=== PATIENT | female | born 1960 | race Caucasian/White ===

== ENCOUNTER 2020-02-11 20:29 | Emergency (ER) | payer SELFPAY ==
[2020-02-11 20:34] VITALS: BP 164/77; PULSE 96; RESP 16; TEMP 36.7; O2SAT 97
--- NOTE | 2020-02-11 20:43 | W.ED.GENAD ---
Discharge Plan Disposition Patient Disposition: HOME Condition: Good Discharge Details Chief Complaint: DentalOral Clinical Impression: Pain, dental Primary Care Provider: None,None ED Provider: Godwin Pacsal Home Meds and New Rx's Prescriptions: New clindamycin HCl 150 mg capsule 450 mg PO TID 7 Days Qty: 63 RF: 0 Discontinued ibuprofen [Advil] 200 MG tablet 600 mg PO Q6H RF: 0 Discharge Instructions Instructions: Toothache (ED) Additional Instructions: At this time you do not have an abscess that needs to be drained, but there is a mild infection. Please take the clindamycin 450 mg 3 times daily. Please make sure to take this with a yogurt with live culture like activity to prevent any diarrhea. Please take 1000 mg of Tylenol every 6 hours if you tolerate this with no hives or itching, and take 800 mg of ibuprofen every 6 hours. If you notice any worsening of your symptoms, or any new symptoms such as vomiting, diarrhea, fever, chills, shortness of breath, chest pain, numbness, weakness, or fainting , please return immediately to the emergency department for reevaluation. Please follow up with your dentist at [facility] as soon as possible for reassessment and reevaluation. As always, it was a pleasure participating in your medical care today. Medical Decision Making This is a 59-year-old female with no significant past medical history who presents today for evaluation of right upper dental pain. She has history of having tooth removed in the past, she states that 4 to 5 days ago she was eating when 1 of her teeth got wrenched in the right upper dental area over tooth 5. Patient denies any fever chills but does admit to mild swelling in the right upper facial region. She denies any other complaints at this time. She was recommended by her dentist to come in to be checked out. She has been taking ibuprofen. She does have follow-up shortly with her dentist. Exam demonstrates a slightly loose tooth #5, minimal swelling of the face, but no periapical swelling to suggest periapical abscess. No other signs of airway compromise, or swelling in the mouth. No other abnormalities. Patient is afebrile. We will give clindamycin secondary to her penicillin allergy, she states that she has tolerated acetaminophen before, will recommend continuing this and ibuprofen on an outpatient basis with close follow-up with her PCP. We will give her her first dose of clindamycin here. I have extensively reviewed the treatment plan and discharge instructions with the patient. I have addressed all patient concerns at this time. The patient was made aware of what symptoms to monitor for that would warrant a return to the emergency department. Discussed the plan with the patient, they demonstrate verbal understanding and agreement with our assessment and plan at this time. HPI General Date/Time Provider Initiated Documentation: 02/11/20 20:33. HPI Narrative: This is a 59-year-old female with no significant past medical history who presents today for evaluation of right upper dental pain. She has history of having tooth removed in the past, she states that 4 to 5 days ago she was eating when 1 of her teeth got wrenched in the right upper dental area over tooth 5. Patient denies any fever chills but does admit to mild swelling in the right upper facial region. She denies any other complaints at this time. She was recommended by her dentist to come in to be checked out. She has been taking ibuprofen. She does have follow-up shortly with her dentist. Related Data Home Medications Medication Instructions Recorded Confirmed clindamycin HCl 450 mg PO TID 7 Days #63 cap 02/11/20 Previous Rx's Medication Instructions Recorded clindamycin HCl 450 mg PO TID 7 Days #63 cap 02/11/20 Allergies Allergy/AdvReac Type Severity Reaction Status Date / Time acetaminophen Allergy Hives Unverified 02/11/20 20:42 Penicillins Allergy Hives Unverified 02/11/20 20:42 General Stated Complaint: DentalOral RENEE: 4 Review of Systems All systems reviewed & are unremarkable except as noted in HPI and below [facility] Social History Smoking/Tobacco Use Status: Current every day Alcohol Intake: current Alcohol Intake frequency: 0-2 drinks per day Drug use: Never Substance use type: does not use Do you feel safe at home: Yes Do you feel safe in your relationship?: Yes Exam Narrative Exam Narrative: 1.Const: Well-nourished, Well-developed, appearing stated age 2.Eyes: PERRL, no conjunctival injection, and symmetrical lids. 3.ENT: Atraumatic external nose and ears. Moist MM. Neck: Symmetric, trachea midline, No thyromegaly. Tooth 5 is sore to the touch, no periapical abscess or swelling of the gingiva. It is mildly loose. Notably minimal right-sided facial swelling. No fluctuance. No drainage. 4.CVS: +S1/S2, No murmurs or gallops. Peripheral pulses 2+ and equal in all extremities. Brisk capillary refill in all extremities. 5.RESP: Unlabored respiratory effort. Clear to auscultation bilaterally. No wheezes rales or rhonchi 6.GI: Soft, Nontender/Nondistended, No hepatosplenomegaly. No guarding or rebound. 7.MSK: Normocephalic/Atraumatic, Extremities w/o deformity or ttp No cyanosis or clubbing, Normal movement of all extremities 8.Skin: Warm, Dry. No rashes or lesions. 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 Sensation grossly intact, no focal neurologic deficits. 10.Psych: (AAO) x3. Appropriate mood and affect Course Vital Signs Vital signs: Vital Signs Temperature 36.7 C 02/11/20 20:34 Pulse 96 H 02/11/20 20:34 Respiratory Rate 16 02/11/20 20:34 Blood Pressure 164/77 H 02/11/20 20:34 Pulse Oximetry 97 02/11/20 20:34 Temperature 36.7 C 02/11/20 20:34 Temperature Source Skin 02/11/20 20:34 Pulse 96 H 02/11/20 20:34 Respiratory Rate 16 02/11/20 20:34 Respiratory Effort 02/11/20 20:37 Blood Pressure 164/77 H 02/11/20 20:34 Blood Pressure Position Sitting 02/11/20 20:34 Pulse Oximetry 97 02/11/20 20:34 Oxygen Delivery Method Room Air 02/11/20 20:34 Oxygen Flow Rate 0 02/11/20 20:34
[2020-02-11] MEDS: Clindamycin 150 MG CAP, 12 CAPS/BTL 450 MG PO (20:47)
== END 2020-02-11 20:50 | disposition home or self-care (01) ==
LOC: ER 21:04
PROVIDERS: Emergency Provider Student in an Organized Health Care Education/Training Program
DX: R68.84 Jaw pain (principal); K04.7 Periapical abscess without sinus; R22.0 Localized swelling, mass and lump, head
CPT/HCPCS: 99283

== ENCOUNTER 2022-05-01 03:04 | Outpatient (CLI) | payer BC, SELFPAY ==
[2022-05-01 10:58] LABS: Hemoglobin A1C 5.5 % (<5.7)
[2022-05-01 11:11] LABS: ALT 34 U/L (14-59); AST 33 U/L (15-37); Alkaline Phosphatase 67 U/L (46-116); Anion Gap 7.4 mmol/L (3-11); BUN 23 mg/dL (7-18); Bilirubin, Total 0.4 mg/dL (0.2-1.0); CO2 27.6 mmol/L (21.0-32.0); CREATININE 1.1 mg/dL (0.55-1.02); Calcium 9.3 mg/dL (8.5-10.1); Calculated LDL 172 mg/dL (<100); Chloride 104 mmol/L (98-107); Cholesterol 288 mg/dL (<200); Estimated GFR 56.81 (mL/min/1.73m2); Glucose 101 mg/dL (74-106); HDL Cholesterol 101 mg/dL (40-60); Potassium 4.7 mmol/L (3.5-5.1); Sodium 139 mmol/L (136-145); TSH (W/Ref FT4) 3.38 uIU/mL (0.36-3.74); Total Protein 7.4 g/dL (6.4-8.2); Triglyceride 76 mg/dL (<150)
== END 2022-05-01 03:05 | disposition home or self-care (01) ==
LOC: LOS 03:04
PROVIDERS: PCP Nurse Practitioner Family; Visit Provider Nurse Practitioner Family
DX: Z00.00 Encounter for general adult medical examination without abnormal findings (principal)
CPT/HCPCS: 36415; 80053; 80061; 83036; 84443

== ENCOUNTER 2022-07-03 08:47 | Day surgery (SDC) | payer OTHER, SELFPAY ==
[2022-07-03 09:45] VITALS: BP 143/85; PULSE 80; RESP 16; TEMP 36.9; O2SAT 100
[2022-07-03] MEDS: Tropicam./Phenyleph. (1/2.5%) 5 ML BTL OS ×3 (09:51→10:03)
--- NOTE | 2022-07-03 09:55 | W.ANESPRE ---
General Info Date of Service Date Performed: 07/03/22 Height: 5 ft 2 in Weight: 64.4 kg Body Mass Index (BMI): 25.9 Surgical Procedure: Operation Date: 07/03/22 10:40 Proposed Procedure Side Surgeon p Cataract Extraction with IOL Implant Left Osvaldo Alexandra MD Meds Allergies and Home Medications Allergies Allergy/AdvReac Type Severity Reaction Status Date / Time Penicillins Allergy Intermediate Hives Unverified 07/03/22 09:53 acetaminophen Allergy Mild Hives Unverified 07/03/22 09:53 Home Medication Medication Instructions Recorded famotidine 10 mg tablet (Pepcid AC) 10 mg PO DAILY PRN 04/26/22 Current Visit Medications: Current Medications Generic Name Dose Route Start Last Admin Trade Name Freq PRN Reason Stop Dose Admin Miscellaneous Medication 0 ml 07/03/22 06:00 Prednisolone 1%, Moxifloxacin 0.5%, Nepafenac 0.1% 5ml Btl OS DIRECTED ERLINDA Miscellaneous Medication 0 ml 07/03/22 06:00 07/03/22 09:51 Tropicam./Phenyleph. (1/2.5%) 5 Ml Btl OS 1 drp DIRECTED ERLINDA Administration Tetracaine HCl 0 ml 07/03/22 06:00 Tetracaine 0.5% 4 Ml Btl OS DIRECTED ERLINDA PFSH Active Problems Active Problems: Problem Status Onset Code Cortical cataract of left eye H26.9 Nuclear sclerotic cataract of left eye H25.12 Hyperlipidemia E78.5 Cigarette smoker F17.210 Medical History Medical History Endometriosis Surgical History Surgical History S/P hysterectomy with oophorectomy S/P ORIF (open reduction internal fixation) fracture Left foot Tobacco Smoking/Tobacco Use Status: Current every day Tobacco Type: cigarettes Smoking cigarettes per day: 3 Years smoked: 40 Smoking pack-years: 6.00 Passive smoking exposure: Yes Second hand exposure: Yes Alcohol Alcohol Intake: current Alcohol intake frequency: a few times a week Alcohol type: hard liquor Substance Use Substance use: Never Substance use type: does not use Vital Signs and Lab Results Vital Signs Most Recent Vital Signs in EMR: Most Recent Vital Signs Temp Pulse Resp BP Pulse Ox 36.9 C 80 16 143/85 H 100 07/03/22 09:45 07/03/22 09:45 07/03/22 09:45 07/03/22 09:45 07/03/22 09:45 Lab Results Blood Type / Crossmatch: No Data to Display Complete Blood Count: No Data to Display Complete Metabolic Panel: No Data to Display Liver Function Panel: No Data to Display Coagulation Panel: No Data to Display Cardiac Panel: No Data to Display Arterial Blood Gas: No Data to Display Venous Blood Gas: No Data to Display Pancreas Panel: No Data to Display Thyroid Panel: No Data to Display Infectious Disease: No Data to Display Blood Cultures: No Data to Display Toxicology Panel: No Data to Display Anesthesia Assessment and Plan Anesthesia History Personal History: No History of Anesthesia Complications Family History: No Family History of Anesthesia Complications Exercise Tolerance Exercise Tolerance: Metabolic Equivalents>4 Pertinent Negatives Pertinent Negatives: No Symptoms of GERD, No Major Cardiovascular Symptoms or Complaints and No Major Pulmonary Symptoms or Complaints Cardiac & Pulmonary Exam Cardiac Exam: Normal S1/S2 Heart Sounds Pulmonary Exam: Clear Bilateral Breath Sounds Implantable Cardiac Device Does patient have a Pacemaker or an ICD?: No Airway Exam Known Difficult Airway: No Mallampati Class: 1 Mouth Opening: Normal (> 3cm) Thyromental Distance: Greater than 3 cm Neck Range of Motion: Full ROM Neck Circumference: Normal Teeth Condition: Removable Dentures/Plates Lower ASA Classification ASA Score: ASA 2 Emergency Case?: No NPO Status NPO Status: NPO Clears >2 hours, Solids >8 hours Anesthesia Plan Resuscitation Status: Full Code Anesthesia Technique: MAC Anesthesia Airway Planned: Natural Airway Monitors Used: Standard Monitors
[2022-07-03 10:25] VITALS: BMI 25.9
[2022-07-03] MEDS: Tetracaine 0.5% 4 ML BTL OS (10:52)
[2022-07-03] MEDS: Balanced Salt Soln.-PLUS 500 ML BAG (10:53)
[2022-07-03] MEDS: Duovisc Viscoelastic System EACH 1 EACH (10:54)
[2022-07-03] MEDS: Lidocaine 1% Pres-Free 5 ML VIAL (10:55)
[2022-07-03] MEDS: Lidocaine 2% Jelly 6 ML SYR (10:56)
[2022-07-03] MEDS: Povidone-Iodine Ophth 30 ML BTL (10:58)
[2022-07-03 11:04] VITALS: BP 121/82; PULSE 71; RESP 16; TEMP 36.2; O2SAT 97
--- NOTE | 2022-07-03 11:05 | W.PM.DSUDISC ---
Date of service: 07/03/22 Time of Service: 11:05 Discharge Plan Disposition Patient Disposition: Home Discharge Details Attending Provider: Osvaldo Alexandra Primary Care Provider: Sophie Ramos Home Meds and New Rx's Prescriptions: No Action famotidine [Pepcid AC] 10 mg tablet 10 mg PO DAILY PRN Discharge Instructions Stand Alone Forms: Post-op Topical Cataract, [place] (DSU) Discharge Orders Discharge Orders: Discharge Order (Routine); Ordered 07/03/22 Ordered By: Osvaldo Alexandra DS: Diagnosis Discharge Diagnosis (1) Cortical cataract of left eye: Status: Resolved (2) Nuclear sclerotic cataract of left eye: Status: Resolved
--- NOTE | 2022-07-03 11:06 | ROE_ITS ---
Date of service: 07/03/22 Time of Service: 11:06 Operative Note Operative Note DATE OF PROCEDURE: 07/03/22 PRE-OP DIAGNOSIS: Nuclear/cortical cataract, left eye POST-OP DIAGNOSIS: same PROCEDURE: Cataract extraction using phacoemulsification with intraocular lens implant, left eye SURGEON: Osvaldo Alexandra ANESTHESIA TYPE: Local By Surgeon and MAC Refer to Anesthesia Record PATHOLOGY: none sent COMPLICATIONS: None Patient was transported to: same day Patient's condition: stable Implants: Stan and Stan / [employer] Tecnis [id number] Indications: Progressive decreased vision due to cataract, left eye Procedure Description: CATARACT SURGERY OPERATIVE REPORT PREOPERATIVE DIAGNOSIS: 1. Nuclear/cortical cataract, left eye POSTOPERATIVE DIAGNOSIS: Same OPERATION: 1. Cataract extraction using phacoemulsification with posterior chamber intraocular lens implant, left eye. IOL: IOL Child Caregiver Private Home/Model: Stan & Stan / INGRID Tecnis [id number] IOL Power: + 17.0 diopters IOL Serial Number: [id number] Optic Diameter: 6.0 mm Haptic/Overall Diameter: 13.0 mm PHACO INFO: RossStardollon Vision System with OZil and Active Fluidics Cumulative Dispersed Energy (CDE): 7.7 seconds SURGEON: Osvaldo Alexandra MD, MAITE ANESTHESIA: Monitored A [facility] (MAC), with local sub-tenon's anesthetic infiltration COMPLICATIONS: None SPECIMENS: None INDICATIONS FOR PROCEDURE: The patient is a 62-year-old lady with history of diminished visual acuity in her left eye secondary to the development of significant nuclear/cortical cataract. She is significantly symptomatic that she desires cataract surgery and attempt to improve and maximize her vision. The option of cataract surgery was offered to the patient and she wished to proceed. PROCEDURE: The correct surgical eye was identified and marked as the left eye and the pupil was dilated in the preoperative area using mydriatics and cycloplegics. The dilated pupil size was 6.5 mm. The patient elected to proceed without oral sedation. The patient was brought to the operating room where cardiopulmonary monitoring was instituted and surgical time-out was performed, confirming the correct operative eye and IOL power. Topical anesthesia was administered and ophthalmic povidone-iodine 5% was instilled into the conjunctival fornices. Lidocaine gel was applied to the cornea and the eli-ocular area was prepped with Betadine 10% solution and draped in the usual sterile fashion for intraocular surgery, including an aperture drape. A Tegaderm transparent film dressing was cut in half and used to cover the lashes and lid margins. Care was taken to sequester the lashes and lid margins under the Tegaderm dressing. A lid speculum was placed between the lids of the operative eye and the Ross LuxOR Revalia operating microscope was maneuvered into position. Elizabeth scissors were then used to make a conjunctival buttonhole approximately 6mm posterior to the limbus in the inferonasal quadrant. Blunt dissection was carried out to expose bare sclera, and a blunt-tipped sub-tenon?s anesthesia cannula was introduced and passed posteriorly along the globe where non- preserved plain lidocaine was injected into posterior sub-Tenon?s space. A sideport knife was used to make a paracentesis port superiorly/superiortemporally. Intraocular phenylephrine/lidocaine was injected int the anterior chamber.. The anterior chamber was filled with viscoelastic. A keratome knife was used to construct a 2-plane near-clear corneal tunnel extending 2.0mm into clear cornea temporally. A flap was raised on the anterior capsule and capsulorhexis forceps were used to complete a continuous curvilinear capsulorhexis of 5.5 mm. Balanced salt solution was then used to perform cortical cleaving hydrodissection and nuclear hydrodelineation until the lens could be freely rotated within the capsular bag. The lens nucleus was then disassembled and removed within the capsular bag and iris plane using phacoemulsification. Residual cortical material was removed using the 45-degree angled silicone I/A tip with 0.3mm port. The posterior capsule was carefully polished to remove as much residual lens epithelial cells as safely possible. The capsular bag was then inflated and the anterior chamber deepened with viscoelastic. The lens implant described above was inserted into the capsular bag using the INGRID Ney Injector. A Kuglen hook was used to dial the IOL into position. Residual viscoelastic was then removed first from posterior to the IOL, then from the anterior chamber using the I/A handpiece. The lens implant was noted to center nicely within the capsular bag. The incisions were stromally hydrated, and the anterior chamber was reformed using BSS. Then 0.5cc of moxifloxacin 1.0mg/ml were injected into the capsular bag and anterior chamber. The incisions were checked with a Weck spear and found to be secure. Several drops of ophthalmic povidone-iodine 5% were then applied to the eye followed by two drops of Imprimis combination prednisolone/moxifloxacin/nepafenac solution. The drapes were removed and a clear plastic protective eye shield was placed over the eye. The patient was then returned to Same Day Surgery in stable condition.
--- NOTE | 2022-07-03 11:09 | W.ANESPOSTOP ---
Postoperative Evaluation Date, Time and Location Date Performed: 07/03/22 Time Performed: 11:09 Patient Location: Day Surgery Unit Vital Signs Most Recent Imported Vital Signs: Most Recent Vital Signs Temp Pulse Resp BP Pulse Ox 36.9 C 80 16 143/85 H 100 07/03/22 09:45 07/03/22 09:45 07/03/22 09:45 07/03/22 09:45 07/03/22 09:45 Pain Score Most Recent Pain Score: Most Recent Pain Score Pain Level 0 07/03/22 09:45 Assessment Mental Status: Awake (Alert & Oriented to Patient Baseline) Airway and Respiratory Function: Patent airway with normal (patient baseline) respiratory exam Cardiovascular Function: Hemodynamically Stable Hydration Status: Adequately Hydrated Nausea & Vomiting: No Nausea or Vomiting Pain: Pt. Denies Any Pain Peripheral Nerve Block: Patient did not receive a nerve block
== END 2022-07-03 11:23 | disposition home or self-care (01) ==
LOC: SUR 08:49
PROVIDERS: PCP Nurse Practitioner Family; Visit Provider Ophthalmology
PROC: (CPT 66984; principal; 2022-07-03 10:30)
DX: H25.12 Age-related nuclear cataract, left eye (principal); F17.210 Nicotine dependence, cigarettes, uncomplicated; E78.5 Hyperlipidemia, unspecified
CPT/HCPCS: 66984; V2632

== ENCOUNTER 2022-07-17 08:30 | Day surgery (SDC) | payer OTHER, SELFPAY ==
[2022-07-17 09:22] VITALS: BP 132/79; PULSE 65; RESP 16; TEMP 36.3; O2SAT 99
[2022-07-17] MEDS: Tropicam./Phenyleph. (1/2.5%) 5 ML BTL OD ×3 (09:35→09:43)
--- NOTE | 2022-07-17 10:34 | W.ANESPRE ---
General Info Date of Service Date Performed: 07/17/22 Height: 5 ft 2 in Weight: 65.4 kg Body Mass Index (BMI): 26.4 Surgical Procedure: Operation Date: 07/17/22 10:40 Proposed Procedure Side Surgeon p Cataract Extraction with IOL Implant Right Osvaldo Alexandra MD Meds Allergies and Home Medications Allergies Allergy/AdvReac Type Severity Reaction Status Date / Time Penicillins Allergy Intermediate Hives Unverified 07/17/22 09:33 acetaminophen Allergy Mild Hives Unverified 07/17/22 09:33 Home Medication Medication Instructions Recorded famotidine 10 mg tablet (Pepcid AC) 10 mg PO DAILY PRN 04/26/22 Current Visit Medications: Current Medications Generic Name Dose Route Start Last Admin Trade Name Freq PRN Reason Stop Dose Admin Miscellaneous Medication 0 ml 07/17/22 06:00 Prednisolone 1%, Moxifloxacin 0.5%, Nepafenac 0.1% 5ml Btl OD DIRECTED ERLINDA Miscellaneous Medication 0 ml 07/17/22 06:00 07/17/22 09:43 Tropicam./Phenyleph. (1/2.5%) 5 Ml Btl OD 1 drp DIRECTED ERLINDA Administration Tetracaine HCl 0 ml 07/17/22 06:00 Tetracaine 0.5% 4 Ml Btl OD DIRECTED ERLINDA PFSH Active Problems Active Problems: Problem Status Onset Code Cigarette smoker F17.210 Hyperlipidemia E78.5 Nuclear sclerotic cataract of left eye H25.12 Cortical cataract of left eye H26.9 Medical History Medical History (Updated 07/17/22 @ 10:47 by Osvaldo Alexandra MD) Endometriosis Surgical History Surgical History (Updated 07/17/22 @ 09:32 by Sindhu Hicks) History of cataract surgery S/P hysterectomy with oophorectomy S/P ORIF (open reduction internal fixation) fracture Left foot Tobacco Smoking/Tobacco Use Status: Current every day Tobacco Type: cigarettes Smoking cigarettes per day: 3 Years smoked: 40 Smoking pack-years: 6.00 Passive smoking exposure: Yes Second hand exposure: Yes Alcohol Alcohol Intake: current Alcohol intake frequency: a few times a week Alcohol type: hard liquor Substance Use Substance use: Never Substance use type: does not use Vital Signs and Lab Results Vital Signs Most Recent Vital Signs in EMR: Most Recent Vital Signs Temp Pulse Resp BP Pulse Ox 36.3 C L 65 16 132/79 99 07/17/22 09:22 07/17/22 09:22 07/17/22 09:22 07/17/22 09:22 07/17/22 09:22 Lab Results Blood Type / Crossmatch: No Data to Display Complete Blood Count: No Data to Display Complete Metabolic Panel: No Data to Display Liver Function Panel: No Data to Display Coagulation Panel: No Data to Display Cardiac Panel: No Data to Display Arterial Blood Gas: No Data to Display Venous Blood Gas: No Data to Display Pancreas Panel: No Data to Display Thyroid Panel: No Data to Display Infectious Disease: No Data to Display Blood Cultures: No Data to Display Toxicology Panel: No Data to Display Anesthesia Assessment and Plan Anesthesia History Personal History: No History of Anesthesia Complications Family History: No Family History of Anesthesia Complications Exercise Tolerance Exercise Tolerance: Metabolic Equivalents>4 Pertinent Negatives Pertinent Negatives: No Symptoms of GERD, No Major Cardiovascular Symptoms or Complaints, No Major Pulmonary Symptoms or Complaints and No History of CVA/TIA Cardiac & Pulmonary Exam Cardiac Exam: Normal S1/S2 Heart Sounds Pulmonary Exam: Clear Bilateral Breath Sounds Implantable Cardiac Device Does patient have a Pacemaker or an ICD?: No Airway Exam Known Difficult Airway: No Mallampati Class: 1 Mouth Opening: Normal (> 3cm) Thyromental Distance: Greater than 3 cm Neck Range of Motion: Full ROM Neck Circumference: Normal Teeth Condition: Removable Dentures/Plates Lower ASA Classification ASA Score: ASA 3 Emergency Case?: No NPO Status NPO Status: NPO Clears >2 hours, Solids >8 hours Anesthesia Plan Resuscitation Status: Full Code Anesthesia Technique: MAC Anesthesia Airway Planned: Natural Airway Monitors Used: Standard Monitors
[2022-07-17 10:36] VITALS: BMI 26.4
[2022-07-17] MEDS: Balanced Salt Soln.-PLUS 500 ML BAG (11:07)
[2022-07-17] MEDS: Tetracaine 0.5% 4 ML BTL OD (11:07)
[2022-07-17] MEDS: Lidocaine 1% Pres-Free 5 ML VIAL (11:08)
[2022-07-17] MEDS: Duovisc Viscoelastic System EACH 1 EACH (11:08)
[2022-07-17] MEDS: Lidocaine 2% Jelly 6 ML SYR (11:09)
[2022-07-17] MEDS: Povidone-Iodine Ophth 30 ML BTL (11:10)
--- NOTE | 2022-07-17 11:23 | W.PM.DSUDISC ---
Date of service: 07/17/22 Time of Service: 11:23 Discharge Plan Disposition Patient Disposition: Home Discharge Details Attending Provider: Osvaldo Alexandra Primary Care Provider: Sophie Ramos Home Meds and New Rx's Prescriptions: No Action famotidine [Pepcid AC] 10 mg tablet 10 mg PO DAILY PRN Discharge Instructions Stand Alone Forms: Post-op Topical Cataract, [place] (DSU) Discharge Orders Discharge Orders: Discharge Order (Routine); Ordered 07/17/22 Ordered By: Osvaldo Alexandra DS: Diagnosis Discharge Diagnosis (1) Cortical cataract of right eye: Status: Resolved (2) Nuclear sclerotic cataract of right eye: Status: Resolved
--- NOTE | 2022-07-17 11:24 | ROE_ITS ---
Date of service: 07/17/22 Time of Service: 11:24 Operative Note Operative Note DATE OF PROCEDURE: 07/17/22 PRE-OP DIAGNOSIS: Nuclear/cortical cataract, right eye POST-OP DIAGNOSIS: same PROCEDURE: Cataract extraction using phacoemulsification with intraocular lens implant, right eye SURGEON: Osvaldo Alexandra ANESTHESIA TYPE: Local By Surgeon and MAC Refer to Anesthesia Record ESTIMATED BLOOD LOSS: 0 PATHOLOGY: none sent COMPLICATIONS: None Patient was transported to: same day Patient's condition: stable Implants: Stan & Stan/INGRID Tecnis [id number] Indications: Progressive visual loss due to cataract, right eye Procedure Description: CATARACT SURGERY OPERATIVE REPORT PREOPERATIVE DIAGNOSIS: 1. Nuclear/cortical cataract, right eye POSTOPERATIVE DIAGNOSIS: Same OPERATION: 1. Cataract extraction using phacoemulsification with posterior chamber intraocular lens implant, right eye. IOL: IOL Pediatric Clinical Nurse Specialist/Model: Stan & Stan / INGRID Tecnis [id number] IOL Power: + 17.0 diopters IOL Serial Number: [id number] Optic Diameter: 6.0mm Haptic/Overall Diameter: 13.0mm PHACO INFO: Ross [employer] Information Technologyurion Vision System with OZil and Active Fluidics Cumulative Dispersed Energy (CDE): 7.79 seconds SURGEON: Osvaldo Alexandra MD, MAITE ANESTHESIA: Monitored Anesthesia Care (MAC), with local sub-tenon's anesthetic infiltration COMPLICATIONS: None SPECIMENS: None INDICATIONS FOR PROCEDURE: Patient is a 62-year-old lady with history of diminished visual acuity in her left eye secondary to the development of significant nuclear and cortical cataract. She has already undergone cataract surgery in the left eye and is doing well postoperatively. She now presents for cataract surgery in the right eye. PROCEDURE: The correct surgical eye was identified and marked as the right eye and the pupil was dilated in the preoperative area using mydriatics and cycloplegics. The dilated pupil size was 7.0 mm. The patient elected to proceed without oral sedation. The patient was brought to the operating room where cardiopulmonary monitoring was instituted and surgical time-out was performed, confirming the correct operative eye and IOL power. Topical anesthesia was administered and ophthalmic povidone-iodine 5% was instilled into the conjunctival fornices. Lidocaine gel was applied to the cornea and the eli-ocular area was prepped with Betadine 10% solution and draped in the usual sterile fashion for intraocular surgery, including an aperture drape. A Tegaderm transparent film dressing was cut in half and used to cover the lashes and lid margins. Care was taken to sequester the lashes and lid margins under the Tegaderm dressing. A lid speculum was placed between the lids of the operative eye and the Ross LuxOR Revalia operating microscope was maneuvered into position. Elizabeth scissors were then used to make a conjunctival buttonhole approximately 6mm posterior to the limbus in the inferonasal quadrant. Blunt dissection was carried out to expose bare sclera, and a blunt-tipped sub-tenon?s anesthesia cannula was introduced and passed posteriorly along the globe where non- preserved plain lidocaine was injected into posterior sub-Tenon?s space. A sideport knife was used to make a paracentesis port inferotemporally. Intraocular phenylephrine/lidocaine was injected into the anterior chamber. The anterior chamber was filled with viscoelastic. A keratome knife was used to construct a 2-plane near-clear corneal tunnel extending 2.0mm into clear cornea superiortemporally. A flap was raised on the anterior capsule and capsulorhexis forceps were used to complete a continuous curvilinear capsulorhexis of 5.0 mm. Balanced salt solution was then used to perform cortical cleaving hydrodissection and nuclear hydrodelineation until the lens could be freely rotated within the capsular bag. The lens nucleus was then disassembled and removed within the capsular bag and iris plane using phacoemulsification. Residual cortical material was removed using the I/A handpiece. The posterior capsule was carefully polished to remove as much residual lens epithelial cells as safely possible. The capsular bag was then inflated and the anterior chamber deepened with viscoelastic. The lens implant described above was inserted into the capsular bag using the INGRID Alfred Station Injector. A Kuglen hook was used to dial the IOL into position. Residual viscoelastic was then removed first from posterior to the IOL, then from the anterior chamber using the I/A handpiece. The lens implant was noted to center nicely within the capsular bag. The incisions were stromally hydrated, and the anterior chamber was reformed using BSS. Then 0.5cc of moxifloxacin 1.0mg/ml were injected into the capsular bag and anterior chamber. The incisions were checked with a Weck spear and found to be secure. Several drops of ophthalmic povidone-iodine 5% were then applied to the eye followed by two drops of Imprimis combination prednisolone/moxifloxacin/nepafenac solution. The drapes were removed and a clear plastic protective eye shield was placed over the eye. The patient was then returned to [facility] Day Surgery in stable condition.
[2022-07-17 11:25] VITALS: BP 127/90; PULSE 67; RESP 16; TEMP 36.2; O2SAT 100
--- NOTE | 2022-07-17 12:49 | W.ANESPOSTOP ---
Postoperative Evaluation Date, Time and Location Date Performed: 07/17/22 Time Performed: 11:25 Patient Location: Day Surgery Unit Vital Signs Most Recent Imported Vital Signs: Most Recent Vital Signs Temp Pulse Resp BP Pulse Ox 36.2 C L 67 16 127/90 100 07/17/22 11:25 07/17/22 11:25 07/17/22 11:25 07/17/22 11:25 07/17/22 11:25 Pain Score Most Recent Pain Score: Most Recent Pain Score Pain Level 0 07/17/22 11:25 Assessment Mental Status: Awake (Alert & Oriented to Patient Baseline) Airway and Respiratory Function: Patent airway with normal (patient baseline) respiratory exam Cardiovascular Function: Hemodynamically Stable Hydration Status: Adequately Hydrated Nausea & Vomiting: No Nausea or Vomiting Pain: Pt. Denies Any Pain Peripheral Nerve Block: Other (Local by Dr. Alexandra)
== END 2022-07-17 11:36 | disposition home or self-care (01) ==
LOC: SUR 08:31
PROVIDERS: PCP Nurse Practitioner Family; Visit Provider Ophthalmology
PROC: (CPT 66984; principal; 2022-07-17 10:30)
DX: H25.11 Age-related nuclear cataract, right eye (principal)
CPT/HCPCS: 66984; V2632

== ENCOUNTER 2022-11-14 14:48 | Outpatient (CLI) | payer OTHER, SELFPAY ==
[2022-11-14 11:15] LABS: D-Dimer > 7500 ng/mlFEU (<500)
== END 2022-11-14 14:49 | disposition home or self-care (01) ==
LOC: LBO 14:48
PROVIDERS: PCP Nurse Practitioner Family; Visit Provider Emergency Medicine
DX: M79.661 Pain in right lower leg (principal); M25.561 Pain in right knee; R22.41 Localized swelling, mass and lump, right lower limb
CPT/HCPCS: 36415; 85379

== ENCOUNTER 2022-11-21 12:16 | Observation (INO) | payer OTHER, SELFPAY ==
[2022-11-21] VITALS (15 sets, daily range): BP systolic 118–145; BP diastolic 59–79; PULSE 64–94; RESP 9–20; TEMP 36.1–37.2; O2SAT 96–98
--- NOTE | 2022-11-21 13:19 | W.ED.GENAD ---
Discharge Plan Disposition Patient Disposition: Admit to [facility] Discharge Details Clinical Impression: Weakness, Infarction of spleen, Right lower lobe lung mass, Pulmonary embolism, bilateral, Myocardial injury Admit Date/Time: 11/21/22 16:11 Admit Provider: Andrea Ahn Attending Provider: Andrea Ahn Primary Care Provider: Sophie Ramos ED Provider: Steven Soto Discharge Data Discharge Date/Time-TO BE ENTERED AT DEPARTURE: 11/21/22 17:11 Medical Decision Making This is an overall very well-appearing normothermic and not tachycardic 62-year-old female who is 1 week status post initiation of apixaban now with dizziness decreased energy left upper quadrant pain and headache concerning for the possibility of bleeding. Given patient's left upper quadrant tenderness and recent initiation of anticoagulation it is certainly possible that the patient could have a splenic arterial aneurysm. No rash to abdomen to suggest zoster. Not an alcoholic to suggest increased risk for pancreatitis. No history of trauma to suggest splenic rupture. Given left upper quadrant pain and history of DVT, PE is certainly possible so we will obtain a CTA chest to assess for PE. Given headache we will also add on a CT head. No dysuria nor frequency to suggest UTI. No black nor bloody stools so my suspicion is low for acute GI bleed. We will send a type and screen and also plan on obtaining a CBC to assess for acute blood loss anemia however the patient is neither hypotensive nor tachycardic so my suspicion is exceedingly low for acute blood loss anemia. No chest pain to suggest ACS. Right lower extremity warm well perfused so I am not concerned for any complications from the patient's appropriately treated right lower extremity DVT. 2:30 PM Basic metabolic panel with very mild hyperglycemia but no anion gap to suggest DKA. CBC with no anemia thrombocytopenia nor leukocytosis. 3:25 PM I spoke with radiology who noted that the patient had concerns for splenic and right renal infarcts. Given her recent embolic disease we will hold her overnight to have an echocardiogram performed. We will also obtain twelve-lead ECG to ensure that she does not have atrial fibrillation. No IV drug use to suggest increased risk for infective endocarditis. No known malignancy nor known history of antiphospholipid syndrome. No trauma to spleen to suggest splenic injury. No history of mononucleosis. I spoke with Dr. Berry from pulmonology who agreed with plan for hospitalization. She reviewed the patient's CT scan and was concerned for the possibility of pneumonia. We will treat with ceftriaxone and doxycycline. Not hypotensive nor tachycardic and I am not concerned for sepsis so I did not order a lactate. On her ECG she did have some ST segment depressions. No reported right heart strain on CT scan however I added on a troponin. We will reach out to the hospitalist with request for hospitalization. 4:08 PM I spoke with Dr. Luz who graciously accepted the patient for hospitalization. 4:30 PM Patient's troponin returned markedly elevated at 802 concerning for type II NSTEMI secondary to demand. Will provide patient with 324 mg of aspirin and consult cardiology at [facility]. 6:[address] Griffith from [facility]. He advised echocardiogram with bubble study. He would not treat with aspirin nor clopidogrel nor heparin. He also advised twice daily enoxaparin at 1 mg/kg. Dr. Griffith is a wood bucker and advised that he would be happy to take the patient and transfer if this would be helpful for the hospitalist team. We will reach out to the hospitalist team. Possibility of multiple infarcts raises the question of hypercoagulable state. 8:23 PM I had the hospitalist paged to pass along recommendation from the cardiology team at [facility]. 11/23 Late charting due to patient care. I hospitalized the pt at [facility] but subsequently the hospitalist team transferred her to [facility]. HPI General Date/Time Provider Initiated Documentation: 11/21/22 13:19. HPI Narrative: This is a 62-year-old female who has recently quit smoking and been started on apixaban in the setting of a right lower extremity DVT now with generalized weakness dizziness loss of appetite and left upper quadrant pain and headache. Patient reports that she started apixaban in the setting of right lower extremity DVT 1 week ago. She received her loading dose. She has had increased weakness dizziness and some left upper quadrant pain. She has not taken any falls on her abdomen. She also endorses generalized headache. She denies black or bloody stools. She used to drink 1 drink per day but has not had anything to drink in the past week. She denies history of withdrawal. She denies any fevers vomiting and diarrhea. She has had a remote prior hysterectomy with oophorectomy. No reported rash to abdomen. Related Data Home Medications Medication Instructions Recorded Confirmed famotidine 10 mg tablet (Pepcid AC) 10 mg PO DAILY PRN 04/26/22 11/21/22 apixaban 5 mg (74 tabs) tablets in 5 mg PO ONCE #74 dose pk 11/14/22 11/21/22 a dose pack Previous Rx's Medication Instructions Recorded apixaban 5 mg (74 tabs) tablets in 5 mg PO ONCE #74 dose pk 11/14/22 a dose pack Allergies Allergy/AdvReac Type Severity Reaction Status Date / Time Penicillins Allergy Intermediate Hives Unverified 11/21/22 16:01 acetaminophen Allergy Mild Hives Unverified 11/21/22 16:01 General Stated Complaint: GenMedical RENEE: 3 PFSH All Active Problems (Updated 11/21/22 @ 20:09 by Andrea Ahn MD) Elevated troponin I level (Acute) Lung consolidation (Acute) Renal infarct (Acute) Weakness (Acute) Infarction of spleen (Acute) Right lower lobe lung mass (Acute) Pulmonary embolism, bilateral (Acute) Myocardial injury (Acute) Right leg DVT (Acute ~10/2022) Cigarette smoker (Chronic) Hyperlipidemia (Chronic) Medical History Endometriosis Surgical History History of cataract surgery S/P hysterectomy with oophorectomy S/P ORIF (open reduction internal fixation) fracture Left foot Family History Mother , 76 of lung cancer Lung cancer Father , 75 Diabetes Metastatic cancer Sister No problems noted. Brother Alcohol use disorder Brother Alcohol use disorder Maternal Grandfather No problems noted. Maternal Grandmother Heart disease Paternal Grandfather No problems noted. Paternal Grandmother No problems noted. Social History Smoking/Tobacco Use Status: Current every day Tobacco Type: cigarettes Years smoked: 40 Tobacco: How many years used: 40 Quit status: not considering quitting Second Hand Exposure: Yes Smoking risk assessment performed?: Yes Alcohol Intake: current Alcohol Intake frequency: a few times a week Alcohol type: hard liquor Drug use: Never Substance use type: does not use Caregiver/Support person: No Household members: spouse Housing: house Communication Needs: None Pets and animals: Yes Pets and animals: cat(s) Sexually active: Yes Do you think of yourself as: straight/heterosexual Current gender identity: female What is your relationship status?: How often do you talk on the phone with friends or family?: three or more times per week How often do you get together with friends or relatives?: once per week How often do you attend yazdanism or protestant services?: decline to answer Do you belong to any clubs or organized social groups?: no Panel score (0-1 are the most socially isolated patients): 2 What type of physical activity do you participate in: walking Frequency: daily Jennifer/Zoroastrian: No preference Special jennifer needs: No Seatbelt use: always Helmet use: Yes Drive intox 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 subway train driver: No Do you feel safe at home: Yes Do you feel safe in your relationship?: Yes Exam Narrative Exam Narrative: General: Well-appearing in no acute distress speaking in complete sentences. Head: Normocephalic, atraumatic. Eye: Pupils equal, round reactive to light. Extraocular eye movements intact. No conjunctival injection. No scleral icterus. Ear, nose, mouth, throat: Grossly normal inspection. Normal voice, handling secretions normally. Neck: Trachea midline. Cardiovascular: Well-perfused distal extremities. Regular rate and rhythm. Respiratory: Nonlabored respiration. Clear lungs bilaterally. Gastrointestinal: Nondistended abdomen. Minimal left upper quadrant tenderness. No rebound. No guarding. No rash to abdomen. Musculoskeletal: No edema. Moving all 4 extremities spontaneously. Right lower extremity warm well perfused. No significant calf tenderness. No palpable cords. Skin: Normal for age and race, grossly normal temperature and turgor. No acute rash. Neurologic: Alert and appropriate, no apparent acute deficits. Psychiatric: Mood and manner are appropriate. Grooming and personal hygiene are appropriate. Course Vital Signs Vital signs: Vital Signs Temperature 37.2 C 11/21/22 12:25 Pulse 86 11/21/22 12:25 Respiratory Rate 18 11/21/22 12:25 Blood Pressure 118/69 11/21/22 12:25 Pulse Oximetry 98 11/21/22 12:25 Temperature 37.2 C 11/21/22 12:25 Pulse 86 11/21/22 12:25 Respiratory Rate 18 11/21/22 12:25 Respiratory Effort Normal, Non-Labored 11/21/22 12:29 Blood Pressure 118/69 11/21/22 12:25 Blood Pressure Position Sitting 11/21/22 12:25 Pulse Oximetry 98 11/21/22 12:25 Oxygen Delivery Method Room Air 11/21/22 12:25 Oxygen Flow Rate 0 11/21/22 12:25
--- NOTE | 2022-11-21 13:30 | DI.CT_ITS ---
Exam(s) CT CHEST PE ABD PELVIS W EXAM: CT CHEST PE ABD PELVIS W CLINICAL HISTORY: Left upper quadrant tenderness. TECHNIQUE: Imaging Protocol: Axial CT angiography was performed with multi-slice acquisition and m ulti-planar and/or 3D reconstructions. CONTRAST MATERIAL: Intravenous: Omnipaque 350 Contrast volume:100 ml Oral: None COMPARISON: No exams were available for comparison FINDINGS: CHEST: PULMONARY ARTERIES: There are multiple bilateral intra arterial filling defects consistent with bilat eral pulmonary emboli. There are filling defects in all lobes of both lungs, more prominent on the r ight side. In addition, there are 2 pleural-based densities in the right lung. LUNGS: There are 2 pleural based densities in the right lung. The largest is in the superior segment of the right lower lobe. This measures 4 cm wide by 1.7 cm AP by 3 cm craniocaudal. It is somewhat spiculated. Also somewhat vascular. Although this may be pulmonary infarct there is a good possibl y that this may be neoplastic. There is no overlying rib destruction but the are enlarged ipsilatera l hilar lymph nodes and there are enlarged subcarinal lymph nodes. In addition, there is another sma ller but similar appearing pleural based density in the lateral aspect of the right upper lobe, measu ring approximately 1.4 by 1.5 cm. No pleural effusions on either side. Benign-appearing increased m arkings are noted in the lateral basal segment of the left lower lobe a. No other left lung findings. No findings in the trachea and mainstem bronchi. MEDIASTINUM: There is slightly low enlarged right-sided hilar lymph nodes. Also enlarged lymph nodes in the subcarinal region. Left hilum is unremarkable. There is no adenopathy in the anterior media stinal fat. CARDIAC: Heart size upper normal. No pericardial effusion. No significant shift of the interventric ular septumdiameter of the ascending thoracic aorta is within normal limits. Diameter of the aortic arch is within normal limits. There is no evidence of aortic dissection. OSSEOUS: No significant osseous lesions.. ABDOMEN: There is no ascites. LIVER: There are no concerning focal hepatic lesions. No dilated intrahepatic ducts. GALLBLADDER/BILIARY: No obvious gallbladder pathology. CBD is not dilated. PANCREAS: No evidence of pancreatic mass nor dilatation of the pancreatic duct. SPLEEN: Spleen size is normal. However, there is subcapsular area of hypodensity in the spleen suspi cious for splenic infarct. Measures 3 cm x 1.2 cm. There are no intraluminal thrombus within the ce liac and splenic arteries. Also the splenic and portal veins appear patent. ADRENALS: There are no significant adrenal masses. KIDNEYS:There is a benign cyst in the medial cortex of the left kidney which measures 3.3 by 3.0 cm. In addition, there is an area of abnormal hypodensity in the inferior pole of the left kidney and an other similar appearing area of transcortical abnormal hypodensity in the posterior cortex of the rig ht kidney. These findings in both kidneys may represent infarcts, particularly given what is seen in the spleen. Other considerations would be for focal infectious pathology in the kidneys. There are no calculi in either kidney. No hydronephrosis.. ABDOMINAL AORTA: Mildly atherosclerotic. No aneurysm. Celiac and SMA are patent. Inferior mesenter ic artery is also patent. Iliac arteries are patent and also not aneurysmal. Common femoral arterie s are patent and nonaneurysmal. LYMPH NODES: There is no retroperitoneal or para-aortic adenopathy. ABDOMINAL WALL/GI: No evidence of significant anterior abdominal wall hernia. No bowel obstruction. PELVIS: LYMPH NODES: There is no intrapelvic nor inguinal adenopathy. GI: No evidence of appendicitis.No evidence of sigmoid diverticulitis. URINARY BLADDER: No calculi nor masses evident REPRODUCTIVE: Uterus is surgically absent. Ovaries are not seen and presumed to be surgically absent . No abnormal adnexal masses. No free fluid in the pelvis. OSSEOUS: No significant osseous lesions. No fractures. No disc space narrowing but there is an element of mild degenerative anterolisthesis o f L4 upon L5 related to facet arthropathy. IMPRESSION: 1. Extensive bilateral pulmonary emboli involving all lobes of both lungs. 2. Two pleural based infiltrates in the right lung, the larger of the 2 being in the superior segment of the right lower lobe and measuring approximately 4 by 3 x 1.7 cm and exhibiting some spiculation. Although this may represent an area of infarct, also significant sedation here this being a primary malignancy of the lung. Also cannot exclude that this is a pleural based non cavitated infectious p rocess a smaller but similar appearing finding is seen in the lateral aspect of the right upper lobe. There is ipsilateral right hilar adenopathy and there appear to be slightly enlarged subcarinal lym ph nodes. The opposite-left hilum does not exhibit adenopathy. 3. There are findings suspicious for infarcts in the spleen in both kidneys. 4. No abnormal focal findings in the pancreas 5. Uterus is surgically absent. No abnormal adnexal findings. 6. No lytic nor blastic osseous lesions. Findings discussed by phone with ER physician. RADIATION DOSE DELIVERED: 1,067.19mGy.cm Total DLP DATA REPOSITORY: All CT scans at this facility are submitted to the National Radiology Data Registry (NRDR) Dose Index Registry (DIR) with the [employer] (A[employer]). RADIATION OPTIMIZATION: All CT scans at this facility use at least one of these dose optimization te chniques: automated exposure control; mA and/or kV adjustment per patient size (includes targeted exa ms where dose is matched to clinical indication); or iterative reconstruction.
--- NOTE | 2022-11-21 13:30 | DI.CT_ITS ---
Exam(s) CT HEAD WO EXAM: CT HEAD WO CLINICAL HISTORY: Headache status post recent apixaban. TECHNIQUE: Imaging Protocol: Axial computed tomography images with coronal and sagittal reformatted images were created and reviewed COMPARISON: CT HEAD AND CSPINE W/O CONTRAST from 03/05/2017 FINDINGS: There are no skull fractures. There is no fluid in the visualized paranasal sinuses. There is no evidence of intracranial hemorrhage, mass effect, or shift of midline structures. There are no extra-axial fluid collections. The ventricles are not enlarged or shifted and there is no blo od within the ventricular system nor within the basal cisterns. IMPRESSION: No acute intracranial findings on this noninfused CT scan of the brain. RADIATION DOSE DELIVERED: 647.26mGy.cm Total DLP DATA REPOSITORY: All CT scans at this facility are submitted to the National Radiology Data Registry (NRDR) Dose Index Registry (DIR) with the [employer] (ACR). RADIATION OPTIMIZATION: All CT scans at this facility use at least one of these dose optimization te chniques: automated exposure control; mA and/or kV adjustment per patient size (includes targeted exa ms where dose is matched to clinical indication); or iterative reconstruction.
[2022-11-21 14:02] LABS: Abs Immature Grans 0.07 10^3/uL (0.0-0.06); Absolute Basophil Count 0.07 10^3/uL (0.0-0.2); Absolute Eosinophil Count 0.23 10^3/uL (0.0-0.7); Absolute Lymphocyte Count 1.32 10^3/uL (1.2-3.4); Absolute Monocyte Count 1.07 10^3/uL (0.1-0.8); Absolute Neutrophil Count 8.73 10^3/uL (1.2-6.7); Basophils % 0.6; HGB 13.4 g/dL (11.2-15.7); Immature Grans % 0.6; Lymphocytes % 11.5; MCH 30.5 pg (27.0-33.0); MCHC 33.5 % (32.0-36.0); MCV 91 fL (80-95); MPV 9.6 fL (8.0-11.0); Monocytes % 9.3; Platelet Count 179 10^3/uL (130-400); RDW 11.6 % (11.7-14.6); RDW-SD 39.1 fL; WBC 11.49 10^3/uL (4.4-10.8)
[2022-11-21 14:13] LABS: Anion Gap 8.8 mmol/L (3-11); BUN 14 mg/dL (7-18); CO2 27.2 mmol/L (21.0-32.0); Calcium 9.3 mg/dL (8.5-10.1); Chloride 100 mmol/L (98-107); Glucose 107 mg/dL (74-106); Potassium 3.9 mmol/L (3.5-5.1); Sodium 136 mmol/L (136-145)
[2022-11-21] MEDS: Normal Saline Flush 10 ML SYR IVP (14:36)
[2022-11-21] MEDS: Normal Saline - Diluent 50 ML VIAL IJ (14:37)
[2022-11-21] MEDS: Omnipaque 350 MG/ML 500 ML BTL-Imaging package IJ (14:38)
--- NOTE | 2022-11-21 15:15 | RT.EKG_ITS ---
APPROVED REPORT Exam: Resting ECG Reason for Exam: Concern for A-fib Patient Location: E HR:73 bpm ECG Measurements Heart Rate 73 AXIS AK 157 P 61 QRSd 91 QRS 20 QT 402 T 30 QTc 444 Conclusion Sinus rhythm...normal P axis, V-rate 60- 99 Narrow complex normal sinus rhythm at a rate of 73. Normal axis. Intervals within normal limits. M ild ST segment depressions V4 and V5. Mild inferior ST segment depressions. No prior for comparison . QTc within normal limits.
--- NOTE | 2022-11-21 15:34 | PUCON_ITS ---
General Date Of Service Date of service: 11/21/22 Time of Service: 15:35 Reason for Consult: Subsegmental PE Pulmonary Infiltrate Assessment and Plan Assessment and plan (1) Infarction of spleen: Status: Acute (2) Renal infarct: Status: Acute (3) Lung consolidation: Status: Acute Assessment and plan: This is a 62 yo being admitted for bilateral PE, recent DVT diagnosis and pulmonary consolidations. She has previously refused cancer screening, however the only worrisome finding on her ricketts-CT are the two pulmonary consolidations. I do not have prior images to compare these to. The consolidations are not overly typical for a lung cancer, and again her smoking history is not overly impressive. That being said these do require follow up. I would recommend treating her for a pneumonia and I will arrange for follow up imaging as an outpatient. I did perform a POCUS at the bedside, however views were certainly limited. Her IVC was not enlarged and not plethoric. Her RV did not appear to be blown by my assessment, although her troponin did return elevated, so there certainly is the potential for RV strain here (of no hemodynamic consequence). I do recommend a bnp and lactate to further evaluate strain. Given the splenic and renal possible infarcts I agree with completing a bubble study with the echo tomorrow to ensure no PFO. I will do the pro-coagulant testing I am able to while she is on anti-coagulation. I do not believe this is A/C failure, rather the PE's may be old (7 days ago) or DVT could have dislodged; not necessarily a new clot. Without an identifiable cause, she will need to remain on lifelong anti-coagulation. Pulmonary consolidations - recommend 5-7 days of CAP coverage - I will repeat a chest CT in 2 months to assess for resolution Subsegmental PE - continue Eliquis on standard regimen - no clear RV strain on POCUS (limited views) but elevated troponin - bnp and lactate ordered - genetic testing started for pro-coagulant state - I will arrange a follow up with me as an outpatient in 3 months History of Present Illness Narrative: This is a 62 yo with approximately a 10-15 pack year smoking history (quit 1 week ago) who was diagnosed with a DVT 7 days ago and reports to the ED for lethargy and left upper quadrant pain. I was consulted for the RML and RLL consolidations seen. She was also found to have subsegmental PE's on her scan. As an outpatient she was started on Eliquis for DVT and she is due to cut her dose to 5mg bid tomorrow. She denies hemoptysis or chest pain and really only complains for fatigue and left upper quadrant pain. Upon questions she does endorse a cough (seems to be chronic) as well as a low grade fever recently. On my assessment of the CT scan, I suspect the consolidations are inflammatory/infectious in nature based on appearance. She does not have a shocking smoking history, but it is hard to ignore it all together from a lung cancer risk perspective. Her station 7 subcarinal lymph node is very enlarged and I do not have comparison films. Regarding the PE, she is already on Eliquis. She does not have a clear provoking event: no prolonged travel, no recent surgery, no estrogen medications. She no pedro pablo her brother and mother having a history of blood clots in the past. She has previously refused malignancy screening including: mammogram, CRC screening and PAP smears. Review of Systems All systems reviewed & are unremarkable except as noted in HPI and below PFSH All Active Problems (Updated 11/21/22 @ 18:13 by Lashonda Berry MD) Lung consolidation (Acute) Renal infarct (Acute) Weakness (Acute) Infarction of spleen (Acute) Right lower lobe lung mass (Acute) Pulmonary embolism, bilateral (Acute) Myocardial injury (Acute) Right leg DVT (Acute ~10/2022) Cigarette smoker (Chronic) Hyperlipidemia (Chronic) Medical History (Updated 11/21/22 @ 18:13 by Lashonda Berry MD) Endometriosis Surgical History (Updated 11/15/22 @ 05:10 by Sophie Ramos NP) History of cataract surgery S/P hysterectomy with oophorectomy S/P ORIF (open reduction internal fixation) fracture Left foot Family History Mother , 76 of lung cancer Lung cancer Father , 75 Diabetes Metastatic cancer Sister No problems noted. Brother Alcohol use disorder Brother Alcohol use disorder Maternal Grandfather No problems noted. Maternal Grandmother Heart disease Paternal Grandfather No problems noted. Paternal Grandmother No problems noted. Social History Smoking/Tobacco Use Status: Current every day Tobacco Type: cigarettes Years smoked: 40 Tobacco: How many years used: 40 Quit status: not considering quitting Second Hand Exposure: Yes Smoking risk assessment performed?: Yes Alcohol Intake: current Alcohol Intake frequency: a few times a week Alcohol type: hard liquor Drug use: Never Substance use type: does not use Caregiver/Support person: No Household members: spouse Housing: house Communication Needs: None Pets and animals: Yes Pets and animals: cat(s) Sexually active: Yes Do you think of yourself as: straight/heterosexual Current gender identity: female What is your relationship status?: How often do you talk on the phone with friends or family?: three or more times per week How often do you get together with friends or relatives?: once per week How often do you attend religious or zoroastrianism services?: decline to answer Do you belong to any clubs or organized social groups?: no Panel score (0-1 are the most socially isolated patients): 2 What type of physical activity do you participate in: walking Frequency: daily Jennifer/Mandaen: No preference Special jennifer needs: No Seatbelt use: always Helmet use: Yes Drive intox 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 Do you feel safe at home: Yes Do you feel safe in your relationship?: Yes Visit Medication and Allergies Active Medications Generic Name Dose Route Start Last Admin Trade Name Freq PRN Reason Stop Dose Admin Doxycycline Hyclate 100 mg 11/21/22 15:33 Doxycycline Hyclate 100 Mg Cap PO 11/21/22 15:34 NOW ONE Ceftriaxone Sodium/Dextrose 2 gm in 50 mls @ 100 mls/hr 11/21/22 15:33 Rocephin IVPB 11/21/22 16:02 NOW ONE Iohexol 500 ml 11/21/22 14:45 11/21/22 14:38 Omnipaque 350 Mg/Ml 500 Ml Btl-Imaging Package IJ 12/21/22 23:59 100 ml DIRECTED ERLINDA Administration Sodium Chloride 0 ml 11/21/22 14:36 11/21/22 14:36 Normal Saline Flush 10 Ml Syr IVP 10 ml PRN PRN Administration Sodium Chloride 50 ml 11/21/22 14:45 11/21/22 14:37 Normal Saline - Diluent 50 Ml Vial IJ 50 ml .FOR DI USE ERLINDA Administration Allergies Penicillins Allergy (Intermediate, Unverified 11/14/22 09:22) Hives acetaminophen Allergy (Mild, Unverified 11/14/22 09:22) Hives Exam Narrative Exam Narrative: Gen: NAD, normal respiratory effort, well-nourished HENT: PERRL, nasal turbinates normal without erythema or inflammation, moist oral mucosa, Mallampati 2, No LAD or JVD Chest: No respiratory distress, normal appearance of chest, clear to auscult ation bilaterally, no crackles or wheezes, normal inspiratory effort Heart: regular rate and rhythym, no murmurs, rubs or gallops Abdomen: Non-distended, soft, non tender Extremities: No clubbing, edema, cyanosis, rashes Neuro: AAOx3 , non focal Psych: cooperative, appropriate mental affect Results Last Vital Signs Temp 37.2 C 11/21/22 12:25 Pulse 86 11/21/22 12:25 Resp 15 11/21/22 14:48 BP 118/69 11/21/22 12:25 Pulse Ox 98 11/21/22 12:25 Labs 11/21/22 13:49 11/21/22 13:49 Labs: Laboratory Results - last 24 hr 11/21/22 11/21/22 11/21/22 13:49 13:49 13:49 WBC 11.49 H RBC 4.40 Hgb 13.4 Hct 40.0 MCV 91 MCH 30.5 MCHC 33.5 RDW 11.6 L Plt Count 179 MPV 9.6 Immature Gran % 0.6 Neutrophils % 76.0 Lymphocytes % 11.5 Monocytes % 9.3 Eosinophils % 2.0 Basophils % 0.6 Nucleated RBC % 0.0 Absolute Neutrophils 8.73 H Absolute Lymphocytes 1.32 Absolute Monocytes 1.07 H Absolute Eosinophils 0.23 Absolute Basophils 0.07 Sodium 136 Potassium 3.9 Chloride 100 Carbon Dioxide 27.2 Anion Gap 8.8 BUN 14 Creatinine 1.0 Est GFR (CKD-EPI 2020) 63.70 Glucose 107 H Calcium 9.3 Patient ABO/Rh O Positive Antibody Screen NEGATIVE Pocus Exam Limited Cardiac Exam DATE OF EXAM: 11/21/22 TIME OF EXAM: 16:00 PROVIDER THAT PERFORMED THE STUDY: Lashonda Berry IS THIS A REPEAT EXAM DURING THIS ENCOUNTER: no REASON FOR EXAM: Right heart strain/PE VISUALIZED STRUCTURES: left atrium, left ventricle, right atrium, right ventricle, Interventricular septum and IVC VIEW OBTAINED: Apical 4-Chamber, Parasternal long-axis, Parasternal short-axis and Subxiphoid PERTINENT FINDINGS/IMPRESSION: IVC inspiratory collapsability; No pericardial effusion, No RV dilation and No RV dysfunction Exam complete
[2022-11-21] MEDS: Doxycycline Hyclate 100 MG CAP PO (15:50)
[2022-11-21] MEDS: cefTRIAXone 2 GM/50 ML BAG IVPB (15:50)
[2022-11-21 16:23] LABS: Troponin I 802 ng/L (<or=60)
[2022-11-21] MEDS: Aspirin 325 MG TAB PO (17:02)
--- NOTE | 2022-11-21 17:44 | HPE_ITS ---
Date of service: 11/21/22 Time of Service: 17:44 Assessment and Plan Assessment and plan (1) Pulmonary embolism, bilateral: Status: Acute Assessment and plan: After my interview and examination of the patient and after reviewing Dr. Berry's notes and ordering apixaban, I have since learned from my colleague, Dr. Bolanos, that [facility] [place]ology who had been consulted by our E.D. and wanted the patient transferred for evaluation of her paradoxical emboli. Patient will be started on lovenox 1 mg/kg SC Q12h. patient will be transferred to [facility]. Professional time spent interviewing and examining patient, discussion of goals of care with hospital team (care management, nursing and consulting professionals) was 60 minutes. (2) Right leg DVT: Status: Acute Assessment and plan: diagnosed last week w/ [place].S. she still has right calf swelling although this is improved according to the patient. Patient has been on apixaban 10 mg bid for past week (3) Lung consolidation: Status: Acute Assessment and plan: right sided RUL and smaller RLL spiculated consolidations; probably pulmonary infarcts although she has had no hemoptysis nor pleuritic CP. Possibility remains for neoplasm; doubt pneumonia although Dr. Berry recommends empiric treatment for CAP x 5 to 7 days and she indicated she would repeat her CT chest in 3 months. (4) Infarction of spleen: Status: Acute Assessment and plan: as above (5) Elevated troponin I level: Status: Acute Assessment and plan: although she has no RV strain on CT scan, she has had an elevation of her troponin which would be consistent w/ RV strain. POCUS exam was done by Dr. Berry. I reviewed these and did not find any RV dysfunction and no dilatation of her IVC, however her images are limited. the best images were her parasternal long axis and subxiphoid, however adequate image was obtained in the parasternal short axis and no paradoxical IVS was seen. Patient will be put on lovenox and transferred to cardiology at [facility] (6) Renal infarct: Status: Acute Assessment and plan: further evaluation for PFO to be done at [facility] History of Present Illness History of Present Illness Chief Complaint: abdominal pain Narrative: 62-year-old female smoker who was diagnosed with a right lower extremity DVT on 11/14/2022 and was started on apixaban with a starter pack beginning at 10 mg twice a day who presented to the emergency department from [facility] with complaints of dizziness, malaise, left upper quadrant abdominal pain and headache. Abdominal pain has been crampy abdominal pain for 3 days now. Patient denies any history of falls or syncope or injury. Because of concern for acute bleeding she underwent CTA of the chest abdomen and pelvis as well as a CT scan of her head. Head CT showed no acute intracranial findings on noncontrast CT scan of the brain. CTA of the abdomen and pelvis demonstrated extensive bilateral pulmonary emboli involving all lobes of both lungs as well as to pleural-based infiltrates in the right lung the largest of the 2 being in the superior segment of the right lower lobe measuring 4 x 3 x 1.7 cm with some spiculation for which differential diagnosis include malignancy versus pulmonary infarct but with similar appearance in the lateral aspect of the right upper lobe. Patient was also found to have splenic and renal infarcts. There were no bony lytic or blastic lesions. There is no reported right heart strain on her CT scan nevertheless troponin level was mildly elevated at 802. WBC was mildly elevated at 11,000. Patient denies any cough sputum production fever chills or sweats. There is been no recent weight loss and no decrease in her appetite. EKG was done and demonstrated normal sinus rhythm with no evidence of right heart strain but some nonspecific ST depression inferolaterally. Formal echocardiogram was ordered but not completed this afternoon. ED provider Dr. Soto consult with Dr. Mayers, human resource consultant who evaluated the patient in the emergency department. She was requested to evaluate the patient because of the lung consolidation seen on her CT scan. Her impression is that the cons olidations were not typical for lung cancer but given the patient's smoking history do require follow-up. She recommended treating her empirically for pneumonia with 5 to 7 days of community-acquired pneumonia coverage and she would repeat the chest CT scan 2 months to assess for resolution. With regard to her bilateral pulmonary emboli she recommended continue Eliquis on standard regimen. proBNP and lactate and follow-up troponin has been ordered. Dr. Berry indicated that she would perform genetic testing for procoagulant state. With respect to the patient's risk factors for thromboembolic disease she is a smoker but smokes less than a pack a week and quit 1 week ago when she was dinh gnosed with DVT. She is not on any estrogen replacement she is postmenopausal and status post hysterectomy and single oophorectomy. There is a family history in her maternal grandmother who had DVTs and venous stripping but otherwise no other family history for thromboembolic disease. Patient's had no recent long distance travel no recent surgery. Patient's not had a recent age-appropriate cancer screening such as mammograms or Pap smear or colorectal cancer screening. Patient is being hospitalized overnight while we await echocardiogram looking for PFO to explain the paradoxical splenic and renal infarcts from her DVT. From a hemodynamic and pulmonary standpoint she has been stable with no hypotension and tachycardia and no hypoxemia. We will resume her Eliquis at 10 mg twice daily tonight and then starting tomorrow decrease her to 5 mg twice daily as previously scheduled. Should be scheduled for an echocardiogram tomorrow morning with bubble study. PFSH All Active Problems (Updated 11/21/22 @ 20:09 by Andrea Ahn MD) Elevated troponin I level (Acute) Lung consolidation (Acute) Renal infarct (Acute) Weakness (Acute) Infarction of spleen (Acute) Right lower lobe lung mass (Acute) Pulmonary embolism, bilateral (Acute) Myocardial injury (Acute) Right leg DVT (Acute ~10/2022) Cigarette smoker (Chronic) Hyperlipidemia (Chronic) Medical History Endometriosis Surgical History History of cataract surgery S/P hysterectomy with oophorectomy S/P ORIF (open reduction internal fixation) fracture Left foot Family History Mother , 76 of lung cancer Lung cancer Father , 75 Diabetes Metastatic cancer Sister No problems noted. Brother Alcohol use disorder Brother Alcohol use disorder Maternal Grandfather No problems noted. Maternal Grandmother Heart disease Paternal Grandfather No problems noted. Paternal Grandmother No problems noted. Social History Smoking/Tobacco Use Status: Current every day Tobacco Type: cigarettes Years smoked: 40 Tobacco: How many years used: 40 Quit status: not considering quitting Second Hand Exposure: Yes Smoking risk assessment performed?: Yes Alcohol Intake: current Alcohol Intake frequency: a few times a week Alcohol type: hard liquor Drug use: Never Substance use type: does not use Caregiver/Support person: No Household members: spouse Housing: house Communication Needs: None Pets and animals: Yes Pets and animals: cat(s) Sexually active: Yes Do you think of yourself as: straight/heterosexual Current gender identity: female What is your relationship status?: How often do you talk on the phone with friends or family?: three or more times per week How often do you get together with friends or relatives?: once per week How often do you attend moravian or caodaism services?: decline to answer Do you belong to any clubs or organized social groups?: no Panel score (0-1 are the most socially isolated patients): 2 What type of physical activity do you participate in: walking Frequency: daily Jennifer/Advent: No preference Special jennifer needs: No Seatbelt use: always Helmet use: Yes 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 Do you feel safe at home: Yes Do you feel safe in your relationship?: Yes Meds Allergies and Home Medications Allergies Allergy/AdvReac Type Severity Reaction Status Date / Time Penicillins Allergy Intermediate Hives Unverified 11/21/22 16:01 acetaminophen Allergy Mild Hives Unverified 11/21/22 16:01 Home Medications Medication Instructions Recorded Confirmed Type famotidine 10 mg tablet (Pepcid AC) 10 mg PO DAILY PRN 04/26/22 11/21/22 History apixaban 5 mg (74 tabs) tablets in 5 mg PO ONCE #74 dose pk 11/14/22 11/21/22 Rx a dose pack Exam Narrative Exam Narrative: Middle-aged female sitting up in bed no acute distress alert and oriented person place time circumstance able to speak in complete paragraphs with no dyspnea or chest discomfort. HEENT unremarkable Neck supple nontender no adenopathy no cervical tenderness no JVD, normal carotid pulses Lungs are clear to auscultation no rhonchi or wheezes Heart is regular rate and rhythm no appreciable murmur rub or gallop although there is a prominent P2 component Abdomen soft mildly tender in the left upper quadrant to palpation normal bowel sounds no palpable organomegaly Lower extremities she has edema of her right calf compared to the left with no rmal pedal pulses and normal strength and range of motion Results Labs 11/21/22 13:49 11/21/22 13:49 Labs: Laboratory Results - last 24 hr 11/21/22 11/21/22 11/21/22 13:49 13:49 13:49 WBC 11.49 H RBC 4.40 Hgb 13.4 Hct 40.0 MCV 91 MCH 30.5 MCHC 33.5 RDW 11.6 L Plt Count 179 MPV 9.6 Immature Gran % 0.6 Neutrophils % 76.0 Lymphocytes % 11.5 Monocytes % 9.3 Eosinophils % 2.0 Basophils % 0.6 Nucleated RBC % 0.0 Absolute Neutrophils 8.73 H Absolute Lymphocytes 1.32 Absolute Monocytes 1.07 H Absolute Eosinophils 0.23 Absolute Basophils 0.07 Sodium 136 Potassium 3.9 Chloride 100 Carbon Dioxide 27.2 Anion Gap 8.8 BUN 14 Creatinine 1.0 Est GFR (CKD-EPI 2020) 63.70 Glucose 107 H Calcium 9.3 Troponin I Patient ABO/Rh O Positive Antibody Screen NEGATIVE 11/21/22 13:49 WBC RBC Hgb Hct MCV MCH MCHC RDW Plt Count MPV Immature Gran % Neutrophils % Lymphocytes % Monocytes % Eosinophils % Basophils % Nucleated RBC % Absolute Neutrophils Absolute Lymphocytes Absolute Monocytes Absolute Eosinophils Absolute Basophils Sodium Potassium Chloride Carbon Dioxide Anion Gap BUN Creatinine Est GFR (CKD-EPI 2020) Glucose Calcium Troponin I 802 H* Patient ABO/Rh Antibody Screen Last Vital Signs Temp 36.1 C L 11/21/22 17:23 Pulse 80 11/21/22 17:23 Resp 18 11/21/22 17:23 BP 145/79 H 11/21/22 17:23 Pulse Ox 97 11/21/22 17:23 Time Spent Time spent with Patient: 55-74 minutes Time was spent: preparing to see the patient(eg.review tests), ordering medications,tests, procedures, referring, communicating with other health care management assistant (Dr. Soto, Dr. Bolanos), indepentently interpreting results, counseling the patient and care coordination
[2022-11-21 18:22] LABS: INR 1.1 (0.9-1.1); PTT Activated 28.3 sec (21.5-31.9); Prothrombin Time 11.6 sec (9.3-11.0)
[2022-11-21 18:43] LABS: Source Nasal/Nares
[2022-11-21 19:25] LABS: COVID-19 PCR Negative (Negative)
[2022-11-21 20:07] LABS: NT-proBNP 483 pg/mL (<300)
[2022-11-21 20:16] LABS: Troponin I 836 ng/L (<or=60)
[2022-11-21] MEDS: Enoxaparin 60 MG/0.6 ML SYR SC (20:22)
[2022-11-21 20:31] LABS: Lactate 0.7 mmol/L (0.6-1.4)
--- NOTE | 2022-11-21 20:53 | W.PM.DS.N ---
Date of service: 11/21/22 Time of Service: 20:53 DS: Diagnosis Discharge Diagnosis (1) Pulmonary embolism, bilateral: Status: Acute (2) Elevated troponin I level: Status: Acute (3) Right leg DVT: Status: Acute (4) Lung consolidation: Status: Acute (5) Infarction of spleen: Status: Acute (6) Renal infarct: Status: Acute Discharge Plan Disposition Specific Acute Inpt Facility: [facility] Condition: Serious Discharge Details Reason For Visit: Bilateral PE, Splenic and renal infarct Admit Date/Time: 11/21/22 16:11 Admit Provider: Andrea Ahn Attending Provider: Andrea Ahn [facility]: Mr Soto is a 62 year old female with PMHx of tobacco abuse, hyperlipidemia, GERD, who is post-menopausal and not on hormone replacement therapy, who presented to [facility] ED today complaining of dizziness, malaise, headache, and LUQ abdominal pain. She was started on eliquis 10 mg BID after being diagnosed with an acute RLE DVT (R popliteal into posterior tibialis and peroneal veins) on 11/14/22 by her PCP. The patient was not hypoxic or tachycardic and did not report chest pain, but ER workup revealed extensive bilateral pulmonary emboli involving all lobes of the lungs, as well as infarcts in her spleen and both kidneys by CTA chest/abdomen/pelvis. She was also noted to have pulmonary infiltrates, one of which exhibited spiculation: infarct vs malignancy. There was evidence of R hilar adenopathy. The patient also had elevated troponin I of 802 ng/L, which went up to 836 on a recheck 6 hours later. This raised suspicion for possible R heart strain. Her EKG shows SR, HR 73, ST depressions in Leads II, III, AVF, V4-V6. We do not have a prior EKG for comparison. While formal echocardiogram was not able to be obtained on this patient in the time she has spent at [facility], her POCUS of the heart did not show obvious R heart strain, though there is a question of pulmonary hypertension. ER provider had reached out to [facility] cardiology team for a consult and the hospitalist service was contacted for an admission. The patient was started on doxycycline and ceftriaxone empirically for pneumonia per recommendation of pulmonology. When [facility] cardiology called back, they felt that the patient was appropriate for transfer to [facility] for further evaluation with investigative modalities such as a MELISSA unavailable at [facility] since she appeared to have infarcts in both the lungs and arterial distributions. She was recommended to be switched to lovenox from her apixaban by [facility] cardiology. Accepting provider is Dr Gaming. A R to L cardiac shunt is suspected. COVID-19 PCR was negative. Underlying malignancy as a hypercoagulable process should also be considered. The patient is stable for transfer and is agreeable to transfer. Care for patient as well as completion of her discharge summary took 45 minutes to complete. For list of inpatient medications, please see MAR. The list below reflects outpatient prescriptions. Home Meds and New Rx's Prescriptions: Continued famotidine [Pepcid AC] 10 mg tablet 10 mg PO DAILY PRN apixaban 5 mg (74 tabs) tablets,dose pack 5 mg PO ONCE Qty: 74 0RF Rx Instructions: 2 tabs abid x 7d then one bid Discharge Instructions Instructions: Weakness (ED) Activity:: Activity as Tolerated Equipment/Supplies:: No Equipment Needed Diet:: As Tolerated DS: Summary Time Spent with Patient providing and/or coordinating discharge services: Greater than 30 minutes Status at Discharge Functional status at discharge: independent ambulation Overall status at discharge: patient is progressing back to baseline Mental Status: mental status grossly normal Speech and Movement: speech and movement normal Mood: congruent mood Affect: normal affect Exam Narrative Exam Narrative: General: Pleasant middle-aged female who is A&Ox3, NAD, on RA, no dyspnea/tachypnea/cyanosis HEENT: EOMI, MMM Heart: RRR, no m/r/g Lungs: Diminished breath sounds At B bases Abdomen: soft, nontender, including in LUQ, nondistended Extremities: patient is sitting on her legs Psych Mental Status: mental status grossly normal Speech and Movement: speech and movement normal Mood: congruent mood Affect: normal affect DS: Data Vitals/I&O Vitals and I&O: Vital Signs Temperature 36.1 C L 11/21/22 17:23 Temperature Source Tympanic 11/21/22 17:17 Pulse 80 11/21/22 17:23 Pulse Rhythm Regular 11/21/22 17:23 Pulse 65 11/21/22 17:00 Respiratory Rate 18 11/21/22 17:23 Respiratory Effort Normal 05/30/23 17:23 Respiratory Depth Normal 11/21/22 17:23 Respiratory Pattern Normal 11/21/22 17:23 Blood Pressure 145/79 H 11/21/22 17:23 Blood Pressure Mean 76 11/21/22 16:31 Blood Pressure Position Sitting 11/21/22 12:25 Pulse Oximetry 97 11/21/22 17:23 Oxygen Delivery Method Room Air 11/21/22 17:23 Oxygen Flow Rate 0 11/21/22 17:23 Pain Level 1 11/21/22 17:23 Comment denies any chest pain, dizziness comes and go. 11/21/22 17:23 Intake & Output 11/20/22 11/21/22 11/21/22 23:59 11:59 23:59 Output Total 300 / 300 Balance -300 / -300 Weight 61.8 kg Output: Urine 300 / 300 Other: Urine Color Yellow Urine Appearance Clear Voiding Methods Toilet Data Completed and Pending Completed studies during hospitalization [Text1]: CTA chest/abdomen/pelvis: 1. Extensive bilateral pulmonary emboli involving all lobes of both lungs. 2. Two pleural based infiltrates in the right lung, the larger of the 2 being in the superior segment of the right lower lobe and measuring approximately 4 by 3 x 1.7 cm and exhibiting some spiculation.? Although this may represent an area of infarct, also significant sedation here this being a primary malignancy of the lung.? Also cannot exclude that this is a pleural based non cavitated infectious process a smaller but similar appearing finding is seen in the lateral aspect of the right upper lobe.? There is ipsilateral right hilar adenopathy and there appear to be slightly enlarged subcarinal lymph nodes.? The opposite-left hilum does not exhibit adenopathy. 3. There are findings suspicious for infarcts in the spleen in both kidneys. 4. No abnormal focal findings in the pancreas 5. Uterus is surgically absent.? No abnormal adnexal findings. 6.? No lytic nor blastic osseous lesions.? CT head: No acute intracranial findings on this noninfused CT scan of the brain. Labs on day of discharge: Labs from last 24 hours 11/21/22 11/21/22 11/21/22 20:25 19:39 19:39 WBC RBC Hgb Hct MCV MCH MCHC RDW Plt Count MPV Immature Gran % Neutrophils % Lymphocytes % Monocytes % Eosinophils % Basophils % Nucleated RBC % Absolute Neutrophils Absolute Lymphocytes Absolute Monocytes Absolute Eosinophils Absolute Basophils PT INR APTT Throm-Antithrom Complex Ag Pending Factor V Leiden Mutat Pending Factor V Leiden Interp Pending Fact V Leiden Review By Pending VBG Lactate 0.7 Sodium Potassium Chloride Carbon Dioxide Anion Gap BUN Creatinine Est GFR (CKD-EPI 2020) Glucose Calcium Troponin I 836 H* NT-Pro-B Natriuret Pep 483 H DC Titer Pending DC Titer 2 Pending DC Titer 3 Pending DC Interpretation Pending COVID-19 Source SARS-CoV-2 (PCR) Patient ABO/Rh Antibody Screen 11/21/22 11/21/22 11/21/22 18:30 17:48 13:49 WBC RBC Hgb Hct MCV MCH MCHC RDW Plt Count MPV Immature Gran % Neutrophils % Lymphocytes % Monocytes % Eosinophils % Basophils % Nucleated RBC % Absolute Neutrophils Absolute Lymphocytes Absolute Monocytes Absolute Eosinophils Absolute Basophils PT 11.6 H INR 1.1 APTT 28.3 Throm-Antithrom Complex Ag Factor V Leiden Mutat Factor V Leiden Interp Fact V Leiden Review By VBG Lactate Sodium Potassium Chloride Carbon Dioxide Anion Gap BUN Creatinine Est GFR (CKD-EPI 2020) Glucose Calcium Troponin I 802 H* NT-Pro-B Natriuret Pep DC Titer DC Titer 2 DC Titer 3 DC Interpretation COVID-19 Source Nasal/Nares SARS-CoV-2 (PCR) Negative Patient ABO/Rh Antibody Screen 11/21/22 11/21/22 11/21/22 13:49 13:49 13:49 WBC 11.49 H RBC 4.40 Hgb 13.4 Hct 40.0 MCV 91 MCH 30.5 MCHC 33.5 RDW 11.6 L Plt Count 179 MPV 9.6 Immature Gran % 0.6 Neutrophils % 76.0 Lymphocytes % 11.5 Monocytes % 9.3 Eosinophils % 2.0 Basophils % 0.6 Nucleated RBC % 0.0 Absolute Neutrophils 8.73 H Absolute Lymphocytes 1.32 Absolute Monocytes 1.07 H Absolute Eosinophils 0.23 Absolute Basophils 0.07 PT INR APTT Throm-Antithrom Complex Ag Factor V Leiden Mutat Factor V Leiden Interp Fact V Leiden Review By VBG Lactate Sodium 136 Potassium 3.9 Chloride 100 Carbon Dioxide 27.2 Anion Gap 8.8 BUN 14 Creatinine 1.0 Est GFR (CKD-EPI 2020) 63.70 Glucose 107 H Calcium 9.3 Troponin I NT-Pro-B Natriuret Pep DC Titer DC Titer 2 DC Titer 3 DC Interpretation COVID-19 Source SARS-CoV-2 (PCR) Patient ABO/Rh O Positive Antibody Screen NEGATIVE PFSH All Active Problems (Updated 11/21/22 @ 20:09 by Andrea Ahn MD) Elevated troponin I level (Acute) Lung consolidation (Acute) Renal infarct (Acute) Weakness (Acute) Infarction of spleen (Acute) Right lower lobe lung mass (Acute) Pulmonary embolism, bilateral (Acute) Myocardial injury (Acute) Right leg DVT (Acute ~10/2022) Cigarette smoker (Chronic) Hyperlipidemia (Chronic) Medical History Endometriosis Surgical History History of cataract surgery S/P hysterectomy with oophorectomy S/P ORIF (open reduction internal fixation) fracture Left foot Family History Mother , 76 of lung cancer Lung cancer Father , 75 Diabetes Metastatic cancer Sister No problems noted. Brother Alcohol use disorder Brother Alcohol use disorder Maternal Grandfather No problems noted. Maternal Grandmother Heart disease Paternal Grandfather No problems noted. Paternal Grandmother No problems noted. Social History Smoking/Tobacco Use Status: Current every day Tobacco Type: cigarettes Years smoked: 40 Tobacco: How many years used: 40 Quit status: not considering quitting Second Hand Exposure: Yes Smoking risk assessment performed?: Yes Alcohol Intake: current Alcohol Intake frequency: a few times a week Alcohol type: hard liquor Drug use: Never Substance use type: does not use Caregiver/Support person: No Household members: spouse Housing: house Communication Needs: None Pets and animals: Yes Pets and animals: cat(s) Sexually active: Yes Do you think of yourself as: straight/heterosexual Current gender identity: female What is your relationship status?: How often do you talk on the phone with friends or family?: three or more times per week How often do you get together with friends or relatives?: once per week How often do you attend anabaptism or amish services?: decline to answer Do you belong to any clubs or organized social groups?: no Panel score (0-1 are the most socially isolated patients): 2 What type of physical activity do you participate in: walking Frequency: daily Jennifer/Zoroastrian: No preference Special jennifer needs: No Seatbelt use: always Helmet use: Yes 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
--- NOTE | 2022-11-21 21:34 | NUR.NOTE ---
Nursing Note: called report to Guillermina GARCIA at [facility] heart and vascular at [phone]
[2022-11-21] MEDS: Lactated Ringers 1,000 ML 100 ML IV (21:43)
[2022-11-27 08:58] LABS: Factor V Leiden(R506Q) Mut Negative (Negative)
[2022-12-01 08:56] LABS: ANA Interpretation Negative (Negative)
== END 2022-11-21 20:45 | disposition short-term general hospital (02) ==
LOC: ER 16:31 → MS 21:46
PROVIDERS: Student in an Organized Health Care Education/Training Program; Admitting Provider Internal Medicine; Emergency Provider Emergency Medicine; PCP Nurse Practitioner Family; Visit Provider Internal Medicine
DX: I26.94 Multiple subsegmental thrombotic pulmonary emboli without acute cor pulmonale (principal); D73.5 Infarction of spleen; N28.0 Ischemia and infarction of kidney; J18.9 Pneumonia, unspecified organism; Z79.01 Long term (current) use of anticoagulants; R74.8 Abnormal levels of other serum enzymes; R53.1 Weakness; R42 Dizziness and giddiness; R51.9 Headache, unspecified; R91.8 Other nonspecific abnormal finding of lung field; E78.5 Hyperlipidemia, unspecified; I82.4Z1 Acute embolism and thrombosis of unspecified deep veins of right distal lower extremity; F17.210 Nicotine dependence, cigarettes, uncomplicated; R59.0 Localized enlarged lymph nodes
CPT/HCPCS: 36415; 71275; 74177; 80048; 81241; 83520; 86850; 86900; 86901; 87635; 93005; 93308; 96372; 96374; 99285; 70450; 83605; 83880; 84484; 85025; 85610; 85730; 86038; 93010; 99223; J1650

== ENCOUNTER 2022-11-26 03:18 | Emergency (ER) | payer OTHER, SELFPAY ==
[2022-11-26] VITALS (27 sets, daily range): BP systolic 110–141; BP diastolic 43–113; PULSE 56–77; RESP 12–23; TEMP 36.5–36.9; O2SAT 93–99
--- NOTE | 2022-11-26 03:00 | DI.CT_ITS ---
Exam(s) CT BRAIN NECK CTA EXAM: CT BRAIN NECK CTA CLINICAL HISTORY: stroke symptoms. TECHNIQUE: Imaging Protocol: Axial CT angiography was performed with multi-slice acquisition and mu lti-planar and/or 3D reconstructions. CONTRAST MATERIAL: Intravenous: Omnipaque 350 contrast volume:95 mL COMPARISON: CT CT CHEST PE ABD PELVIS W from 11/21/[address] HEAD WO from 11/21/2022 FINDINGS: CT Head W/O and W: Ventricles and Extra axial spaces: Normal in size and morphology for the patient's age. Hemorrhage: None. Cerebral parenchyma: Evidence of an acute territorial infarct. Midline shift: None. Brainstem/Cerebellum: Normal. Calvarium: Normal. Visualized Paranasal sinuses/Mastoids: Clear. Soft Tissues: Unremarkable. Enhancement: Unremarkable. CTA Neck W: Common Carotid: Right: No dissection, occlusion or significant stenosis. Left: No dissection, occlusion or significant stenosis. External Carotid: Right: No occlusion or significant stenosis. Left: No occlusion or significant stenosis. Internal Carotid: Right: No dissection, occlusion or significant stenosis. Left: No dissection, occlusion or significant stenosis. Vertebral Artery: Right: No dissection, occlusion or significant stenosis. Left: No dissection, occlusion or significant stenosis. Lung Apices: Filling defects are seen in branches of the pulmonary arteries to the right upper lobe. These are consistent with the patient's recent diagnosis of pulmonary emboli on 11/21/2022. Periphera l infiltrates are again seen in the right upper and right lower lobe. Bones: Within normal limits for the patient's age. There is straightening of the normal cervical lord osis. Soft Tissues: Normal. Thyroid gland: Unremarkable. CTA Brain W: Internal Carotid Arteries: No aneurysm, occlusion or significant stenosis. There is mild atheroscler osis present. Anterior Cerebral Arteries: Right: No aneurysm, occlusion or significant stenosis. Left: No aneurysm, occlusion or significant stenosis. Middle Cerebral Arteries: Right: No aneurysm. There is an abrupt cut off of the right middle cerebral artery in its mid M1 se gment. The distal portion of the anterior and posterior M2 segments are reconstituted through collat eral flow. Left: No aneurysm, occlusion or significant stenosis. Posterior Cerebral Arteries: Right: No aneurysm, occlusion or significant stenosis. Left: No aneurysm, occlusion or significant stenosis. Vertebral Arteries: Right: No aneurysm, occlusion or significant stenosis. The right vertebral artery terminates as the PICA, a normal variant. Left: No aneurysm, occlusion or significant stenosis. Basilar Artery: No aneurysm, occlusion or significant stenosis. IMPRESSION: 1. 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 2. No acute intracranial process. 3. No occlusion or significant stenosis on the CT angiography of the neck. 4. Findings again seen of pulmonary emboli in the right upper lobe with peripheral right upper and ri ght lower lobe opacities. These findings appear stable. RADIATION DOSE DELIVERED: 1,988.44mGy.cm Total DLP DATA REPOSITORY: All CT scans at this facility are submitted to the National Radiology Data Registry (NRDR) Dose Index Registry (DIR) with the [employer] (A[employer]). RADIATION OPTIMIZATION: All CT scans at this facility use at least one of these dose optimization te chniques: automated exposure control; mA and/or kV adjustment per patient size (includes targeted exa ms where dose is matched to clinical indication); or iterative reconstruction.
--- NOTE | 2022-11-26 03:00 | RT.EKG_ITS ---
APPROVED REPORT Exam: Resting ECG Reason for Exam: stroke Patient Location: E HR:74 bpm ECG Measurements Heart Rate 74 AXIS OR 159 P 69 QRSd 90 QRS 4 QT 417 T 8 QTc 442 Conclusion Sinus rhythm...normal P axis, V-rate 60- 99 Ventricular premature complex...V complex w/ short R-R interval
--- NOTE | 2022-11-26 03:26 | DI.RAD_ITS ---
Exam(s) XR PORTABLE CHEST AP EXAM: XR PORTABLE CHEST AP CLINICAL HISTORY: stroke TECHNIQUE: 2D digital imaging was performed of the chest. Two images were obtained. AP views were obtained. COMPARISON: CT CT CHEST PE ABD PELVIS W from 11/21/2022 FINDINGS: MEDIASTINUM: Normal. HEART: Normal. PULMONARY VASCULATURE: Normal. LUNGS: Clear. PLEURAL SPACE: No pleural effusion or pneumothorax. BONE:Within normal limits for the patient's age. OTHER FINDINGS:Normal. IMPRESSION: No acute pulmonary findings. DATA REPOSITORY: RADIATION DOSE DELIVERED:
--- NOTE | 2022-11-26 03:28 | W.ED.GENAD ---
Discharge Plan Disposition Specific Acute Inpt Facility: [facility] Condition: Serious Discharge Details Chief Complaint: CVA/TIA Clinical Impression: Acute CVA (cerebrovascular accident) Primary Care Provider: Sophie Ramos ED Provider: Rene Beltran Home Meds and New Rx's Prescriptions: No Action famotidine [Pepcid AC] 10 mg tablet 10 mg PO DAILY PRN apixaban 5 mg (74 tabs) tablets,dose pack 5 mg PO ONCE Qty: 74 0RF Rx Instructions: 2 tabs abid x 7d then one bid Medical Decision Making 62 yo female who has recently been diagnosed with dvt/pe and started on eliquis over a week ago, who was seen on 11/21 for luq pain and found to have splenic infarcts, transferred to [facility]ology where she had an echo that did not show a pfo and negative antiphospholipid antibodies, and last known normal per family report to ems was 9pm last night, comes in with asphasia and left sided weakness. She had been doing well but then family found her this morning not able to speak and had facial droop. On arrival she is hemodynamically stable with noticeable left sided facial droop. She is not able to say any words but can shake her head yes and no when asked simple questions, and she was able to shake her head yes to the correct year and month and place. She has left arm and leg weakness, both hit the bed when testing drift. NIH is 12 on arrival (1 for month and age, 2 for facial palsy, 2 for left arm motor drift, 2 left leg motor drift, 3 for language/aphasia, 2 for dysarthria). I suspect cva but is outside the window for tpa, will proceed with ct/cta of the head/neck, cbc, cmp, troponin and monitor. pt's cta shows occlusion of M1 segment of the right cerebral artery, no hemorrhage. Troponin elevated but has decreased from when she was here last, was over 800 now 281,she denies chest pain when I ask her. Pt stable, will consult with [facility] for transfer for potential endovascular therapy Spoke with Dr. Gregg from neurology at [facility] who reviewed the case and images and agrees she's a candidate for endovascular intervention, she accepts to their ED. JORDIRT not flying due to weather, will transport by ems. Pt and family updated and agree with the plan Differential Diagnosis Differential Diagnosis: cva, emoblism, ich Medical Records Medical records reviewed: Yes I reviewed the patient's medical records. Imaging Data Radiologic Study: Attestation: I personally reviewed and interpreted this imaging study as follows: Imaging: CT Scan Radiologist's impression: IMPRESSION: Abrupt occlusion of the right middle cerebral artery at the mid M1 segment with reconstitution of the distal M2 segments Radiologic Study #2: Attestation: I personally reviewed and interpreted this imaging study as follows: Imaging: X-Ray Radiologist's impression: no acute findings Lab Data Lab results reviewed: Yes I reviewed the patient's lab results. ECG Data Attestation: I personally reviewed and interpreted this ECG (s) as follows: Prior ECG tracings: available for review Interpretation: sinus rate of 74, pr [address] t wave ischemic findings HPI General Mode of arrival: EMS. Date/Time Provider Initiated Documentation: 11/26/22 03:24. Information obtained by: family and EMS. History of Present Illness 62 year old F presents to the emergency department with the chief complaint of aphasia, weakness, described as moderate, Patient started experiencing this unknown and it has been constant. No relieving factors improve symptom(s), No exacerbating factors reported . Patient notes denies chest pain and shortness of breath. Patient did receive the following treatments prior to arrival, none Related Data Home Medications Medication Instructions Recorded Confirmed famotidine 10 mg tablet (Pepcid AC) 10 mg PO DAILY PRN 04/26/22 11/26/22 apixaban 5 mg (74 tabs) tablets in 5 mg PO ONCE #74 dose pk 11/14/22 11/26/22 a dose pack Previous Rx's Medication Instructions Recorded apixaban 5 mg (74 tabs) tablets in 5 mg PO ONCE #74 dose pk 11/14/22 a dose pack Allergies Allergy/AdvReac Type Severity Reaction Status Date / Time Penicillins Allergy Intermediate Hives Unverified 11/26/22 03:32 acetaminophen Allergy Mild Hives Unverified 11/26/22 03:32 General Stated Complaint: CVA/TIA RENEE: 2 Review of Systems Unobtainable due to (asphasia, dysarthria) PFSH All Active Problems (Updated 11/26/22 @ 05:31 by Rene Beltran MD) Acute CVA (cerebrovascular accident) (Acute) Elevated troponin I level (Acute) Lung consolidation (Acute) Renal infarct (Acute) Weakness (Acute) Infarction of spleen (Acute) Right lower lobe lung mass (Acute) Pulmonary embolism, bilateral (Acute) Myocardial injury (Acute) Right leg DVT (Acute ~10/2022) Cigarette smoker (Chronic) Hyperlipidemia (Chronic) Medical History Endometriosis Surgical History History of cataract surgery S/P hysterectomy with oophorectomy S/P ORIF (open reduction internal fixation) fracture Left foot Family History Mother , 76 of lung cancer Lung cancer Father , 75 Diabetes Metastatic cancer Sister No problems noted. Brother Alcohol use disorder Brother Alcohol use disorder Maternal Grandfather No problems noted. Maternal Grandmother Heart disease Paternal Grandfather No problems noted. Paternal Grandmother No problems noted. Social History Smoking/Tobacco Use Status: Current every day Tobacco Type: cigarettes Years smoked: 40 Tobacco: How many years used: 40 Quit status: not considering quitting Second Hand Exposure: Yes Smoking risk assessment performed?: Yes Alcohol Intake: current Alcohol Intake frequency: a few times a week Alcohol type: hard liquor Drug use: Never Substance use type: does not use Caregiver/Support person: No Household members: spouse Housing: house Communication Needs: None Pets and animals: Yes Pets and animals: cat(s) Sexually active: Yes Do you think of yourself as: straight/heterosexual Current gender identity: female What is your relationship status?: How often do you talk on the phone with friends or family?: three or more times per week How often do you get together with friends or relatives?: once per week How often do you attend scientologist or catholic services?: decline to answer Do you belong to any clubs or organized social groups?: no Panel score (0-1 are the most socially isolated patients): 2 What type of physical activity do you participate in: walking Frequency: daily Jennifer/Nondenominational: No preference Special jennifer needs: No Seatbelt use: always Helmet use: Yes 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 Do you feel safe at home: Yes Do you feel safe in your relationship?: Yes Exam Const Orientation: alert HENMT Head: normocephalic Ears: external ears normal General nose exam: external nose normal Mouth: moist mucous membranes Eyes General: appearance normal, both eyes and all related structures Neck Neck: normal visual inspection Resp Effort & Inspection: normal respiratory effort and no audible wheezes Cardio Jugular venous pressure: no JVD Rate: regular rate Heart Sounds: no murmurs GI Palpation: soft Skin General skin exam: no rashes or lesions noted Neuro General: patient alert Cranial Nerves: PERRL Speech: abnormal speech Course Vital Signs Vital signs: Vital Signs Temperature 36.9 C 11/26/22 03:10 Pulse 76 11/26/22 03:10 Respiratory Rate 16 11/26/22 03:10 Blood Pressure 125/111 H 11/26/22 03:10 Pulse Oximetry 95 11/26/22 03:10 Temperature 36.9 C 11/26/22 03:10 Temperature Source Tympanic 11/26/22 03:10 Pulse 76 11/26/22 03:10 Respiratory Rate 16 11/26/22 03:10 Respiratory Effort Normal 11/26/22 03:10 Blood Pressure 125/111 H 11/26/22 03:10 Blood Pressure Position Supine 11/26/22 03:10 Pulse Oximetry 95 11/26/22 03:10 Oxygen Delivery Method Room Air 11/26/22 03:10 Oxygen Flow Rate 0 11/26/22 03:10
[2022-11-26 03:37] LABS: Abs Immature Grans 0.06 10^3/uL (0.0-0.06); Absolute Basophil Count 0.06 10^3/uL (0.0-0.2); Absolute Eosinophil Count 0.48 10^3/uL (0.0-0.7); Absolute Lymphocyte Count 1.09 10^3/uL (1.2-3.4); Absolute Monocyte Count 0.83 10^3/uL (0.1-0.8); Absolute Neutrophil Count 5.59 10^3/uL (1.2-6.7); Basophils % 0.7; Eosinophils % 5.9; HCT 38.2 % (36.0-46.0); HGB 12.8 g/dL (11.2-15.7); Immature Grans % 0.7; Lymphocytes % 13.4; MCH 30.6 pg (27.0-33.0); MCHC 33.5 % (32.0-36.0); MCV 91 fL (80-95); MPV 9.4 fL (8.0-11.0); Monocytes % 10.2; Neutrophils % 69.1; Platelet Count 266 10^3/uL (130-400); RBC 4.18 10^6/uL (3.93-5.22); RDW 11.6 % (11.7-14.6); WBC 8.11 10^3/uL (4.4-10.8)
[2022-11-26 03:55] LABS: INR 1.1 (0.9-1.1); PTT Activated 25.7 sec (21.5-31.9); Prothrombin Time 11.2 sec (9.3-11.0)
[2022-11-26 03:59] LABS: ALT 98 U/L (14-59); AST 76 U/L (15-37); Albumin 3.1 g/dL (3.4-5.0); Alkaline Phosphatase 189 U/L (46-116); Anion Gap 8.2 mmol/L (3-11); BUN 16 mg/dL (7-18); Bilirubin, Total 0.5 mg/dL (0.2-1.0); CO2 23.8 mmol/L (21.0-32.0); Calcium 8.7 mg/dL (8.5-10.1); Chloride 102 mmol/L (98-107); Glucose 114 mg/dL (74-106); Magnesium 2.2 mg/dL (1.8-2.4); Potassium 4.9 mmol/L (3.5-5.1); Sodium 134 mmol/L (136-145); Total Protein 7.3 g/dL (6.4-8.2)
[2022-11-26 04:01] LABS: Troponin I 281 ng/L (<or=60)
[2022-11-26] MEDS: Normal Saline - Diluent 50 ML VIAL IJ (04:02)
[2022-11-26] MEDS: Omnipaque 350 MG/ML 100 ML BTL IJ (04:02)
[2022-11-26 04:04] LABS: Bilirubin Negative (Negative); Blood Moderate (Negative); Clarity Clear (Clear); Glucose Negative (Negative); Ketones Negative (Negative); Leukocyte Esterase Negative (Negative); Nitrite Negative (Negative); Urobilinogen 0.2 mg/dL (Up to 0.2); pH 5.5 (5-8)
[2022-11-26 04:07] LABS: Bacteria Negative HPF (Negative); C & S Indicated? No; Casts Negative LPF (Negative); Crystals Negative HPF (Negative); Epithelial Cells Negative HPF (Negative); Mucus Negative (Negative); WBC Negative HPF (0-5)
--- NOTE | 2022-11-26 04:17 | DI.VRAD_ITS ---
Addendum created by Jeyson Colindres DO on 11/26/2022 4:17:37 AM EDT: THIS REPORT CONTAINS FINDINGS THAT MAY BE CRITICAL TO PATIENT CARE. The findings were verbally communicated via telephone conference with Rene Beltran at 4:17 AM EDT on 11/26/2022. The findings were acknowledged and understood. Initial report created on 11/26/2022 4:17:10 AM EDT: PROCEDURE INFORMATION: Exam: CT Head Without Contrast Exam date and time: 11/26/2022 3:21 AM Age: 62 years old Clinical indication: Stroke-like symptoms; Other: Stroke symptoms TECHNIQUE: Imaging protocol: Computed tomography of the head without contrast. Other technique: STROKE PROTOCOL was implemented. COMPARISON: CT HEAD WO 11/21/2022 2:40 PM FINDINGS: Brain: Normal. No hemorrhage. Unremarkable white matter. No mass effect. Cerebral ventricles: No ventriculomegaly. Paranasal sinuses: Visualized sinuses are unremarkable. No fluid levels. Mastoid air cells: Visualized mastoid air cells are well aerated. Bones/joints: Unremarkable. No acute fracture. Soft tissues: Unremarkable. IMPRESSION: No acute intracranial abnormality. ASSESSMENT: ASPECTS ([place] Stroke Program Early CT Score) is 10. PROCEDURE INFORMATION: Exam: CTA Head With Contrast, Arteriography Exam date and time: 11/26/2022 3:21 AM Age: 62 years old Clinical indication: Stroke-like symptoms; Other: Stroke symptoms TECHNIQUE: Imaging protocol: Computed tomographic angiography of the head with contrast. Exam focused on the arteries. 3D rendering (Not supervised by radiologist): MIP and/or 3D reconstructed images were created by the technologist. Contrast material: OMNIPAQUE; Contrast volume: 95 ml; Contrast route: INTRAVENOUS (IV); COMPARISON: CT HEAD WO 11/21/2022 2:40 PM FINDINGS: ANTERIOR CIRCULATION: Right internal carotid artery: Intracranial segment is patent with no significant stenosis. No aneurysm. Right middle cerebral artery: There is an abrupt cut off of the right middle cerebral artery in the mid M1 segment. The distal portions of the anterior and posterior M2 segments are reconstituted through collateral flow. Right anterior cerebral artery: No occlusion or significant stenosis. No aneurysm. Left internal carotid artery: Intracranial segment is patent with no significant stenosis. No aneurysm. Left middle cerebral artery: No occlusion or significant stenosis. No aneurysm. Left anterior cerebral artery: No occlusion or significant stenosis. No aneurysm. POSTERIOR CIRCULATION: Right vertebral artery: The right vertebral artery terminates as the posteroinferior cerebellar artery, a normal variant. Left vertebral artery: No occlusion or significant stenosis. No aneurysm. Basilar artery: No occlusion or significant stenosis. No aneurysm. Right posterior cerebral artery: No occlusion or significant stenosis. No aneurysm. Left posterior cerebral artery: No occlusion or significant stenosis. No aneurysm. Brain: No definite mass, mass effect, or midline shift. Cerebral ventricles: No ventriculomegaly. Bones/joints: Unremarkable. No acute fracture. Soft tissues: Unremarkable. IMPRESSION: Abrupt occlusion of the right middle cerebral artery at the mid M1 segment with reconstitution of the distal M2 segments. PROCEDURE INFORMATION: Exam: CTA Neck With Contrast Exam date and time: 11/26/2022 3:21 AM Age: 62 years old Clinical indication: Stroke-like symptoms; Other: Stroke symptoms TECHNIQUE: Imaging protocol: Computed tomographic angiography of the neck with contrast. 3D rendering (Not supervised by radiologist): MIP and/or 3D reconstructed images were created by the technologist. Contrast material: OMNIPAQUE; Contrast volume: 95 ml; Contrast route: INTRAVENOUS (IV); COMPARISON: CT CHEST PE ABD PELVIS W 11/21/2022 2:43 PM FINDINGS: Right common carotid artery: No stenosis. No dissection or occlusion. Right internal carotid artery: No stenosis of the extracranial segment. No dissection or occlusion. Right external carotid artery: No occlusion or stenosis of the origin. Left common carotid artery: No stenosis. No dissection or occlusion. Left internal carotid artery: No stenosis of the extracranial segment. No dissection or occlusion. Left external carotid artery: No occlusion or stenosis of the origin. Right vertebral artery: The right vertebral artery terminates as the posteroinferior cerebellar artery, a normal variant. Left vertebral artery: No stenosis. No dissection or occlusion. Soft tissues: Normal. No significant soft tissue swelling. Bones/joints: No acute fracture. IMPRESSION: No significant stenosis or occlusion of the major arteries of the neck. REFERENCES: NASCET CRITERIA. The degree of stenosis in the cervical segment of the internal carotid artery is based on NASCET criteria. Normal is no stenosis. Mild is less than 50% stenosis. Moderate is 50-69% stenosis. Severe is 70% to 99% stenosis. Total occlusion is no detectable patent lumen. Dictated and Authenticated by: Jeyson Colindres MD. Ordering:RADHA López MD
--- NOTE | 2022-11-26 04:49 | DI.VRAD_ITS ---
PROCEDURE INFORMATION: Exam: XR Chest Exam date and time: 11/26/2022 4:35 AM Age: 62 years old Clinical indication: Other: Stroke symptoms TECHNIQUE: Imaging protocol: Radiologic exam of the chest. Views: 1 view. COMPARISON: CT CHEST PE ABD PELVIS W 11/21/2022 2:43 PM FINDINGS: Lungs: Unremarkable. No consolidation. Pleural spaces: Unremarkable. No pleural effusion. No pneumothorax. Heart/Mediastinum: Unremarkable. No cardiomegaly. Bones/joints: Unremarkable. IMPRESSION: No acute findings. Dictated and Authenticated by: Jeyson Colindres MD. Ordering:RADHA López MD
[2022-11-26] MEDS: Normal Saline 1,000 ML 125 ML IV (05:41)
== END 2022-11-26 06:01 | disposition short-term general hospital (02) ==
PROVIDERS: Emergency Provider Emergency Medicine; PCP Nurse Practitioner Family
DX: I67.81 Acute cerebrovascular insufficiency (principal); R53.1 Weakness
CPT/HCPCS: 36415; 36416; 70496; 70498; 80053; 82962; 93005; 99285; 71045; 81003; 81015; 83735; 84484; 85025; 85610; 85730; 93010; J3490

== ENCOUNTER 2022-12-22 08:13 | Emergency (ER) | payer OTHER, SELFPAY ==
--- NOTE | 2022-12-22 08:15 | RT.EKG_ITS ---
APPROVED REPORT Exam: Resting ECG Reason for Exam: weakness Patient Location: E HR:55 bpm ECG Measurements Heart Rate 55 AXIS SC 150 P 65 QRSd 95 QRS -12 QT 412 T 0 QTc 396 Conclusion Sinus bradycardia...rate< 60
[2022-12-22 08:17] VITALS: BP 147/72; PULSE 64; RESP 18; TEMP 36.8; O2SAT 97
--- NOTE | 2022-12-22 08:32 | ED.GENADUL_ITS ---
Discharge Plan Disposition Patient Disposition: Home Condition: Stable Discharge Details Clinical Impression: Dehydration, Diarrhea, Nausea Primary Care Provider: Sophie Ramos ED Provider: Rene Beltran Home Meds and New Rx's Prescriptions: New ondansetron 4 mg tablet,disintegrating 4 mg PO Q8H PRN (Reason: nausea and vomiting) Qty: 30 0RF Continued famotidine [Pepcid AC] 10 mg tablet 10 mg PO DAILY PRN atorvastatin 80 mg tablet 80 mg PO DAILY Qty: 90 0RF Rx Instructions: 11/29/22 per [facility] -hb enoxaparin [Lovenox] 80 mg/0.8 mL syringe 60 mg subcut Q12H Rx Instructions: 11/29/22 per [facility]. -hb Discharge Instructions Instructions: Acute Diarrhea (ED) Additional Instructions: your lab work did not show any significant new abnormalities you did have evidence of mild dehydration follow up with your primary care provider within 1-2 weeks if you feel more ill, have severe worsening pain or persistent vomiting return to the emergency department Medical Decision Making 62 yo female who is being worked up for lung cancer, not on chemo, recent renal infarct and cva earlier this mornth s/p thrombectomy and on lovenox, who had a lung lymph node biopsy yesterday at [facility] and was uneventful per patient comes in with nausea, abdominal cramping and diarrhea since arriving home yesterday. Denies severe abdominal pain, fevers, chills, chest pain, dyspnea. She states that she seems to get these symptoms when she receives anesthesia and feels general malaise. She arrives hemodynamically stable, caox4 speaking clearly and appears well. No focal motor deficits, CN II-XII intact, clear lungs, no murmurs and her abdomen is soft nondistended and nontender. Given her complaint of nausea and diarrhea suspect gastroenteritis vs sideeffects of anesthesia she received yesterday, will give IVF and zofran, obtain cbc, cmp, and reassess. She has no tenderness on abdominal exam so doubt surgical pathology, will hold on imaging. pt feeling better and still appears well, mild elevation in lft's which she's had before and is now on high dose atorvastatin which is likely contributing, had a CT at the end of october showing normal appearing liver and gallbladder with no biliary dilation. Troponin minimally elevated at 94 which is down from when she was here earlier this month, again denies chest pain or dyspnea so do not feel this is nstemi or acs at this time. Does have ketones in her urine likely from mild dehydration, still no abdominal tenderness. Discussed results with pt and given no new acute changes and that she feels better will proceed with d/c and outpatient f/u with her outpatient providers, return precautions given. Differential Diagnosis Differential Diagnosis: electrolyte abnormality, anesthesia side effect, dehydration Medical Records Medical records reviewed: Yes I reviewed the patient's medical records. Lab Data Lab results reviewed: Yes I reviewed the patient's lab results. ECG Data Attestation: I personally reviewed and interpreted this ECG (s) as follows: Prior ECG tracings: available for review Interpretation: sinus kris rate of 55, pr 150 no stemi HPI General Date/Time Provider Initiated Documentation: 12/22/22 08:23 . Limitations to Documentation: no limitations . Information obtained by: patient . History of Present Illness 62 year old F presents to the emergency department with the chief complaint of nausea, diarrhea, described as moderate, and it has been constant. No relieving factors improve symptom(s), No exacerbating factors reported . Patient notes denies chest pain, fever/chills and shortness of breath. Patient did receive the following treatments prior to arrival, none Related Data Home Medications Medication Instructions Recorded Confirmed famotidine 10 mg tablet (Pepcid AC) 10 mg PO DAILY PRN 04/26/22 12/22/22 atorvastatin 80 mg tablet 80 mg PO DAILY #90 tabs 12/07/22 12/22/22 enoxaparin 80 mg/0.8 mL 60 mg subcut Q12H 12/07/22 12/22/22 subcutaneous syringe (Lovenox) ondansetron 4 mg disintegrating 4 mg PO Q8H PRN nausea and 12/22/22 tablet vomiting #30 tabs Previous Rx's Medication Instructions Recorded atorvastatin 80 mg tablet 80 mg PO DAILY #90 tabs 12/07/22 ondansetron 4 mg disintegrating 4 mg PO Q8H PRN nausea and 12/22/22 tablet vomiting #30 tabs Allergies Allergy/AdvReac Type Severity Reaction Status Date / Time Penicillins Allergy Intermediate Hives Unverified 12/22/22 08:21 acetaminophen Allergy Mild Hives Unverified 12/22/22 08:21 General Stated Complaint: Nausea/Vomit/Diar RENEE: 3 Review of Systems All systems reviewed & are unremarkable except as noted in HPI and below Constitutional Constitutional: Denies chills and Denies fever(s) Cardiovascular Cardiovascular: Denies chest pain and Denies dyspnea Respiratory Respiratory: Denies cough and Denies dyspnea Gastrointestinal Gastrointestinal: Reports nausea and Denies vomiting Musculoskeletal Musculoskeletal: Denies joint swelling Integumentary/Breasts Skin/Breast: Denies rash PFSH All Active Problems (Updated 12/22/22 @ 11:30 by Rene Beltran MD) Dehydration (Acute) Diarrhea (Acute) Nausea (Acute) Metastatic lung cancer (metastasis from lung to other site) (Acute) DVT of lower extremity, bilateral (Acute ~10/2022) Acute right arterial ischemic stroke, MCA (middle cerebral artery) (Acute ~11/2022) Renal infarct (Acute) Infarction of spleen (Acute) Right lower lobe lung mass (Acute) Pulmonary embolism, bilateral (Acute) Cigarette smoker (Chronic) Hyperlipidemia (Chronic) Medical History (Updated 12/22/22 @ 11:30 by Rene Beltran MD) Endometriosis Surgical History History of cataract surgery S/P hysterectomy with oophorectomy S/P ORIF (open reduction internal fixation) fracture Left foot Family History Mother , 76 of lung cancer Lung cancer Father , 75 Diabetes Metastatic cancer Sister No problems noted. Brother Alcohol use disorder Brother Alcohol use disorder Maternal Grandfather No problems noted. Maternal Grandmother Heart disease Paternal Grandfather No problems noted. Paternal Grandmother No problems noted. Social History Smoking/Tobacco Use Status: Former Tobacco Use Tobacco: How many years used: 40 Quit status: not considering quitting Second Hand Exposure: Yes Smoking risk assessment performed?: Yes Alcohol Intake: current Alcohol Intake frequency: a few times a week Alcohol type: hard liquor Drug use: Never Substance use type: does not use Caregiver/Support person: No Household members: spouse Housing: house Communication Needs: None Pets and animals: Yes Pets and animals: cat(s) Sexually active: Yes Do you think of yourself as: straight/heterosexual Current gender identity: female What is your relationship status?: How often do you talk on the phone with friends or family?: three or more times per week How often do you get together with friends or relatives?: once per week How often do you attend zoroastrianism or christianity services?: decline to answer Do you belong to any clubs or organized social groups?: no Panel score (0-1 are the most socially isolated patients): 2 What type of physical activity do you participate in: walking Frequency: daily Jennifer/Advent: No preference Special jennifer needs: No Seatbelt use: always Helmet use: Yes Drive intox 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 transporter driver: No Do you feel safe at home: Yes Do you feel safe in your relationship?: Yes Exam Const General: no acute distress Orientation: alert HENMT Head: normal to inspection Ears: external ears normal General nose exam: external nose normal Mouth: moist mucous membranes Eyes General: appearance normal, both eyes and all related structures Neck Neck: normal visual inspection Chest Chest: normal inspection of the chest Resp Effort & Inspection: normal respiratory effort and able to speak in complete sentences Auscultation: clear to auscultation bilaterally Cardio Jugular venous pressure: no JVD Rate: regular rate Heart Sounds: no murmurs GI Palpation: soft and nontender Skin General skin exam: no rashes or lesions noted Neuro General: patient alert and patient oriented x3 Extrem General: normal to inspection Psych Mental Status: mental status grossly normal Course Vital Signs Vital signs: Vital Signs Temperature 36.8 C 12/22/22 08:17 Pulse 64 12/22/22 08:17 Respiratory Rate 18 12/22/22 08:17 Blood Pressure 147/72 H 12/22/22 08:17 Pulse Oximetry 97 12/22/22 08:17 Temperature 36.8 C 12/22/22 08:17 Temperature Source Oral 12/22/22 08:17 Pulse 64 12/22/22 08:17 Respiratory Rate 18 12/22/22 08:17 Respiratory Effort Normal, Non-Labored 12/22/22 08:22 Blood Pressure 147/72 H 12/22/22 08:17 Pulse Oximetry 97 12/22/22 08:17 Oxygen Delivery Method Room Air 12/22/22 08:17 Oxygen Flow Rate 0 12/22/22 08:17 Lab/Test Results Lab/Test Results: 12/22/22 08:25 Blood Blood Culture - Pending 12/22/22 08:25 Blood Blood Culture - Pending NATASHA Have you Been Recently Intoxicated or Drunk Within the Last 30 days?: No Have you Ever Experienced Previous Episodes of Alcohol Withdrawal?: No Have you ever Experienced Withdrawal Seizures?: No Have you ever Experienced Delirium Tremens(DT)s?: No Have you ever undergone Alcohol Rehabilitation Treatment (i.e, inpt ot outpatient treatment programs)?: No Have you ever Experienced Blackouts?: No Have you ever Combined Alcohol with other Downers within the last 90 days?: No Have you ever Combined Alcohol with any other Substance of Abuse during the last 90 days?: No Positive Blood Alcohol level on Presentation? [PCS.BAL]: No Evidence of Increased Autonomic Activity (i.e. HR>120, tremor, sweating, agitation, nausea)?: No Result: 0
[2022-12-22 09:07] LABS: BE (Venous) 4 mmol/L (-2-3); HCO3 (Venous) 28 mmol/L (23-28); O2 Sat (Venous) 53 %; TCO2 (Venous) 26 mmol/L (24-29); pCO2 (Venous) 46 mmHg (41-51); pO2 (Venous) 29 mmHg
[2022-12-22 09:11] LABS: Abs Immature Grans 0.08 10^3/uL (0.0-0.06); Absolute Eosinophil Count 0.04 10^3/uL (0.0-0.7); Absolute Lymphocyte Count 0.83 10^3/uL (1.2-3.4); Absolute Monocyte Count 1.02 10^3/uL (0.1-0.8); Basophils % 0.3; Eosinophils % 0.3; HCT 36.9 % (36.0-46.0); HGB 12.1 g/dL (11.2-15.7); Immature Grans % 0.5; Lymphocytes % 5.7; MCH 30.1 pg (27.0-33.0); MCHC 32.8 % (32.0-36.0); MCV 92 fL (80-95); MPV 9.3 fL (8.0-11.0); Neutrophils % 86.2; Platelet Count 254 10^3/uL (130-400); RBC 4.02 10^6/uL (3.93-5.22); RDW 12.3 % (11.7-14.6); WBC 14.59 10^3/uL (4.4-10.8)
[2022-12-22 09:13] LABS: Absolute Basophil Count 0.04 10^3/uL (0.0-0.2); Absolute Neutrophil Count 12.58 10^3/uL (1.2-6.7)
[2022-12-22 09:23] LABS: INR 1.1 (0.9-1.1)
[2022-12-22 09:40] LABS: ALT 226 U/L (14-59); AST 101 U/L (15-37); Albumin 3.3 g/dL (3.4-5.0); Alkaline Phosphatase 235 U/L (46-116); Anion Gap 7.5 mmol/L (3-11); BUN 13 mg/dL (7-18); Bilirubin, Total 0.4 mg/dL (0.2-1.0); CO2 28.5 mmol/L (21.0-32.0); Calcium 9.2 mg/dL (8.5-10.1); Chloride 102 mmol/L (98-107); Glucose 116 mg/dL (74-106); Lipase 48 U/L (16-77); Magnesium 1.8 mg/dL (1.8-2.4); Potassium 3.8 mmol/L (3.5-5.1); Sodium 138 mmol/L (136-145); Total Protein 7.4 g/dL (6.4-8.2)
[2022-12-22 09:42] LABS: Troponin I 94 ng/L (<or=60)
[2022-12-22 09:58] LABS: Procalcitonin < 0.1 ng/mL
[2022-12-22 10:07] LABS: COVID-19 PCR Negative (Negative); Influenza A PCR Negative (Negative); Influenza B PCR Negative (Negative); RSV PCR Negative (Negative)
[2022-12-22 10:09] LABS: Source Nasopharynx
[2022-12-22] MEDS: Ondansetron 4 MG/2 ML VIAL IVP (10:22)
[2022-12-22] MEDS: Normal Saline 1,000 ML 1000 ML IV (10:22)
[2022-12-22 10:43] LABS: Bilirubin Small (Negative); Blood Moderate (Negative); Clarity Clear (Clear); Glucose Negative (Negative); Ketones Trace mg/dL (Negative); Leukocyte Esterase Negative (Negative); Nitrite Negative (Negative); Specific Gravity 1.025 (1.005-1.025); Urobilinogen 0.2 mg/dL (Up to 0.2)
[2022-12-22 11:13] LABS: Bacteria Negative HPF (Negative); C & S Indicated? No; Casts 0-2 Hyaline LPF (Negative); Crystals Negative HPF (Negative); Epithelial Cells Rare HPF (Negative); Mucus Moderate (Negative); RBC 20-50 HPF (0-2); WBC 0-2 HPF (0-5)
== END 2022-12-22 11:41 | disposition home or self-care (01) ==
PROVIDERS: Emergency Provider Emergency Medicine; PCP Nurse Practitioner Family
DX: R11.2 Nausea with vomiting, unspecified (principal); R19.7 Diarrhea, unspecified; R53.1 Weakness; E86.0 Dehydration; R00.1 Bradycardia, unspecified; C34.90 Malignant neoplasm of unspecified part of unspecified bronchus or lung; R79.89 Other specified abnormal findings of blood chemistry; Z87.891 Personal history of nicotine dependence; Z86.73 Personal history of transient ischemic attack (TIA), and cerebral infarction without residual deficits
CPT/HCPCS: 36415; 80053; 82805; 83690; 84145; 87040; 87637; 93005; 96365; 99284; 81003; 81015; 83735; 84439; 84443; 84484; 85025; 85610; 85730; 93010; 99283; J2405

== ENCOUNTER 2022-12-23 12:30 | Inpatient (IN) | payer OTHER, SELFPAY ==
--- NOTE | 2022-12-23 12:30 | DI.CT_ITS ---
Exam(s) CT ABDOMEN PELVIS W EXAM: CT ABDOMEN PELVIS W CLINICAL HISTORY: abdominal pain, n/v TECHNIQUE: Imaging Protocol: Axial computed tomography images with coronal and sagittal reformatted images were created and reviewed CONTRAST MATERIAL: Intravenous: Omnipaque 350 Contrast volume:100 mL Oral: No COMPARISON: CT CT CHEST PE ABD PELVIS W from 11/21/[address] BRAIN NECK CTA from 11/26/2022 FINDINGS: ABDOMEN: Lung Bases: There are pulmonary nodules in the lung bases. The largest is a 4 mm nodule in the poste rior aspect of the left lower lobe. There is a filling defect in a branch of the pulmonary arteries to the right lower lobe. (Series 5, image 61). This may be residual from the patient's pulmonary em boli from 11/21/2022. There is contrast seen proximal and distal to this filling defect. Liver: Normal density. There are few tiny hypodensities seen in the liver. They are too small for fu rther characterization but likely reflect small cysts. Portal, Superior Mesenteric, and Splenic Veins: Unremarkable. Gallbladder and Biliary Tract: No radiodense calculus or dilation. Pancreas: Normal density, no abnormal calcifications or inflammatory process. Spleen: New areas of decreased attenuation in the spleen. Infarct should be considered. Adrenals: No masses seen. Kidneys: Areas of decreased attenuation seen in both kidneys suspicious for infarcts. No radiodense stones or obstructive uropathy. Abdominal Aorta: Abdominal portion non-dilated. Atherosclerosis is present. Bowel: There is diverticulosis seen in the colon. There is mild thickening of the wall of the sigmoi d colon and also the rectum. There is wall thickening seen there is fluid and air seen within the co shaquille which can be seen with a diarrheal illness. The appendix measures 7-8 mm in diameter and is flui d-filled no Mary appendiceal inflammatory changes are present. There is wall thickening seen in loop s of small bowel in the pelvis. Mild stranding is seen in the surrounding soft tissues. There is no evidence of obstruction. Peritoneal Cavity: Small amount of pelvic ascites. No free air. Lymph Nodes: Within normal limits. Bones: Within normal limits for the patient's age. Soft Tissues: Subcutaneous air is seen in the soft tissues in the lower abdominal wall. No focal flu id collection is seen to suggest an abscess. PELVIS: Bladder: Symmetric distention, no gross wall thickening. Reproductive Organs: Status post hysterectomy. Lymph Nodes: Within normal limits. Bones: Within normal limits for the patient's age. IMPRESSION: 1. New pulmonary nodules in the lung bases concerning for pulmonary metastases. PET-CT should be con sidered for further evaluation. 2. Wall thickening and enhancement seen in loops of the small bowel in the pelvis and the rectosigmoi d colon. Inflammatory/infectious bowel disease should be considered in this patient. Due to involve ment of both the large and small bowel, neoplasm may be considered less likely. 3. Fluid within small and large bowel loops suggesting a diarrheal illness. 4. Small amount of pelvic ascites. 5. Areas of decreased attenuation in the splenic kidney suspicious for infarcts. 6. Filling defect seen within a branch of the right lower lobe pulmonary arteries. This is a site wh ere there is a previous pulmonary embolus on 11/21/2022. This may be residual disease. New embolus c annot be entirely excluded. RADIATION DOSE DELIVERED: 678.89mGy.cm Total DLP DATA REPOSITORY: All CT scans at this facility are submitted to the National Radiology Data Registry (NRDR) Dose Index Registry (DIR) with the [employer] (A[employer]). RADIATION OPTIMIZATION: All CT scans at this facility use at least one of these dose optimization te chniques: automated exposure control; mA and/or kV adjustment per patient size (includes targeted exa ms where dose is matched to clinical indication); or iterative reconstruction.
[2022-12-23 12:34] VITALS: BP 126/59; PULSE 82; RESP 16; TEMP 37.4; O2SAT 97
--- NOTE | 2022-12-23 12:53 | ED.GENADUL_ITS ---
Discharge Plan Disposition Patient Disposition: Admit to [facility] Condition: Stable Discharge Details Chief Complaint: Abd Prob Clinical Impression: Dehydration, Colitis Primary Care Provider: Sophie Ramos ED Provider: Rene Beltran Home Meds and New Rx's Prescriptions: No Action famotidine [Pepcid AC] 10 mg tablet 10 mg PO DAILY PRN atorvastatin 80 mg tablet 80 mg PO DAILY Qty: 90 0RF Rx Instructions: 11/29/22 per [facility]. -hb enoxaparin [Lovenox] 80 mg/0.8 mL syringe 60 mg subcut Q12H Rx Instructions: 11/29/22 per [facility]. -hb ondansetron 4 mg tablet,disintegrating 4 mg PO Q8H PRN (Reason: nausea and vomiting) Qty: 30 0RF Medical Decision Making 62 yo female with metastatic lung cancer who had a lymph node biopsy done 2 days ago, cva last month treated with thrombectomy with no significant residual deficits, PE on lovenox, who comes in with continued diarrhea and lower abdominal cramping since yesterday morning. Was seen yesterday and treat with fluids and zofran and felt better. She says since last night has had diarrhea hourly and took imodium earlier. She denies vomiting fevers, chills. She denies recent travel. She appears well in no distress speaking clearly. She has a soft nondistended abdomen without guarding or rebound, is tender in the lower left and lower right abdomen. Given continued symptoms will proceed with c diff, cbc, cmp and ct to evaluate for colitis vs diverticulitis labs with milk low K, wbc of 19, ct shows sigmoid colitis, pt stable still feels generally weak and hasn't been able to provide a stool sample, doesn't feel comfortable trying to go home, will discuss with hospitalist about admission Differential Diagnosis Differential Diagnosis: colitis, c diff Medical Records Medical records reviewed: Yes I reviewed the patient's medical records. Imaging Data Radiologic Study: Attestation: I personally reviewed and interpreted this imaging study as follows: Imaging: CT Scan Radiologist's impression: IMPRESSION: 1. Abnormal sigmoid colon and left colon as discussed above, of concern for an inflammatory, infectious, or neoplastic process. Recommend further evaluation with colonoscopy. 2. New pulmonary nodules within the last month involving the left lung of concern for possible pulmonary metastases. The new pulmonary nodules may be related to the abnormal thickened irregular colon wall which may represent a neoplastic process. Recommend PET CT for further evaluation. Radiologic Study #2: Attestation: I personally reviewed and interpreted this imaging study as follows: Imaging: CT Scan Radiologist's impression: IMPRESSION: 1. Abnormal sigmoid colon and left colon as discussed above, of concern for an inflammatory, infectious, or neoplastic process. Recommend further evaluation with colonoscopy. 2. New pulmonary nodules within the last month involving the left lung of concern for possible pulmonary metastases. The new pulmonary nodules may be related to the abnormal thickened irregular colon wall which may represent a neoplastic process. Recommend PET CT for further evaluation Lab Data Lab results reviewed: Yes I reviewed the patient's lab results. HPI General Date/Time Provider Initiated Documentation: 12/23/22 12:33 . Limitations to Documentation: no limitations . Information obtained by: patient . History of Present Illness 62 year old F presents to the emergency department with the chief complaint of diarrhea, described as moderate, Patient started experiencing this day(s) (2) and it has been intermittent. No relieving factors improve symptom(s), No exacerbating factors reported . Patient notes denies chest pain and fever/chills. Patient did receive the following treatments prior to arrival, none Related Data Home Medications Medication Instructions Recorded Confirmed famotidine 10 mg tablet (Pepcid AC) 10 mg PO DAILY PRN 04/26/22 12/23/22 atorvastatin 80 mg tablet 80 mg PO DAILY #90 tabs 12/07/22 12/23/22 enoxaparin 80 mg/0.8 mL 60 mg subcut Q12H 12/07/22 12/23/22 subcutaneous syringe (Lovenox) ondansetron 4 mg disintegrating 4 mg PO Q8H PRN nausea and 12/22/22 12/23/22 tablet vomiting #30 tabs Previous Rx's Medication Instructions Recorded atorvastatin 80 mg tablet 80 mg PO DAILY #90 tabs 12/07/22 ondansetron 4 mg disintegrating 4 mg PO Q8H PRN nausea and 12/22/22 tablet vomiting #30 tabs Allergies Allergy/AdvReac Type Severity Reaction Status Date / Time Penicillins Allergy Intermediate Hives Unverified 12/22/22 08:21 acetaminophen Allergy Mild Hives Unverified 12/22/22 08:21 Sulfa (Sulfonamide AdvReac Mild Nausea Unverified 12/23/22 12:42 Antibiotics) General Stated Complaint: Abd Prob RENEE: 3 Review of Systems All systems reviewed & are unremarkable except as noted in HPI and below Constitutional Constitutional: Denies chills, Denies fever(s) and Denies weakness Cardiovascular Cardiovascular: Denies chest pain and Denies dyspnea Respiratory Respiratory: Denies cough and Denies dyspnea Gastrointestinal Gastrointestinal: Reports cramping and Denies vomiting Genitourinary Genitourinary: Denies dysuria Musculoskeletal Musculoskeletal: Denies joint swelling Integumentary/Breasts Skin/Breast: Denies rash Neurologic Neurologic: Denies weakness PFSH All Active Problems (Updated 12/23/22 @ 14:57 by Rene Beltran MD) Dehydration (Acute) Diarrhea (Acute) Nausea (Acute) Colitis (Acute) Metastatic lung cancer (metastasis from lung to other site) (Acute) DVT of lower extremity, bilateral (Acute ~10/2022) Acute right arterial ischemic stroke, MCA (middle cerebral artery) (Acute ~11/2022) Renal infarct (Acute) Infarction of spleen (Acute) Right lower lobe lung mass (Acute) Pulmonary embolism, bilateral (Acute) Cigarette smoker (Chronic) Hyperlipidemia (Chronic) Medical History (Updated 12/23/22 @ 14:57 by Rene Beltran MD) Endometriosis Surgical History History of cataract surgery S/P hysterectomy with oophorectomy S/P ORIF (open reduction internal fixation) fracture Left foot Family History Mother , 76 of lung cancer Lung cancer Father , 75 Diabetes Metastatic cancer Sister No problems noted. Brother Alcohol use disorder Brother Alcohol use disorder Maternal Grandfather No problems noted. Maternal Grandmother Heart disease Paternal Grandfather No problems noted. Paternal Grandmother No problems noted. Social History Smoking/Tobacco Use Status: Former Tobacco Use Quit Date: 11/23/22 Tobacco: How many years used: 40 Quit status: not considering quitting Second Hand Exposure: Yes Smoking risk assessment performed?: Yes Alcohol Intake: current Alcohol Intake frequency: a few times a month Alcohol type: hard liquor Drug use: Never Substance use type: does not use Caregiver/Support person: No Household members: spouse Housing: house Communication Needs: None Pets and animals: Yes Pets and animals: cat(s) Sexually active: Yes Do you think of yourself as: straight/heterosexual Current gender identity: female What is your relationship status?: How often do you talk on the phone with friends or family?: three or more times per week How often do you get together with friends or relatives?: once per week How often do you attend protestant or restoration services?: decline to answer Do you belong to any clubs or organized social groups?: no Panel score (0-1 are the most socially isolated patients): 2 What type of physical activity do you participate in: walking Frequency: daily Jennifer/Episcopalian: No preference Special jennifer needs: No Seatbelt use: always Helmet use: Yes Drive intox 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 transfer driver: No Do you feel safe at home: Yes Do you feel safe in your relationship?: Yes Exam Const General: no acute distress Orientation: alert HENMT Head: normal to inspection Ears: external ears normal General nose exam: external nose normal Mouth: moist mucous membranes Eyes General: appearance normal, both eyes and all related structures Neck Neck: normal visual inspection Resp Effort & Inspection: normal respiratory effort and able to speak in complete sentences Cardio Rate: regular rate GI Palpation: soft and tender Skin General skin exam: no rashes or lesions noted Neuro General: patient alert and patient oriented x3 Extrem General: normal to inspection Psych Mental Status: mental status grossly normal Course Vital Signs Vital signs: Vital Signs Temperature 37.4 C 12/23/22 12:34 Pulse 82 12/23/22 12:34 Respiratory Rate 16 12/23/22 12:34 Blood Pressure 126/59 L 12/23/22 12:34 Pulse Oximetry 97 12/23/22 12:34 Temperature 37.4 C 12/23/22 12:34 Temperature Source Oral 12/23/22 12:34 Pulse 82 12/23/22 12:34 Respiratory Rate 16 12/23/22 12:34 Respiratory Effort Normal, Non-Labored 12/23/22 12:39 Blood Pressure 126/59 L 12/23/22 12:34 Pulse Oximetry 97 12/23/22 12:34 Oxygen Delivery Method Room Air 12/23/22 12:34 Oxygen Flow Rate 0 12/23/22 12:34 Pain Level 6 12/23/22 12:34 PAWSS Have you Been Recently Intoxicated or Drunk Within the Last 30 days?: No Have you Ever Experienced Previous Episodes of Alcohol Withdrawal?: No Have you ever Experienced Withdrawal Seizures?: No Have you ever Experienced Delirium Tremens(DT)s?: No Have you ever undergone Alcohol Rehabilitation Treatment (i.e, inpt ot outpatient treatment programs)?: No Have you ever Experienced Blackouts?: No Have you ever Combined Alcohol with other Downers within the last 90 days?: No Have you ever Combined Alcohol with any other Substance of Abuse during the last 90 days?: No Result: 0
[2022-12-23 13:19] LABS: Abs Immature Grans 0.15 10^3/uL (0.0-0.06); Absolute Lymphocyte Count 0.86 10^3/uL (1.2-3.4); Basophils % 0.3; HCT 35.6 % (36.0-46.0); HGB 11.7 g/dL (11.2-15.7); Immature Grans % 0.8; Lymphocytes % 4.3; MCHC 32.9 % (32.0-36.0); MCV 91 fL (80-95); MPV 9.2 fL (8.0-11.0); Monocytes % 10.8; Neutrophils % 83.8; Platelet Count 224 10^3/uL (130-400); RDW 12.7 % (11.7-14.6); RDW-SD 41.7 fL; WBC 19.95 10^3/uL (4.4-10.8)
[2022-12-23] MEDS: Omnipaque 350 MG/ML 100 ML BTL IJ (13:20)
[2022-12-23] MEDS: Normal Saline - Diluent 50 ML VIAL IJ (13:20)
[2022-12-23] MEDS: Normal Saline Flush 10 ML SYR IVP (13:20)
[2022-12-23 13:21] LABS: Absolute Basophil Count 0.06 10^3/uL (0.0-0.2); Absolute Monocyte Count 2.15 10^3/uL (0.1-0.8); Absolute Neutrophil Count 16.72 10^3/uL (1.2-6.7)
[2022-12-23 13:39] LABS: ALT 155 U/L (14-59); AST 57 U/L (15-37); Albumin 2.9 g/dL (3.4-5.0); Alkaline Phosphatase 206 U/L (46-116); Anion Gap 9.7 mmol/L (3-11); BUN 12 mg/dL (7-18); Bilirubin, Total 0.7 mg/dL (0.2-1.0); CO2 27.3 mmol/L (21.0-32.0); Calcium 8.6 mg/dL (8.5-10.1); Chloride 100 mmol/L (98-107); Glucose 111 mg/dL (74-106); Lipase 18 U/L (16-77); Magnesium 1.6 mg/dL (1.8-2.4); Potassium 3.3 mmol/L (3.5-5.1); Sodium 137 mmol/L (136-145); TSH (W/Ref FT4) 0.24 uIU/mL (0.36-3.74); Total Protein 7.1 g/dL (6.4-8.2)
[2022-12-23 13:47] LABS: INR 1.2 (0.9-1.1); PTT Activated 35.2 sec (21.5-31.9); Prothrombin Time 12.4 sec (9.3-11.0); Source Nasal/Nares
[2022-12-23 14:05] LABS: Diff Comment Agrees w/ Instrument; RBC Morphology Normal
[2022-12-23 14:08] LABS: FREE T4 1.23 ng/dL (0.76-1.46)
--- NOTE | 2022-12-23 14:09 | DI.VRAD_ITS ---
Addendum created by Gema Bassett MD on 12/23/2022 2:14:04 PM EDT: THIS REPORT CONTAINS FINDINGS THAT MAY BE CRITICAL TO PATIENT CARE. The findings were verbally communicated via telephone conference with Rene Beltran at 2:13 PM EDT on 12/23/2022. The findings were acknowledged and understood. Initial report created on 12/23/2022 2:09:04 PM EDT: PROCEDURE INFORMATION: Exam: CT Abdomen And Pelvis With Contrast Exam date and time: 12/23/2022 1:15 PM Age: 62 years old Clinical indication: Nausea and vomiting; Abdominal pain TECHNIQUE: Imaging protocol: Computed tomography of the abdomen and pelvis with contrast. Radiation optimization: All CT scans at this facility use at least one of these dose optimization techniques: automated exposure control; mA and/or kV adjustment per patient size (includes targeted exams where dose is matched to clinical indication); or iterative reconstruction. Contrast material: OMNIPAQUE 350; Contrast volume: 100 ml; Contrast route: INTRAVENOUS (IV); COMPARISON: CT CHEST PE ABD PELVIS W 21/11/2022 14:43 FINDINGS: Lungs: Stable reticular scarring at the lung bases. New 0.3 cm nodule left upper lobe lateral aspect. New 0.4 cm nodule left lower lobe posterior costophrenic angle. New 0.4 cm nodule left lower lobe anterior pleural based. Pleural spaces: No pleural effusion or pneumothorax. Heart: Stable cardiomediastinal silhouette. Coronary arteries: Calcified coronary arteries. Diaphragm: Small hiatal hernia. Liver: Normal. No mass. Gallbladder and bile ducts: Normal. No calcified stones. No ductal dilation. Pancreas: Normal. No ductal dilation. Spleen: Normal. No splenomegaly. Adrenal glands: Normal. No mass. Kidneys and ureters: Stable left renal cyst. Stomach and bowel: Scattered diverticuli. Long segment enhancement and abnormal thickening of the sigmoid colon and rectum with surrounding free fluid. Normal caliber small bowel. Left Pericolonic fat infiltration with associated diverticuli. Fluid in the right colon. Appendix: No evidence of appendicitis. Intraperitoneal space: Free fluid in the pelvis. Scattered diverticuli. Vasculature: Atherosclerotic disease. New focal peripheral defects in the right and left kidney consistent with infarcts consistent infarct. Focal decreased enhancement in the periphery of the spleen in multiple areas of concern for prior infarct from pulmonary emboli. Lymph nodes: Unremarkable. No enlarged lymph nodes. Urinary bladder: Contracted urinary bladder. Reproductive: Hysterectomy. Bones/joints: Unremarkable. No acute fracture. Soft tissues: Subcutaneous air in the soft tissues of the left lower abdomen. IMPRESSION: 1. Abnormal sigmoid colon and left colon as discussed above, of concern for an inflammatory, infectious, or neoplastic process. Recommend further evaluation with colonoscopy. 2. New pulmonary nodules within the last month involving the left lung of concern for possible pulmonary metastases. The new pulmonary nodules may be related to the abnormal thickened irregular colon wall which may represent a neoplastic process. Recommend PET CT for further evaluation. Dictated and Authenticated by: Gema Bassett MD. Ordering:RADHA López MD
[2022-12-23 14:28] LABS: COVID-19 PCR Negative (Negative)
--- NOTE | 2022-12-23 15:07 | HPE_ITS ---
Date of service: 12/23/22 Time of Service: 15:07 Assessment and Plan Assessment and plan (1) Colitis: Status: Acute Assessment and plan: acute colitis, probably diverticulitis, however, given her recent hospitalizations, C difficile colitis needs to be considered but the CT findings seems to be more left sided involving the sigmoid colon, rectum. She has not had diarrhea since presenting to the hospital. Stool cultures and C diff have been ordered. continue iv fluids, antiemetics, antispasmodics and antibiotics (Cipro and Flagyl). She does not seem to have acute peritoneal signs but if she is not improving then I will ask surgery to see her. Ok to trial clear liquids Professional time spent interviewing and examining patient, discussion of goals of care with hospital team (care management, nursing and consulting professionals) was 60 minutes. (2) Diarrhea: Status: Acute Assessment and plan: as above (3) Dehydration: Status: Acute Assessment and plan: iv fluid hydration (4) Metastatic lung cancer (metastasis from lung to other site): Status: Acute Assessment and plan: awaiting lung biopsy done at [facility] on (5) Acute right arterial ischemic stroke, MCA (middle cerebral artery): Status: Resolved Assessment and plan: s/p RMCA thrombectomy 11/26/22 at [facility] (presented to our ED and was transferred, patient had left facial droop and expressive aphasia and left hemiparesis; she had an M1 segmental R.MCA thrombus, this despite being on Apixaban for recent dvt/pe. Patient now on enoxaparin 1 mg/kg SC q12h (60 mg SC Q12H) (6) Pulmonary embolism, bilateral: Status: Acute Assessment and plan: Patient presented to [facility] 11/21/22 w/ bilateral PE, splenic and bilateral renal infarcts, patient had been on apixaban for RLE DVT diagnosed by her PCP on 11/14. She was put on Enoxaparin and transferred to [facility] for evaluation of paradoxical PE to look for PFO. (7) DVT of lower extremity, bilateral: Status: Acute (8) Renal infarct: Status: Acute Assessment and plan: diagnosed 11/21 when she presented w/ left upper quadrant pain whild on apixaban for DVT (9) Infarction of spleen: Status: Acute Assessment and plan: as above History of Present Illness History of Present Illness Chief Complaint: abdominal pain, diarrhea Narrative: 62 yo female who is being worked up for lung cancer, not on chemo, recent renal infarct and cva earlier this mornth s/p thrombectomy and on lovenox, who had a lung [facility] [place] and was uneventful per patient comes in with nausea, abdominal cramping and diarrhea since arriving home yesterday.? Workup in the ED included labs and CT abdomen/pelvis and labs. CT abdomen and pelvis demonstrated the following: scattered diverticuli, long segement of enhancement and abnormal thickening of the sigmoid colon and rectum w/ surrounding free fluid, left pericolic fat infiltration associated diverticuli and fluid in the right colon and free fluid in the pelvis. She also has bilateral PFSH All Active Problems (Updated 12/23/22 @ 18:38 by Andrea Ahn MD) Dehydration (Acute) Diarrhea (Acute) Nausea (Acute) Colitis (Acute) Metastatic lung cancer (metastasis from lung to other site) (Acute) DVT of lower extremity, bilateral (Acute ~10/2022) Renal infarct (Acute) Infarction of spleen (Acute) Right lower lobe lung mass (Acute) Pulmonary embolism, bilateral (Acute) Cigarette smoker (Chronic) Hyperlipidemia (Chronic) Medical History (Updated 12/23/22 @ 18:38 by Andrea Ahn MD) Endometriosis Surgical History History of cataract surgery S/P hysterectomy with oophorectomy S/P ORIF (open reduction internal fixation) fracture Left foot Family History Mother , 76 of lung cancer Lung cancer Father , 75 Diabetes Metastatic cancer Sister No problems noted. Brother Alcohol use disorder Brother Alcohol use disorder Maternal Grandfather No problems noted. Maternal Grandmother Heart disease Paternal Grandfather No problems noted. Paternal Grandmother No problems noted. Social History Smoking/Tobacco Use Status: Former Tobacco Use Quit Date: 11/23/22 Tobacco: How many years used: 40 Quit status: not considering quitting Second Hand Exposure: Yes Smoking risk assessment performed?: Yes Alcohol Intake: current Alcohol Intake frequency: a few times a month Alcohol type: hard liquor Drug use: Never Substance use type: does not use Caregiver/Support person: No Household members: spouse Housing: house Communication Needs: None Pets and animals: Yes Pets and animals: cat(s) Sexually active: Yes Do you think of yourself as: straight/heterosexual Current gender identity: female What is your relationship status?: How often do you talk on the phone with friends or family?: three or more times per week How often do you get together with friends or relatives?: once per week How often do you attend yarsani or uatsdin services?: decline to answer Do you belong to any clubs or organized social groups?: no Panel score (0-1 are the most socially isolated patients): 2 What type of physical activity do you participate in: walking Frequency: daily Jennifer/Bahai: No preference Special jennifer needs: No Seatbelt use: always Helmet use: Yes Drive intox 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: No Do you feel safe at home: Yes Do you feel safe in your relationship?: Yes Meds Allergies and Home Medications Allergies Allergy/AdvReac Type Severity Reaction Status Date / Time Penicillins Allergy Intermediate Hives Unverified 12/23/22 16:51 acetaminophen Allergy Mild Hives Unverified 12/23/22 16:51 Sulfa (Sulfonamide AdvReac Mild Nausea Unverified 12/23/22 16:51 Antibiotics) Home Medications Medication Instructions Recorded Confirmed Type famotidine 10 mg tablet (Pepcid AC) 10 mg PO DAILY PRN 04/26/22 12/23/22 History atorvastatin 80 mg tablet 80 mg PO DAILY #90 tabs 12/07/22 12/23/22 Rx enoxaparin 80 mg/0.8 mL 60 mg subcut Q12H 12/07/22 12/23/22 History subcutaneous syringe (Lovenox) ondansetron 4 mg disintegrating 4 mg PO Q8H PRN nausea and 12/22/22 12/23/22 Rx tablet vomiting #30 tabs Exam Narrative Exam Narrative: Alert and oriented x4 HEENT: Atraumatic normocephalic, pupils equally round reactive to light and accommodation, extraocular motion intact, TMs intact, nares moist and patent without exudate or bleeding, oropharynx noninjected without exudate, teeth in good repair Neck: Supple, nontender, without thyromegaly or lymphadenopathy or JVD. Normal carotid pulses Lungs: Clear to auscultation and percussion Heart: Regular rate and rhythm without murmur rub or gallop. Normal apical impulse Abdomen: Nondistended, normal bowel sounds, moderate tenderness over LLQ but without rebound tenderness nor involuntary guarding Genitalia and rectal exam: Deferred Breasts: Deferred Extremities: Normal range of motion with normal strength. No peripheral cyanosis or edema. Normal pulses Neurologic: Cranial nerves II through XII grossly within normal limits. Normal strength and sensation over the face trunk and extremities. No tremors or asterixis. No dysdiadochokinesia. Results Labs 12/23/22 13:05 12/23/22 13:05 Labs: Laboratory Results - last 24 hr 12/23/22 12/23/22 12/23/22 13:05 13:05 13:05 WBC 19.95 H RBC 3.90 L Hgb 11.7 Hct 35.6 L MCV 91 MCH 30.0 MCHC 32.9 RDW 12.7 Plt Count 224 MPV 9.2 Immature Gran % 0.8 Neutrophils % 83.8 Lymphocytes % 4.3 Monocytes % 10.8 Eosinophils % 0.0 Basophils % 0.3 Nucleated RBC % 0.0 Absolute Neutrophils 16.72 H Absolute Lymphocytes 0.86 L Absolute Monocytes 2.15 H Absolute Eosinophils 0.00 Absolute Basophils 0.06 RBC Morphology Normal PT INR APTT Sodium 137 Potassium 3.3 L Chloride 100 Carbon Dioxide 27.3 Anion Gap 9.7 BUN 12 Creatinine 1.0 Est GFR (CKD-EPI 2020) 63.70 Glucose 111 H Calcium 8.6 Magnesium 1.6 L Total Bilirubin 0.7 AST 57 H ALT 155 H Alkaline Phosphatase 206 H Total Protein 7.1 Albumin 2.9 L Lipase 18 TSH 0.24 L Free T4 1.23 COVID-19 Source Cancelled SARS-CoV-2 (PCR) Cancelled Influenza Type A (PCR) Cancelled Influenza Type B (PCR) Cancelled RSV (PCR) Cancelled 12/23/22 12/23/22 13:05 13:05 WBC RBC Hgb Hct MCV MCH MCHC RDW Plt Count MPV Immature Gran % Neutrophils % Lymphocytes % Monocytes % Eosinophils % Basophils % Nucleated RBC % Absolute Neutrophils Absolute Lymphocytes Absolute Monocytes Absolute Eosinophils Absolute Basophils RBC Morphology PT 12.4 H INR 1.2 H APTT 35.2 H Sodium Potassium Chloride Carbon Dioxide Anion Gap BUN Creatinine Est GFR (CKD-EPI 2020) Glucose Calcium Magnesium Total Bilirubin AST ALT Alkaline Phosphatase Total Protein Albumin Lipase TSH Free T4 COVID-19 Source Nasal/Nares SARS-CoV-2 (PCR) Negative Influenza Type A (PCR) Influenza Type B (PCR) RSV (PCR) Last Vital Signs Temp 37.4 C 12/23/22 12:34 Pulse 82 12/23/22 12:34 Resp 16 12/23/22 12:34 BP 126/59 L 12/23/22 12:34 Pulse Ox 97 12/23/22 12:34 PAWSS Have you Been Recently Intoxicated or Drunk Within the Last 30 days?: No Have you Ever Experienced Previous Episodes of Alcohol Withdrawal?: No Have you ever Experienced Withdrawal Seizures?: No Have you ever Experienced Delirium Tremens(DT)s?: No Have you ever undergone Alcohol Rehabilitation Treatment (i.e, inpt ot outpatient treatment programs)?: No Have you ever Experienced Blackouts?: No Have you ever Combined Alcohol with other Downers within the last 90 days?: No Have you ever Combined Alcohol with any other Substance of Abuse during the last 90 days?: No Result: 0 Time Spent Time spent with Patient: >75 minutes Time was spent: preparing to see the patient(eg.review tests), obtaining and/or reviewing separately otained hiistory, ordering medications,tests, procedures, referring, communicating with other health patient care nursing assistant (Discussion with Dr. Rene Beltran), indepentently interpreting results, counseling the patient and care coordination
[2022-12-23] MEDS: CIPROFLOXACIN 400 MG/200 ML BAG 200 MG IVPB ×2 (16:42→23:14)
[2022-12-23] MEDS: Prochlorperazine 10 MG/2 ML VIAL 5 MG IVP (17:27)
[2022-12-23] MEDS: Enoxaparin 60 MG/0.6 ML SYR SC (17:27)
[2022-12-23] MEDS: Normal Saline 1,000 ML 1000 ML IV (17:27)
[2022-12-23] MEDS: Ketorolac 15 MG/ML VIAL IVP (18:00)
[2022-12-23] MEDS: metroNIDAZOLE 500 MG/100 ML BAG 100 MG IVPB ×2 (18:07→21:39)
[2022-12-23 18:13] LABS: Bilirubin Negative (Negative); Blood Moderate (Negative); Clarity Clear (Clear); Glucose Negative (Negative); Ketones 40 mg/dL (Negative); Leukocyte Esterase Negative (Negative); Nitrite Negative (Negative); Specific Gravity <= 1.005 (1.005-1.025); Urobilinogen 0.2 mg/dL (Up to 0.2)
[2022-12-23 18:21] LABS: Bacteria Rare HPF (Negative); C & S Indicated? No; Casts Negative LPF (Negative); Crystals Negative HPF (Negative); Epithelial Cells Rare HPF (Negative); Mucus Negative (Negative); WBC 0-2 HPF (0-5)
[2022-12-23 19:25] VITALS: BP 102/66; PULSE 82; RESP 12; TEMP 38; O2SAT 95
[2022-12-23] MEDS: Lactated Ringers 1,000 ML 150 ML IV (19:46)
[2022-12-23 23:30] VITALS: BP 105/68; PULSE 91; RESP 12; TEMP 38.2; O2SAT 93
[2022-12-24] MEDS: Lactated Ringers 1,000 ML 150 ML IV (03:29)
[2022-12-24 03:30] VITALS: BP 93/60; PULSE 95; RESP 12; TEMP 36.2; O2SAT 93
[2022-12-24] MEDS: metroNIDAZOLE 500 MG/100 ML BAG 100 MG IVPB ×3 (05:25→22:22)
[2022-12-24] MEDS: Enoxaparin 60 MG/0.6 ML SYR SC ×2 (05:25→17:08)
[2022-12-24 05:45] VITALS: BP 101/63; PULSE 89; RESP 12; TEMP 38.6; O2SAT 92
[2022-12-24 07:16] LABS: Abs Immature Grans 0.14 10^3/uL (0.0-0.06); Absolute Basophil Count 0.07 10^3/uL (0.0-0.2); Absolute Lymphocyte Count 0.65 10^3/uL (1.2-3.4); Basophils % 0.4; Eosinophils % 0.1; HCT 31.6 % (36.0-46.0); HGB 10.5 g/dL (11.2-15.7); Immature Grans % 0.8; Lymphocytes % 3.6; MCH 30.4 pg (27.0-33.0); MCHC 33.2 % (32.0-36.0); MCV 92 fL (80-95); MPV 9.6 fL (8.0-11.0); Monocytes % 7.9; Neutrophils % 87.2; Platelet Count 193 10^3/uL (130-400); RBC 3.45 10^6/uL (3.93-5.22); RDW 12.7 % (11.7-14.6); RDW-SD 41.9 fL; WBC 18.06 10^3/uL (4.4-10.8)
[2022-12-24 07:29] LABS: Absolute Eosinophil Count 0.02 10^3/uL (0.0-0.7); Absolute Monocyte Count 1.43 10^3/uL (0.1-0.8); Absolute Neutrophil Count 15.75 10^3/uL (1.2-6.7)
[2022-12-24 07:41] LABS: ALT 88 U/L (14-59); AST 33 U/L (15-37); Albumin 2.2 g/dL (3.4-5.0); Alkaline Phosphatase 152 U/L (46-116); Anion Gap 10.1 mmol/L (3-11); BUN 11 mg/dL (7-18); Bilirubin, Total 0.8 mg/dL (0.2-1.0); CO2 23.9 mmol/L (21.0-32.0); CREATININE 0.9 mg/dL (0.55-1.02); Calcium 8.1 mg/dL (8.5-10.1); Chloride 101 mmol/L (98-107); Estimated GFR 72.28 (mL/min/1.73m2); Glucose 102 mg/dL (74-106); Magnesium 1.5 mg/dL (1.8-2.4); Potassium 3.2 mmol/L (3.5-5.1); Sodium 135 mmol/L (136-145)
[2022-12-24 08:46] LABS: Lab Add On Test DONE
--- NOTE | 2022-12-24 08:49 | PDOC.CMIN ---
Date of service: 12/24/22 Time of Service: 08:49 Care Management Initial Assmt Initial Assessment REASON FOR HOSPITALIZATION:: colitis PREVIOUS FUNCTIONAL STATUS/SOCIAL/FAMILY SUPPORTS:: Mónica lives in a single family home in [place] with her Hermes. She does not have any children. 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 She is independent at baseline and does not receive any community services. CURRENT FUNCTIONAL STATUS:: Mónica was sitting up in be when CM met with her. She was warm and friendly in demeanor and engaged well in the interaction. Mónica shared a bit about her recent medical challenges. Since August she has had PEs, a stroke and splenic and renal infarcts. She shared that they have biopsied her lymph nodes as they feel she has a malignancy but need to determine type of cancer to prescribe appropriate treatment. The PET scan showed an area in her hip but it may be artifact. Mónica seemed calm and composed during the discussion and indicated that she is just happy she was not left with any deficits from her embolic events. She also informed CM that she a strong network of support with her and friends. ADVANCE DIRECTIVES:: on file. [facility] Has patient been provided with info about the portal/API?: Yes Did the patient sign up for the portal?: Yes CODE STATUS:: Full Code INSURANCE COVERAGE / FINANCIAL ISSUES:: [employer] Financial Assist 70 CURRENT HOME/COMMUNITY SERVICES/EQUIPMENT:: none PRIMARY CARE PHYSICIAN:: Sophie Ramos POTENTIAL DISCHARGE NEEDS:: follow up with community providers locally and [place] [facility] PATIENT/FAMILY EDUCATION NEEDS:: Review of discharge instructions, limitations, activity, follow up plan, discuss Ask Me Three TRANSPORTATION:: via private vehicle with family PLAN:: Anticipate Mónica will be discharged home with no new services when medically cleared by provider. She will follow up with her PCP and plan of care and transport with family. CM will follow and assess for discharge planning needs. PFSH All Active Problems (Updated 12/24/22 @ 14:40 by Andrea Ahn MD) Hypomagnesemia (Acute) Hypokalemia (Acute) Nausea (Acute) Colitis (Acute) Metastatic lung cancer (metastasis from lung to other site) (Acute) DVT of lower extremity, bilateral (Acute ~10/2022) Renal infarct (Acute) Infarction of spleen (Acute) Right lower lobe lung mass (Acute) Pulmonary embolism, bilateral (Acute) Cigarette smoker (Chronic) Hyperlipidemia (Chronic) Medical History Endometriosis Surgical History History of cataract surgery S/P hysterectomy with oophorectomy S/P ORIF (open reduction internal fixation) fracture Left foot Family History Mother , 76 of lung cancer Lung cancer Father , 75 Diabetes Metastatic cancer Sister No problems noted. Brother Alcohol use disorder Brother Alcohol use disorder Maternal Grandfather No problems noted. Maternal Grandmother Heart disease Paternal Grandfather No problems noted. Paternal Grandmother No problems noted. Social History Smoking/Tobacco Use Status: Former Tobacco Use Quit Date: 11/23/22 Tobacco: How many years used: 40 Quit status: not considering quitting Second Hand Exposure: Yes Smoking risk assessment performed?: Yes Alcohol Intake: current Alcohol Intake frequency: a few times a month Alcohol type: hard liquor Drug use: Never Substance use type: does not use Caregiver/Support person: No Household members: spouse Housing: house Communication Needs: None Pets and animals: Yes Pets and animals: cat(s) Sexually active: Yes Do you think of yourself as: straight/heterosexual Current gender identity: female What is your relationship status?: How often do you talk on the phone with friends or family?: three or more times per week How often do you get together with friends or relatives?: once per week How often do you attend buddhist or baptist services?: decline to answer Do you belong to any clubs or organized social groups?: no Panel score (0-1 are the most socially isolated patients): 2 What type of physical activity do you participate in: walking Frequency: daily Jennifer/Congregational: No preference Special jennifer needs: No Seatbelt use: always Helmet use: Yes Drive intox 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 fleet driver: No Do you feel safe at home: Yes Do you feel safe in your relationship?: Yes
[2022-12-24 09:15] VITALS: BP 96/53; PULSE 87; RESP 16; TEMP 38.1; O2SAT 96
[2022-12-24] MEDS: Normal Saline Flush 10 ML SYR IVP ×2 (10:06→11:55)
[2022-12-24] MEDS: MAGNESIUM SULFATE 2 GM/50 ML BAG IVPB (10:07)
[2022-12-24] MEDS: traMADol 50 MG TAB PO (10:08)
[2022-12-24] MEDS: POTASSIUM CHLORIDE 10 MEQ/100 ML BAG 100 MEQ IVPB ×3 (10:08→13:23)
[2022-12-24 10:20] VITALS: BP 96/53; PULSE 87; RESP 16; TEMP 38.1; O2SAT 94
--- NOTE | 2022-12-24 11:35 | SCONE_ITS ---
Date of service: 12/24/22 Time of Service: 11:35 Assessment and Plan Assessment and plan (1) Colitis: Status: Acute Assessment and plan: Mónica is a pleasant 62 year old female admittedn with colitis. Differential includes diverticulitis vs infectious. I think that this is more then likely diverticulitis, especially because she has not had any stool since sunday. I believe she may have had some overflow diarrhea. Recommend continuing with IV antibiotics Recommend continuing with clear liquids. If patient becomes nauseated or throws up then will need NPO status I will start her on some Miralax daily. We will follow along with you History of Present Illness Narrative: Mrs Soto is a pleasant 62 year old female with a PMHx significant for DVT, PE and stroke and possible lung CA with mets, who comes in to the ER with diarrhea, N/V since sunday. Last BM was sunday night. Workup in the ER showd an elevated WBC count. CT scan showed inflamation around the descending and sigmoid colon. I reviewed the CT scan myself. There is also stool noted in the distal small bowel. She has been tolerating clear liquids since admission yesterday evening. She is burping. NO flatus since yesterday. Consults Consult date: 12/24/22 Requesting physician: Andrea Ahn Review of Systems Constitutional Constitutional: Denies fever(s) and Denies weight loss Cardiovascular Cardiovascular: Denies chest pain, Denies chest pain at rest, Denies irregular heart rhythm, Denies palpitations and Denies dyspnea Respiratory Respiratory: Denies cough and Denies dyspnea Gastrointestinal Gastrointestinal: Reports system reviewed and no additional complaints, except as documented Endocrine Endocrine: Denies palpitations PFSH All Active Problems Dehydration (Acute) Diarrhea (Acute) Nausea (Acute) Colitis (Acute) Metastatic lung cancer (metastasis from lung to other site) (Acute) DVT of lower extremity, bilateral (Acute ~10/2022) Renal infarct (Acute) Infarction of spleen (Acute) Right lower lobe lung mass (Acute) Pulmonary embolism, bilateral (Acute) Cigarette smoker (Chronic) Hyperlipidemia (Chronic) Medical History Endometriosis Surgical History History of cataract surgery S/P hysterectomy with oophorectomy S/P ORIF (open reduction internal fixation) fracture Left foot Family History Mother , 76 of lung cancer Lung cancer Father , 75 Diabetes Metastatic cancer Sister No problems noted. Brother Alcohol use disorder Brother Alcohol use disorder Maternal Grandfather No problems noted. Maternal Grandmother Heart disease Paternal Grandfather No problems noted. Paternal Grandmother No problems noted. Social History Smoking/Tobacco Use Status: Former Tobacco Use Quit Date: 11/23/22 Tobacco: How many years used: 40 Quit status: not considering quitting Second Hand Exposure: Yes Smoking risk assessment performed?: Yes Alcohol Intake: current Alcohol Intake frequency: a few times a month Alcohol type: hard liquor Drug use: Never Substance use type: does not use Caregiver/Support person: No Household members: spouse Housing: house Communication Needs: None Pets and animals: Yes Pets and animals: cat(s) Sexually active: Yes Do you think of yourself as: straight/heterosexual Current gender identity: female What is your relationship status?: How often do you talk on the phone with friends or family?: three or more times per week How often do you get together with friends or relatives?: once per week How often do you attend quaker or sabianist services?: decline to answer Do you belong to any clubs or organized social groups?: no Panel score (0-1 are the most socially isolated patients): 2 What type of physical activity do you participate in: walking Frequency: daily Jennifer/Oriental Orthodox: No preference Special jennifer needs: No Seatbelt use: always Helmet use: Yes Drive intox 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 fleet driver: No Do you feel safe at home: Yes Do you feel safe in your relationship?: Yes Exam Const General: cooperative, comfortable and no acute distress Nutritional Appearance: thin Orientation: alert and oriented x3 HENMT Head: normocephalic and atraumatic Resp Effort & Inspection: normal respiratory effort Auscultation: clear to auscultation bilaterally Cardio Rate: regular rate Rhythm: regular rhythm Heart Sounds: no gallops, murmur and no rubs GI Inspection: normal to inspection Palpation: soft, no hepatosplenomegaly and tender (suprapubic and LLQ. NO rebound or guarding) Auscultation: normal bowel sounds Results Last Vital Signs Temp 100.6 F H 12/24/22 10:20 Pulse 87 12/24/22 10:20 Resp 16 12/24/22 10:20 BP 96/53 L 12/24/22 10:20 Pulse Ox 94 12/24/22 10:20 Labs 12/24/22 06:38 12/24/22 06:38 Labs: Laboratory Results - last 24 hr 12/23/22 12/23/22 12/23/22 13:05 13:05 13:05 WBC 19.95 H RBC 3.90 L Hgb 11.7 Hct 35.6 L MCV 91 MCH 30.0 MCHC 32.9 RDW 12.7 Plt Count 224 MPV 9.2 Immature Gran % 0.8 Neutrophils % 83.8 Lymphocytes % 4.3 Monocytes % 10.8 Eosinophils % 0.0 Basophils % 0.3 Nucleated RBC % 0.0 Absolute Neutrophils 16.72 H Absolute Lymphocytes 0.86 L Absolute Monocytes 2.15 H Absolute Eosinophils 0.00 Absolute Basophils 0.06 RBC Morphology Normal PT INR APTT Sodium 137 Potassium 3.3 L Chloride 100 Carbon Dioxide 27.3 Anion Gap 9.7 BUN 12 Creatinine 1.0 Est GFR (CKD-EPI 2020) 63.70 Glucose 111 H Calcium 8.6 Magnesium 1.6 L Total Bilirubin 0.7 AST 57 H ALT 155 H Alkaline Phosphatase 206 H Total Protein 7.1 Albumin 2.9 L Lipase 18 Procalcitonin TSH 0.24 L Free T4 1.23 Urine Color Urine Clarity Urine pH Ur Specific [place] Urine Protein Urine Ketones Urine Blood Urine Nitrite Urine Bilirubin Urine Urobilinogen Ur Leukocyte Esterase Urine RBC Urine WBC Ur Epithelial Cells Urine Crystals Urine Bacteria Urine Casts Urine Mucus Ur Culture Indicated? Urine Glucose COVID-19 Source Cancelled SARS-CoV-2 (PCR) Cancelled Influenza Type A (PCR) Cancelled Influenza Type B (PCR) Cancelled RSV (PCR) Cancelled Add-On Test Request 12/23/22 12/23/22 12/23/22 13:05 13:05 17:55 WBC RBC Hgb Hct MCV MCH MCHC RDW Plt Count MPV Immature Gran % Neutrophils % Lymphocytes % Monocytes % Eosinophils % Basophils % Nucleated RBC % Absolute Neutrophils Absolute Lymphocytes Absolute Monocytes Absolute Eosinophils Absolute Basophils RBC Morphology PT 12.4 H INR 1.2 H APTT 35.2 H Sodium Potassium Chloride Carbon Dioxide Anion Gap BUN Creatinine Est GFR (CKD-EPI 2020) Glucose Calcium Magnesium Total Bilirubin AST ALT Alkaline Phosphatase Total Protein Albumin Lipase Procalcitonin TSH Free T4 Urine Color Yellow Urine Clarity Clear Urine pH 5.0 Ur Specific [place] <= 1.005 Urine Protein 30 H Urine Ketones 40 H Urine Blood Moderate H Urine Nitrite Negative Urine Bilirubin Negative Urine Urobilinogen 0.2 Ur Leukocyte Esterase Negative Urine RBC 3-5 H Urine WBC 0-2 Ur Epithelial Cells Rare Urine Crystals Negative Urine Bacteria Rare Urine Casts Negative Urine Mucus Negative Ur Culture Indicated? No Urine Glucose Negative COVID-19 Source Nasal/Nares SARS-CoV-2 (PCR) Negative Influenza Type A (PCR) Influenza Type B (PCR) RSV (PCR) Add-On Test Request 12/24/22 12/24/22 12/24/22 06:38 06:38 06:38 WBC 18.06 H RBC 3.45 L Hgb 10.5 L Hct 31.6 L MCV 92 MCH 30.4 MCHC 33.2 RDW 12.7 Plt Count 193 MPV 9.6 Immature Gran % 0.8 Neutrophils % 87.2 Lymphocytes % 3.6 Monocytes % 7.9 Eosinophils % 0.1 Basophils % 0.4 Nucleated RBC % 0.0 Absolute Neutrophils 15.75 H Absolute Lymphocytes 0.65 L Absolute Monocytes 1.43 H Absolute Eosinophils 0.02 Absolute Basophils 0.07 RBC Morphology PT INR APTT Sodium 135 L Potassium 3.2 L Chloride 101 Carbon Dioxide 23.9 Anion Gap 10.1 BUN 11 Creatinine 0.9 Est GFR (CKD-EPI 2020) 72.28 Glucose 102 Calcium 8.1 L Magnesium 1.5 L Total Bilirubin 0.8 AST 33 ALT 88 H Alkaline Phosphatase 152 H Total Protein 6.0 L Albumin 2.2 L Lipase Procalcitonin 1.0 TSH Free T4 Urine Color Urine Clarity Urine pH Ur Specific [place] Urine Protein Urine Ketones Urine Blood Urine Nitrite Urine Bilirubin Urine Urobilinogen Ur Leukocyte Esterase Urine RBC Urine WBC Ur Epithelial Cells Urine Crystals Urine Bacteria Urine Casts Urine Mucus Ur Culture Indicated? Urine Glucose COVID-19 Source SARS-CoV-2 (PCR) Influenza Type A (PCR) Influenza Type B (PCR) RSV (PCR) Add-On Test Request 12/24/22 08:45 WBC RBC Hgb Hct MCV MCH MCHC RDW Plt Count MPV Immature Gran % Neutrophils % Lymphocytes % Monocytes % Eosinophils % Basophils % Nucleated RBC % Absolute Neutrophils Absolute Lymphocytes Absolute Monocytes Absolute Eosinophils Absolute Basophils RBC Morphology PT INR APTT Sodium Potassium Chloride Carbon Dioxide Anion Gap BUN Creatinine Est GFR (CKD-EPI 2020) Glucose Calcium Magnesium Total Bilirubin AST ALT Alkaline Phosphatase Total Protein Albumin Lipase Procalcitonin TSH Free T4 Urine Color Urine Clarity Urine pH Ur Specific [place] Urine Protein Urine Ketones Urine Blood Urine Nitrite Urine Bilirubin Urine Urobilinogen Ur Leukocyte Esterase Urine RBC Urine WBC Ur Epithelial Cells Urine Crystals Urine Bacteria Urine Casts Urine Mucus Ur Culture Indicated? Urine Glucose COVID-19 Source SARS-CoV-2 (PCR) Influenza Type A (PCR) Influenza Type B (PCR) RSV (PCR) Add-On Test Request DONE Imaging Abdomen CT scan report/results: report reviewed and image reviewed CT scan - pelvis: report reviewed and image reviewed
[2022-12-24] MEDS: CIPROFLOXACIN 400 MG/200 ML BAG 200 MG IVPB ×2 (11:56→23:34)
--- NOTE | 2022-12-24 14:36 | W.PM.PROGNOT ---
Date of Service Date of service: 12/24/22 Time of Service: 14:36 Assessment and Plan Assessment and plan (1) Colitis: Status: Acute Assessment and plan: acute colitis, probably diverticulitis, however, given her recent hospitalizations, C difficile colitis needs to be considered but the CT findings seems to be more left sided involving the sigmoid colon, rectum. She has not had diarrhea since presenting to the hospital. Stool cultures and C diff have been ordered. However given the lack of watery diarrhea I think it is unlikely that she has C. difficile colitis particularly since there is an involvement primarily in the left side of her colon. If taken off C. difficile precautions and discontinue the orders for C. difficile collection as she is not having any diarrhea. She is actually constipated not requiring some MiraLAX. Continue Flagyl and ciprofloxacin. Professional time spent interviewing and examining patient, discussion of goals of care with hospital team (care management, nursing and consulting professionals) was 30 minutes. (2) Diarrhea: Status: Resolved Assessment and plan: as above (3) Dehydration: Status: Resolved Assessment and plan: Acute prerenal azotemia resolved she is not having any nausea or vomiting. We will discontinue IV fluids. However she needs potassium and magnesium supplementation. (4) Metastatic lung cancer (metastasis from lung to other site): Status: Acute Assessment and plan: awaiting lung biopsy done [place] [facility] [place] (5) Acute right arterial ischemic stroke, MCA (middle cerebral artery): Status: Resolved Assessment and plan: s/p RMCA thrombectomy 11/26/22 at [facility] [place] (presented to our ED and was transferred, patient had left facial droop and expressive aphasia and left hemiparesis; she had an M1 segmental R.MCA thrombus, this despite being on Apixaban for recent dvt/pe. Patient now on enoxaparin 1 mg/kg SC q12h (60 mg SC Q12H) (6) Pulmonary embolism, bilateral: Status: Acute Assessment and plan: Patient presented to [facility] 11/21/22 w/ bilateral PE, splenic and bilateral renal infarcts, patient had been on apixaban for RLE DVT diagnosed by her PCP on 11/14. She was put on Enoxaparin and transferred to [facility] [place] evaluation of paradoxical PE to look for PFO. (7) Renal infarct: Status: Acute Assessment and plan: diagnosed 11/21 when she presented w/ left upper quadrant pain whild on apixaban for DVT (8) Infarction of spleen: Status: Acute Assessment and plan: as above (9) Hypokalemia: Status: Acute Assessment and plan: Replace with parenteral potassium recheck levels. (10) Hypomagnesemia: Status: Acute Assessment and plan: Repeat days with parenteral magnesium and recheck levels. (11) DVT of lower extremity, bilateral: Status: Acute Assessment and plan: As above Subjective Subjective Interval history since last seen: Patient is feeling better today abdominal pain is less. There is still some residual left lower quadrant tenderness. No nausea or vomiting however she is not passing any flatus or bowel movements. I had Dr. Fulton see the patient she feels that patient had some overflow watery diarrhea around what appears to be some bowel impaction. She is going start her on some MiraLAX. We took her off C. difficile precautions as she is not having any watery diarrhea at this time. Patient remains on Flagyl and ciprofloxacin. She still has a leukocytosis but she is afebrile. Exam Narrative Exam Narrative: Dayana is alert and oriented x3. She is in no acute distress. Lungs are clear to auscultation Heart is regular rate and rhythm Abdomen nondistended, mildly tender in the left lower quadrant without rebound tenderness or involuntary guarding. Bowel sounds are present. Extremities without peripheral cyanosis or edema. Objective Last Vital Signs Temp 38.1 C H 12/24/22 10:20 Pulse 87 12/24/22 10:20 Resp 16 12/24/22 10:20 BP 96/53 L 12/24/22 10:20 Pulse Ox 94 12/24/22 10:20 Laboratory Results - last 24 hr 12/23/22 12/24/22 12/24/22 17:55 06:38 06:38 WBC 18.06 H RBC 3.45 L Hgb 10.5 L Hct 31.6 L MCV 92 MCH 30.4 MCHC 33.2 RDW 12.7 Plt Count 193 MPV 9.6 Immature Gran % 0.8 Neutrophils % 87.2 Lymphocytes % 3.6 Monocytes % 7.9 Eosinophils % 0.1 Basophils % 0.4 Nucleated RBC % 0.0 Absolute Neutrophils 15.75 H Absolute Lymphocytes 0.65 L Absolute Monocytes 1.43 H Absolute Eosinophils 0.02 Absolute Basophils 0.07 Sodium 135 L Potassium 3.2 L Chloride 101 Carbon Dioxide 23.9 Anion Gap 10.1 BUN 11 Creatinine 0.9 Est GFR (CKD-EPI 2020) 72.28 Glucose 102 Calcium 8.1 L Magnesium 1.5 L Total Bilirubin 0.8 AST 33 ALT 88 H Alkaline Phosphatase 152 H Total Protein 6.0 L Albumin 2.2 L Procalcitonin Urine Color Yellow Urine Clarity Clear Urine pH 5.0 Ur Specific [place] <= 1.005 Urine Protein 30 H Urine Ketones 40 H Urine Blood Moderate H Urine Nitrite Negative Urine Bilirubin Negative Urine Urobilinogen 0.2 Ur Leukocyte Esterase Negative Urine RBC 3-5 H Urine WBC 0-2 Ur Epithelial Cells Rare Urine Crystals Negative Urine Bacteria Rare Urine Casts Negative Urine Mucus Negative Ur Culture Indicated? No Urine Glucose Negative Add-On Test Request 12/24/22 12/24/22 06:38 08:45 WBC RBC Hgb Hct MCV MCH MCHC RDW Plt Count MPV Immature Gran % Neutrophils % Lymphocytes % Monocytes % Eosinophils % Basophils % Nucleated RBC % Absolute Neutrophils Absolute Lymphocytes Absolute Monocytes Absolute Eosinophils Absolute Basophils Sodium Potassium Chloride Carbon Dioxide Anion Gap BUN Creatinine Est GFR (CKD-EPI 2020) Glucose Calcium Magnesium Total Bilirubin AST ALT Alkaline Phosphatase Total Protein Albumin Procalcitonin 1.0 Urine Color Urine Clarity Urine pH Ur Specific [place] Urine Protein Urine Ketones Urine Blood Urine Nitrite Urine Bilirubin Urine Urobilinogen Ur Leukocyte Esterase Urine RBC Urine WBC Ur Epithelial Cells Urine Crystals Urine Bacteria Urine Casts Urine Mucus Ur Culture Indicated? Urine Glucose Add-On Test Request DONE PAWSS Have you Been Recently Intoxicated or Drunk Within the Last 30 days?: No Have you Ever Experienced Previous Episodes of Alcohol Withdrawal?: No Have you ever Experienced Withdrawal Seizures?: No Have you ever Experienced Delirium Tremens(DT)s?: No Have you ever undergone Alcohol Rehabilitation Treatment (i.e, inpt ot outpatient treatment programs)?: No Have you ever Experienced Blackouts?: No Have you ever Combined Alcohol with other Downers within the last 90 days?: No Have you ever Combined Alcohol with any other Substance of Abuse during the last 90 days?: No Result: 0 Time Spent with Patient Time Spent with Patient: 25-34 minutes Time was spent: ordering medications,tests, procedures, referring, communicating with other health animal care service worker (Discussion with Dr. Fulton and nursing staff), indepentently interpreting results, counseling the patient and care coordination
[2022-12-24 14:44] VITALS: BP 104/66; PULSE 87; RESP 16; TEMP 36.1; O2SAT 98
[2022-12-24 16:36] LABS: Potassium 3.8 mmol/L (3.5-5.1)
[2022-12-24 22:20] VITALS: BP 123/65; PULSE 77; RESP 16; TEMP 36.9; O2SAT 95
[2022-12-25] MEDS: Enoxaparin 60 MG/0.6 ML SYR SC ×2 (05:07→17:48)
[2022-12-25] MEDS: metroNIDAZOLE 500 MG/100 ML BAG 100 MG IVPB ×3 (05:08→21:29)
[2022-12-25 06:39] LABS: Abs Immature Grans 0.24 10^3/uL (0.0-0.06); Absolute Monocyte Count 1.12 10^3/uL (0.1-0.8); Basophils % 0.2; Eosinophils % 0.7; HCT 30.2 % (36.0-46.0); Immature Grans % 1.5; Lymphocytes % 3.8; MCH 30.3 pg (27.0-33.0); MCHC 33.1 % (32.0-36.0); MCV 92 fL (80-95); MPV 9.7 fL (8.0-11.0); Monocytes % 6.9; Neutrophils % 86.9; Platelet Count 197 10^3/uL (130-400); RDW 12.6 % (11.7-14.6); WBC 16.22 10^3/uL (4.4-10.8)
[2022-12-25 06:44] LABS: Absolute Basophil Count 0.03 10^3/uL (0.0-0.2); Absolute Eosinophil Count 0.11 10^3/uL (0.0-0.7); Absolute Lymphocyte Count 0.62 10^3/uL (1.2-3.4)
[2022-12-25 07:02] VITALS: BP 109/60; PULSE 71; TEMP 36.5; O2SAT 95
[2022-12-25 07:03] LABS: ALT 63 U/L (14-59); AST 20 U/L (15-37); Alkaline Phosphatase 134 U/L (46-116); Anion Gap 7.2 mmol/L (3-11); BUN 7 mg/dL (7-18); Bilirubin, Total 0.5 mg/dL (0.2-1.0); CO2 28.8 mmol/L (21.0-32.0); CREATININE 0.8 mg/dL (0.55-1.02); Calcium 7.9 mg/dL (8.5-10.1); Chloride 100 mmol/L (98-107); Estimated GFR 83.26 (mL/min/1.73m2); Glucose 111 mg/dL (74-106); Magnesium 1.8 mg/dL (1.8-2.4); Potassium 3.5 mmol/L (3.5-5.1); Sodium 136 mmol/L (136-145); Total Protein 5.9 g/dL (6.4-8.2)
[2022-12-25] MEDS: Polyethylene Glycol 3350 17 GM PACKET PO (08:59)
--- NOTE | 2022-12-25 09:56 | W.PM.PROGNOT ---
Date of Service Date of service: 12/25/22 Time of Service: 09:56 Assessment and Plan Assessment and plan (1) Colitis: Status: Acute Assessment and plan: She is going to try some MiraLAX this morning to help stimulate a bowel movement. I advanced her diet a little. We can see how her exam and labs are tomorrow, and hopefully transition over to enteral antibiotics and potentially discharge home. Subjective Subjective Interval history since last seen: Mónica says she is feeling better this morning. She denies any nausea or vomiting. She has been up walking around little bit. She does feel little bit constipated. Exam GI Other: Her abdomen is soft and non-distended. SHe has bowel sounds. She is a little tender in the suprapubic area. Objective Last Vital Signs Temp 97.7 F 12/25/22 07:02 Pulse 71 12/25/22 07:02 Resp 16 12/24/22 22:20 BP 109/60 12/25/22 07:02 Pulse Ox 95 12/25/22 07:02 Laboratory Results - last 24 hr 12/24/22 12/25/22 12/25/22 16:05 06:12 06:12 WBC 16.22 H RBC 3.30 L Hgb 10.0 L Hct 30.2 L MCV 92 MCH 30.3 MCHC 33.1 RDW 12.6 Plt Count 197 MPV 9.7 Immature Gran % 1.5 Neutrophils % 86.9 Lymphocytes % 3.8 Monocytes % 6.9 Eosinophils % 0.7 Basophils % 0.2 Nucleated RBC % 0.0 Absolute Neutrophils 14.10 H Absolute Lymphocytes 0.62 L Absolute Monocytes 1.12 H Absolute Eosinophils 0.11 Absolute Basophils 0.03 Sodium 136 Potassium 3.8 3.5 Chloride 100 Carbon Dioxide 28.8 Anion Gap 7.2 BUN 7 Creatinine 0.8 Est GFR (CKD-EPI 2020) 83.26 Glucose 111 H Calcium 7.9 L Magnesium 2.0 1.8 Total Bilirubin 0.5 AST 20 ALT 63 H Alkaline Phosphatase 134 H Total Protein 5.9 L Albumin 2.0 L PAWSS Have you Been Recently Intoxicated or Drunk Within the Last 30 days?: No Have you Ever Experienced Previous Episodes of Alcohol Withdrawal?: No Have you ever Experienced Withdrawal Seizures?: No Have you ever Experienced Delirium Tremens(DT)s?: No Have you ever undergone Alcohol Rehabilitation Treatment (i.e, inpt ot outpatient treatment programs)?: No Have you ever Experienced Blackouts?: No Have you ever Combined Alcohol with other Downers within the last 90 days?: No Have you ever Combined Alcohol with any other Substance of Abuse during the last 90 days?: No Result: 0 Time Spent with Patient Time Spent with Patient: 25-34 minutes Time was spent: preparing to see the patient(eg.review tests), indepentently interpreting results and counseling the patient
[2022-12-25] MEDS: CIPROFLOXACIN 400 MG/200 ML BAG 200 MG IVPB ×2 (11:32→23:17)
--- NOTE | 2022-12-25 18:46 | PGE_ITS ---
Date of Service Date of service: 12/25/22 Time of Service: 18:46 Assessment and Plan Assessment and plan (1) Colitis: Status: Acute Assessment and plan: Continue cipro/flagyl, bentyl. IMproving. Suspect diverticulitis. (2) Diarrhea: Status: Resolved Assessment and plan: as above (3) Dehydration: Status: Resolved Assessment and plan: Prerenal, resolved. (4) Metastatic lung cancer (metastasis from lung to other site): Status: Acute Assessment and plan: Lung bx is scheduled for 12/28 [facility] [place]. Also is supposed to have an MRI of L hip - we might be able to order that at [facility] on 12/27 (as outpatient). (5) Acute right arterial ischemic stroke, MCA (middle cerebral artery): Status: Resolved Assessment and plan: s/p RMCA thrombectomy 11/26/22 ([facility] [place]) while on apixaban. Continue lovenox 60 mg SC Q12H. (6) Pulmonary embolism, bilateral: Status: Acute Assessment and plan: B PE 11/21/22. As above. (7) Renal infarct: Status: Chronic Assessment and plan: on prior admission. (8) Infarction of spleen: Status: Chronic Assessment and plan: as above (9) Hypokalemia: Status: Resolved Assessment and plan: Recheck in am (10) Hypomagnesemia: Status: Resolved Assessment and plan: Recheck in am (11) DVT of lower extremity, bilateral: Status: Acute Assessment and plan: As above Continue enoxaparin (12) Discharge planning issues: Status: Acute Assessment and plan: Discharge home tomorrow WIll order the MRI of the L hip hopefully for 12/27/22 (as outpatient). Subjective Subjective Interval history since last seen: Ms Soto is feeling better. She still gets some abdominal pain in certain positions, such as when sitting up, but is able to eat, is not nauseated, has not had diarrhea. Denies dizziness, CP, SOB. Has follow up with [facility] oncology on 12/28; is supposed to get an MRI of her L hip prior. Exam Narrative Exam Narrative: General: Pleasant middle-aged female who is A&Ox3, NAD HEENT: EOMI, MMM Heart: RRR, no m/r/g Lungs: CTAB Abdomen: soft, tender in lower abdomen, mildly distended Extremities: No edema BLEs Objective Last Vital Signs Temp 36.5 C 12/25/22 07:02 Pulse 71 12/25/22 07:02 Resp 16 12/24/22 22:20 BP 109/60 12/25/22 07:02 Pulse Ox 95 12/25/22 07:02 Laboratory Results - last 24 hr 12/25/22 12/25/22 06:12 06:12 WBC 16.22 H RBC 3.30 L Hgb 10.0 L Hct 30.2 L MCV 92 MCH 30.3 MCHC 33.1 RDW 12.6 Plt Count 197 MPV 9.7 Immature Gran % 1.5 Neutrophils % 86.9 Lymphocytes % 3.8 Monocytes % 6.9 Eosinophils % 0.7 Basophils % 0.2 Nucleated RBC % 0.0 Absolute Neutrophils 14.10 H Absolute Lymphocytes 0.62 L Absolute Monocytes 1.12 H Absolute Eosinophils 0.11 Absolute Basophils 0.03 Sodium 136 Potassium 3.5 Chloride 100 Carbon Dioxide 28.8 Anion Gap 7.2 BUN 7 Creatinine 0.8 Est GFR (CKD-EPI 2020) 83.26 Glucose 111 H Calcium 7.9 L Magnesium 1.8 Total Bilirubin 0.5 AST 20 ALT 63 H Alkaline Phosphatase 134 H Total Protein 5.9 L Albumin 2.0 L PAWSS Have you Been Recently Intoxicated or Drunk Within the Last 30 days?: No Have you Ever Experienced Previous Episodes of Alcohol Withdrawal?: No Have you ever Experienced Withdrawal Seizures?: No Have you ever Experienced Delirium Tremens(DT)s?: No Have you ever undergone Alcohol Rehabilitation Treatment (i.e, inpt ot outpatient treatment programs)?: No Have you ever Experienced Blackouts?: No Have you ever Combined Alcohol with other Downers within the last 90 days?: No Have you ever Combined Alcohol with any other Substance of Abuse during the last 90 days?: No Result: 0 Time Spent with Patient Time Spent with Patient: 25-34 minutes Time was spent: preparing to see the patient(eg.review tests), obtaining and/or reviewing separately otained hiistory, ordering medications,tests, procedures, referring, communicating with other health congregational care pastor, indepentently in terpreting results, counseling the patient and care coordination
--- NOTE | 2022-12-25 19:21 | PDOC.CMPRO ---
Date of service: 12/25/22 Time of Service: 19:21 Care Management Progress Note Progress Note Text Progress Note Text: S/O: Mónica was sitting up in bed when CM met with her. She was very pleasant and engaged readily with CM. She proudly shared that she was able to have a BM and that she is feeling much better. She anticipates that she will be able to discharge home tomorrow. She has an appointment at [facility] [place] on 12/28 to learn what the biopsy taken last showed and to discuss treatment for her newly diagnosed cancer. She was scheduled to have an MRI of her hip to rule out metastasis, however she was hospitalized. CM advised her to ask the provider about getting it done as an outpatient on Sunday, which she did. It will be ordered at discharge to be done on 12/27/22. A: Mónica is a 62 year old woman admitted on 12/23/22 with colitis vs diverticulitis P:Anticipate Mónica will be discharged home with no new services when medically cleared by provider. She will follow up with her PCP and plan of care and transport with family. CM will follow and assess for discharge planning needs.
[2022-12-25 19:29] VITALS: BP 116/79; PULSE 83; RESP 18; TEMP 36.7; O2SAT 98
[2022-12-25 21:30] LABS: Campylobacter PCR Negative (Negative); Salmonella PCR Negative (Negative); Shiga Toxin PCR Negative (Negative); Shigella/Enteroinvasive Ecoli Negative (Negative)
[2022-12-26] MEDS: metroNIDAZOLE 500 MG/100 ML BAG 100 MG IVPB (05:29)
[2022-12-26] MEDS: Enoxaparin 60 MG/0.6 ML SYR SC (05:29)
[2022-12-26 07:27] VITALS: BP 129/72; PULSE 61; TEMP 37.1; O2SAT 97
[2022-12-26 07:46] LABS: Abs Immature Grans 0.18 10^3/uL (0.0-0.06); Absolute Eosinophil Count 0.27 10^3/uL (0.0-0.7); Basophils % 0.5; Eosinophils % 2.1; HCT 32.1 % (36.0-46.0); HGB 10.7 g/dL (11.2-15.7); Immature Grans % 1.4; Lymphocytes % 6.3; MCH 30.4 pg (27.0-33.0); MCHC 33.3 % (32.0-36.0); MCV 91 fL (80-95); Monocytes % 6.3; Neutrophils % 83.4; Platelet Count 241 10^3/uL (130-400); RBC 3.52 10^6/uL (3.93-5.22); RDW 12.5 % (11.7-14.6); RDW-SD 41.3 fL; WBC 12.77 10^3/uL (4.4-10.8)
[2022-12-26 07:50] LABS: Absolute Basophil Count 0.06 10^3/uL (0.0-0.2); Absolute Neutrophil Count 10.65 10^3/uL (1.2-6.7)
[2022-12-26 08:02] LABS: Anion Gap 8.1 mmol/L (3-11); BUN 7 mg/dL (7-18); CO2 27.9 mmol/L (21.0-32.0); CREATININE 0.8 mg/dL (0.55-1.02); Calcium 8.7 mg/dL (8.5-10.1); Chloride 102 mmol/L (98-107); Estimated GFR 83.26 (mL/min/1.73m2); Glucose 109 mg/dL (74-106); Magnesium 1.9 mg/dL (1.8-2.4); Potassium 3.3 mmol/L (3.5-5.1); Sodium 138 mmol/L (136-145)
--- NOTE | 2022-12-26 08:50 | W.PM.PROGNOT ---
Date of Service Date of service: 12/26/22 Time of Service: 08:50 Assessment and Plan Assessment and plan (1) Colitis: Status: Acute Assessment and plan: Discharge home with diverticulitis diet. She can complete 10 days total abx. I recommended that she follow up with a colonoscopy in 6 weeks, since she has never been screened for colon cancer. Subjective Subjective Interval history since last seen: Mónica feels much better this morning. She had a bowel movement. She denies nasuea or vomiting. Pain is overall improved. Exam GI Other: Abdomen is soft and minimally tender. The exam is better than yesterday. Objective Last Vital Signs Temp 98.8 F 12/26/22 07:27 Pulse 61 12/26/22 07:27 Resp 18 12/25/22 19:29 BP 129/72 12/26/22 07:27 Pulse Ox 97 12/26/22 07:27 Laboratory Results - last 24 hr 12/26/22 12/26/22 06:54 06:54 WBC 12.77 H RBC 3.52 L Hgb 10.7 L Hct 32.1 L MCV 91 MCH 30.4 MCHC 33.3 RDW 12.5 Plt Count 241 MPV 10.0 Immature Gran % 1.4 Neutrophils % 83.4 Lymphocytes % 6.3 Monocytes % 6.3 Eosinophils % 2.1 Basophils % 0.5 Nucleated RBC % 0.0 Absolute Neutrophils 10.65 H Absolute Lymphocytes 0.80 L Absolute Monocytes 0.80 Absolute Eosinophils 0.27 Absolute Basophils 0.06 Sodium 138 Potassium 3.3 L Chloride 102 Carbon Dioxide 27.9 Anion Gap 8.1 BUN 7 Creatinine 0.8 Est GFR (CKD-EPI 2020) 83.26 Glucose 109 H Calcium 8.7 Magnesium 1.9 PAWSS Have you Been Recently Intoxicated or Drunk Within the Last 30 days?: No Have you Ever Experienced Previous Episodes of Alcohol Withdrawal?: No Have you ever Experienced Withdrawal Seizures?: No Have you ever Experienced Delirium Tremens(DT)s?: No Have you ever undergone Alcohol Rehabilitation Treatment (i.e, inpt ot outpatient treatment programs)?: No Have you ever Experienced Blackouts?: No Have you ever Combined Alcohol with other Downers within the last 90 days?: No Have you ever Combined Alcohol with any other Substance of Abuse during the last 90 days?: No Result: 0 Time Spent with Patient Time Spent with Patient: 25-34 minutes Time was spent: preparing to see the patient(eg.review tests) and counseling the patient
--- NOTE | 2022-12-26 10:48 | DSE_ITS ---
Date of service: 12/26/22 Time of Service: 10:48 DS: Diagnosis Discharge Diagnosis (1) Sepsis: Status: Acute (2) Diverticulitis: Status: Chronic (3) Metastatic lung cancer (metastasis from lung to other site): Status: Acute (4) Dehydration: Status: Resolved (5) Hypokalemia: Status: Resolved (6) Hypomagnesemia: Status: Resolved (7) H/O: CVA (cerebrovascular accident): Status: Acute (8) History of pulmonary embolism: Status: Acute Discharge Plan Disposition Patient Disposition: Home Condition: Improving Discharge Details Reason For Visit: Colitis vs Diverticulitis Admit Date/Time: 12/23/22 14:43 Admit Provider: Andrea Ahn Attending Provider: Andrea Ahn [facility] Hospital Course: Ms Soto is a 62 year old female with PMHx of lung cancer presently under workup, as well as h/o PE with recent renal infarct and CVA in November, on lovenox, h/o NSTEMI, hyperlipidemia, who was admitted to [facility] hospitalist service on 12/23/22 with sepsis due to acute colitis, having presented with diarrhea and evidence of dehydration. While blood cultures were ordered, they appear to have been cancelled, based on the findings of her CT abdomen/pelvis. When the patient was evaluated by general surgery, it was felt that the most likely etiology of her colitis was Diverticulitis, though infectious colitis could not be definitively ruled out. The patient was started on clear liquids, treated with IV ciprofloxacin and metronidazole. As her symptoms improved, her diet was advanced. She was discharged home today to complete a total of 10 days of antibiotics and will need to follow up general surgery. She may benefit from a colonoscopy in 6 weeks. Because the patient missed her MRI appointment of her L hip (positive PET-CT), I did reorder this for tomorrow (as outpatient) in hopes of it getting done prior to her oncology appointment on 12/28/22. Care for patient as well as completion of her discharge summary on day of discharge took 45 minutes. Home Meds and New Rx's Prescriptions: New ciprofloxacin HCl [Cipro] 500 mg tablet 500 mg PO Q12H Qty: 16 0RF metronidazole 500 mg tablet 500 mg PO Q8H Qty: 24 0RF Continued famotidine [Pepcid AC] 10 mg tablet 10 mg PO DAILY PRN atorvastatin 80 mg tablet 80 mg PO DAILY Qty: 90 0RF Rx Instructions: 11/29/22 per [facility]. -hb enoxaparin [Lovenox] 80 mg/0.8 mL syringe 60 mg subcut Q12H Rx Instructions: 11/29/22 per [facility]. -hb ondansetron 4 mg tablet,disintegrating 4 mg PO Q8H PRN (Reason: nausea and vomiting) Qty: 30 0RF Discharge Instructions Instructions: Ciprofloxacin (By mouth), Metronidazole (By mouth), Dive rticulitis (DC) Additional Instructions: Finish your antibiotics as prescribed. Return to the hospital with any fever, bleeding, chest pain, or shortness of breath. Follow up with oncology and with your PCP. Follow up with general surgery. MRI has been ordered for 12/27/22. Bloodwork 10/02/22. Stand Alone Forms: Nursing Discharge Form Referrals: MRI [Other] ([facility] Will call you with a Date and Time for your MRI if you do not get a call by 12pm on SundayDecember 27 please call ) Sophie Ramos NP [Primary Care Provider] - (Please call December 27 and make an appointment in the next 1-2 weeks ) Meme Fulton MD [ [facility] STAFF PHYSICIAN] - (Once Dr Kerr office goes over your referral they will give you a call for an appointment if they do not call by Sunday please give them a call to set up an appointment @ ) Activity:: Activity as Tolerated Equipment/Supplies:: No Equipment Needed Diet:: As Tolerated Discharge Orders Discharge Orders: Discharge Order (Routine); Ordered 12/26/22 Ordered By: Grace Bolanos Other Ambulatory Orders: Basic Metabolic Panel (Routine) Timeframe: 20230101 Facility: [facility] - Location: Laboratory Outpatient - [facility] Ordered By: Grace Bolanos MR lower extremity LT wo/w (Routine) Timeframe: 20221227 Facility: [facility] - Location: DIAGNOSTIC IMAGING Ordered By: Grace Bolanos Magnesium (Routine) Timeframe: 20230101 Facility: [facility] - Location: Laboratory Outpatient - [facility] Ordered By: Grace Bolanos Discharge Data Discharge Date/Time-TO BE ENTERED AT DEPARTURE: 12/26/22 12:39 DS: Summary Time Spent with Patient providing and/or coordinating discharge services: Greater than 30 minutes Status at Discharge Functional status at discharge: independent ambulation Overall status at discharge: patient is progressing back to baseline Mental Status: mental status grossly normal Speech and Movement: speech and movement normal Mood: congruent mood Affect: normal affect Exam Narrative Exam Narrative: General: Pleasant middle-aged female who is A&Ox3, NAD HEENT: EOMI, MMM Heart: RRR, no m/r/g Lungs: CTAB Abdomen: soft, tender in lower abdomen, nondistended Extremities: No edema BLEs Psych Mental Status: mental status grossly normal Speech and Movement: speech and movement normal Mood: congruent mood Affect: normal affect DS: Data Vitals/I&O Vitals and I&O: Vital Signs Temperature 37.1 C 12/26/22 07:27 Temperature Source Tympanic 12/26/22 07:27 Pulse 61 12/26/22 07:27 Pulse Rhythm Regular 12/26/22 07:40 Respiratory Rate 18 12/25/22 19:29 Respiratory Effort Normal, Non-Labored 12/26/22 07:40 Respiratory Depth Normal 12/26/22 07:40 Respiratory Pattern Normal 12/26/22 07:40 Blood Pressure 129/72 12/26/22 07:27 Pulse Oximetry 97 12/26/22 07:27 Oxygen Delivery Method Room Air 12/26/22 07:27 Oxygen Flow Rate 0 12/26/22 07:27 Pain Level 0 12/25/22 19:29 Intake & Output 12/25/22 12/25/22 12/26/22 11:59 23:59 11:59 Intake Total 300 / 700 400 / 700 36.667 / 36.667 Balance 300 / 700 400 / 700 36.667 / 36.667 Weight 61.1 kg Intake: IV 300 / 700 400 / 700 36.667 / 36.667 Other: Urine Appearance Clear Clear Stool Size Moderate Moderate Stool Characteristics Soft Soft Liquid Liquid Data Completed and Pending Completed studies during hospitalization [Text1]: CT abdomen/pelvis: 1. New pulmonary nodules in the lung bases concerning for pulmonary metastases.? PET-CT should be considered for further evaluation. 2. Wall thickening and enhancement seen in loops of the small bowel in the pelvis and the rectosigmoid colon.? Inflammatory/infectious bowel disease should be considered in this patient.? Due to involvement of both the large and small bowel, neoplasm may be considered less likely. 3. Fluid within small and large bowel loops suggesting a diarrheal illness. 4. Small amount of pelvic ascites. 5. Areas of decreased attenuation in the splenic kidney suspicious for infarcts. 6. Filling defect seen within a branch of the right lower lobe pulmonary arteries.? This is a site where there is a previous pulmonary embolus on 11/21/2022.? This may be residual disease.? New embolus cannot be entirely excluded. Labs on day of discharge: Labs from last 24 hours 12/26/22 12/26/22 12/25/22 06:54 06:54 11:30 WBC 12.77 H RBC 3.52 L Hgb 10.7 L Hct 32.1 L MCV 91 MCH 30.4 MCHC 33.3 RDW 12.5 Plt Count 241 MPV 10.0 Immature Gran % 1.4 Neutrophils % 83.4 Lymphocytes % 6.3 Monocytes % 6.3 Eosinophils % 2.1 Basophils % 0.5 Nucleated RBC % 0.0 Absolute Neutrophils 10.65 H Absolute Lymphocytes 0.80 L Absolute Monocytes 0.80 Absolute Eosinophils 0.27 Absolute Basophils 0.06 Sodium 138 Potassium 3.3 L Chloride 102 Carbon Dioxide 27.9 Anion Gap 8.1 BUN 7 Creatinine 0.8 Est GFR (CKD-EPI 2020) 83.26 Glucose 109 H Calcium 8.7 Magnesium 1.9 Stool Campylobacter PCR Pending Stool Salmonella PCR Pending Stool Shigella PCR Pending Shiga Toxin (PCR) Pending [facility] All Active Problems (Updated 12/26/22 @ 13:47 by Grace Bolanos MD) Sepsis (Acute) History of pulmonary embolism (Acute) H/O: CVA (cerebrovascular accident) (Acute) Diverticulitis (Chronic) Discharge planning issues (Acute) Nausea (Acute) Colitis (Acute) Metastatic lung cancer (metastasis from lung to other site) (Acute) DVT of lower extremity, bilateral (Acute ~10/2022) Renal infarct (Chronic) Infarction of spleen (Chronic) Right lower lobe lung mass (Acute) Pulmonary embolism, bilateral (Acute) Cigarette smoker (Chronic) Hyperlipidemia (Chronic) Medical History Endometriosis Surgical History History of cataract surgery S/P hysterectomy with oophorectomy S/P ORIF (open reduction internal fixation) fracture Left foot Family History Mother , 76 of lung cancer Lung cancer Father , 75 Diabetes Metastatic cancer Sister No problems noted. Brother Alcohol use disorder Brother Alcohol use disorder Maternal Grandfather No problems noted. Maternal Grandmother Heart disease Paternal Grandfather No problems noted. Paternal Grandmother No problems noted. Social History Smoking/Tobacco Use Status: Former Tobacco Use Quit Date: 11/23/22 Tobacco: How many years used: 40 Quit status: not considering quitting Second Hand Exposure: Yes Smoking risk assessment performed?: Yes Alcohol Intake: current Alcohol Intake frequency: a few times a month Alcohol type: hard liquor Drug use: Never Substance use type: does not use Caregiver/Support person: No Household members: spouse Housing: house Communication Needs: None Pets and animals: Yes Pets and animals: cat(s) Sexually active: Yes Do you think of yourself as: straight/heterosexual Current gender identity: female What is your relationship status?: How often do you talk on the phone with friends or family?: three or more times per week How often do you get together with friends or relatives?: once per week How often do you attend adventism or synagogue services?: decline to answer Do you belong to any clubs or organized social groups?: no Panel score (0-1 are the most socially isolated patients): 2 What type of physical activity do you participate in: walking Frequency: daily Jennifer/Baptist: No preference Special jennifer needs: No Seatbelt use: always Helmet use: Yes Drive intox 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 oil transport driver: No Do you feel safe at home: Yes Do you feel safe in your relationship?: Yes Time Spent with Patient Time Spent with Patient: 45-69 minutes Time was spent: preparing to see the patient(eg.review tests), obtaining and/or reviewing separately otained hiistory, ordering medications,tests, procedures, referring, communicating with other health child care associate teacher, indepentently interpreting results, counseling the patient and care coordination
[2022-12-26] MEDS: Potassium Chloride 20 MEQ TABCR 40 MEQ PO (11:23)
== END 2022-12-26 12:39 | disposition home or self-care (01) | DRG 872 ==
LOC: ER 14:57 → MS 16:56
PROVIDERS: Internal Medicine; Admitting Provider Internal Medicine; Emergency Provider Emergency Medicine; PCP Nurse Practitioner Family; Visit Provider Internal Medicine
DX: K57.32 Diverticulitis of large intestine without perforation or abscess without bleeding (principal); A41.9 Sepsis, unspecified organism; C79.9 Secondary malignant neoplasm of unspecified site; C34.92 Malignant neoplasm of unspecified part of left bronchus or lung; E83.42 Hypomagnesemia; Z86.711 Personal history of pulmonary embolism; Z86.73 Personal history of transient ischemic attack (TIA), and cerebral infarction without residual deficits; E87.6 Hypokalemia; I25.2 Old myocardial infarction; E78.5 Hyperlipidemia, unspecified; E86.0 Dehydration
CPT/HCPCS: 36415; 80048; 80053; 83690; 84145; 87505; 87635; 87637; 99285; 74177; 81003; 81015; 83735; 84132; 84439; 84443; 85025; 85610; 85730; 99223; 99232; 99239; J0744; J0780; J1650; J1885; J3480; J3490

== ENCOUNTER 2023-01-01 02:47 | Outpatient (CLI) | payer OTHER, SELFPAY ==
[2023-01-01 14:04] LABS: Abs Immature Grans 0.24 10^3/uL (0.0-0.06); Absolute Eosinophil Count 0.11 10^3/uL (0.0-0.7); Absolute Lymphocyte Count 1.35 10^3/uL (1.2-3.4); Absolute Monocyte Count 0.89 10^3/uL (0.1-0.8); Basophils % 0.5; Eosinophils % 0.9; HCT 40.4 % (36.0-46.0); HGB 13.4 g/dL (11.2-15.7); Immature Grans % 1.9; Lymphocytes % 10.6; MCH 29.6 pg (27.0-33.0); MCHC 33.2 % (32.0-36.0); MCV 89 fL (80-95); MPV 9.2 fL (8.0-11.0); Neutrophils % 79.1; Platelet Count 364 10^3/uL (130-400); RBC 4.52 10^6/uL (3.93-5.22); RDW 12.8 % (11.7-14.6); RDW-SD 42.1 fL; WBC 12.76 10^3/uL (4.4-10.8)
[2023-01-01 14:06] LABS: Absolute Basophil Count 0.06 10^3/uL (0.0-0.2); Absolute Neutrophil Count 10.09 10^3/uL (1.2-6.7)
[2023-01-01 14:20] LABS: ALT 47 U/L (14-59); AST 48 U/L (15-37); Albumin 3.3 g/dL (3.4-5.0); Alkaline Phosphatase 128 U/L (46-116); BUN 12 mg/dL (7-18); Bilirubin, Total 0.3 mg/dL (0.2-1.0); Calcium 8.9 mg/dL (8.5-10.1); Chloride 99 mmol/L (98-107); Glucose 133 mg/dL (74-106); Potassium 3.9 mmol/L (3.5-5.1); Sodium 136 mmol/L (136-145); Total Protein 7.3 g/dL (6.4-8.2)
== END 2023-01-01 02:48 | disposition home or self-care (01) ==
LOC: LBO 02:47
PROVIDERS: PCP Nurse Practitioner Family; Visit Provider Internal Medicine Medical Oncology
DX: C34.31 Malignant neoplasm of lower lobe, right bronchus or lung (principal); E87.6 Hypokalemia; E83.42 Hypomagnesemia
CPT/HCPCS: 36415; 80048; 80053; 83735; 85025

== ENCOUNTER 2023-01-15 02:47 | Outpatient (CLI) | payer OTHER, SELFPAY ==
--- NOTE | 2023-01-15 | DI.CT_ITS ---
Exam(s) CT CHEST/ABD/PEL W EXAM: CT CHEST/ABD/PEL W CLINICAL HISTORY: LUNG CANCER C34.31 DIVERTICULITIS LARGE INTESTINE K57.33 TECHNIQUE: Imaging Protocol: Axial computed tomography images with coronal and sagittal reformatted images were created and reviewed CONTRAST MATERIAL: Intravenous: Omnipaque 350 contrast volume:100 mL Oral: Yes COMPARISON: CT CT CHEST PE ABD PELVIS W from 11/21/[address] ABDOMEN PELVIS W from 12/23/[address] HEAD WO/W from 01/15/2023 FINDINGS: CHEST: Tracheobronchial tree: Patent where visualized. Pulmonary parenchyma: There is a 4.1 x 1.9 x 2.5 cm mass in the posterior aspect of the right lobe of the liver. Several small pulmonary nodules are seen (less than 7 mm). There is also a 1.1 x 1.1 cm mass in the inferior aspect of the right upper lobe. No architectural distortion. Visualized thyroid gland: Unremarkable. Mediastinum and Amanda: There is mediastinal and hilar adenopathy. The largest lymph node is in the contreras bcarinal region and measures 1.7 x 3 cm. The esophagus is unremarkable. Pleura: No effusion or pneumothorax. Heart: The heart is not dilated. Mild coronary artery calcification. No pericardial effusion. Pulmonary arteries: There is a filling defect seen in a branch of the pulmonary arteries to the right middle lobe. It is nonocclusive. Aorta: Thoracic aorta non-dilated. Atherosclerosis. Lymph nodes: Within normal limits. Soft tissues: Unremarkable. Bones:Within normal limits for the patient's age. No lytic or sclerotic lesions. ABDOMEN: Liver: Normal density. There are 2 tiny density seen in the dome of the liver. They are too small fo r further characterization but likely reflect small cysts. There is focal fatty infiltration along t he ligamentum teres. No suspicious hepatic masses are seen. Portal, Superior Mesenteric, and Splenic Veins: Unremarkable. Gallbladder and Biliary Tract: No radiodense calculus or dilation. Pancreas: Normal density, no abnormal calcifications or inflammatory process. Spleen: There again seen areas of decreased attenuation in the spleen. Adrenals: No masses seen. Kidneys: Normal size, contour and axis. No radiodense stones or obstructive uropathy. There are stabl e areas of decreased attenuation in the kidneys. These may represent areas of scarring. There also is a left renal cysts. These findings are stable. Abdominal Aorta: Abdominal portion non-dilated. Atherosclerosis. Bowel: No obstruction or bowel wall thickening. There is diverticulosis of the colon without evidence of acute diverticulitis. There is a normal appendix. Peritoneal Cavity: No ascites, collection or mesenteric inflammatory response. No free air. Lymph Nodes: Within normal limits. Bones: Within normal limits for the patient's age. No aggressive osseous lesions are present. Soft Tissues: There is a small amount of subcutaneous air in the anterior abdominal wall. No focal f luid collection is seen to suggest an abscess. PELVIS: Bladder: There is thickening of the wall of the urinary bladder dome with mild inflammation in the contreras rrounding soft tissues. Reproductive Organs: Status post hysterectomy. Lymph Nodes: Within normal limits. Bones: Within normal limits. IMPRESSION: 1. 1.1 x 1.9 x 2.5 cm right lung mass suspicious for primary neoplasm. 2. Multiple pulmonary nodules suspicious for metastatic disease. 3. Filling defect seen in a branch of the pulmonary arteries to the right middle lobe which may repre sent a small pulmonary embolus. No evidence of right heart strain. 4. Thickening of the wall of the dome of the urinary bladder. Infectious or inflammatory cystitis sh ould be considered. Please correlate clinically. Bladder mass not excluded. 5. Stable finding abdomen and pelvis. RADIATION DOSE DELIVERED: Total DLP DATA REPOSITORY: All CT scans at this facility are submitted to the National Radiology Data Registry (NRDR) Dose Index Registry (DIR) with the [employer] (ACR). RADIATION OPTIMIZATION: All CT scans at this facility use at least one of these dose optimization te chniques: automated exposure control; mA and/or kV adjustment per patient size (includes targeted exa ms where dose is matched to clinical indication); or iterative reconstruction.
--- NOTE | 2023-01-15 | DI.CT_ITS ---
Exam(s) CT HEAD WO/W EXAM: CT HEAD WO/W CLINICAL HISTORY: LUNG CANCER C34.31 STAGING. TECHNIQUE: Imaging Protocol: Axial computed tomography images with coronal and sagittal reformatted images were created and reviewed. CONTRAST MATERIAL: Intravenous: Omnipaque 350 contrast volume:structured data in ml mL COMPARISON: CT CT BRAIN NECK CTA from 11/26/2022 FINDINGS: Ventricles and Extra axial spaces: Normal in size and morphology for the patient's age. Hemorrhage: None. Cerebral parenchyma: There is a new lucency seen in the right basal ganglia. There is also an area o f decreased attenuation in the posterior aspect of the right temporal lobe which was not present on t he prior examination. Cortical enhancement and parenchymal enhancement is noted. There also appear to be dilated enhancing vessels along the calvarium. There is also a new lucency seen in the left pa rietal lobe. This shows no enhancement. Enhancement: No suspicious enhancement. Tabor of [place]: Unremarkable. Midline shift: None. Brainstem/Cerebellum: Normal. Calvarium: Normal. Visualized Paranasal sinuses/Mastoids: Clear. IMPRESSION: 1. New area of decreased attenuation in the posterior left temporal lobe with associated cortical and parenchymal enhancement. Enlarged vessels are also seen in this region. Differential consideration s include cerebral infarction, vascular malformation, metastatic disease. 2. Two new lucencies 1 in the left parietal lobe and 1 in the right basal ganglia. These may represe nt lacunar infarct. There is no enhancement. 3. Pre and postcontrast MRI of the brain is recommended for further evaluation. RADIATION DOSE DELIVERED: Total DLP Total DLP DATA REPOSITORY: All CT scans at this facility are submitted to the National Radiology Data Registry (NRDR) Dose Index Registry (DIR) with the [employer] (ACR). RADIATION OPTIMIZATION: All CT scans at this facility use at least one of these dose optimization te chniques: automated exposure control; mA and/or kV adjustment per patient size (includes targeted exa ms where dose is matched to clinical indication); or iterative reconstruction.
[2023-01-15 09:44] LABS: Abs Immature Grans 0.05 10^3/uL (0.0-0.06); Absolute Basophil Count 0.05 10^3/uL (0.0-0.2); Absolute Eosinophil Count 0.13 10^3/uL (0.0-0.7); Absolute Lymphocyte Count 1.05 10^3/uL (1.2-3.4); Absolute Monocyte Count 0.85 10^3/uL (0.1-0.8); Absolute Neutrophil Count 6.48 10^3/uL (1.2-6.7); Basophils % 0.6; Eosinophils % 1.5; HCT 38.3 % (36.0-46.0); HGB 12.5 g/dL (11.2-15.7); Immature Grans % 0.6; Lymphocytes % 12.2; MCH 29.5 pg (27.0-33.0); MCHC 32.6 % (32.0-36.0); MCV 90 fL (80-95); Monocytes % 9.9; Neutrophils % 75.2; Platelet Count 185 10^3/uL (130-400); RBC 4.24 10^6/uL (3.93-5.22); RDW 13.2 % (11.7-14.6); RDW-SD 44.2 fL; WBC 8.61 10^3/uL (4.4-10.8)
[2023-01-15 10:03] LABS: ALT 46 U/L (14-59); AST 39 U/L (15-37); Albumin 3.3 g/dL (3.4-5.0); Alkaline Phosphatase 120 U/L (46-116); Anion Gap 10.4 mmol/L (3-11); BUN 15 mg/dL (7-18); Bilirubin, Total 0.5 mg/dL (0.2-1.0); CO2 27.6 mmol/L (21.0-32.0); Calcium 9.3 mg/dL (8.5-10.1); Chloride 100 mmol/L (98-107); Glucose 109 mg/dL (74-106); Magnesium 1.9 mg/dL (1.8-2.4); Sodium 138 mmol/L (136-145); Total Protein 7.3 g/dL (6.4-8.2)
[2023-01-15] MEDS: Barium Sulfate 2% W/V-Berry Smoothie 450 ML BTL PO ×2 (10:13→10:14)
[2023-01-15] MEDS: Omnipaque 350 MG/ML 500 ML BTL-Imaging package 100 ML IJ (11:37)
[2023-01-15] MEDS: Normal Saline - Diluent 50 ML VIAL IJ (11:37)
== END 2023-01-15 03:07 ==
LOC: DI 02:48
PROVIDERS: PCP Nurse Practitioner Family; Visit Provider Internal Medicine Medical Oncology
DX: C34.31 Malignant neoplasm of lower lobe, right bronchus or lung (principal); K57.33 Diverticulitis of large intestine without perforation or abscess with bleeding
CPT/HCPCS: 74177; 80053; 70470; 71260; 83735; 85025

== ENCOUNTER 2023-01-16 04:46 | Outpatient (CLI) | payer OTHER, SELFPAY ==
[2023-01-16] MEDS: Albuterol HFA 18 GM 200 PUFF INH IH (08:59)
[2023-01-16] MEDS: Inhaler, Assist Device 1 EACH MC (08:59)
--- NOTE | 2023-01-16 16:06 | W.PFT ---
Date of service: 01/16/23 Time of Service: 07:59 Pulmonary Function Test Result Indications: Lung cancer Interpretation Spirometry: There is no airflow limitation. There is no bronchodilator response. Lung Volumes: Normal lung volumes Diffusion Capacity: Corrected diffusion is normal. Airway Pressure: Normal airways resistance Impression Normal pulmonary function testing Clinical Correlation therefore is recommended.
== END 2023-01-16 04:47 | disposition home or self-care (01) ==
LOC: RT 04:46
PROVIDERS: PCP Nurse Practitioner Family; Visit Provider Internal Medicine Medical Oncology
DX: C34.31 Malignant neoplasm of lower lobe, right bronchus or lung (principal)
CPT/HCPCS: 94060; 94726; 94729

== ENCOUNTER 2023-01-24 09:31 | Outpatient (CLI) | payer OTHER, SELFPAY ==
[2023-01-24 09:51] LABS: Abs Immature Grans 0.07 10^3/uL (0.0-0.06); Absolute Basophil Count 0.06 10^3/uL (0.0-0.2); Absolute Eosinophil Count 0.27 10^3/uL (0.0-0.7); Absolute Lymphocyte Count 1.35 10^3/uL (1.2-3.4); Absolute Neutrophil Count 7.18 10^3/uL (1.2-6.7); Basophils % 0.6; Eosinophils % 2.8; HCT 39.5 % (36.0-46.0); Immature Grans % 0.7; MCH 29.7 pg (27.0-33.0); MCHC 32.9 % (32.0-36.0); MCV 90 fL (80-95); MPV 9.2 fL (8.0-11.0); Monocytes % 7.3; Neutrophils % 74.6; Platelet Count 311 10^3/uL (130-400); RBC 4.37 10^6/uL (3.93-5.22); RDW 13.3 % (11.7-14.6); RDW-SD 43.8 fL; WBC 9.63 10^3/uL (4.4-10.8)
[2023-01-24 10:31] LABS: ALT 64 U/L (14-59); AST 39 U/L (15-37); Albumin 3.4 g/dL (3.4-5.0); Alkaline Phosphatase 123 U/L (46-116); Anion Gap 6.5 mmol/L (3-11); BUN 7 mg/dL (7-18); Bilirubin, Total 0.3 mg/dL (0.2-1.0); CO2 27.5 mmol/L (21.0-32.0); Calcium 9.2 mg/dL (8.5-10.1); Chloride 104 mmol/L (98-107); Glucose 137 mg/dL (74-106); Magnesium 1.9 mg/dL (1.8-2.4); Potassium 4.3 mmol/L (3.5-5.1); Sodium 138 mmol/L (136-145)
== END 2023-01-24 09:32 | disposition home or self-care (01) ==
LOC: LBO 09:31
PROVIDERS: PCP Nurse Practitioner Family; Visit Provider Internal Medicine Medical Oncology
DX: C34.31 Malignant neoplasm of lower lobe, right bronchus or lung (principal)
CPT/HCPCS: 36415; 80053; 83735; 85025

== ENCOUNTER 2023-02-05 03:57 | Outpatient (CLI) | payer OTHER, SELFPAY ==
[2023-02-05 13:40] LABS: Abs Immature Grans 0.02 10^3/uL (0.0-0.06); Absolute Basophil Count 0.01 10^3/uL (0.0-0.2); Absolute Eosinophil Count 0.06 10^3/uL (0.0-0.7); Absolute Lymphocyte Count 0.89 10^3/uL (1.2-3.4); Absolute Monocyte Count 0.62 10^3/uL (0.1-0.8); Basophils % 0.3; Eosinophils % 1.9; HCT 31.4 % (36.0-46.0); HGB 10.5 g/dL (11.2-15.7); Immature Grans % 0.6; Lymphocytes % 27.8; MCH 29.3 pg (27.0-33.0); MCHC 33.4 % (32.0-36.0); MCV 88 fL (80-95); MPV 9.4 fL (8.0-11.0); Monocytes % 19.4; Platelet Count 110 10^3/uL (130-400); RBC 3.58 10^6/uL (3.93-5.22); RDW 12.9 % (11.7-14.6); RDW-SD 40.7 fL
[2023-02-05 14:05] LABS: ALT 153 U/L (14-59); AST 79 U/L (15-37); Albumin 3.2 g/dL (3.4-5.0); Alkaline Phosphatase 151 U/L (46-116); Anion Gap 5.6 mmol/L (3-11); BUN 13 mg/dL (7-18); Bilirubin, Total 0.2 mg/dL (0.2-1.0); CO2 31.4 mmol/L (21.0-32.0); CREATININE 1.2 mg/dL (0.55-1.02); Calcium 8.8 mg/dL (8.5-10.1); Chloride 101 mmol/L (98-107); Estimated GFR 51.18 (mL/min/1.73m2); Glucose 123 mg/dL (74-106); Magnesium 1.7 mg/dL (1.8-2.4); Potassium 3.5 mmol/L (3.5-5.1); Sodium 138 mmol/L (136-145); TSH 2.46 uIU/mL (0.36-3.74); Total Protein 6.7 g/dL (6.4-8.2)
== END 2023-02-05 03:58 | disposition home or self-care (01) ==
LOC: LBO 03:57
PROVIDERS: PCP Nurse Practitioner Family; Visit Provider Internal Medicine Medical Oncology
DX: Z79.899 Other long term (current) drug therapy (principal)
CPT/HCPCS: 36415; 80053; 83735; 84439; 84443; 85025

== ENCOUNTER 2023-02-10 08:25 | Emergency (ER) | payer OTHER, SELFPAY ==
[2023-02-10 08:28] VITALS: BP 140/67; PULSE 64; RESP 16; TEMP 36.8; O2SAT 98
--- NOTE | 2023-02-10 08:30 | DI.CT_ITS ---
Exam(s) CT ABDOMEN PELVIS W EXAM: CT ABDOMEN PELVIS W CLINICAL HISTORY: abd pain, active lung ca, recent divertic. TECHNIQUE: Imaging Protocol: Axial computed tomography images with coronal and sagittal reformatted images were created and reviewed CONTRAST MATERIAL: Intravenous: Omnipaque-350 100cc Oral: None CT CT CHEST/ABD/PEL W from 01/15/2023 FINDINGS: VISUALIZED LUNG BASES: Noncalcified nodules are again noted in the visualized lung bases, as evident on prior CT scan 01/15/2023.. Please note that the prior study include the entire chest and revealed a concerning mass higher up in the right lung right lower lobe suspicious for malignancy. Therefore these other nodules seen in the lung bases are most probably metastatic.. There are no pleural effu sions. ABDOMEN: There is no ascites. LIVER: There are no focal hepatic lesions evident. No evidence of intrahepatic abscess. No gas in t he portal venous system. GALLBLADDER/BILIARY: No obvious gallbladder pathology. CBD is not dilated. PANCREAS: No evidence of pancreatic mass nor dilatation of the pancreatic duct. SPLEEN: Spleen is not enlarged. No obvious intrasplenic lesions. Splenic and portal veins are paten t. ADRENALS: There are no significant adrenal masses. KIDNEYS:3.4 x 3.4 cm cyst noted in the superior aspect of the left kidney. Does not require further imaging. Scarring in the lateral right kidney cortex again noted. No other significant renal findin gs. No calculi. No hydronephrosis.. ABDOMINAL AORTA: Calcified but not enlarged. LYMPH NODES:There is no retroperitoneal nor paraaortic adenopathy. ABDOMINAL WALL: No evidence of significant anterior abdominal wall nor inguinal hernia. GI: There are multiple abnormal appearing small bowel loops in the right-side of the pelvis dilated u p to 2.5 cm and exhibiting thickened cook. Consistent with enteritis. Possibly Crohn's disease.. There is no high-grade bowel obstruction. No free air. No free fluid. No abscess. There are diverticuli in the left side of the colon. No evidence of obvious acute diverticulitis. PELVIS: GI: There is enhancement of the wall of the appendix but appendix exhibits upper normal diameter and no immediate periappendiceal streaking. There isno evidence of sigmoid diverticulitis. LYMPH NODES: There is no intrapelvic nor inguinal adenopathy. REPRODUCTIVE: Uterus surgically absent. No ovarian masses evident. No free fluid in the pelvis. URINARY BLADDER: Urinary bladder wall is diffusely thickened and exhibits uniform shaggy appearance, consistent with cystitis. This is more evident than on the prior study of 01/15/2023. OSSEOUS: No fractures and no significant osseous lesions. Subcutaneous air over the anterior abdominal wall both sides is most probably from anticoagulant inje ctions. IMPRESSION: 1. Abnormal appearance of multiple distal small bowel loops consistent with significant enteritis, mo st probably Crohn's disease. There is does not appear to be a high-grade bowel obstruction. 2. Uniform thickening of bladder wall as described above which is most probably related to cystitis. There is no gas in the urinary bladder wall nor within the bladder lumen. 3. Nodules in the lung bases again noted and may be metastatic, particularly given finding seen in th e chest on the chest CT scan of 01/15/2023. 4. Scarring in the right kidney lateral cortex is again noted. RADIATION DOSE DELIVERED: 626.89mGy.cm Total DLP DATA REPOSITORY: All CT scans at this facility are submitted to the National Radiology Data Registry (NRDR) Dose Index Registry (DIR) with the [employer] (ACR). RADIATION OPTIMIZATION: All CT scans at this facility use at least one of these dose optimization te chniques: automated exposure control; mA and/or kV adjustment per patient size (includes targeted exa ms where dose is matched to clinical indication); or iterative reconstruction.
[2023-02-10 09:04] LABS: Abs Immature Grans 0.09 10^3/uL (0.0-0.06); Absolute Basophil Count 0.02 10^3/uL (0.0-0.2); Absolute Lymphocyte Count 0.83 10^3/uL (1.2-3.4); Absolute Monocyte Count 0.66 10^3/uL (0.1-0.8); Absolute Neutrophil Count 2.43 10^3/uL (1.2-6.7); Basophils % 0.5; Eosinophils % 2.4; HCT 32.6 % (36.0-46.0); HGB 10.9 g/dL (11.2-15.7); Immature Grans % 2.2; Lymphocytes % 20.1; MCH 29.9 pg (27.0-33.0); MCHC 33.4 % (32.0-36.0); MCV 89 fL (80-95); MPV 9.3 fL (8.0-11.0); Neutrophils % 58.8; Platelet Count 190 10^3/uL (130-400); RBC 3.65 10^6/uL (3.93-5.22); RDW 13.3 % (11.7-14.6); WBC 4.13 10^3/uL (4.4-10.8)
--- NOTE | 2023-02-10 09:06 | ED.GENADUL_ITS ---
Discharge Plan Disposition Patient Disposition: Home Condition: Improving Discharge Details Chief Complaint: Abd Prob Clinical Impression: Enteritis Primary Care Provider: Sophie Ramos ED Provider: Osvaldo Mendez Home Meds and New Rx's Prescriptions: No Action famotidine [Pepcid AC] 10 mg tablet 10 mg PO DAILY PRN atorvastatin 80 mg tablet 80 mg PO DAILY Qty: 90 3RF enoxaparin [Lovenox] 80 mg/0.8 mL syringe 60 mg subcut Q12H Rx Instructions: 11/29/22 per [facility] [place]. -hb prochlorperazine maleate 10 mg tablet 10 mg PO Q6H PRN Patient Comments: TAKE ONE TABLET BY MOUTH EVERY 6 HOURS NEEDED FOR NAUSEA omeprazole 20 mg capsule,delayed release(DR/EC) 20 mg PO DAILY Patient Comments: TAKE ONE CAPSULE BY MOUTH EVERY DAY ondansetron 4 mg tablet,disintegrating 4 mg PO Q8H PRN (Reason: nausea and vomiting) Qty: 30 0RF Discharge Instructions Instructions: Enteritis (ED) Medical Decision Making 62-year-old female history of small cell lung cancer, currently undergoing chemotherapy, recent outpatient antibiotics for diverticulitis presents with abdominal pain and diarrhea, hemodynamically stable afebrile nontoxic nonperitoneal however patient is high risk given immunocompromise state and recent antibiotic use, consider refractory diverticulitis versus abscess versus phlegmon versus C. difficile versus other systemic infection versus viral illness, screening labs imaging fluids close reassessment 10: 50 patient resting comfortably no acute distress. Evidence of enteritis on CT scan. No urinary symptoms. Consider transaminitis related to chemotherapy. Patient be sent home with stool sample collection kit to test for C. difficile. Will follow with outpatient team. Home care instructions return precautions HPI General Date/Time Provider Initiated Documentation: 02/10/23 08:26 . HPI Narrative: 62-year-old female history of small cell lung cancer currently undergoing chemotherapy, recent diverticulitis completed course of outpatient antibiotics presents with abdominal discomfort and diarrhea over the past couple of days Related Data Home Medications Medication Instructions Recorded Confirmed famotidine 10 mg tablet (Pepcid AC) 10 mg PO DAILY PRN 04/26/22 01/10/23 enoxaparin 80 mg/0.8 mL 60 mg subcut Q12H 12/07/22 02/10/23 subcutaneous syringe (Lovenox) ondansetron 4 mg disintegrating 4 mg PO Q8H PRN nausea and 12/22/22 01/10/23 tablet vomiting #30 tabs atorvastatin 80 mg tablet 80 mg PO DAILY #90 tabs 01/10/23 02/10/23 omeprazole 20 mg capsule,delayed 20 mg PO DAILY 02/10/23 02/10/23 release prochlorperazine maleate 10 mg 10 mg PO Q6H PRN 02/10/23 02/10/23 tablet Previous Rx's Medication Instructions Recorded ondansetron 4 mg disintegrating 4 mg PO Q8H PRN nausea and 12/22/22 tablet vomiting #30 tabs atorvastatin 80 mg tablet 80 mg PO DAILY #90 tabs 01/10/23 Allergies Allergy/AdvReac Type Severity Reaction Status Date / Time Penicillins Allergy Intermediate Hives Unverified 02/10/23 08:31 acetaminophen Allergy Mild Hives Unverified 02/10/23 08:31 Sulfa (Sulfonamide AdvReac Mild Nausea Unverified 02/10/23 08:31 Antibiotics) General Stated Complaint: Abd Prob RENEE: 3 Review of Systems Narrative: Review of Systems Constitutional: negative Eyes: negative ENT: negative Cardiovascular: negative Respiratory: negative Gastrointestinal: Abdominal pain, diarrhea : negative Musculoskeletal: negative Skin: negative Neurologic: negative Psych: negative PFSH All Active Problems (Updated 02/10/23 @ 10:51 by Osvaldo Mendez MD) Enteritis (Acute) Metastatic non-small cell lung cancer (Acute ~10/2022) 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 Brother Alcohol use disorder Brother Alcohol use disorder Maternal Grandfather No problems noted. Maternal Grandmother Heart disease Paternal Grandfather No problems noted. Paternal Grandmother No problems noted. Social History Smoking/Tobacco Use Status: Former Tobacco Use Quit Date: 11/23/22 Tobacco: How many years used: 40 Quit status: not considering quitting Second Hand Exposure: Yes Smoking risk assessment performed?: Yes Alcohol Intake: current Alcohol Intake frequency: a few times a month Alcohol type: hard liquor Drug use: Never Substance use type: does not use Caregiver/Support person: No Household members: spouse Housing: house Communication Needs: None Pets and animals: Yes Pets and animals: cat(s) Sexually active: Yes Do you think of yourself as: straight/heterosexual Current gender identity: female What is your relationship status?: How often do you talk on the phone with friends or family?: three or more times per week How often do you get together with friends or relatives?: once per week How often do you attend restorationist or restorationist services?: decline to answer Do you belong to any clubs or organized social groups?: no Panel score (0-1 are the most socially isolated patients): 2 What type of physical activity do you participate in: walking Frequency: daily Jennifer/Oriental Orthodox: No preference Special jennifer needs: No Seatbelt use: always Helmet use: Yes Drive intox 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 compactor driver: No Do you feel safe at home: Yes Do you feel safe in your relationship?: Yes Exam Narrative Exam Narrative: Physical Examination General: alert, awake, cooperative, resting comfortably, no acute distress HEENT: normocephalic, atraumatic; PERRL, EOM intact, conjunctiva normal; no nasal discharge; moist mucous membranes, oral and pharyngeal mucosa normal, tolerating secretions Neck: supple, trachea midline; full ROM Chest: normal to inspection Respiratory: normal respiratory effort, speaking in full sentences, clear to auscultation, no wheezing, rales or rhonchi Cardiac: regular rate, regular rhythm, S1S2 intact, no murmurs rubs or gallops GI: abdomen soft, non-tender, non-distended; no palpable mass or hepatosplenomegaly Skin: no lesions, rashes or trauma appreciated Neuro: AAOx3, normal speech, moving all extremities Psych: Appropriate mood and affect Course Vital Signs Vital signs: Vital Signs Temperature 36.8 C 02/10/23 08:28 Pulse 64 02/10/23 08:28 Respiratory Rate 16 02/10/23 08:28 Blood Pressure 140/67 02/10/23 08:28 Pulse Oximetry 98 02/10/23 08:28 Temperature 36.8 C 02/10/23 08:28 Temperature Source Oral 02/10/23 08:28 Pulse 64 02/10/23 08:28 Respiratory Rate 16 02/10/23 08:28 Respiratory Effort Normal, Non-Labored 02/10/23 08:35 Blood Pressure 140/67 02/10/23 08:28 Blood Pressure Position Sitting 02/10/23 08:28 Pulse Oximetry 98 02/10/23 08:28 Oxygen Delivery Method Room Air 02/10/23 08:28 Oxygen Flow Rate 0 02/10/23 08:28
[2023-02-10 09:26] LABS: ALT 274 U/L (14-59); AST 162 U/L (15-37); Albumin 3.2 g/dL (3.4-5.0); Alkaline Phosphatase 182 U/L (46-116); BUN 8 mg/dL (7-18); Bilirubin, Total 0.4 mg/dL (0.2-1.0); CREATININE 0.9 mg/dL (0.55-1.02); Calcium 9.1 mg/dL (8.5-10.1); Chloride 102 mmol/L (98-107); Estimated GFR 72.28 (mL/min/1.73m2); Glucose 100 mg/dL (74-106); Magnesium 1.6 mg/dL (1.8-2.4); Potassium 3.8 mmol/L (3.5-5.1); Sodium 139 mmol/L (136-145); Total Protein 6.7 g/dL (6.4-8.2)
[2023-02-10] MEDS: Normal Saline 1,000 ML 1000 ML IV (09:28)
[2023-02-10 09:37] LABS: Bilirubin Small (Negative); Blood Small (Negative); Clarity Clear (Clear); Glucose Negative (Negative); Ketones Trace mg/dL (Negative); Leukocyte Esterase Negative (Negative); Nitrite Negative (Negative); Specific Gravity 1.025 (1.005-1.025); Urobilinogen 0.2 mg/dL (Up to 0.2)
[2023-02-10] MEDS: Normal Saline Flush 10 ML SYR IVP (09:58)
[2023-02-10] MEDS: Normal Saline - Diluent 50 ML VIAL IJ (09:58)
[2023-02-10] MEDS: Omnipaque 350 MG/ML 100 ML BTL IJ (09:59)
[2023-02-10 10:16] LABS: Bacteria Negative HPF (Negative); C & S Indicated? No; Casts 0-2 Hyaline LPF (Negative); Crystals Negative HPF (Negative); Epithelial Cells Few HPF (Negative); Mucus Negative (Negative); WBC Negative HPF (0-5)
--- NOTE | 2023-02-10 10:26 | DI.VRAD_ITS ---
PROCEDURE INFORMATION: Exam: CT Abdomen And Pelvis With Contrast Exam date and time: 02/10/2023 9:59 AM Age: 62 years old Clinical indication: Patient HX: Abdominal pain, active lung CA. TECHNIQUE: Imaging protocol: Computed tomography of the abdomen and pelvis with contrast. Radiation optimization: All CT scans at this facility use at least one of these dose optimization techniques: automated exposure control; mA and/or kV adjustment per patient size (includes targeted exams where dose is matched to clinical indication); or iterative reconstruction. Contrast material: OMNIPAQUE 350; Contrast volume: 100 ml; Contrast route: INTRAVENOUS (IV); COMPARISON: CT CHEST/ABD/PEL W 01/15/2023 11:13 AM FINDINGS: Lungs: 8.1 mm nodule in the right lower lobe . 7.6 mm nodule in the left lower lobe. Liver: Normal. No mass. Gallbladder and bile ducts: Normal. No calcified stones. No ductal dilation. Pancreas: Normal. No ductal dilation. Spleen: Normal. No splenomegaly. Adrenal glands: Normal. No mass. Kidneys and ureters: 3.3 cm simple cyst left kidney . No follow-up imaging recommended . Stomach and bowel: Enhancing mucosa and bowel wall thickening in multiple loops of small bowel in the pelvis. For example series 4, image 64 and adjacent images. Findings consistent with enteritis including infectious and inflammatory etiologies. Appendix: Normal appendix Intraperitoneal space: Unremarkable. No free air. No significant fluid collection. Vasculature: Unremarkable. No abdominal aortic aneurysm. Lymph nodes: Unremarkable. No enlarged lymph nodes. Urinary bladder: The bladder wall measures 7-8 mm. This is nonspecific and may represent inflammation or infection. Neoplastic process is included in the differential. Reproductive: Unremarkable as visualized. Bones/joints: Unremarkable. No acute fracture. Soft tissues: Unremarkable. IMPRESSION: 1. Enhancing mucosa and bowel wall thickening in multiple loops of small bowel in the pelvis. For example series 4, image 64 and adjacent images. Findings consistent with enteritis including infectious and inflammatory etiologies. 2. 8.1 mm nodule in the right lower lobe . 7.6 mm nodule in the left lower lobe. 3. The bladder wall measures 7-8 mm. This is nonspecific and may represent inflammation or infection. Neoplastic process is included in the differential. Dictated and Authenticated by: Isabel Garner MD. Ordering:CAROLINE Riley MD
[2023-02-10 11:04] VITALS: BP 117/59; PULSE 64; RESP 16; O2SAT 99
--- NOTE | 2023-02-14 09:16 | NUR.NOTE ---
Nursing Note: in chart for collection info for lab
== END 2023-02-10 11:06 | disposition home or self-care (01) ==
PROVIDERS: Emergency Provider Emergency Medicine; PCP Nurse Practitioner Family
DX: K52.9 Noninfective gastroenteritis and colitis, unspecified (principal); R10.9 Unspecified abdominal pain; C34.90 Malignant neoplasm of unspecified part of unspecified bronchus or lung; Z92.21 Personal history of antineoplastic chemotherapy
CPT/HCPCS: 36415; 80053; 96360; 99285; 74177; 81003; 81015; 83735; 85025; 99284; J3490

== ENCOUNTER 2023-02-14 04:03 | Outpatient (CLI) | payer OTHER, SELFPAY ==
[2023-02-14 09:20] LABS: Abs Immature Grans 0.15 10^3/uL (0.0-0.06); Absolute Basophil Count 0.05 10^3/uL (0.0-0.2); Absolute Lymphocyte Count 0.99 10^3/uL (1.2-3.4); Absolute Neutrophil Count 5.77 10^3/uL (1.2-6.7); Basophils % 0.6; Eosinophils % 1.3; HCT 33.6 % (36.0-46.0); HGB 11.1 g/dL (11.2-15.7); Immature Grans % 1.9; Lymphocytes % 12.4; MCH 29.7 pg (27.0-33.0); MCV 90 fL (80-95); MPV 8.7 fL (8.0-11.0); Monocytes % 11.3; Neutrophils % 72.5; Platelet Count 272 10^3/uL (130-400); RBC 3.74 10^6/uL (3.93-5.22); RDW 14.3 % (11.7-14.6); RDW-SD 45.5 fL; WBC 7.96 10^3/uL (4.4-10.8)
[2023-02-14 10:01] LABS: ALT 246 U/L (14-59); AST 127 U/L (15-37); Albumin 3.4 g/dL (3.4-5.0); Alkaline Phosphatase 189 U/L (46-116); Anion Gap 8.6 mmol/L (3-11); BUN 5 mg/dL (7-18); Bilirubin, Total 0.3 mg/dL (0.2-1.0); CO2 27.4 mmol/L (21.0-32.0); CREATININE 1.1 mg/dL (0.55-1.02); Calcium 9.1 mg/dL (8.5-10.1); Chloride 100 mmol/L (98-107); Estimated GFR 56.81 (mL/min/1.73m2); FREE T4 1.08 ng/dL (0.76-1.46); Glucose 106 mg/dL (74-106); Magnesium 1.6 mg/dL (1.8-2.4); Potassium 3.4 mmol/L (3.5-5.1); Sodium 136 mmol/L (136-145); TSH 3.16 uIU/mL (0.36-3.74); Total Protein 7.1 g/dL (6.4-8.2)
== END 2023-02-14 04:04 | disposition home or self-care (01) ==
LOC: LBO 04:04
PROVIDERS: PCP Nurse Practitioner Family; Visit Provider Internal Medicine Medical Oncology
DX: C34.31 Malignant neoplasm of lower lobe, right bronchus or lung (principal); Z79.899 Other long term (current) drug therapy
CPT/HCPCS: 36415; 80053; 83735; 84439; 84443; 85025

== ENCOUNTER 2023-02-21 01:49 | Outpatient (CLI) | payer OTHER, SELFPAY ==
[2023-02-21 17:52] LABS: ALT 153 U/L (14-59); AST 68 U/L (15-37); Albumin 3.7 g/dL (3.4-5.0); Alkaline Phosphatase 188 U/L (46-116); Anion Gap 9.4 mmol/L (3-11); BUN 12 mg/dL (7-18); Bilirubin, Total 0.4 mg/dL (0.2-1.0); CO2 28.6 mmol/L (21.0-32.0); CREATININE 0.9 mg/dL (0.55-1.02); Calcium 8.8 mg/dL (8.5-10.1); Chloride 97 mmol/L (98-107); Estimated GFR 72.28 (mL/min/1.73m2); Glucose 103 mg/dL (74-106); Sodium 135 mmol/L (136-145); Total Protein 6.9 g/dL (6.4-8.2)
[2023-02-22 08:45] LABS: HBs Antibody, Quant <3.1 mIU/mL (See Note); Hepatitis B Surface Ab Negative (See Note)
[2023-02-22 08:57] LABS: Hepatitis B Surface Ag Negative (Negative)
[2023-02-22 09:32] LABS: Hep B Core Antibody Negative (Negative)
[2023-02-22 09:39] LABS: Hepatitis C Ab w Rflx HCV PCR Negative (Negative)
== END 2023-02-21 01:50 | disposition home or self-care (01) ==
LOC: LBO 01:49
PROVIDERS: Internal Medicine Medical Oncology; PCP Nurse Practitioner Family; Visit Provider Nurse Practitioner Family
DX: R79.89 Other specified abnormal findings of blood chemistry (principal); Z11.59 Encounter for screening for other viral diseases; Z01.84 Encounter for antibody response examination; C34.31 Malignant neoplasm of lower lobe, right bronchus or lung
CPT/HCPCS: 36415; 80053; 86704; 86706; 86803; 87340

== ENCOUNTER 2023-03-05 01:43 | Outpatient (RCR) | payer OTHER, SELFPAY ==
[2023-03-05] MEDS: Normal Saline Flush 10 ML SYR IVP (08:40)
[2023-03-05 09:09] LABS: Abs Immature Grans 0.42 10^3/uL (0.0-0.06); HCT 29.4 % (36.0-46.0); MCH 30.9 pg (27.0-33.0); MCV 91 fL (80-95); MPV 9.7 fL (8.0-11.0); Platelet Count 209 10^3/uL (130-400); RBC 3.24 10^6/uL (3.93-5.22); RDW 15.8 % (11.7-14.6); RDW-SD 47.7 fL; WBC 7.79 10^3/uL (4.4-10.8)
[2023-03-05 09:32] LABS: Absolute Basophil Count 0.23 10^3/uL (0.0-0.2); Absolute Eosinophil Count 0.23 10^3/uL (0.0-0.7); Absolute Lymphocyte Count 0.86 10^3/uL (1.2-3.4); Absolute Neutrophil Count 5.61 10^3/uL (1.2-6.7); Bands % 3; Diff Comment Manual Differential; Metamyelocytes % 2; Polychromasia Present
[2023-03-05 09:37] LABS: ALT 138 U/L (14-59); AST 100 U/L (15-37); Albumin 3.1 g/dL (3.4-5.0); Alkaline Phosphatase 153 U/L (46-116); Anion Gap 8.3 mmol/L (3-11); BUN 5 mg/dL (7-18); Bilirubin, Total 0.2 mg/dL (0.2-1.0); CO2 27.7 mmol/L (21.0-32.0); Calcium 9.1 mg/dL (8.5-10.1); Chloride 100 mmol/L (98-107); FREE T4 0.89 ng/dL (0.76-1.46); Glucose 122 mg/dL (74-106); Magnesium 1.5 mg/dL (1.8-2.4); Potassium 3.3 mmol/L (3.5-5.1); Sodium 136 mmol/L (136-145); TSH 4.75 uIU/mL (0.36-3.74); Total Protein 6.8 g/dL (6.4-8.2)
== END 2023-03-24 23:59 | disposition home or self-care (01) ==
LOC: INF 01:43
PROVIDERS: Nurse Practitioner Family; PCP Nurse Practitioner Family; Visit Provider Internal Medicine Medical Oncology
DX: C34.31 Malignant neoplasm of lower lobe, right bronchus or lung (principal); Z45.2 Encounter for adjustment and management of vascular access device
CPT/HCPCS: 36591; 80053; 83735; 84439; 84443; 85025

== ENCOUNTER 2023-03-30 13:55 | Inpatient (IN) | payer OTHER, SELFPAY ==
[2023-03-30] VITALS (17 sets, daily range): BP systolic 94–114; BP diastolic 55–72; PULSE 83–100; RESP 16–28; TEMP 36.4–38.2; O2SAT 96–99
--- NOTE | 2023-03-30 14:15 | DI.CT_ITS ---
Exam(s) CT CHEST/ABD/PEL W EXAM: CT CHEST/ABD/PEL W CLINICAL HISTORY: cancer, immunocomp, fever, diarrhea, hx of tics. TECHNIQUE: Imaging Protocol: Axial computed tomography images with coronal and sagittal reformatted images were created and reviewed CONTRAST MATERIAL: Intravenous: Omnipaque 350 Contrast volume:100 ml Oral: / no COMPARISON: CT CT CHEST/ABD/PEL W from 01/15/[address] ABDOMEN PELVIS W from 02/10/2023 FINDINGS: CHEST: Port over right upper chest. Small hiatal hernia. Tracheobronchial tree: Patent where visualized. Pulmonary parenchyma: Stable decrease in size of previously noted nodule in the inferolateral right u pper lobe. significant interval decrease in size of mass posteriorly in the right lower lobe. Decr eased size of small nodules noted at the bilateral lung bases. Pleura: No effusion or pneumothorax. Lymph nodes: Within normal limits. Aorta: Thoracic portion non-dilated. Heart: Normal size. Mild to moderate coronary artery calcifications. Bones: Unremarkable for age. No lytic or blastic lesions.No compression fractures. ABDOMEN and PELVIS: Liver: Normal density. No measurable mass. Gallbladder and biliary tract: No evidence of stones or wall thickening. No biliary dilatation. Pancreas: Normal density, no abnormal calcifications or inflammatory process. Spleen: Normal. Kidneys: Normal size, contour and axis. No radiodense stones or obstructive uropathy. No suspicious m asses seen. Adrenal glands: No masses seen. Aorta: Abdominal portion non-dilated. Mild atherosclerotic changes. Lymph nodes: Within normal limits. Soft tissues: Unremarkable. Bladder: Unremarkable. Bowel: Dilated loops of small bowel throughout. Distal small bowel shows abnormal wall thickening an d wall enhancement. The findings are suspicious for enteritis. The right side of the colon shows so me fluid. The transverse through rectosigmoid shows a small a moderate quantity of stool. There is diverticulosis of the descending and sigmoid but no evidence of diverticulitis. Peritoneal cavity: No trace fluid. No focal collection. Bones: Unremarkable for age. Reproductive organs: Status post hysterectomy IMPRESSION: Chest CT: Significant interval improvement of lung masses. No acute abnormality. Abdomen pelvic CT marked small bowel dilatation and distal small bowel wall thickening suspicious for enteritis. No evidence of diverticulitis. No free air or abscess. Findings called to Dr. Pascal of the emergency department. RADIATION DOSE DELIVERED: 665.57mGy.cm Total DLP DATA REPOSITORY: All CT scans at this facility are submitted to the National Radiology Data Registry (NRDR) Dose Index Registry (DIR) with the [employer] (ACR). RADIATION OPTIMIZATION: All CT scans at this facility use at least one of these dose optimization te chniques: automated exposure control; mA and/or kV adjustment per patient size (includes targeted exa ms where dose is matched to clinical indication); or iterative reconstruction.
--- NOTE | 2023-03-30 14:26 | W.ED.GENAD ---
Discharge Plan Disposition Patient Disposition: Admit to [facility] Discharge Details Chief Complaint: Nausea/Vomit/Diar Clinical Impression: Fever and neutropenia, Enteritis Primary Care Provider: Sophie Ramos ED Provider: Godwin Pascal Home Meds and New Rx's Prescriptions: No Action famotidine [Pepcid AC] 10 mg tablet 10 mg PO DAILY PRN atorvastatin 80 mg tablet 80 mg PO DAILY Qty: 90 3RF Patient Comments: no longer taking 03/30/23 enoxaparin [Lovenox] 80 mg/0.8 mL syringe 60 mg subcut Q12H Rx Instructions: 11/29/22 per [facility]. -hb prochlorperazine maleate 10 mg tablet 10 mg PO Q6H PRN Patient Comments: TAKE ONE TABLET BY MOUTH EVERY 6 HOURS NEEDED FOR NAUSEA omeprazole 20 mg capsule,delayed release(DR/EC) 20 mg PO DAILY Patient Comments: TAKE ONE CAPSULE BY MOUTH EVERY DAY tramadol 50 mg tablet 50 mg PO DAILY Patient Comments: TAKE ONE TABLET BY MOUTH EVERY 8 HOURS NEEDED FOR PAIN levothyroxine 50 mcg tablet 50 mcg PO DAILY Patient Comments: TAKE ONE TABLET BY MOUTH EVERY DAY ondansetron 4 mg tablet,disintegrating 4 mg PO Q8H PRN (Reason: nausea and vomiting) Qty: 30 0RF Medical Decision Making 62-year-old female with a past medical history of non-small cell lung cancer with metastases, previous diverticulitis, previous stroke and PEs now currently on Lovenox subcu, who is currently receiving chemotherapy in the form of carboplatinum/pemetrexed/pembrolizumab with most recent chemotherapy being 5 days ago on Sunday, presents today for fever. Patient states that ever since the chemotherapy on Sunday she has had persistent mild diarrhea. She has had few loose bowel meds every day, they are milkshake in consistency. They are field account manager in color. No dark brown or black stool. Today she noticed a fever greater than 100 degrees, she contacted [facility] and they recommended she come in for further evaluation. She denies any chest pain or shortness of breath. She does admit to right mid abdominal pain. She denies vomiting. She denies headache or neck pain. No other new medications. No other sick contacts. No cough or shortness of breath. No other complaints at this time. She has not taken any NSAIDs for her temperature. Exam is relatively unremarkable, mildly elevated heart rate at 100, patient is afebrile here on oral temperature. Mild right-sided abdominal pain. Lungs are clear. No burning with urination. Differential includes viral etiology, bacteremia secondary to immunosuppression, diverticulitis, pneumonia, or other infectious etiology. We will evaluate for these, gently rehydrate, monitor closely and reassess. Infectious diarrhea is also on the differential and we will test her stool. She has not been on any antibiotics since November. As the patient is afebrile here and normotensive, we will hold off on broad-spectrum antibiotic coverage until source is found. 4:22 PM Laboratory work-up demonstrates notable neutropenia, WBC count is 0.39, hemoglobin stable at 9.8, absolute neutrophil count 0.17. Lactate 1.4, Pro-Laron 0.2. Potassium low at 3.1, transaminases stable. Thyroid function better than normal. COVID flu and RSV negative. CT of the chest abdomen pelvis demonstrates no evidence of pneumonia, there is evidence of enteritis and fluid-filled small bowel, and thickening of the small bowel, but no evidence of diverticulitis. I did contact [facility] and discussed the case with Tatiana of oncology. She subsequently discussed the case with her attending, who recommended admission, broad-spectrum antibiotics, and watching for blood culture results. They do not recommend starting steroids at this point and of concern for potential neutropenic fever and infection. Discussed the case with the hospitalist Dr. Bolanos. She agrees with the assessment and plan. We will start vancomycin, history in a.m., and azithromycin. I have extensively reviewed the treatment plan with the patient. I have addressed all patient concerns at this time. I have also discussed the plan with the admitting physician and they agree with the current assessment and plan and have agreed to assume responsibility for the patient. All parties demonstrate verbal understanding and agreement with our assessment and plan at this time. The documentation in this chart was dictated using [employer] dictation software. Please excuse any dictation errors. FINDINGS: CHEST: Port over right upper chest. Small hiatal hernia. Tracheobronchial tree: Patent where visualized. Pulmonary parenchyma: Stable decrease in size of previously noted nodule in the inferolateral right upper lobe. significant interval decrease in size of mass posteriorly in the right lower lobe. Decreased size of small nodules noted at the bilateral lung bases. Pleura: No effusion or pneumothorax. Lymph nodes: Within normal limits. Aorta: Thoracic portion non-dilated. Heart: Normal size. Mild to moderate coronary artery calcifications. Bones: Unremarkable for age. No lytic or blastic lesions.No compression fractures. ABDOMEN and PELVIS: Liver: Normal density. No measurable mass. Gallbladder and biliary tract: No evidence of stones or wall thickening. No biliary dilatation. Pancreas: Normal density, no abnormal calcifications or inflammatory process. Spleen: Normal. Kidneys: Normal size, contour and axis. No radiodense stones or obstructive uropathy. No suspicious masses seen. Adrenal glands: No masses seen. Aorta: Abdominal portion non-dilated. Mild atherosclerotic changes. Lymph nodes: Within normal limits. Soft tissues: Unremarkable. Bladder: Unremarkable. Bowel: Dilated loops of small bowel throughout. Distal small bowel shows abnormal wall thickening and wall enhancement. The findings are suspicious for enteritis. The right side of the colon shows some fluid. The transverse through rectosigmoid shows a small a moderate quantity of stool. There is diverticulosis of the descending and sigmoid but no evidence of diverticulitis. Peritoneal cavity: No trace fluid. No focal collection. Bones: Unremarkable for age. Reproductive organs: Status post hysterectomy IMPRESSION: Chest CT: Significant interval improvement of lung masses. No acute abnormality. Abdomen pelvic CT marked small bowel dilatation and distal small bowel wall thickening suspicious for enteritis. No evidence of diverticulitis. No free air or abscess. Findings called to Dr. Pascal of the emergency department. HPI General Date/Time Provider Initiated Documentation: 03/30/23 13:58. HPI Narrative: 62-year-old female with a past medical history of non-small cell lung cancer with metastases, previous diverticulitis, previous stroke and PEs now currently on Lovenox subcu, who is currently receiving chemotherapy in the form of carboplatinum/pemetrexed/pembrolizumab with most recent chemotherapy being 5 days ago on Sunday, presents today for fever. Patient states that ever since the chemotherapy on Sunday she has had persistent mild diarrhea. She has had few loose bowel meds every day, they are milkshake in consistency. They are field account manager in color. No dark brown or black stool. Today she noticed a fever greater than 100 degrees, she contacted [facility] and they recommended she come in for further evaluation. She denies any chest pain or shortness of breath. She does admit to right mid abdominal pain. She denies vomiting. She denies headache or neck pain. No other new medications. No other sick contacts. No cough or shortness of breath. No other complaints at this time. She has not taken any NSAIDs for her temperature. Related Data Home Medications Medication Instructions Recorded Confirmed famotidine 10 mg tablet (Pepcid AC) 10 mg PO DAILY PRN 04/26/22 03/30/23 enoxaparin 80 mg/0.8 mL 60 mg subcut Q12H 12/07/22 03/30/23 subcutaneous syringe (Lovenox) ondansetron 4 mg disintegrating 4 mg PO Q8H PRN nausea and 12/22/22 03/30/23 tablet vomiting #30 tabs atorvastatin 80 mg tablet 80 mg PO DAILY #90 tabs 01/10/23 03/30/23 omeprazole 20 mg capsule,delayed 20 mg PO DAILY 02/10/23 03/30/23 release prochlorperazine maleate 10 mg 10 mg PO Q6H PRN 02/10/23 03/30/23 tablet levothyroxine 50 mcg tablet 50 mcg PO DAILY 03/30/23 03/30/23 tramadol 50 mg tablet 50 mg PO DAILY 03/30/23 03/30/23 Previous Rx's Medication Instructions Recorded ondansetron 4 mg disintegrating 4 mg PO Q8H PRN nausea and 12/22/22 tablet vomiting #30 tabs atorvastatin 80 mg tablet 80 mg PO DAILY #90 tabs 01/10/23 Allergies Allergy/AdvReac Type Severity Reaction Status Date / Time Penicillins Allergy Intermediate Hives Unverified 03/30/23 14:01 acetaminophen Allergy Mild Hives Unverified 03/30/23 14:01 Sulfa (Sulfonamide AdvReac Mild Nausea Unverified 03/30/23 14:01 Antibiotics) General Stated Complaint: Nausea/Vomit/Diar RENEE: 3 Review of Systems All systems reviewed & are unremarkable except as noted in HPI and below PFSH All Active Problems (Updated 03/30/23 @ 17:33 by Godwin Pascal DO) Fever and neutropenia (Acute) Enteritis (Acute) Discharge planning issues (Acute) History of CVA (cerebrovascular accident) (Acute) History of pulmonary embolism (Acute) Enteritis of small bowel (Acute) Neutropenic fever (Acute) Metastatic non-small cell lung cancer (Acute ~10/2022) Renal infarct (Chronic) Infarction of spleen (Chronic) Pulmonary embolism, bilateral (Acute) Cigarette smoker (Chronic) Hyperlipidemia (Chronic) Medical History Diverticulitis (~12/2022) Endometriosis Sepsis Surgical History History of cataract surgery S/P hysterectomy with oophorectomy S/P ORIF (open reduction internal fixation) fracture Left foot Family History Mother , 76 of lung cancer Lung cancer Father , 75 Diabetes Metastatic cancer Sister No problems noted. Brother Alcohol use disorder Brother Alcohol use disorder Maternal Grandfather No problems noted. Maternal Grandmother Heart disease Paternal Grandfather No problems noted. Paternal Grandmother No problems noted. Social History Smoking/Tobacco Use Status: Former Tobacco Use Quit Date: 11/23/22 Tobacco: How many years used: 40 Quit status: not considering quitting Second Hand Exposure: Yes Smoking risk assessment performed?: Yes Alcohol Intake: current Alcohol Intake frequency: a few times a month Alcohol type: hard liquor Drug use: Never Substance use type: does not use Caregiver/Support person: No Household members: spouse Housing: house Communication Needs: None Pets and animals: Yes Pets and animals: cat(s) Sexually active: Yes Do you think of yourself as: straight/heterosexual Current gender identity: female What is your relationship status?: How often do you talk on the phone with friends or family?: three or more times per week How often do you get together with friends or relatives?: once per week How often do you attend muslim or episcopalian services?: decline to answer Do you belong to any clubs or organized social groups?: no Panel score (0-1 are the most socially isolated patients): 2 What type of physical activity do you participate in: walking Frequency: daily Jennifer/Christianity: No preference Special jennifer needs: No Seatbelt use: always Helmet use: Yes Drive intox 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 3.ENT: Atraumatic external nose and ears. Moist MM. Neck: Symmetric, trachea midline, No thyromegaly. 4.CVS: +S1/S2, No murmurs or gallops. Peripheral pulses 2+ and equal in all extremities. Brisk capillary refill in all extremities. 5.RESP: Unlabored respiratory effort. Clear to auscultation bilaterally. No wheezes rales or rhonchi 6.GI: Soft, nondistended. No guarding or rebound. Mild achiness in the right mid to lower abdominal quadrant. Negative Corral sign. No pain at McBurney's point specifically. 7.MSK: Normocephalic/Atraumatic, Extremities w/o deformity or ttp No cyanosis or clubbing, Normal movement of all extremities 8.Skin: Warm, Dry. No rashes or lesions. 9.Neuro: respiratory care technician II-XII grossly intact. Sensation grossly intact, no focal neurologic deficits. 10.Psych: (AAO) x3. Appropriate mood and affect Course Vital Signs Vital signs: Vital Signs Temperature 37.6 C 03/30/23 13:57 Pulse 100 H 03/30/23 13:57 Respiratory Rate 20 03/30/23 13:57 Blood Pressure 100/68 03/30/23 13:57 Pulse Oximetry 99 03/30/23 13:57 Temperature 37.6 C 03/30/23 13:57 Temperature Source Oral 03/30/23 13:57 Pulse 100 H 03/30/23 13:57 Respiratory Rate 20 03/30/23 13:57 Blood Pressure 100/68 03/30/23 13:57 Blood Pressure Position Sitting 03/30/23 13:57 Pulse Oximetry 99 03/30/23 13:57 Oxygen Delivery Method Room Air 03/30/23 13:57 Oxygen Flow Rate 0 03/30/23 13:57 Pain Level 4 03/30/23 13:57 Lab/Test Results Lab/Test Results: 03/30/23 14:23 Blood Blood Culture - Pending 03/30/23 14:23 Blood Blood Culture - Pending
[2023-03-30 14:39] LABS: Lactate 1.4 mmol/L (0.6-1.4)
[2023-03-30 14:44] LABS: Abs Immature Grans 0.05 10^3/uL (0.0-0.06); Absolute Monocyte Count 0.03 10^3/uL (0.1-0.8); HCT 29.1 % (36.0-46.0); HGB 9.8 g/dL (11.2-15.7); MCH 30.8 pg (27.0-33.0); MCHC 33.7 % (32.0-36.0); MCV 92 fL (80-95); MPV 8.6 fL (8.0-11.0); Platelet Count 222 10^3/uL (130-400); RBC 3.18 10^6/uL (3.93-5.22); RDW 19.2 % (11.7-14.6); RDW-SD 64.6 fL
[2023-03-30] MEDS: Normal Saline 1,000 ML 1000 ML IV (14:54)
[2023-03-30 14:58] LABS: INR 1.1 (0.9-1.1); PTT Activated 40.7 sec (21.5-31.9); Prothrombin Time 11.3 sec (9.3-11.0)
[2023-03-30 15:04] LABS: ALT 120 U/L (14-59); AST 80 U/L (15-37); Albumin 2.8 g/dL (3.4-5.0); Alkaline Phosphatase 113 U/L (46-116); Anion Gap 12.2 mmol/L (3-11); BUN 14 mg/dL (7-18); Bilirubin, Total 0.4 mg/dL (0.2-1.0); CO2 23.8 mmol/L (21.0-32.0); CREATININE 1.1 mg/dL (0.55-1.02); Calcium 8.1 mg/dL (8.5-10.1); Chloride 93 mmol/L (98-107); Estimated GFR 56.81 (mL/min/1.73m2); Glucose 142 mg/dL (74-106); Potassium 3.1 mmol/L (3.5-5.1); Sodium 129 mmol/L (136-145); Total Protein 6.7 g/dL (6.4-8.2)
[2023-03-30 15:09] LABS: WBC 0.39 10^3/uL (4.4-10.8)
[2023-03-30 15:13] LABS: Absolute Lymphocyte Count 0.15 10^3/uL (1.2-3.4); Bands % 6; Lipase 18 U/L (16-77); TSH (W/Ref FT4) 6.65 uIU/mL (0.36-3.74)
[2023-03-30 15:16] LABS: Absolute Neutrophil Count 0.17 10^3/uL (1.2-6.7); Diff Comment Manual Differential; RBC Morphology Normal
[2023-03-30 15:20] LABS: Procalcitonin 0.2 ng/mL
[2023-03-30] MEDS: Normal Saline - Diluent 50 ML VIAL IJ (15:28)
[2023-03-30] MEDS: Omnipaque 350 MG/ML 100 ML BTL IJ (15:28)
[2023-03-30 15:30] LABS: FREE T4 0.74 ng/dL (0.76-1.46)
[2023-03-30 15:30] LABS: COVID-19 PCR Negative (Negative); Influenza A PCR Negative (Negative); Influenza B PCR Negative (Negative); RSV PCR Negative (Negative)
[2023-03-30 15:34] LABS: Source Nasopharynx
[2023-03-30] MEDS: MAGNESIUM SULFATE 2 GM/50 ML BAG IVPB (16:00)
[2023-03-30] MEDS: Potassium Chloride 20 MEQ TABCR 40 MEQ PO (16:01)
[2023-03-30] MEDS: AZITHROMYCIN 500 MG in Normal Saline 250 ML 250 MG IVPB (17:05)
--- NOTE | 2023-03-30 17:06 | W.PM.HP.N ---
Date of service: 03/30/23 Time of Service: 17:06 Assessment and Plan Assessment and plan (1) Neutropenic fever: Status: Acute Assessment and plan: In setting of chemotherapy as well as immunotherapy. Await blood cultures, including the port, urine culture, stool studies. I have simplified antibiotics to vancomycin and levofloxacin. Pembrolizumab can cause immune-mediated enteritis and, if the above studies are negative, we would start steroids, as recommended by [facility]. (2) Enteritis of small bowel: Status: Acute Assessment and plan: As above (3) Thrush: Status: Acute Assessment and plan: Start nystatin (4) Metastatic non-small cell lung cancer: Status: Acute Assessment and plan: As above (5) History of pulmonary embolism: Status: Acute Assessment and plan: Continue anticoagulation with lovenox (6) History of CVA (cerebrovascular accident): Status: Acute Assessment and plan: Continue anticoagulation (7) Discharge planning issues: Status: Acute Assessment and plan: Full code History of Present Illness History of Present Illness Chief Complaint: Neutropenic fever Narrative: Ms Soto is a 62 year old female with PMHx of nonsmall cell lung cancer, on chemotherapy with carboplatinum, pemetexred, and immunotherapy with pembrolizumab, with last cycle of treatment being 4 days ago, as well as h/o PE and CVA, on therapeutic lovenox, and prior diverticulitis, who presented to [facility] with neutropenic fever. The patient states that she has had diarrhea ever since her last treatment on Sunday. The fever started today. When she contacted her [facility] oncology office, she was told to come to the ER. In the ER, the patient was found to hemodynamically stable. She is afebrile here. Her ANC is 170/uL. CT Chest/abdomen/pelvis shows decrease in size of RLL mas and RUL nodule, marked small bowel dilatation and distal small bowel wall thickening suspicious for enteritis, but not diverticulitis. Dr Pascal of [facility] ED spoke with [facility] [place], who had recommended broad spectrum antibiotics while cultures are pending and, if cultures are negative, to start steroids. Due to her allergies, the patient received vancomycin, aztreonam, and azithromycin in the ED. C.Diff and other infectious stool studies are ordered. Hospitalist admission is requested. The patient does have an infusaport, which is being cultured. She is now febrile and feels cold. She denies sore throat, runny nose, cough. She is nauseated. Denies abdominal pain. She states the last time she had diarrhea was yesterday (milkshake consistency). Review of Systems All systems reviewed & are unremarkable except as noted in HPI and below PFSH All Active Problems (Updated 03/30/23 @ 18:44 by Grace Bolanos MD) Thrush (Acute) Fever and neutropenia (Acute) Enteritis (Acute) Discharge planning issues (Acute) History of CVA (cerebrovascular accident) (Acute) History of pulmonary embolism (Acute) Enteritis of small bowel (Acute) Neutropenic fever (Acute) Metastatic non-small cell lung cancer (Acute ~10/2022) Renal infarct (Chronic) Infarction of spleen (Chronic) Pulmonary embolism, bilateral (Acute) Cigarette smoker (Chronic) Hyperlipidemia (Chronic) Medical History Diverticulitis (~12/2022) Endometriosis Sepsis Surgical History History of cataract surgery S/P hysterectomy with oophorectomy S/P ORIF (open reduction internal fixation) fracture Left foot Family History Mother , 76 of lung cancer Lung cancer Father , 75 Diabetes Metastatic cancer Sister No problems noted. Brother Alcohol use disorder Brother Alcohol use disorder Maternal Grandfather No problems noted. Maternal Grandmother Heart disease Paternal Grandfather No problems noted. Paternal Grandmother No problems noted. Social History Smoking/Tobacco Use Status: Former Tobacco Use Quit Date: 11/23/22 Tobacco: How many years used: 40 Quit status: not considering quitting Second Hand Exposure: Yes Smoking risk assessment performed?: Yes Alcohol Intake: current Alcohol Intake frequency: a few times a month Alcohol type: hard liquor Drug use: Never Substance use type: does not use Caregiver/Support person: No Household members: spouse Housing: house Communication Needs: None Pets and animals: Yes Pets and animals: cat(s) Sexually active: Yes Do you think of yourself as: straight/heterosexual Current gender identity: female What is your relationship status?: How often do you talk on the phone with friends or family?: three or more times per week How often do you get together with friends or relatives?: once per week How often do you attend spiritism or yazdanism services?: decline to answer Do you belong to any clubs or organized social groups?: no Panel score (0-1 are the most socially isolated patients): 2 What type of physical activity do you participate in: walking Frequency: daily Jennifer/Orthodoxy: No preference Special jennifer needs: No Seatbelt use: always Helmet use: Yes Drive intox 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: No Do you feel safe at home: Yes Do you feel safe in your relationship?: Yes Meds Allergies and Home Medications Allergies Allergy/AdvReac Type Severity Reaction Status Date / Time Penicillins Allergy Intermediate Hives Unverified 03/30/23 14:01 acetaminophen Allergy Mild Hives Unverified 03/30/23 14:01 Sulfa (Sulfonamide AdvReac Mild Nausea Unverified 03/30/23 14:01 Antibiotics) Home Medications Medication Instructions Recorded Confirmed Type famotidine 10 mg tablet (Pepcid AC) 10 mg PO DAILY PRN 04/26/22 03/30/23 History enoxaparin 80 mg/0.8 mL 60 mg subcut Q12H 12/07/22 03/30/23 History subcutaneous syringe (Lovenox) ondansetron 4 mg disintegrating 4 mg PO Q8H PRN nausea and 12/22/22 03/30/23 Rx tablet vomiting #30 tabs atorvastatin 80 mg tablet 80 mg PO DAILY #90 tabs 01/10/23 03/30/23 Rx omeprazole 20 mg capsule,delayed 20 mg PO DAILY 02/10/23 03/30/23 History release prochlorperazine maleate 10 mg 10 mg PO Q6H PRN 02/10/23 03/30/23 History tablet levothyroxine 50 mcg tablet 50 mcg PO DAILY 03/30/23 03/30/23 History tramadol 50 mg tablet 50 mg PO DAILY 03/30/23 03/30/23 History Exam Narrative Exam Narrative: General: Pleasant middle-aged female who is A&Ox3, appears cold, sitting up comfortably in bed Neurological: A&Ox3, no focal deficits Psychiatric: Appropriate speech pattern/content Skin: Visible skin intact, including infusaport site HEENT: Atraumatic, normocephalic, EOMI, MMM, white film over tongue, clear oropharynx, no submandibular or cervical lymphadenopathy, no goiter or JVD Cardiovascular: RRR, quiet ENRICO Lungs: CTAB Gastrointestinal: soft, nontender, nondistended Genitourinary: deferred Extremities: no edema BLEs Results Imaging Additional studies: CT chest/abdomen/pelvis: Chest CT: Significant interval improvement of lung masses.? No acute abnormality. Abdomen pelvic CT marked small bowel dilatation and distal small bowel wall thickening suspicious for enteritis.? No evidence of diverticulitis.? No free air or abscess. Labs 03/30/23 14:35 03/30/23 14:35 Labs: Laboratory Results - last 24 hr 03/30/23 03/30/23 03/30/23 14:35 14:35 14:35 WBC RBC Hgb Hct MCV MCH MCHC RDW Plt Count MPV Immature Gran % Neutrophils % Band Neutrophils % Lymphocytes % Monocytes % Eosinophils % Basophils % Nucleated RBC % Absolute Neutrophils Absolute Lymphocytes Absolute Monocytes Absolute Eosinophils Absolute Basophils RBC Morphology PT INR APTT VBG Lactate Sodium 129 L Potassium 3.1 L Chloride 93 L Carbon Dioxide 23.8 Anion Gap 12.2 H BUN 14 Creatinine 1.1 H Est GFR (CKD-EPI 2020) 56.81 Glucose 142 H Calcium 8.1 L Total Bilirubin 0.4 AST 80 H ALT 120 H Alkaline Phosphatase 113 Total Protein 6.7 Albumin 2.8 L Lipase 18 Procalcitonin 0.2 TSH 6.65 H Free T4 0.74 L COVID-19 Source SARS-CoV-2 (PCR) Influenza Type A (PCR) Influenza Type B (PCR) RSV (PCR) 03/30/23 03/30/23 03/30/23 14:35 14:35 14:35 WBC 0.39 L* RBC 3.18 L Hgb 9.8 L Hct 29.1 L MCV 92 MCH 30.8 MCHC 33.7 RDW 19.2 H Plt Count 222 MPV 8.6 Immature Gran % 8.0 Neutrophils % 40.0 Band Neutrophils % 6 Lymphocytes % 38.0 Monocytes % 8.0 Eosinophils % 0.0 Basophils % 0.0 Nucleated RBC % 0.0 Absolute Neutrophils 0.17 L* Absolute Lymphocytes 0.15 L Absolute Monocytes 0.03 L Absolute Eosinophils 0.00 Absolute Basophils 0.00 RBC Morphology Normal PT 11.3 H INR 1.1 APTT 40.7 H VBG Lactate 1.4 Sodium Potassium Chloride Carbon Dioxide Anion Gap BUN Creatinine Est GFR (CKD-EPI 2020) Glucose Calcium Total Bilirubin AST ALT Alkaline Phosphatase Total Protein Albumin Lipase Procalcitonin TSH Free T4 COVID-19 Source SARS-CoV-2 (PCR) Influenza Type A (PCR) Influenza Type B (PCR) RSV (PCR) 03/30/23 14:45 WBC RBC Hgb Hct MCV MCH MCHC RDW Plt Count MPV Immature Gran % Neutrophils % Band Neutrophils % Lymphocytes % Monocytes % Eosinophils % Basophils % Nucleated RBC % Absolute Neutrophils Absolute Lymphocytes Absolute Monocytes Absolute Eosinophils Absolute Basophils RBC Morphology PT INR APTT VBG Lactate Sodium Potassium Chloride Carbon Dioxide Anion Gap BUN Creatinine Est GFR (CKD-EPI 2020) Glucose Calcium Total Bilirubin AST ALT Alkaline Phosphatase Total Protein Albumin Lipase Procalcitonin TSH Free T4 COVID-19 Source Nasopharynx SARS-CoV-2 (PCR) Negative Influenza Type A (PCR) Negative Influenza Type B (PCR) Negative RSV (PCR) Negative Last Vital Signs Temp 37.6 C 03/30/23 14:45 Pulse 85 03/30/23 15:15 Resp 25 H 03/30/23 16:50 BP 114/60 03/30/23 15:15 Pulse Ox 96 03/30/23 15:20 Time Spent Time spent with Patient: 55-74 minutes Time was spent: preparing to see the patient(eg.review tests), obtaining and/or reviewing separately otained hiistory, ordering medications,tests, procedures, referring, communicating with other health early breastfeeding care specialist, indepentently interpreting results, counseling the patient and care coordination
[2023-03-30] MEDS: POTASSIUM CHLORIDE 10 MEQ/100 ML BAG 100 MEQ IVPB (17:17)
[2023-03-30] MEDS: Prochlorperazine 10 MG TAB PO (17:54)
[2023-03-30] MEDS: Enoxaparin 60 MG/0.6 ML SYR SC (17:55)
[2023-03-30] MEDS: Lactated Ringers 1,000 ML 100 ML IV (17:56)
[2023-03-30] MEDS: Normal Saline Flush 10 ML SYR IVP (18:00)
[2023-03-30] MEDS: Ketorolac 15 MG/ML VIAL IVP (18:17)
[2023-03-30] MEDS: levoFLOXacin 750 MG/150 ML BAG 100 MG IVPB (18:17)
[2023-03-30] MEDS: VANCOMYCIN/WATER (PEG) 1 GM/200 ML BAG IVPB (18:18)
[2023-03-30 20:00] LABS: Magnesium 1.5 mg/dL (1.8-2.4)
[2023-03-30] MEDS: Nystatin 500000 UNITS/5 ML SUSP 5ML CUP PO (21:33)
[2023-03-31] VITALS (7 sets, daily range): BP systolic 92–101; BP diastolic 60–68; PULSE 63–90; RESP 15–18; TEMP 36–37.2; O2SAT 95–99
[2023-03-31] MEDS: Prochlorperazine 10 MG TAB PO ×4 (00:14→21:48)
[2023-03-31 00:55] LABS: Bilirubin Negative (Negative); Blood Trace-intact (Negative); Clarity Clear (Clear); Glucose 100 mg/dL (Negative); Ketones Negative (Negative); Leukocyte Esterase Negative (Negative); Nitrite Negative (Negative); Urobilinogen 0.2 mg/dL (Up to 0.2); pH 5.5 (5-8)
[2023-03-31 00:59] LABS: Bacteria Rare HPF (Negative); C & S Indicated? No; Casts Negative LPF (Negative); Crystals Negative HPF (Negative); Epithelial Cells Negative HPF (Negative); Mucus Negative (Negative); RBC 0-2 HPF (0-2); WBC Negative HPF (0-5)
[2023-03-31] MEDS: Lactated Ringers 1,000 ML 150 ML IV (02:57)
[2023-03-31] MEDS: Enoxaparin 60 MG/0.6 ML SYR SC ×2 (05:52→17:16)
[2023-03-31] MEDS: Levothyroxine 50 MCG TAB PO (05:53)
[2023-03-31] MEDS: Nystatin 500000 UNITS/5 ML SUSP 5ML CUP PO ×5 (05:53→21:49)
[2023-03-31] MEDS: Ondansetron O.D.T. 4 MG TABEF PO ×2 (05:59→13:53)
[2023-03-31 06:35] LABS: Absolute Eosinophil Count 0.01 10^3/uL (0.0-0.7); Absolute Monocyte Count 0.02 10^3/uL (0.1-0.8); HCT 23.5 % (36.0-46.0); HGB 8.2 g/dL (11.2-15.7); MCH 31.5 pg (27.0-33.0); MCHC 34.9 % (32.0-36.0); MCV 90 fL (80-95); MPV 8.9 fL (8.0-11.0); Platelet Count 159 10^3/uL (130-400); RDW 19.2 % (11.7-14.6); RDW-SD 63.1 fL
[2023-03-31 06:39] LABS: WBC 0.41 10^3/uL (4.4-10.8)
[2023-03-31 06:59] LABS: Bands % 4
[2023-03-31 07:01] LABS: Absolute Neutrophil Count 0.16 10^3/uL (1.2-6.7); Metamyelocytes % 3
[2023-03-31 07:03] LABS: Diff Comment Manual Differential; Microcytosis 1+; Polychromasia Present
[2023-03-31 07:04] LABS: Anion Gap 8.1 mmol/L (3-11); BUN 13 mg/dL (7-18); CO2 24.9 mmol/L (21.0-32.0); CREATININE 1.2 mg/dL (0.55-1.02); Calcium 7.7 mg/dL (8.5-10.1); Chloride 96 mmol/L (98-107); Estimated GFR 51.18 (mL/min/1.73m2); Glucose 110 mg/dL (74-106); Magnesium 1.5 mg/dL (1.8-2.4); Sodium 129 mmol/L (136-145)
[2023-03-31 07:07] LABS: Potassium 2.6 mmol/L (3.5-5.1)
[2023-03-31] MEDS: Omeprazole 20 MG CAPCR PO (07:57)
[2023-03-31] MEDS: traMADol 50 MG TAB PO (07:57)
--- NOTE | 2023-03-31 08:57 | INITIAL_ITS ---
Date of service: 03/31/23 Time of Service: 08:57 Care Management Initial Assmt Initial Assessment REASON FOR HOSPITALIZATION:: Neutropenic Fever PREVIOUS FUNCTIONAL STATUS/SOCIAL/FAMILY SUPPORTS:: Mónica lives in a single family home in [place] with her Hermes. She does not have any children. 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 Mónica is experiencing negative impact on functioning related to current chemotherapy. CURRENT FUNCTIONAL STATUS:: Mónica remains on neutropenic precautions. She is on IV ABX with blood, urine and port cultures pending as well as stool studies. Anticipate further functional evaluation prior to discharge. ADVANCE DIRECTIVES:: Hermes [facility] Has patient been provided with info about the portal/API?: Yes Did the patient sign up for the portal?: Yes CODE STATUS:: Full Code INSURANCE COVERAGE / FINANCIAL ISSUES:: MVP, FA 70 CURRENT HOME/COMMUNITY SERVICES/EQUIPMENT:: [place]otherapy[place] [facility] [place]IMARY CARE PHYSICIAN:: Sophie Ramos POTENTIAL DISCHARGE NEEDS:: Further functional evaluations. PATIENT/FAMILY EDUCATION NEEDS:: Review of discharge instructions. Discuss self care needs upon discharge. ANTICIPATED BARRIERS TO DISCHARGE:: None identified. TRANSPORTATION:: Via private vehicle with Hermes. PLAN:: Mónica continues work up, awaiting culture studies. CM continues to follow. 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 Brother Alcohol use disorder Brother Alcohol use disorder Maternal Grandfather No problems noted. Maternal Grandmother Heart disease Paternal Grandfather No problems noted. Paternal Grandmother No problems noted. Social History Smoking/Tobacco Use Status: Former Tobacco Use Quit Date: 11/23/22 Tobacco: How many years used: 40 Quit status: not considering quitting Second Hand Exposure: Yes Smoking risk assessment performed?: Yes Alcohol Intake: current Alcohol Intake frequency: a few times a month Alcohol type: hard liquor Drug use: Never Substance use type: does not use Caregiver/Support person: No Household members: spouse Housing: house Communication Needs: None Pets and animals: Yes Pets and animals: cat(s) Sexually active: Yes Do you think of yourself as: straight/heterosexual Current gender identity: female What is your relationship status?: How often do you talk on the phone with friends or family?: three or more times per week How often do you get together with friends or relatives?: once per week How often do you attend rastafarian or holiness services?: decline to answer Do you belong to any clubs or organized social groups?: no Panel score (0-1 are the most socially isolated patients): 2 What type of physical activity do you participate in: walking Frequency: daily Jennifer/Jewish: No preference Special jennifer needs: No Seatbelt use: always Helmet use: Yes Drive intox 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 route driver coin machines: No Do you feel safe at home: Yes Do you feel safe in your relationship?: Yes
[2023-03-31] MEDS: Potassium Chloride 10 MEQ CAPCR 40 MEQ PO (09:41)
[2023-03-31] MEDS: POTASSIUM CHLORIDE 20 MEQ/100 ML BAG 50 MEQ IVPB (09:42)
[2023-03-31] MEDS: Normal Saline Flush 10 ML SYR IVP ×4 (09:42→19:57)
[2023-03-31] MEDS: MAGNESIUM SULFATE 4 GM/100 ML BAG IVPB (10:59)
[2023-03-31] MEDS: Magnesium Gluconate 500 MG TAB PO (11:11)
[2023-03-31] MEDS: VANCOMYCIN/WATER (PEG) 750 MG/150 ML BAG 150 MG IV (12:42)
[2023-03-31 12:52] LABS: C Diff PCR Positive (Negative)
[2023-03-31] MEDS: Potassium Chloride 10 MEQ CAPCR 20 MEQ PO ×2 (13:53→19:56)
[2023-03-31 14:00] LABS: Bilirubin Negative (Negative); Blood Small (Negative); Clarity Clear (Clear); Glucose 100 mg/dL (Negative); Ketones Trace mg/dL (Negative); Leukocyte Esterase Negative (Negative); Nitrite Negative (Negative); Urobilinogen 0.2 mg/dL (Up to 0.2); pH 6.5 (5-8)
[2023-03-31 14:07] LABS: WBC 0-2 HPF (0-5)
[2023-03-31 14:08] LABS: Bacteria Negative HPF (Negative); C & S Indicated? No; Casts Negative LPF (Negative); Crystals Negative HPF (Negative); Epithelial Cells Few HPF (Negative); Mucus Negative (Negative); Other Cells Few Transitional (Negative); RBC 0-2 HPF (0-2)
--- NOTE | 2023-03-31 15:14 | W.PM.PROGNOT ---
Date of Service Date of service: 03/31/23 Time of Service: 15:14 Assessment and Plan Assessment and plan (1) Clostridium difficile colitis: Status: Acute Assessment and plan: po Dificid and iv Flagyl, probiotics and metamucil; avoid antimotility drugs (2) Fever and neutropenia: Status: Acute Assessment and plan: as above; dc iv vancomycin and if her blood cultures are no growth then dc her cefepime as well; check MRSA screen (3) Thrush: Status: Acute Assessment and plan: po nystatin (4) Metastatic non-small cell lung cancer: Status: Acute Assessment and plan: remains neutropenic w/ ANC of 0.16 and total WBC 0.41, 6 days post last dose of chemotherapy; unclear whether or not she had neulast w/ her chemotherapy (5) Acute hypokalemia: Status: Acute Assessment and plan: replete w/ iv and po and monitor; will have ongoing need for replacement as long as she has diarrhea (6) Hypomagnesemia: Status: Acute Assessment and plan: repelete and monitor (7) History of CVA (cerebrovascular accident): Status: Acute Assessment and plan: continue full dose lovenox therapy (8) History of pulmonary embolism: Status: Acute Assessment and plan: full dose loveno therapy 1 mg/kg q12h (9) Discharge planning issues: Status: Acute Subjective Subjective Interval history since last seen: Patient is still stooling several liquid BM per day. Stool positive for C difficile. Blood cultures from yesterday are still reading pending. She remains on Levaquin and iv vancomcyin for neutropenic fever. However her source of infection appears to be C difficile colitis. I have stopped her Vancomycin but will continue cefepime until tomorrow when I will get a preliminary report on her blood cultures. I have begun her on iv flagyl and Dificid. HOwever her Torres score is only 1 (for her age) but given her immunocompromised state I think dual treatment w/ oral and iv antibiotics targeting for C difficile is prudent until we see her respond. I have put her on an oral probiotic and metamucil. She denies nausea or vomiting but her appettite is poor. She is requiring oral and iv potassium and magnesium supplements to correct her hypokalemia and hypomagnesemia. Exam Narrative Exam Narrative: Late middle age female who appears tired, ill but not toxic Lungs: clear Heart: RRR Abdomen: soft, nondistended, nontender to palpation w/ active bowel sounds Extremities: no edema Objective Last Vital Signs Temp 37.2 C 03/31/23 05:39 Pulse 90 03/31/23 05:39 Resp 16 03/31/23 05:39 BP 101/68 03/31/23 05:39 Pulse Ox 96 03/31/23 05:39 Laboratory Results - last 24 hr 03/30/23 03/30/23 03/30/23 14:35 14:35 14:35 WBC 0.39 L* RBC 3.18 L Hgb 9.8 L Hct 29.1 L MCV 92 MCH 30.8 MCHC 33.7 RDW 19.2 H Plt Count 222 MPV 8.6 Immature Gran % 8.0 Neutrophils % 40.0 Band Neutrophils % 6 Lymphocytes % 38.0 Monocytes % 8.0 Eosinophils % 0.0 Basophils % 0.0 Metamyelocytes % Nucleated RBC % 0.0 Absolute Neutrophils 0.17 L* Absolute Lymphocytes 0.15 L Absolute Monocytes 0.03 L Absolute Eosinophils 0.00 Absolute Basophils 0.00 RBC Morphology Normal Polychromasia Microcytosis Sodium Potassium Chloride Carbon Dioxide Anion Gap BUN Creatinine Est GFR (CKD-EPI 2020) Glucose Calcium Magnesium Lipase 18 Procalcitonin 0.2 TSH 6.65 H Free T4 0.74 L Urine Color Urine Clarity Urine pH Ur Specific [place] Urine Protein Urine Ketones Urine Blood Urine Nitrite Urine Bilirubin Urine Urobilinogen Ur Leukocyte Esterase Urine RBC Urine WBC Ur Epithelial Cells Urine Crystals Urine Bacteria Urine Casts Urine Mucus Urine Other Ur Culture Indicated? Urine Glucose Stl C.difficile Tox PCR COVID-19 Source SARS-CoV-2 (PCR) Influenza Type A (PCR) Influenza Type B (PCR) RSV (PCR) 03/30/23 03/30/23 03/31/23 14:45 14:50 00:30 WBC RBC Hgb Hct MCV MCH MCHC RDW Plt Count MPV Immature Gran % Neutrophils % Band Neutrophils % Lymphocytes % Monocytes % Eosinophils % Basophils % Metamyelocytes % Nucleated RBC % Absolute Neutrophils Absolute Lymphocytes Absolute Monocytes Absolute Eosinophils Absolute Basophils RBC Morphology Polychromasia Microcytosis Sodium Potassium Chloride Carbon Dioxide Anion Gap BUN Creatinine Est GFR (CKD-EPI 2020) Glucose Calcium Magnesium 1.5 L Lipase Procalcitonin TSH Free T4 Urine Color Yellow Urine Clarity Clear Urine pH 5.5 Ur Specific [place] 1.020 Urine Protein 100 H Urine Ketones Negative Urine Blood Trace-intact H Urine Nitrite Negative Urine Bilirubin Negative Urine Urobilinogen 0.2 Ur Leukocyte Esterase Negative Urine RBC 0-2 Urine WBC Negative Ur Epithelial Cells Negative Urine Crystals Negative Urine Bacteria Rare Urine Casts Negative Urine Mucus Negative Urine Other Ur Culture Indicated? No Urine Glucose 100 H Stl C.difficile Tox PCR COVID-19 Source Nasopharynx SARS-CoV-2 (PCR) Negative Influenza Type A (PCR) Negative Influenza Type B (PCR) Negative RSV (PCR) Negative 03/31/23 03/31/23 03/31/23 06:00 06:00 11:40 WBC 0.41 L* RBC 2.60 L Hgb 8.2 L Hct 23.5 L MCV 90 MCH 31.5 MCHC 34.9 RDW 19.2 H Plt Count 159 MPV 8.9 Immature Gran % See Differential Neutrophils % 36.0 Band Neutrophils % 4 Lymphocytes % 48.0 Monocytes % 6.0 Eosinophils % 2.0 Basophils % 1.0 Metamyelocytes % 3 Nucleated RBC % 0.0 Absolute Neutrophils 0.16 L* Absolute Lymphocytes 0.20 L Absolute Monocytes 0.02 L Absolute Eosinophils 0.01 Absolute Basophils 0.00 RBC Morphology See Below Polychromasia Present Microcytosis 1+ Sodium 129 L Potassium 2.6 L* Chloride 96 L Carbon Dioxide 24.9 Anion Gap 8.1 BUN 13 Creatinine 1.2 H Est GFR (CKD-EPI 2020) 51.18 Glucose 110 H Calcium 7.7 L Magnesium 1.5 L Lipase Procalcitonin TSH Free T4 Urine Color Urine Clarity Urine pH Ur Specific [place] Urine Protein Urine Ketones Urine Blood Urine Nitrite Urine Bilirubin Urine Urobilinogen Ur Leukocyte Esterase Urine RBC Urine WBC Ur Epithelial Cells Urine Crystals Urine Bacteria Urine Casts Urine Mucus Urine Other Ur Culture Indicated? Urine Glucose Stl C.difficile Tox PCR Positive A COVID-19 Source SARS-CoV-2 (PCR) Influenza Type A (PCR) Influenza Type B (PCR) RSV (PCR) 03/31/23 13:50 WBC RBC Hgb Hct MCV MCH MCHC RDW Plt Count MPV Immature Gran % Neutrophils % Band Neutrophils % Lymphocytes % Monocytes % Eosinophils % Basophils % Metamyelocytes % Nucleated RBC % Absolute Neutrophils Absolute Lymphocytes Absolute Monocytes Absolute Eosinophils Absolute Basophils RBC Morphology Polychromasia Microcytosis Sodium Potassium Chloride Carbon Dioxide Anion Gap BUN Creatinine Est GFR (CKD-EPI 2020) Glucose Calcium Magnesium Lipase Procalcitonin TSH Free T4 Urine Color Yellow Urine Clarity Clear Urine pH 6.5 Ur Specific [place] 1.020 Urine Protein 30 H Urine Ketones Trace H Urine Blood Small H Urine Nitrite Negative Urine Bilirubin Negative Urine Urobilinogen 0.2 Ur Leukocyte Esterase Negative Urine RBC 0-2 Urine WBC 0-2 Ur Epithelial Cells Few Urine Crystals Negative Urine Bacteria Negative Urine Casts Negative Urine Mucus Negative Urine Other Few Transitional Ur Culture Indicated? No Urine Glucose 100 H Stl C.difficile Tox PCR COVID-19 Source SARS-CoV-2 (PCR) Influenza Type A (PCR) Influenza Type B (PCR) RSV (PCR) Time Spent with Patient Time Spent with Patient: 35-49 minutes Time was spent: preparing to see the patient(eg.review tests), obtaining and/or reviewing separately otained hiistory, ordering medications,tests, procedures, referring, communicating with other health healthcare prof, indepentently interpreting results, counseling the patient and care coordination
[2023-03-31 15:46] LABS: MRSA PCR Negative (Negative)
[2023-03-31 16:42] LABS: Potassium 3.1 mmol/L (3.5-5.1)
[2023-03-31] MEDS: Fidaxomicin 200 MG TAB PO ×2 (16:42→19:56)
[2023-03-31] MEDS: metroNIDAZOLE 500 MG/100 ML BAG 100 MG IVPB (16:43)
[2023-03-31] MEDS: Psyllium PKT 1 EACH PO ×2 (16:43→19:57)
[2023-03-31 16:46] LABS: Magnesium 3.4 mg/dL (1.8-2.4)
[2023-03-31] MEDS: POTASSIUM CHLORIDE/0.9% NACL 1,000 ML 100 MEQ IV (17:15)
[2023-03-31] MEDS: POTASSIUM CHLORIDE 10 MEQ/100 ML BAG 100 MEQ IVPB ×3 (19:58→23:04)
[2023-04-01] MEDS: metroNIDAZOLE 500 MG/100 ML BAG 100 MG IVPB ×3 (00:15→16:00)
[2023-04-01 02:23] VITALS: BP 101/67; PULSE 70; RESP 15; TEMP 36.1; O2SAT 99
[2023-04-01] MEDS: POTASSIUM CHLORIDE/0.9% NACL 1,000 ML 100 MEQ IV (02:35)
[2023-04-01] MEDS: Ondansetron O.D.T. 4 MG TABEF PO ×2 (02:42→11:17)
[2023-04-01] MEDS: Levothyroxine 50 MCG TAB PO (06:27)
[2023-04-01] MEDS: Enoxaparin 60 MG/0.6 ML SYR SC ×2 (06:27→17:04)
[2023-04-01] MEDS: Prochlorperazine 10 MG TAB PO ×3 (06:30→21:21)
[2023-04-01] MEDS: Omeprazole 20 MG CAPCR PO (07:43)
[2023-04-01] MEDS: Fidaxomicin 200 MG TAB PO ×2 (07:43→21:22)
[2023-04-01] MEDS: traMADol 50 MG TAB PO (07:44)
[2023-04-01 07:58] VITALS: BP 103/62; PULSE 81; RESP 16; TEMP 36.5; O2SAT 100
[2023-04-01 09:29] LABS: Anion Gap 9.1 mmol/L (3-11); BUN 11 mg/dL (7-18); CO2 21.9 mmol/L (21.0-32.0); CREATININE 1.1 mg/dL (0.55-1.02); Calcium 8.3 mg/dL (8.5-10.1); Chloride 100 mmol/L (98-107); Estimated GFR 56.81 (mL/min/1.73m2); Glucose 106 mg/dL (74-106); Potassium 4.1 mmol/L (3.5-5.1); Sodium 131 mmol/L (136-145)
[2023-04-01 09:30] LABS: Magnesium 2.3 mg/dL (1.8-2.4)
[2023-04-01 10:19] LABS: HCT 24.9 % (36.0-46.0); HGB 8.4 g/dL (11.2-15.7); MCH 31.2 pg (27.0-33.0); MCHC 33.7 % (32.0-36.0); MCV 93 fL (80-95); MPV 9.2 fL (8.0-11.0); RBC 2.69 10^6/uL (3.93-5.22); RDW 19.8 % (11.7-14.6); RDW-SD 66.7 fL
[2023-04-01 10:51] LABS: Platelet Count 123 10^3/uL (130-400)
[2023-04-01 10:52] LABS: Absolute Basophil Count 0.01 10^3/uL (0.0-0.2); Absolute Eosinophil Count 0.01 10^3/uL (0.0-0.7); Absolute Monocyte Count 0.01 10^3/uL (0.1-0.8); Anisocytosis 2+; Bands % 2; Diff Comment Manual Differential
[2023-04-01 10:54] LABS: WBC 0.64 10^3/uL (4.4-10.8)
[2023-04-01 11:16] VITALS: BP 113/66; PULSE 65; RESP 15; TEMP 36.4; O2SAT 100
--- NOTE | 2023-04-01 12:48 | PGE_ITS ---
Date of Service Date of service: 04/01/23 Time of Service: 12:48 Assessment and Plan Assessment and plan (1) Clostridium difficile colitis: Status: Acute Assessment and plan: po Dificid and iv Flagyl, probiotics and metamucil; avoid antimotility drugs; patient says that she can not take the metamucil as it makes her have the dry heaves. I will stop the metamucil. If she is not improving over next 24 to 48 hr then I will consider giving her the MAB for C difficile (2) Fever and neutropenia: Status: Acute Assessment and plan: as above; blood and urine cultures NGTD. I have stopped both her iv Vancomycin and her Levofloxacin. [place] [facility] [place] Ne[place] to help w/ her ANC recovery (3) Thrush: Status: Acute Assessment and plan: po nystatin (4) Metastatic non-small cell lung cancer: Status: Acute Assessment and plan: remains neutropenic w/ ANC of 0.2 and total WBC 0.64, 7 days post last dose of chemotherapy; I have placed call for oncology [place] w/ [facility] [place] (5) Acute hypokalemia: Status: Acute Assessment and plan: patient has trouble w/ the potasssium pills so I will switch to liquid potassium. I explained to her that she will continue to need supplementation as long as she has diarrhea (6) Hypomagnesemia: Status: Acute Assessment and plan: repelete and monitor (7) History of CVA (cerebrovascular accident): Status: Acute Assessment and plan: continue full dose lovenox therapy (8) History of pulmonary embolism: Status: Acute Assessment and plan: full dose loveno therapy 1 mg/kg q12h (9) Discharge planning issues: Status: Acute Assessment and plan: remains full code. I anticipate dc home once her diarrhea and electrolyte imbalance has resolved. Subjective Subjective Interval history since last seen: Patient states that she feels worse, w/ nausea, inability to eat and stomach pains. She is still having water diarrhea. Her blood and urine cultures were no growth, therefore I have stopped her Levaquin. She remains on Flagyl and Dificid. Exam Narrative Exam Narrative: Mónica is sitting up in bed talking w/ her . She does not appear toxic, she is alert and oriented x 3, she is frustrated w/ all of her complications from her lung cancer including her strokes, PE, diverticulitis and now her C difficile colitis Lungs: clear Heart: RRR Abdomen: nondistended, soft, w/ active bowel sounds, mild tenderness w/ deep palpatiion over epigastrum and umbilicus but no rebound tenderness Objective Last Vital Signs Temp 36.4 C 04/01/23 11:16 Pulse 65 04/01/23 11:16 Resp 15 04/01/23 11:16 BP 113/66 04/01/23 11:16 Pulse Ox 100 04/01/23 11:16 Laboratory Results - last 24 hr 03/31/23 03/31/23 03/31/23 11:40 12:50 13:50 WBC RBC Hgb Hct MCV MCH MCHC RDW Plt Count MPV Immature Gran % Neutrophils % Band Neutrophils % Lymphocytes % Monocytes % Eosinophils % Basophils % Nucleated RBC % Absolute Neutrophils Absolute Lymphocytes Absolute Monocytes Absolute Eosinophils Absolute Basophils RBC Morphology Anisocytosis Sodium Potassium Chloride Carbon Dioxide Anion Gap BUN Creatinine Est GFR (CKD-EPI 2020) Glucose Calcium Magnesium Urine Color Yellow Urine Clarity Clear Urine pH 6.5 Ur Specific [place] 1.020 Urine Protein 30 H Urine Ketones Trace H Urine Blood Small H Urine Nitrite Negative Urine Bilirubin Negative Urine Urobilinogen 0.2 Ur Leukocyte Esterase Negative Urine RBC 0-2 Urine WBC 0-2 Ur Epithelial Cells Few Urine Crystals Negative Urine Bacteria Negative Urine Casts Negative Urine Mucus Negative Urine Other Few Transitional Ur Culture Indicated? No Urine Glucose 100 H Stl C.difficile Tox PCR Positive A MRSA (TEM-PCR) Negative 03/31/23 03/31/23 04/01/23 16:25 16:26 08:03 WBC RBC Hgb Hct MCV MCH MCHC RDW Plt Count MPV Immature Gran % Neutrophils % Band Neutrophils % Lymphocytes % Monocytes % Eosinophils % Basophils % Nucleated RBC % Absolute Neutrophils Absolute Lymphocytes Absolute Monocytes Absolute Eosinophils Absolute Basophils RBC Morphology Anisocytosis Sodium Potassium 3.1 L Chloride Carbon Dioxide Anion Gap BUN Creatinine Est GFR (CKD-EPI 2020) Glucose Calcium Magnesium 3.4 H 2.3 Urine Color Urine Clarity Urine pH Ur Specific [place] Urine Protein Urine Ketones Urine Blood Urine Nitrite Urine Bilirubin Urine Urobilinogen Ur Leukocyte Esterase Urine RBC Urine WBC Ur Epithelial Cells Urine Crystals Urine Bacteria Urine Casts Urine Mucus Urine Other Ur Culture Indicated? Urine Glucose Stl C.difficile Tox PCR MRSA (TEM-PCR) 04/01/23 04/01/23 08:03 08:03 WBC 0.64 L* RBC 2.69 L Hgb 8.4 L Hct 24.9 L MCV 93 MCH 31.2 MCHC 33.7 RDW 19.8 H Plt Count 123 L MPV 9.2 Immature Gran % See Differential Neutrophils % 30.0 Band Neutrophils % 2 Lymphocytes % 62.0 Monocytes % 2.0 Eosinophils % 2.0 Basophils % 2.0 Nucleated RBC % 0.0 Absolute Neutrophils 0.20 L* Absolute Lymphocytes 0.40 L Absolute Monocytes 0.01 L Absolute Eosinophils 0.01 Absolute Basophils 0.01 RBC Morphology See Below Anisocytosis 2+ Sodium 131 L Potassium 4.1 D Chloride 100 Carbon Dioxide 21.9 Anion Gap 9.1 BUN 11 Creatinine 1.1 H Est GFR (CKD-EPI 2020) 56.81 Glucose 106 Calcium 8.3 L Magnesium Urine Color Urine Clarity Urine pH Ur Specific [place] Urine Protein Urine Ketones Urine Blood Urine Nitrite Urine Bilirubin Urine Urobilinogen Ur Leukocyte Esterase Urine RBC Urine WBC Ur Epithelial Cells Urine Crystals Urine Bacteria Urine Casts Urine Mucus Urine Other Ur Culture Indicated? Urine Glucose Stl C.difficile Tox PCR MRSA (TEM-PCR) Time Spent with Patient Time Spent with Patient: 35-49 minutes Time was spent: preparing to see the patient(eg.review tests), ordering medications,tests, procedures, referring, communicating with other health direct care worker [place] [place] indepentently interpreting results, counseling the patient and care coordination
[2023-04-01] MEDS: Normal Saline Flush 10 ML SYR IVP (16:00)
[2023-04-01 16:07] VITALS: BP 115/53; PULSE 72; RESP 16; TEMP 36.7; O2SAT 100
[2023-04-01] MEDS: Potassium Chloride 10 MEQ CAPCR 20 MEQ PO (21:22)
[2023-04-01] MEDS: Famotidine 20 MG TAB 10 MG PO (21:23)
[2023-04-01 22:53] VITALS: BP 103/60; PULSE 74; RESP 16; TEMP 36.5; O2SAT 99
[2023-04-02] MEDS: Ondansetron O.D.T. 4 MG TABEF PO ×2 (00:17→09:21)
[2023-04-02] MEDS: metroNIDAZOLE 500 MG/100 ML BAG 100 MG IVPB ×2 (01:16→09:19)
[2023-04-02] MEDS: Levothyroxine 50 MCG TAB PO (05:02)
[2023-04-02] MEDS: Enoxaparin 60 MG/0.6 ML SYR SC (05:02)
[2023-04-02 05:30] LABS: Abs Immature Grans 0.02 10^3/uL (0.0-0.06); Absolute Eosinophil Count 0.01 10^3/uL (0.0-0.7); HCT 26.7 % (36.0-46.0); MCH 30.9 pg (27.0-33.0); MCHC 33.7 % (32.0-36.0); MCV 92 fL (80-95); MPV 9.1 fL (8.0-11.0); Platelet Count 96 10^3/uL (130-400); RBC 2.91 10^6/uL (3.93-5.22); RDW 19.8 % (11.7-14.6)
[2023-04-02 05:36] LABS: WBC 0.97 10^3/uL (4.4-10.8)
[2023-04-02 05:47] LABS: Anion Gap 9.2 mmol/L (3-11); BUN 8 mg/dL (7-18); C-Reactive Protein 10.67 mg/dL (0.0-0.3); CO2 22.8 mmol/L (21.0-32.0); CREATININE 0.9 mg/dL (0.55-1.02); Calcium 7.9 mg/dL (8.5-10.1); Chloride 100 mmol/L (98-107); Estimated GFR 72.28 (mL/min/1.73m2); Glucose 100 mg/dL (74-106); Potassium 3.8 mmol/L (3.5-5.1); Sodium 132 mmol/L (136-145)
[2023-04-02 05:50] VITALS: BP 108/68; PULSE 67; RESP 16; TEMP 36.7; O2SAT 100
[2023-04-02 06:19] LABS: Absolute Lymphocyte Count 0.45 10^3/uL (1.2-3.4); Absolute Neutrophil Count 0.39 10^3/uL (1.2-6.7); Bands % 3
[2023-04-02 06:20] LABS: Diff Comment Manual Differential; RBC Morphology Normal
[2023-04-02 07:21] VITALS: BP 114/70; PULSE 66; RESP 16; TEMP 36.6; O2SAT 99
[2023-04-02 09:07] LABS: Lab Add On Test DONE
[2023-04-02] MEDS: Normal Saline Flush 10 ML SYR IVP (09:18)
[2023-04-02] MEDS: Potassium Chloride 10 MEQ CAPCR 20 MEQ PO (09:20)
[2023-04-02] MEDS: traMADol 50 MG TAB PO (09:20)
[2023-04-02] MEDS: Fidaxomicin 200 MG TAB PO (09:20)
[2023-04-02] MEDS: Omeprazole 20 MG CAPCR PO (09:20)
--- NOTE | 2023-04-02 09:57 | W.PM.PROGNOT ---
Date of Service Date of service: 04/02/23 Time of Service: 09:57 Objective Last Vital Signs Temp 36.6 C 04/02/23 07:21 Pulse 66 04/02/23 07:21 Resp 16 04/02/23 07:21 BP 114/70 04/02/23 07:21 Pulse Ox 99 04/02/23 07:21 Laboratory Results - last 24 hr 04/01/23 04/01/23 04/02/23 08:03 Unknown 05:13 WBC 0.64 L* RBC 2.69 L Hgb 8.4 L Hct 24.9 L MCV 93 MCH 31.2 MCHC 33.7 RDW 19.8 H Plt Count 123 L MPV 9.2 Immature Gran % See Differential Neutrophils % 30.0 Band Neutrophils % 2 Lymphocytes % 62.0 Monocytes % 2.0 Eosinophils % 2.0 Basophils % 2.0 Nucleated RBC % 0.0 Absolute Neutrophils 0.20 L* Absolute Lymphocytes 0.40 L Absolute Monocytes 0.01 L Absolute Eosinophils 0.01 Absolute Basophils 0.01 RBC Morphology See Below Anisocytosis 2+ Sodium 132 L Potassium 3.8 Chloride 100 Carbon Dioxide 22.8 Anion Gap 9.2 BUN 8 Creatinine 0.9 Est GFR (CKD-EPI 2020) 72.28 Glucose 100 Calcium 7.9 L Magnesium C-Reactive Protein 10.67 H Add-On Test Request Cancelled 04/02/23 04/02/23 04/02/23 05:13 05:13 05:13 WBC 0.97 L* RBC 2.91 L Hgb 9.0 L Hct 26.7 L MCV 92 MCH 30.9 MCHC 33.7 RDW 19.8 H Plt Count 96 L MPV 9.1 Immature Gran % 0.0 Neutrophils % 40.0 Band Neutrophils % 3 Lymphocytes % 46.0 Monocytes % 10.0 Eosinophils % 1.0 Basophils % 0.0 Nucleated RBC % 0.0 Absolute Neutrophils 0.39 L* Absolute Lymphocytes 0.45 L Absolute Monocytes 0.10 Absolute Eosinophils 0.01 Absolute Basophils 0.00 RBC Morphology Normal Anisocytosis Sodium Potassium Chloride Carbon Dioxide Anion Gap BUN Creatinine Est GFR (CKD-EPI 2020) Glucose Calcium Magnesium 2.0 C-Reactive Protein Add-On Test Request DONE
--- NOTE | 2023-04-02 10:10 | W.PM.DS.N ---
Date of service: 04/02/23 Time of Service: 10:10 DS: Diagnosis Discharge Diagnosis (1) Clostridium difficile colitis: Status: Acute Asessment and Plan: patient presented w/ fever, abdominal cramping and diarrhea. blood cultures showed no growth, urinalysis showed no bacteria, urine culture greew <10,000 GP jeremy, likely contaminant but stool PCR was positive for Clostridium difficile. Patient was initially treated for neutropenic fever w/ Levaquin and parenteral Vancomycin but when her C difficile studies came back positive, she was put on Dificid and Flagyl iv, lactobacillus, and metamucil. Over the next couple days her symptoms improved and her liquid diarrhea resolved. She remained afebrile and she was tolerating oral intake and was discharged home to complete 10 day course of Dificid CT chest/abdomen and pelvis was done on admission and showed interval improvement in her lung masses, no acute pulmonary abnormality such as pneumonia or CHF. Abdomen and pelvic CT showed marked small bowel dilatation and distal small bowel wall thickening consistent w/ enteritis but no abscess or free air. These findings are consistent w/ her diagnosis of C difficile enteritis. (2) Fever and neutropenia: Status: Resolved Asessment and Plan: see H&P and hospital course as outlined above. [facility] [place] consulted regarding giving her Neulast, and oncology fellow, Dr. Ulrich?recommended to not give the Neulasta unless she was showing signs of sepsis (i.e. hypotension, continued fevers, worsening abdominal symptoms, rising lactate). Her leukopenia/neutropenia improved but had not yet resolved when she was discharged. Her total WBC on admission was 0.39, and steadily valeria to 0.41, 0.64 and finally 0.97 at time of her discharge. Likewise her ANC was low at 0.17 on admission and valeria to 0.39 at the time of her discharge. She is advised to avoid contact w/ other people for next week, to wear a mask if she needs to leave the home. As for her C difficile enteritis, her was directed to use separate bathroom, wash his and her clothes separately and to use bleach wipes to wipe down any surfaces she contacts. She should sleep in separate bed until she has fully recovered. (3) Thrush: Status: Resolved Asessment and Plan: treated w/ nystatin swish and swallow (4) Metastatic non-small cell lung cancer: Status: Acute Asessment and Plan: follow up w/ her oncologist at [facility] in [facility] in the next 1 to 2 weeks. (5) Acute hypokalemia: Status: Resolved Asessment and Plan: repleted w/ oral and iv supplements, she was not sent home on further supplements as her diarrhea has ceased. (6) Hypomagnesemia: Status: Resolved Asessment and Plan: as above (7) History of CVA (cerebrovascular accident): Status: Chronic Asessment and Plan: patient has remained on custodial enoxaparin 60 mg SC q12h (8) History of pulmonary embolism: Status: Chronic (9) Discharge planning issues: Status: Resolved Asessment and Plan: patient will dc home w/ no home health services. Discharge Plan Disposition Patient Disposition: Home Condition: Improving Discharge Details Reason For Visit: Neutropenic fever, enteritis Admit Date/Time: 03/30/23 16:28 Admit Provider: Grace Bolanos Attending Provider: Grace Bolanos Primary Care Provider: Sophie Ramos Home Meds and New Rx's Prescriptions: New fidaxomicin 200 mg tablet 200 mg PO BID 10 Days Qty: 20 0RF Bio-K plus 50 billion cell capsule,delayed release(DR/EC) 1 cap PO DAILY 14 Days Qty: 14 0RF Continued famotidine [Pepcid AC] 10 mg tablet 10 mg PO DAILY PRN atorvastatin 80 mg tablet 80 mg PO DAILY Qty: 90 3RF Patient Comments: no longer taking 03/30/23 enoxaparin [Lovenox] 80 mg/0.8 mL syringe 60 mg subcut Q12H Rx Instructions: 11/29/22 per [facility]. -hb prochlorperazine maleate 10 mg tablet 10 mg PO Q6H PRN Patient Comments: TAKE ONE TABLET BY MOUTH EVERY 6 HOURS NEEDED FOR NAUSEA omeprazole 20 mg capsule,delayed release(DR/EC) 20 mg PO DAILY Patient Comments: TAKE ONE CAPSULE BY MOUTH EVERY DAY tramadol 50 mg tablet 50 mg PO DAILY Patient Comments: TAKE ONE TABLET BY MOUTH EVERY 8 HOURS NEEDED FOR PAIN levothyroxine 50 mcg tablet 50 mcg PO DAILY Patient Comments: TAKE ONE TABLET BY MOUTH EVERY DAY ondansetron 4 mg tablet,disintegrating 4 mg PO Q8H PRN (Reason: nausea and vomiting) Qty: 30 0RF Discharge Instructions Instructions: C. Diff (Clostridioides Difficile) Infection (DC) Stand Alone Forms: Nursing Discharge Form Referrals: Sophie Ramos NP [Primary Care Provider] - 04/20/23 10:20 am Activity:: Activity as Tolerated Equipment/Supplies:: No Equipment Needed Diet:: Normal Diet Discharge Orders Discharge Orders: Discharge Order (Routine); Ordered 04/02/23 Ordered By: Andrea Ahn Discharge Data Discharge Date/Time-TO BE ENTERED AT DEPARTURE: 04/02/23 11:46 DS: Summary Time Spent with Patient providing and/or coordinating discharge services: Greater than 30 minutes Status at Discharge Functional status at discharge: independent ambulation Overall status at discharge: patient is progressing back to baseline Mental Status: mental status grossly normal Speech and Movement: speech and movement normal Mood: congruent mood Affect: normal affect Exam Narrative Exam Narrative: Dayana is feeling markedly better. No abdominal pain, nausea or vomiting and diarrhea has ceaseds Abdomen: soft, nontender, nondistended, normal bowel sounds, no guarding or rebound tenderness Psych Mental Status: mental status grossly normal Speech and Movement: speech and movement normal Mood: congruent mood Affect: normal affect DS: Data Vitals/I&O Vitals and I&O: Vital Signs Temperature 36.6 C 04/02/23 07:21 Temperature Source Temporal Artery Scan 04/02/23 07:21 Pulse 66 04/02/23 07:21 Pulse Rhythm Regular 04/02/23 10:05 Pulse 95 H 03/30/23 16:50 Respiratory Rate 16 04/02/23 07:21 Respiratory Effort Normal, Non-Labored 04/02/23 10:05 Respiratory Depth Normal 04/02/23 10:05 Respiratory Pattern Normal 04/02/23 10:05 Blood Pressure 114/70 04/02/23 07:21 Blood Pressure Mean 78 03/30/23 15:15 Blood Pressure Position Sitting 03/30/23 14:45 Pulse Oximetry 99 04/02/23 07:21 Oxygen Delivery Method Room Air 04/02/23 07:21 Oxygen Flow Rate 0 04/02/23 07:21 Pain Level 2 04/02/23 09:20 Comment bp called over radio 03/31/23 19:40 Intake & Output 04/01/23 04/01/23 04/02/23 11:59 23:59 11:59 Intake Total 2400.000 / 3166.667 766.667 / 3166.667 100 / 100 Output Total 900 / 900 Balance 1500.000 / 2266.667 766.667 / 2266.667 100 / 100 Weight 52.5 kg Intake: IV 2400.000 / 2966.667 566.667 / 2966.667 100 / 100 Oral 200 / 200 Output: Urine 900 / 900 Other: Urine Color Yellow Yellow Urine Appearance Clear Clear Clear Urine Odor Normal Comment pt voiding independently in the toilet x5 today pT stated they voided around 6A Stool Size Small Stool Characteristics Liquid Voiding Methods Toilet Toilet Toilet Data Completed and Pending Labs on day of discharge: Labs from last 24 hours 04/02/23 04/02/23 04/02/23 05:13 05:13 05:13 WBC 0.97 L* RBC 2.91 L Hgb 9.0 L Hct 26.7 L MCV 92 MCH 30.9 MCHC 33.7 RDW 19.8 H Plt Count 96 L MPV 9.1 Immature Gran % 0.0 Neutrophils % 40.0 Band Neutrophils % 3 Lymphocytes % 46.0 Monocytes % 10.0 Eosinophils % 1.0 Basophils % 0.0 Nucleated RBC % 0.0 Absolute Neutrophils 0.39 L* Absolute Lymphocytes 0.45 L Absolute Monocytes 0.10 Absolute Eosinophils 0.01 Absolute Basophils 0.00 RBC Morphology Normal Anisocytosis Sodium Potassium Chloride Carbon Dioxide Anion Gap BUN Creatinine Est GFR (CKD-EPI 2020) Glucose Calcium Magnesium 2.0 C-Reactive Protein Add-On Test Request DONE 04/02/23 04/01/23 04/01/23 05:13 Unknown 08:03 WBC 0.64 L* RBC 2.69 L Hgb 8.4 L Hct 24.9 L MCV 93 MCH 31.2 MCHC 33.7 RDW 19.8 H Plt Count 123 L MPV 9.2 Immature Gran % See Differential Neutrophils % 30.0 Band Neutrophils % 2 Lymphocytes % 62.0 Monocytes % 2.0 Eosinophils % 2.0 Basophils % 2.0 Nucleated RBC % 0.0 Absolute Neutrophils 0.20 L* Absolute Lymphocytes 0.40 L Absolute Monocytes 0.01 L Absolute Eosinophils 0.01 Absolute Basophils 0.01 RBC Morphology See Below Anisocytosis 2+ Sodium 132 L Potassium 3.8 Chloride 100 Carbon Dioxide 22.8 Anion Gap 9.2 BUN 8 Creatinine 0.9 Est GFR (CKD-EPI 2020) 72.28 Glucose 100 Calcium 7.9 L Magnesium C-Reactive Protein 10.67 H Add-On Test Request Cancelled Preliminary micro results at discharge 03/30/23 17:09 Blood Culture - Preliminary Blood NO GROWTH 48 HOURS 03/30/23 14:50 Blood Culture - Preliminary Blood NO GROWTH 48 HOURS 03/30/23 14:35 Blood Culture - Preliminary Blood NO GROWTH 48 HOURS PFSH All Active Problems (Updated 04/02/23 @ 14:11 by Andrea Ahn MD) Clostridium difficile colitis (Acute) Enteritis (Acute) History of CVA (cerebrovascular accident) (Chronic) History of pulmonary embolism (Chronic) Enteritis of small bowel (Acute) Neutropenic fever (Acute) Metastatic non-small cell lung cancer (Acute ~10/2022) Renal infarct (Chronic) Infarction of spleen (Chronic) Pulmonary embolism, bilateral (Acute) Cigarette smoker (Chronic) Hyperlipidemia (Chronic) Medical History Diverticulitis (~12/2022) Endometriosis Sepsis Surgical History History of cataract surgery S/P hysterectomy with oophorectomy S/P ORIF (open reduction internal fixation) fracture Left foot Family History Mother , 76 of lung cancer Lung cancer Father , 75 Diabetes Metastatic cancer Sister No problems noted. Brother Alcohol use disorder Brother Alcohol use disorder Maternal Grandfather No problems noted. Maternal Grandmother Heart disease Paternal Grandfather No problems noted. Paternal Grandmother No problems noted. Social History Smoking/Tobacco Use Status: Former Tobacco Use Quit Date: 11/23/22 Tobacco: How many years used: 40 Quit status: not considering quitting Second Hand Exposure: Yes Smoking risk assessment performed?: Yes Alcohol Intake: current Alcohol Intake frequency: a few times a month Alcohol type: hard liquor Drug use: Never Substance use type: does not use Caregiver/Support person: No Household members: spouse Housing: house Communication Needs: None Pets and animals: Yes Pets and animals: cat(s) Sexually active: Yes Do you think of yourself as: straight/heterosexual Current gender identity: female What is your relationship status?: How often do you talk on the phone with friends or family?: three or more times per week How often do you get together with friends or relatives?: once per week How often do you attend tenriism or pentecostalism services?: decline to answer Do you belong to any clubs or organized social groups?: no Panel score (0-1 are the most socially isolated patients): 2 What type of physical activity do you participate in: walking Frequency: daily Jennifer/Mandaen: No preference Special jennifer needs: No Seatbelt use: always Helmet use: Yes Drive 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
[2023-04-02] MEDS: Heparin 500 UNITS/5 ML SYRINGE IV (11:37)
--- NOTE | 2023-04-02 12:38 | PDOC.CMDIS ---
Date of service: 04/02/23 Time of Service: 12:38 LACE Index Scoring Tool Questions: Length of Stay (in days): 3 Was the patient admitted via the E.D.?: Yes Comorbidities: Cerebrovascular Disease, Any Tumor and Metastatic Solid Tumor E.D. Visits: 5 Answers: Total Score: 15 Risk of Readmission: High Risk Care Management Discharge Plan Reason for Hospitalization: Neutropenic Fever Discharge Plan: Mónica will return home with no additional services, she will resume community supports and follow up with her PCP and Oncologist. She will transport via private vehicle with family. Patient/Family Education Needs: Review discharge instructions, discuss Ask Me Three
[2023-04-02 21:03] LABS: Campylobacter PCR Negative (Negative); Salmonella PCR Negative (Negative); Shiga Toxin PCR Negative (Negative); Shigella/Enteroinvasive Ecoli Negative (Negative)
== END 2023-04-02 11:46 | disposition home or self-care (01) | DRG 809 ==
LOC: ER 17:33 → MS 17:37
PROVIDERS: Family Medicine; Internal Medicine; Admitting Provider Internal Medicine; Emergency Provider Student in an Organized Health Care Education/Training Program; PCP Nurse Practitioner Family; Visit Provider Internal Medicine
DX: D70.1 Agranulocytosis secondary to cancer chemotherapy (principal); A04.72 Enterocolitis due to Clostridium difficile, not specified as recurrent; B37.0 Candidal stomatitis; C34.11 Malignant neoplasm of upper lobe, right bronchus or lung; D84.821 Immunodeficiency due to drugs; N28.0 Ischemia and infarction of kidney; C79.9 Secondary malignant neoplasm of unspecified site; T45.1X5A Adverse effect of antineoplastic and immunosuppressive drugs, initial encounter; Z86.711 Personal history of pulmonary embolism; Z86.73 Personal history of transient ischemic attack (TIA), and cerebral infarction without residual deficits; Z95.828 Presence of other vascular implants and grafts; Z79.01 Long term (current) use of anticoagulants; E78.5 Hyperlipidemia, unspecified; D73.5 Infarction of spleen; Z87.891 Personal history of nicotine dependence; E87.6 Hypokalemia; E83.42 Hypomagnesemia
CPT/HCPCS: 36410; 36415; 74177; 80048; 80053; 83690; 84145; 87040; 87329; 87493; 87505; 87637; 87641; 96365; 96366; 96367; 99285; 71260; 81003; 81015; 83605; 83735; 84132; 84439; 84443; 85025; 85610; 85730; 86140; 87086; 87177; 99223; 99233; 99239; J0456; J1650; J1885; J1956; J3475; J3480; J3490

== ENCOUNTER 2023-04-16 03:22 | Outpatient (RCR) | payer OTHER, SELFPAY ==
[2023-03-26] MEDS: Normal Saline Flush 10 ML SYR IV (10:16)
[2023-03-26 10:25] LABS: HCT 29.6 % (36.0-46.0); HGB 9.6 g/dL (11.2-15.7); MCH 30.6 pg (27.0-33.0); MCHC 32.4 % (32.0-36.0); MCV 94 fL (80-95); MPV 9.2 fL (8.0-11.0); Platelet Count 253 10^3/uL (130-400); RBC 3.14 10^6/uL (3.93-5.22); RDW 19.5 % (11.7-14.6); RDW-SD 64.7 fL; WBC 8.17 10^3/uL (4.4-10.8)
[2023-03-26 10:48] LABS: Absolute Lymphocyte Count 0.98 10^3/uL (1.2-3.4); Absolute Monocyte Count 0.57 10^3/uL (0.1-0.8); Absolute Neutrophil Count 6.21 10^3/uL (1.2-6.7); Atypical Lymphocytes % 1; Bands % 1
[2023-03-26 10:49] LABS: Diff Comment Diff Reviewed; Metamyelocytes % 1; Myelocytes % 4; RBC Morphology Normal
[2023-03-26 10:50] LABS: ALT 50 U/L (14-59); AST 34 U/L (15-37); Albumin 3.3 g/dL (3.4-5.0); Alkaline Phosphatase 124 U/L (46-116); Anion Gap 9.3 mmol/L (3-11); BUN 11 mg/dL (7-18); Bilirubin, Total 0.3 mg/dL (0.2-1.0); CO2 24.7 mmol/L (21.0-32.0); CREATININE 1.3 mg/dL (0.55-1.02); Calcium 9.1 mg/dL (8.5-10.1); Chloride 99 mmol/L (98-107); Estimated GFR 46.49 (mL/min/1.73m2); FREE T4 0.57 ng/dL (0.76-1.46); Glucose 114 mg/dL (74-106); Magnesium 1.4 mg/dL (1.8-2.4); Potassium 4.2 mmol/L (3.5-5.1); Sodium 133 mmol/L (136-145); TSH 27.75 uIU/mL (0.36-3.74); Total Protein 6.9 g/dL (6.4-8.2)
[2023-04-16] MEDS: Normal Saline Flush 10 ML SYR IV (07:41)
[2023-04-16 08:12] LABS: Abs Immature Grans 1.01 10^3/uL (0.0-0.06); HGB 7.4 g/dL (11.2-15.7); MCH 32.9 pg (27.0-33.0); MCHC 33.6 % (32.0-36.0); MCV 98 fL (80-95); MPV 9.9 fL (8.0-11.0); Platelet Count 237 10^3/uL (130-400); RBC 2.25 10^6/uL (3.93-5.22); RDW 21.2 % (11.7-14.6); RDW-SD 71.9 fL; WBC 6.71 10^3/uL (4.4-10.8)
[2023-04-16 08:46] LABS: Absolute Lymphocyte Count 1.88 10^3/uL (1.2-3.4); Absolute Monocyte Count 1.14 10^3/uL (0.1-0.8); Absolute Neutrophil Count 3.15 10^3/uL (1.2-6.7)
[2023-04-16 08:47] LABS: Absolute Basophil Count 0.07 10^3/uL (0.0-0.2); Anisocytosis 2+; Diff Comment Manual Differential; Hypochromasia 2+; Metamyelocytes % 5; Myelocytes % 2; Polychromasia Present
[2023-04-16 09:11] LABS: ALT 50 U/L (14-59); AST 28 U/L (15-37); Alkaline Phosphatase 95 U/L (46-116); Anion Gap 8.8 mmol/L (3-11); BUN 8 mg/dL (7-18); Bilirubin, Total 0.2 mg/dL (0.2-1.0); CO2 27.2 mmol/L (21.0-32.0); CREATININE 1.2 mg/dL (0.55-1.02); Calcium 9.1 mg/dL (8.5-10.1); Chloride 101 mmol/L (98-107); Estimated GFR 50.86 (mL/min/1.73m2); FREE T4 0.89 ng/dL (0.76-1.46); Glucose 119 mg/dL (74-106); Magnesium 1.4 mg/dL (1.8-2.4); Sodium 137 mmol/L (136-145); Total Protein 6.6 g/dL (6.4-8.2)
== END 2023-04-24 23:59 | disposition home or self-care (01) ==
LOC: INF 03:22
PROVIDERS: PCP Nurse Practitioner Family; Visit Provider Internal Medicine Medical Oncology
DX: C34.31 Malignant neoplasm of lower lobe, right bronchus or lung (principal); Z45.2 Encounter for adjustment and management of vascular access device
CPT/HCPCS: 36591; 80053; 83735; 84439; 84443; 85025

== ENCOUNTER 2023-05-21 02:26 | Outpatient (RCR) | payer OTHER, SELFPAY ==
[2023-04-30 08:02] LABS: Abs Immature Grans 0.04 10^3/uL (0.0-0.06); Absolute Basophil Count 0.03 10^3/uL (0.0-0.2); Absolute Eosinophil Count 0.01 10^3/uL (0.0-0.7); Absolute Lymphocyte Count 1.02 10^3/uL (1.2-3.4); Absolute Monocyte Count 0.85 10^3/uL (0.1-0.8); Absolute Neutrophil Count 2.38 10^3/uL (1.2-6.7); Basophils % 0.7; Eosinophils % 0.2; HCT 26.6 % (36.0-46.0); HGB 8.7 g/dL (11.2-15.7); Immature Grans % 0.9; Lymphocytes % 23.6; MCH 33.6 pg (27.0-33.0); MCHC 32.7 % (32.0-36.0); MCV 103 fL (80-95); MPV 8.9 fL (8.0-11.0); Monocytes % 19.6; Platelet Count 280 10^3/uL (130-400); RBC 2.59 10^6/uL (3.93-5.22); RDW 20.2 % (11.7-14.6); RDW-SD 75.7 fL; WBC 4.33 10^3/uL (4.4-10.8)
[2023-04-30 08:13] LABS: Anisocytosis 2+; Diff Comment RBC Morph Reviewed
[2023-04-30] MEDS: Normal Saline Flush 10 ML SYR IVP (08:31)
[2023-04-30 08:34] LABS: ALT 25 U/L (14-59); AST 21 U/L (15-37); Alkaline Phosphatase 77 U/L (46-116); Anion Gap 9.2 mmol/L (3-11); BUN 12 mg/dL (7-18); Bilirubin, Total 0.4 mg/dL (0.2-1.0); CO2 23.8 mmol/L (21.0-32.0); CREATININE 1.2 mg/dL (0.55-1.02); Calcium 8.4 mg/dL (8.5-10.1); Chloride 103 mmol/L (98-107); Estimated GFR 50.86 (mL/min/1.73m2); FREE T4 1.08 ng/dL (0.76-1.46); Glucose 133 mg/dL (74-106); Magnesium 1.4 mg/dL (1.8-2.4); Potassium 3.3 mmol/L (3.5-5.1); Sodium 136 mmol/L (136-145); TSH 12.45 uIU/mL (0.36-3.74); Total Protein 6.3 g/dL (6.4-8.2)
[2023-05-21] MEDS: Normal Saline Flush 10 ML SYR IVP (07:58)
[2023-05-21 08:14] LABS: Abs Immature Grans 0.04 10^3/uL (0.0-0.06); Absolute Basophil Count 0.06 10^3/uL (0.0-0.2); Absolute Eosinophil Count 0.01 10^3/uL (0.0-0.7); Absolute Lymphocyte Count 1.01 10^3/uL (1.2-3.4); Absolute Monocyte Count 1.02 10^3/uL (0.1-0.8); Absolute Neutrophil Count 7.33 10^3/uL (1.2-6.7); Basophils % 0.6; Eosinophils % 0.1; HCT 29.6 % (36.0-46.0); HGB 9.6 g/dL (11.2-15.7); Immature Grans % 0.4; Lymphocytes % 10.7; MCH 34.5 pg (27.0-33.0); MCHC 32.4 % (32.0-36.0); MCV 107 fL (80-95); MPV 8.8 fL (8.0-11.0); Monocytes % 10.8; Neutrophils % 77.4; Platelet Count 304 10^3/uL (130-400); RBC 2.78 10^6/uL (3.93-5.22); RDW-SD 54.7 fL; WBC 9.47 10^3/uL (4.4-10.8)
[2023-05-21 08:48] LABS: ALT 70 U/L (14-59); AST 37 U/L (15-37); Albumin 2.4 g/dL (3.4-5.0); Alkaline Phosphatase 121 U/L (46-116); Anion Gap 10.7 mmol/L (3-11); BUN 15 mg/dL (7-18); Bilirubin, Total 0.4 mg/dL (0.2-1.0); CO2 24.3 mmol/L (21.0-32.0); CREATININE 1.3 mg/dL (0.55-1.02); Calcium 8.2 mg/dL (8.5-10.1); Chloride 104 mmol/L (98-107); Estimated GFR 46.21 (mL/min/1.73m2); FREE T4 0.93 ng/dL (0.76-1.46); Glucose 146 mg/dL (74-106); Magnesium 1.5 mg/dL (1.8-2.4); Potassium 3.8 mmol/L (3.5-5.1); Sodium 139 mmol/L (136-145); TSH 4.86 uIU/mL (0.36-3.74); Total Protein 5.7 g/dL (6.4-8.2)
== END 2023-05-24 23:59 | disposition home or self-care (01) ==
LOC: INF 02:26
PROVIDERS: PCP Nurse Practitioner Family; Visit Provider Internal Medicine Medical Oncology
DX: C34.31 Malignant neoplasm of lower lobe, right bronchus or lung (principal); Z79.899 Other long term (current) drug therapy; Z45.2 Encounter for adjustment and management of vascular access device
CPT/HCPCS: 36591; 80053; 86900; 86901; 83735; 84439; 84443; 85025

== ENCOUNTER 2023-06-11 01:55 | Outpatient (RCR) | payer OTHER, SELFPAY ==
[2023-06-04] MEDS: Normal Saline Flush 10 ML SYR IVP (08:58)
[2023-06-04] MEDS: Heparin 500 UNITS/5 ML SYRINGE IV (08:59)
[2023-06-11 09:44] LABS: Absolute Basophil Count 0.07 10^3/uL (0.0-0.2); Absolute Eosinophil Count 0.19 10^3/uL (0.0-0.7); Absolute Lymphocyte Count 1.25 10^3/uL (1.2-3.4); Absolute Monocyte Count 0.99 10^3/uL (0.1-0.8); Absolute Neutrophil Count 7.09 10^3/uL (1.2-6.7); Basophils % 0.7; HCT 26.1 % (36.0-46.0); HGB 8.5 g/dL (11.2-15.7); Lymphocytes % 12.9; MCH 34.7 pg (27.0-33.0); MCHC 32.6 % (32.0-36.0); MCV 107 fL (80-95); MPV 8.8 fL (8.0-11.0); Monocytes % 10.2; Neutrophils % 73.2; Platelet Count 343 10^3/uL (130-400); RBC 2.45 10^6/uL (3.93-5.22); RDW 13.1 % (11.7-14.6); RDW-SD 51.2 fL; WBC 9.69 10^3/uL (4.4-10.8)
[2023-06-11 10:16] LABS: ALT 23 U/L (14-59); AST 26 U/L (15-37); Albumin 2.2 g/dL (3.4-5.0); Alkaline Phosphatase 109 U/L (46-116); Anion Gap 7.8 mmol/L (3-11); BUN 13 mg/dL (7-18); Bilirubin, Total 0.3 mg/dL (0.2-1.0); CO2 26.2 mmol/L (21.0-32.0); CREATININE 1.2 mg/dL (0.55-1.02); Calcium 8.3 mg/dL (8.5-10.1); Chloride 104 mmol/L (98-107); Estimated GFR 50.86 (mL/min/1.73m2); FREE T4 0.76 ng/dL (0.76-1.46); Glucose 101 mg/dL (74-106); Magnesium 1.5 mg/dL (1.8-2.4); Potassium 4.2 mmol/L (3.5-5.1); Sodium 138 mmol/L (136-145); TSH 18.76 uIU/mL (0.36-3.74); Total Protein 6.1 g/dL (6.4-8.2)
[2023-06-11] MEDS: Normal Saline Flush 10 ML SYR IVP (11:50)
== END 2023-06-24 23:59 | disposition home or self-care (01) ==
LOC: INF 01:55
PROVIDERS: Nurse Practitioner Family; PCP Nurse Practitioner Family; Visit Provider Internal Medicine Medical Oncology
DX: C34.31 Malignant neoplasm of lower lobe, right bronchus or lung (principal); Z45.2 Encounter for adjustment and management of vascular access device
CPT/HCPCS: 36591; 80053; 96523; 83735; 84439; 84443; 85025

== ENCOUNTER 2023-07-25 03:21 | Outpatient (RCR) | payer OTHER, SELFPAY ==
[2023-07-02] MEDS: Normal Saline Flush 10 ML SYR IVP (09:38)
[2023-07-02 09:53] LABS: Abs Immature Grans 0.05 10^3/uL (0.0-0.06); Absolute Basophil Count 0.05 10^3/uL (0.0-0.2); Absolute Eosinophil Count 0.39 10^3/uL (0.0-0.7); Absolute Lymphocyte Count 1.06 10^3/uL (1.2-3.4); Absolute Monocyte Count 1.01 10^3/uL (0.1-0.8); Absolute Neutrophil Count 5.72 10^3/uL (1.2-6.7); Basophils % 0.6; Eosinophils % 4.7; HCT 30.6 % (36.0-46.0); Immature Grans % 0.6; Lymphocytes % 12.8; MCH 34.2 pg (27.0-33.0); MCHC 32.7 % (32.0-36.0); MCV 105 fL (80-95); MPV 9.1 fL (8.0-11.0); Monocytes % 12.2; Neutrophils % 69.1; Platelet Count 347 10^3/uL (130-400); RBC 2.92 10^6/uL (3.93-5.22); RDW-SD 50.3 fL; Reticulocyte 3.3 % (0.5-2.4); WBC 8.28 10^3/uL (4.4-10.8)
[2023-07-02 10:16] LABS: Iron 51 ug/dL (50-170); Total Iron Binding Capacity 188 ug/dL (250-450); Transferrin Sat 27 % (15-50)
[2023-07-02 10:33] LABS: ALT 21 U/L (14-59); AST 22 U/L (15-37); Albumin 2.8 g/dL (3.4-5.0); Alkaline Phosphatase 114 U/L (46-116); Anion Gap 7.1 mmol/L (3-11); BUN 14 mg/dL (7-18); Bilirubin, Total 0.3 mg/dL (0.2-1.0); CO2 25.9 mmol/L (21.0-32.0); CREATININE 1.2 mg/dL (0.55-1.02); Calcium 8.5 mg/dL (8.5-10.1); Chloride 104 mmol/L (98-107); Estimated GFR 50.86 (mL/min/1.73m2); FREE T4 1.01 ng/dL (0.76-1.46); Ferritin 466 ng/mL (8-252); Folate > 20.0 ng/mL (8.6-20.0); Glucose 90 mg/dL (74-106); Magnesium 1.6 mg/dL (1.8-2.4); Potassium 4.6 mmol/L (3.5-5.1); Sodium 137 mmol/L (136-145); TSH 0.97 uIU/mL (0.36-3.74); Total Protein 7.1 g/dL (6.4-8.2); Vitamin B12 307 pg/mL (193-986)
[2023-07-02 10:43] LABS: LDH 204 U/L (81-234)
[2023-07-03 09:51] LABS: Haptoglobin 184 mg/dL (32-197)
[2023-07-25 09:34] LABS: Abs Immature Grans 0.06 10^3/uL (0.0-0.06); Absolute Basophil Count 0.05 10^3/uL (0.0-0.2); Absolute Eosinophil Count 0.13 10^3/uL (0.0-0.7); Absolute Lymphocyte Count 0.93 10^3/uL (1.2-3.4); Absolute Monocyte Count 1.14 10^3/uL (0.1-0.8); Absolute Neutrophil Count 6.95 10^3/uL (1.2-6.7); Basophils % 0.5; Eosinophils % 1.4; HGB 10.1 g/dL (11.2-15.7); Immature Grans % 0.6; MCH 32.4 pg (27.0-33.0); MCHC 32.6 % (32.0-36.0); MCV 99 fL (80-95); MPV 8.9 fL (8.0-11.0); Monocytes % 12.3; Neutrophils % 75.2; Platelet Count 389 10^3/uL (130-400); RBC 3.12 10^6/uL (3.93-5.22); RDW 12.5 % (11.7-14.6); RDW-SD 45.1 fL; WBC 9.26 10^3/uL (4.4-10.8)
[2023-07-25] MEDS: Normal Saline Flush 10 ML SYR IVP (09:48)
[2023-07-25 10:07] LABS: ALT 17 U/L (14-59); AST 23 U/L (15-37); Albumin 2.8 g/dL (3.4-5.0); Alkaline Phosphatase 111 U/L (46-116); Anion Gap 8.8 mmol/L (3-11); BUN 12 mg/dL (7-18); Bilirubin, Total 0.5 mg/dL (0.2-1.0); CO2 28.2 mmol/L (21.0-32.0); CREATININE 1.2 mg/dL (0.55-1.02); Calcium 9.3 mg/dL (8.5-10.1); Chloride 102 mmol/L (98-107); Estimated GFR 50.86 (mL/min/1.73m2); Glucose 98 mg/dL (74-106); Magnesium 1.7 mg/dL (1.8-2.4); Potassium 4.3 mmol/L (3.5-5.1); Sodium 139 mmol/L (136-145); TSH 0.73 uIU/mL (0.36-3.74); Total Protein 7.1 g/dL (6.4-8.2)
== END 2023-07-25 23:59 | disposition home or self-care (01) ==
LOC: INF 03:21
PROVIDERS: PCP Nurse Practitioner Family; Visit Provider Internal Medicine Medical Oncology
DX: C34.31 Malignant neoplasm of lower lobe, right bronchus or lung (principal); Z45.2 Encounter for adjustment and management of vascular access device
CPT/HCPCS: 36591; 80053; 82607; 82728; 82746; 83010; 83540; 83550; 83615; 83735; 84439; 84443; 85025; 85045

== ENCOUNTER 2023-08-15 01:18 | Outpatient (RCR) | payer OTHER, SELFPAY ==
[2023-08-08] MEDS: Normal Saline Flush 10 ML SYR IVP (08:21)
[2023-08-15] MEDS: Normal Saline Flush 10 ML SYR IVP (12:04)
[2023-08-15 12:27] LABS: Abs Immature Grans 0.29 10^3/uL (0.0-0.06); Absolute Basophil Count 0.04 10^3/uL (0.0-0.2); Absolute Lymphocyte Count 0.86 10^3/uL (1.2-3.4); Absolute Monocyte Count 0.27 10^3/uL (0.1-0.8); Absolute Neutrophil Count 12.58 10^3/uL (1.2-6.7); Basophils % 0.3; HCT 32.9 % (36.0-46.0); HGB 10.5 g/dL (11.2-15.7); Immature Grans % 2.1; Lymphocytes % 6.1; MCHC 31.9 % (32.0-36.0); MCV 97 fL (80-95); MPV 8.8 fL (8.0-11.0); Monocytes % 1.9; Neutrophils % 89.6; Platelet Count 511 10^3/uL (130-400); RBC 3.39 10^6/uL (3.93-5.22); RDW 12.7 % (11.7-14.6); RDW-SD 44.7 fL; WBC 14.04 10^3/uL (4.4-10.8)
[2023-08-15 12:51] LABS: ALT 26 U/L (14-59); AST 19 U/L (15-37); Albumin 3.1 g/dL (3.4-5.0); Alkaline Phosphatase 85 U/L (46-116); Anion Gap 8.4 mmol/L (3-11); BUN 21 mg/dL (7-18); Bilirubin, Total 0.2 mg/dL (0.2-1.0); CO2 25.6 mmol/L (21.0-32.0); CREATININE 1.4 mg/dL (0.55-1.02); Calcium 8.9 mg/dL (8.5-10.1); Chloride 104 mmol/L (98-107); Estimated GFR 42.27 (mL/min/1.73m2); FREE T4 0.97 ng/dL (0.76-1.46); Glucose 151 mg/dL (74-106); Magnesium 1.8 mg/dL (1.8-2.4); Potassium 4.2 mmol/L (3.5-5.1); Sodium 138 mmol/L (136-145); TSH 0.53 uIU/mL (0.36-3.74); Total Protein 7.3 g/dL (6.4-8.2)
== END 2023-08-23 23:59 | disposition home or self-care (01) ==
LOC: INF 01:18
PROVIDERS: PCP Nurse Practitioner Family; Visit Provider Internal Medicine Medical Oncology
DX: C34.31 Malignant neoplasm of lower lobe, right bronchus or lung (principal); Z45.2 Encounter for adjustment and management of vascular access device
CPT/HCPCS: 36591; 80053; 96523; 83735; 84439; 84443; 85025

== ENCOUNTER 2023-09-17 04:36 | Outpatient (RCR) | payer OTHER, SELFPAY ==
[2023-09-12] MEDS: Normal Saline Flush 10 ML SYR IVP (08:24)
[2023-09-17] MEDS: Normal Saline Flush 10 ML SYR IVP (12:20)
[2023-09-17 12:48] LABS: Abs Immature Grans 0.04 10^3/uL (0.0-0.06); Absolute Basophil Count 0.04 10^3/uL (0.0-0.2); Absolute Eosinophil Count 0.09 10^3/uL (0.0-0.7); Absolute Lymphocyte Count 1.16 10^3/uL (1.2-3.4); Absolute Monocyte Count 0.75 10^3/uL (0.1-0.8); Absolute Neutrophil Count 4.28 10^3/uL (1.2-6.7); Basophils % 0.6; Eosinophils % 1.4; HCT 36.5 % (36.0-46.0); HGB 11.9 g/dL (11.2-15.7); Immature Grans % 0.6; Lymphocytes % 18.2; MCH 32.2 pg (27.0-33.0); MCHC 32.6 % (32.0-36.0); MCV 99 fL (80-95); Monocytes % 11.8; Neutrophils % 67.4; Platelet Count 232 10^3/uL (130-400); RDW 14.1 % (11.7-14.6); RDW-SD 51.6 fL; WBC 6.36 10^3/uL (4.4-10.8)
[2023-09-17 13:14] LABS: ALT 29 U/L (14-59); AST 23 U/L (15-37); Albumin 3.3 g/dL (3.4-5.0); Alkaline Phosphatase 62 U/L (46-116); Anion Gap 8.7 mmol/L (3-11); BUN 16 mg/dL (7-18); Bilirubin, Total 0.3 mg/dL (0.2-1.0); CO2 26.3 mmol/L (21.0-32.0); CREATININE 1.1 mg/dL (0.55-1.02); Calcium 8.8 mg/dL (8.5-10.1); Chloride 104 mmol/L (98-107); Estimated GFR 56.46 (mL/min/1.73m2); FREE T4 0.82 ng/dL (0.76-1.46); Glucose 98 mg/dL (74-106); Magnesium 1.8 mg/dL (1.8-2.4); Potassium 3.8 mmol/L (3.5-5.1); Sodium 139 mmol/L (136-145); TSH 1.23 uIU/Ml (0.36-3.74); Total Protein 6.9 g/dL (6.4-8.2)
== END 2023-09-23 23:59 | disposition home or self-care (01) ==
LOC: INF 04:36
PROVIDERS: Nurse Practitioner Family; PCP Nurse Practitioner Family; Visit Provider Internal Medicine Medical Oncology
DX: C34.31 Malignant neoplasm of lower lobe, right bronchus or lung (principal); E03.2 Hypothyroidism due to medicaments and other exogenous substances; Z45.2 Encounter for adjustment and management of vascular access device
CPT/HCPCS: 36591; 80053; 96523; 83735; 84439; 84443; 85025

== ENCOUNTER 2023-10-29 07:35 | Outpatient (RCR) | payer OTHER, SELFPAY ==
[2023-10-29] MEDS: Normal Saline Flush 10 ML SYR IVP (10:01)
[2023-10-29 10:31] LABS: Absolute Basophil Count 0.06 10^3/uL (0.0-0.2); Absolute Eosinophil Count 0.01 10^3/uL (0.0-0.7); Absolute Lymphocyte Count 0.62 10^3/uL (1.2-3.4); Absolute Monocyte Count 0.26 10^3/uL (0.1-0.8); Basophils % 0.5 %; Eosinophils % 0.1 %; HCT 37.1 % (36.0-46.0); HGB 12.4 g/dL (11.2-15.7); Immature Grans % 0.8 %; Lymphocytes % 4.8 %; MCH 31.4 pg (27.0-33.0); MCHC 33.4 % (32.0-36.0); MCV 94 fL (80-95); MPV 9.3 fL (8.0-11.0); Neutrophils % 91.8 %; Platelet Count 370 10^3/uL (130-400); RBC 3.95 10^6/uL (3.93-5.22); RDW 13.1 % (11.7-14.6); RDW-SD 44.7 fL; WBC 12.99 10^3/uL (4.4-10.8)
[2023-10-29 10:33] LABS: Absolute Neutrophil Count 11.92 10^3/uL (1.2-6.7)
[2023-10-29 10:47] LABS: ALT 24 U/L (14-59); AST 23 U/L (15-37); Albumin 3.4 g/dL (3.4-5.0); Alkaline Phosphatase 82 U/L (46-116); Anion Gap 11.2 mmol/L (3-11); BUN 17 mg/dL (7-18); Bilirubin, Total 0.2 mg/dL (0.2-1.0); CO2 27.8 mmol/L (21.0-32.0); CREATININE 1.3 mg/dL (0.55-1.02); Calcium 9.7 mg/dL (8.5-10.1); Chloride 104 mmol/L (98-107); Estimated GFR 46.21 (mL/min/1.73m2); Glucose 140 mg/dL (74-106); Magnesium 1.7 mg/dL (1.8-2.4); Potassium 3.5 mmol/L (3.5-5.1); Sodium 143 mmol/L (136-145); Total Protein 7.5 g/dL (6.4-8.2)
== END 2023-11-23 23:59 | disposition home or self-care (01) ==
LOC: INF 07:35
PROVIDERS: PCP Nurse Practitioner Family; Visit Provider Internal Medicine Medical Oncology
DX: C34.31 Malignant neoplasm of lower lobe, right bronchus or lung (principal); Z45.2 Encounter for adjustment and management of vascular access device
CPT/HCPCS: 36591; 80053; 83735; 85025

== ENCOUNTER 2023-12-10 05:45 | Outpatient (RCR) | payer OTHER, SELFPAY ==
[2023-12-10] MEDS: Normal Saline Flush 10 ML SYR IVP (13:42)
[2023-12-10 13:58] LABS: Abs Immature Grans 0.07 10^3/uL (0.0-0.06); Absolute Basophil Count 0.03 10^3/uL (0.0-0.2); Absolute Monocyte Count 0.35 10^3/uL (0.1-0.8); Absolute Neutrophil Count 7.33 10^3/uL (1.2-6.7); Basophils % 0.4 %; HCT 39.1 % (36.0-46.0); HGB 13.3 g/dL (11.2-15.7); Immature Grans % 0.8 %; Lymphocytes % 7.2 %; MCH 32.5 pg (27.0-33.0); MCV 96 fL (80-95); MPV 9.2 fL (8.0-11.0); Monocytes % 4.2 %; Neutrophils % 87.4 %; Platelet Count 170 10^3/uL (130-400); RBC 4.09 10^6/uL (3.93-5.22); RDW 13.8 % (11.7-14.6); RDW-SD 48.8 fL; WBC 8.38 10^3/uL (4.4-10.8)
[2023-12-10 14:25] LABS: ALT 30 U/L (14-59); AST 22 U/L (15-37); Albumin 3.7 g/dL (3.4-5.0); Alkaline Phosphatase 52 U/L (46-116); Anion Gap 10.8 mmol/L (3-11); BUN 19 mg/dL (7-18); Bilirubin, Total 0.4 mg/dL (0.2-1.0); CO2 26.2 mmol/L (21.0-32.0); CREATININE 1.3 mg/dL (0.55-1.02); Calcium 9.2 mg/dL (8.5-10.1); Chloride 105 mmol/L (98-107); Estimated GFR 46.21 (mL/min/1.73m2); FREE T4 0.74 ng/dL (0.76-1.46); Glucose 131 mg/dL (74-106); Magnesium 1.8 mg/dL (1.8-2.4); Potassium 3.9 mmol/L (3.5-5.1); Sodium 142 mmol/L (136-145); TSH 1.28 uIU/Ml (0.36-3.74)
== END 2023-12-23 23:59 | disposition home or self-care (01) ==
LOC: INF 05:45
PROVIDERS: PCP Nurse Practitioner Family; Visit Provider Internal Medicine Medical Oncology
DX: C34.31 Malignant neoplasm of lower lobe, right bronchus or lung (principal); Z79.899 Other long term (current) drug therapy; Z45.2 Encounter for adjustment and management of vascular access device
CPT/HCPCS: 36591; 80053; 83735; 84439; 84443; 85025

== ENCOUNTER 2023-12-19 11:35 | Inpatient (IN) | payer OTHER, SELFPAY ==
--- NOTE | 2023-12-19 11:30 | RT.EKG_ITS ---
APPROVED REPORT Exam: Resting ECG Reason for Exam: dizzy Patient Location: E HR:68 bpm ECG Measurements Heart Rate 68 AXIS MT 156 P 63 QRSd 107 QRS -31 QT 397 T 46 QTc 422 Conclusion Sinus rhythm 68 left axis no stemi
[2023-12-19 11:40] VITALS: BP 160/62; PULSE 67; RESP 16; TEMP 36.8; O2SAT 100
[2023-12-19 12:29] LABS: Abs Immature Grans 0.03 10^3/uL (0.0-0.06); Absolute Basophil Count 0.04 10^3/uL (0.0-0.2); Absolute Eosinophil Count 0.05 10^3/uL (0.0-0.7); Absolute Lymphocyte Count 1.06 10^3/uL (1.2-3.4); Absolute Monocyte Count 0.86 10^3/uL (0.1-0.8); Absolute Neutrophil Count 4.45 10^3/uL (1.2-6.7); Basophils % 0.6 %; Eosinophils % 0.8 %; HCT 36.5 % (36.0-46.0); HGB 12.1 g/dL (11.2-15.7); Immature Grans % 0.5 %; Lymphocytes % 16.3 %; MCHC 33.2 % (32.0-36.0); MCV 97 fL (80-95); MPV 9.1 fL (8.0-11.0); Monocytes % 13.3 %; Neutrophils % 68.5 %; Platelet Count 134 10^3/uL (130-400); RBC 3.78 10^6/uL (3.93-5.22); RDW 13.8 % (11.7-14.6); RDW-SD 49.2 fL; WBC 6.49 10^3/uL (4.4-10.8)
[2023-12-19 12:53] LABS: ALT 28 U/L (14-59); AST 25 U/L (15-37); Albumin 3.5 g/dL (3.4-5.0); Alkaline Phosphatase 50 U/L (46-116); Anion Gap 8.6 mmol/L (3-11); BUN 13 mg/dL (7-18); Bilirubin, Total 0.47 mg/dL (0.2-1.0); CO2 27.4 mmol/L (21.0-32.0); CREATININE 1.2 mg/dL (0.55-1.02); Calcium 8.9 mg/dL (8.5-10.1); Chloride 105 mmol/L (98-107); Estimated GFR 50.86 (mL/min/1.73m2); Glucose 130 mg/dL (74-106); Magnesium 1.8 mg/dL (1.8-2.4); Potassium 3.4 mmol/L (3.5-5.1); Sodium 141 mmol/L (136-145); Total Protein 6.6 g/dL (6.4-8.2)
[2023-12-19] MEDS: Gadoterate meglumine 20 ML VIAL 12 ML IVP (12:58)
[2023-12-19 13:06] LABS: Troponin I 274 ng/L (< or =60)
--- NOTE | 2023-12-19 13:15 | DI.MRI_ITS ---
Exam(s) MR BRAIN WO/W EXAM: MR BRAIN WO/W CLINICAL HISTORY: DIZZY, R ARM WEAK, MALIGNANCY. TECHNIQUE: Multiplanar multisequence MRI of the brain was performed. CONTRAST MATERIAL: IV Contrast: 12 ML of Dotarem contrast administered. COMPARISON: CT CT HEAD WO/W from 01/15/2023 FINDINGS: VENTRICLES AND EXTRA AXIAL SPACES: Normal in size and morphology for the patient's age. HEMORRHAGE: None. CEREBRAL PARENCHYMA: A small area of restricted diffusion in the left parietal lobe, involving the la teral gyrus. Area of encephalomalacia right temporal lobe. Atrophy. Scattered foci of high signal in the white matter consistent microvascular changes. MIDLINE SHIFT: None. BRAINSTEM/CEREBELLUM: Tiny focus of restricted diffusion in the infero medial left cerebellum. Anoth er tiny focus is seen more peripherally in the left cerebellar hemisphere. Tiny focus seen in the ve rmis of the left cerebellum. CALVARIUM: Normal. ENHANCEMENT: No gyral enhancement in area of encephalomalacia of the right temporal lobe. The vascul arity is much less prominent when compared with the previous exam. The findings could represent old infarct versus a treated metastasis. VISUALIZED PARANASAL SINUSES/MASTOIDS: Clear. Orbits: Unremarkable. Pituitary: Normal. Vasculature: Normal flow voids. Normal arterial and venous sinus enhancement. IMPRESSION: Small foci of restricted diffusion seen in the left cerebellum in left parietal gyrus, consistent wit h acute lacunar infarcts. Area of encephalomalacia with mild enhancement in the right temporal lobe could represent old infarc t or treated metastatic disease. Findings called to Dr. Neff of the emergency department. DATA REPOSITORY:
[2023-12-19 13:22] VITALS: BP 131/58; PULSE 67; O2SAT 100
[2023-12-19] MEDS: Aspirin 325 MG TAB PO (14:37)
--- NOTE | 2023-12-19 14:39 | HPE_ITS ---
Date of service: 12/19/23 Time of Service: 14:39 Assessment and Plan Assessment and plan (1) Acute lacunar infarction: Status: Acute Assessment and plan: admit to med/surg on telemetry. MRI Small foci of restricted diffusion seen in the left cerebellum in left parietal gyrus, consistent with acute lacunar infarcts. Area of encephalomalacia with mild enhancement in the right temporal lobe could represent old infarct or treated metastatic disease. continue apixaban, received asa in the ED, ? dual antiplatelet therapy echocardiogram teleneuro consult. 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 (5) Hypokalemia: Status: Acute Assessment and plan: replete and follow magnesium level normal (6) Chronic kidney disease: Status: Chronic Assessment and plan: stable and at baseline of 1.2 avoid nephrotoxic drugs, renal dose as needed. History of Present Illness History of Present Illness Chief Complaint: dizziness Narrative: This is a 63-year-old female patient past medical history significant for metastatic noncell lung cancer who reports several week history of intermittent dizziness. Yesterday states she woke up with numbness and tingling in her right upper extremity. She says that this did resolve over time with her just working out the hand. She denies any similar history to this. She has had no fever no chills no recent illness. She states that she has been experiencing intermittent headaches as well over the past few weeks which she states are ocular headaches she states she has a history of these and it is not atypical but they have been more frequent. She had no nausea no vomiting. Did have significant dizziness today that brought her to the emergency department she states the symptoms lasted for approximately 5 minutes and have completely resolved. She has had no further right upper extremity numbness. She has no sensory or motor deficit at this time.She did receive full dose asa in the ED, hospitalist is contacted to admit to med/surg for further evaluation, MRI did show acute lacunar infarct. Review of Systems All systems reviewed & are unremarkable except as noted in HPI and below PFSH All Active Problems Chronic kidney disease (Chronic) Hypokalemia (Acute) Elevated troponin (Acute) Acute lacunar infarction (Acute) Anorexia (Acute) Advanced care planning/counseling discussion (Acute) Metastatic non-small cell lung cancer (Chronic ~10/2022) [place] [facility] [place] Clostridium difficile colitis (Acute ~03/2023) History of CVA (cerebrovascular accident) (Chronic ~2022) History of pulmonary embolism (Chronic ~2022) Cigarette smoker (Chronic) 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) Hyperlipidemia (Chronic) Diverticulosis of colon (Acute) Medical History Palliative care patient Acute right arterial ischemic stroke, MCA (middle cerebral artery) (~11/2022) S/p mechanical thrombectomy Renal infarct (~11/2022) Pulmonary embolism, bilateral (~10/2022) Infarction of spleen (~11/2022) Sepsis Diverticulitis (~12/2022) Endometriosis Surgical History History of cataract surgery S/P hysterectomy with oophorectomy S/P ORIF (open reduction internal fixation) fracture Left foot Family History Mother , 76 of lung cancer Lung cancer Father , 75 Diabetes Metastatic cancer Sister No problems noted. Brother Alcohol use disorder Brother Alcohol use disorder Maternal Grandfather No problems noted. Maternal Grandmother Heart disease Paternal Grandfather No problems noted. Paternal Grandmother No problems noted. Social History Smoking/Tobacco Use Status: Former Tobacco Use Quit Date: 11/23/22 Tobacco: How many years used: 40 Quit status: not considering quitting Second Hand Exposure: Yes Smoking risk assessment performed?: Yes Alcohol Intake: current Alcohol Intake frequency: a few times a month Alcohol type: hard liquor Drug use: Never Substance use type: does not use Caregiver/Support person: No Household members: spouse Housing: house Communication Needs: None Pets and animals: Yes Pets and animals: cat(s) Sexually active: Yes Do you think of yourself as: straight/heterosexual Current gender identity: female What is your relationship status?: How often do you talk on the phone with friends or family?: three or more times per week How often do you get together with friends or relatives?: once per week How often do you attend bahai or orthodoxy services?: decline to answer Do you belong to any clubs or organized social groups?: no Panel score (0-1 are the most socially isolated patients): 2 What type of physical activity do you participate in: walking Frequency: daily Jennifer/Scientology: No preference Special jennifer needs: No Seatbelt use: always Helmet use: Yes 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 Do you feel safe at home: Yes Do you feel safe in your relationship?: Yes Meds Allergies and Home Medications Allergies Allergy/AdvReac Type Severity Reaction Status Date / Time Penicillins Allergy Intermediate Hives Unverified 12/19/23 11:39 acetaminophen Allergy Mild Hives Unverified 12/19/23 11:39 Home Medications Medication Instructions Recorded Confirmed Type lactobacillus combination no.9 4 4,000 mmu cells PO DAILY #30 caps 04/04/23 12/19/23 Rx billion cell capsule (Adult 50 Plus Probiotic) apixaban 5 mg tablet (Eliquis) 5 mg PO BID 04/13/23 12/19/23 History folic acid 1 mg tablet 1 mg PO DAILY 04/13/23 12/19/23 History olanzapine 5 mg tablet 5 mg PO QHS 05/01/23 12/19/23 History levothyroxine 75 mcg tablet 75 mcg PO DAILY 12/19/23 12/19/23 History Exam Narrative Exam Narrative: Well-appearing female younger than stated age in no acute distress head is atraumatic EOMs intact eyes nonicteric noninjected oral mucosas moist facial features are symmetrical, neurologic she is awake alert oriented no focal deficits cranial nerves II through XII grossly intact able to perform rapid nose to finger alternating with no ataxia. Strength is equal bilaterally 5 out of 5. Neck with full range of motion no JVD cardiovascular regular rate and rhythm no murmurs appreciated respirations even and unlabored abdomen is soft nontender moves extremities equally no peripheral edema Results Labs 12/19/23 12:15 12/19/23 12:15 Labs: Laboratory Results - last 24 hr 12/19/23 12:15 WBC 6.49 RBC 3.78 L Hgb 12.1 Hct 36.5 MCV 97 H MCH 32.0 MCHC 33.2 RDW 13.8 Plt Count 134 MPV 9.1 Immature Gran % 0.5 Neutrophils % 68.5 Lymphocytes % 16.3 Monocytes % 13.3 Eosinophils % 0.8 Basophils % 0.6 Nucleated RBC % 0.0 Absolute Neutrophils 4.45 Absolute Lymphocytes 1.06 L Absolute Monocytes 0.86 H Absolute Eosinophils 0.05 Absolute Basophils 0.04 Sodium 141 Potassium 3.4 L Chloride 105 Carbon Dioxide 27.4 Anion Gap 8.6 BUN 13 Creatinine 1.2 H Est GFR (CKD-EPI 2020) 50.86 Glucose 130 H Calcium 8.9 Magnesium 1.8 Total Bilirubin 0.47 AST 25 ALT 28 Alkaline Phosphatase 50 Troponin I 274 H* Total Protein 6.6 Albumin 3.5 Last Vital Signs Temp 36.8 C 12/19/23 11:40 Pulse 67 12/19/23 13:22 Resp 16 12/19/23 11:40 BP 131/58 L 12/19/23 13:22 Pulse Ox 100 12/19/23 13:22 Time Spent Time spent with Patient: 55-74 minutes Time was spent: preparing to see the patient(eg.review tests), obtaining and/or reviewing separately otained hiistory, ordering medications,tests, procedures, indepentently interpreting results and counseling the patient
--- NOTE | 2023-12-19 14:49 | W.PC.ACHO ---
Registration Status: REG ER Primary Language: Preferred Language: Amharic ED Information & Data Chief Complaint Dizzy/Sync 12/19/23 11:48 Chief Complaint Dizzy/Sync 12/19/23 11:40 Triage Note currently under cancer 12/19/23 11:40 treatment (stage 4 lung ca) at [facility], had stoke last year, 3 weeks have been having dizzy spells, today had really bad one and couldn't focus on anything. no loss of consciousness, no aphasia,. Reports right arm weakness yesterday, resolved today. Medical / Surgical History (Last Updated 09/11/23 @ 13:57 by Sadaf Ernandez RN) Palliative care patient Acute right arterial ischemic stroke, MCA (middle cerebral artery) (~11/2022) Renal infarct (~11/2022) Pulmonary embolism, bilateral (~10/2022) Infarction of spleen (~11/2022) Sepsis Diverticulitis (~12/2022) Endometriosis (Last Reviewed 04/02/23 @ 10:11 by Andrea Ahn MD) History of cataract surgery S/P hysterectomy with oophorectomy S/P ORIF (open reduction internal fixation) fracture Most Recent Vital Signs Temperature 36.8 C 12/19/23 11:40 Pulse 67 12/19/23 13:22 Respiratory Rate 16 12/19/23 11:40 Respiratory Effort Normal 12/19/23 12:24 Blood Pressure 131/58 L 12/19/23 13:22 Pulse Oximetry 100 12/19/23 13:22 Oxygen Delivery Method Room Air 12/19/23 13:22 Oxygen Flow Rate 0 12/19/23 13:22 Pain Level 0 12/19/23 11:40 Allergies Penicillins Allergy (Intermediate, Unverified 12/19/23 11:39) Hives acetaminophen Allergy (Mild, Unverified 12/19/23 11:39) Hives Active Medications Generic Name Dose Route Start Last Admin Trade Name Freq PRN Reason Stop Dose Admin Gadoterate Meglumine 12 ml 12/19/23 13:00 12/19/23 12:58 Gadoterate Meglumine 20 Ml Vial IVP 01/18/24 23:59 12 ml DIRECTED ERLINDA Administration IV IV Catheter Type [Right Port-a-cath (single) Midline] IV Catheter Gauge [Right 19 Midline] Diet Orders Category Date Time Status Regular/Normal [DIET] Nutrition 12/19/23 Dinner Active Diagnostics 12/19/23 12/19/23 12/19/23 Range/Units Unknown 14:30 12:15 WBC 6.49 (4.4-10.8) 10^3/uL RBC 3.78 L (3.93-5.22) 10^6/uL Hgb 12.1 (11.2-15.7) g/dL Hct 36.5 (36.0-46.0) % MCV 97 H (80-95) fL MCH 32.0 (27.0-33.0) pg MCHC 33.2 (32.0-36.0) % RDW 13.8 (11.7-14.6) % Plt Count 134 (130-400) 10^3/uL MPV 9.1 (8.0-11.0) fL Immature Gran % 0.5 % Neutrophils % 68.5 % Lymphocytes % 16.3 % Monocytes % 13.3 % Eosinophils % 0.8 % Basophils % 0.6 % Nucleated RBC % 0.0 (0.0-0.3) % Absolute Neutrophils 4.45 (1.2-6.7) 10^3/uL Absolute Lymphocytes 1.06 L (1.2-3.4) 10^3/uL Absolute Monocytes 0.86 H (0.1-0.8) 10^3/uL Absolute Eosinophils 0.05 (0.0-0.7) 10^3/uL Absolute Basophils 0.04 (0.0-0.2) 10^3/uL Sodium 141 (136-145) mmol/L Potassium 3.4 L (3.5-5.1) mmol/L Chloride 105 (98-107) mmol/L Carbon Dioxide 27.4 (21.0-32.0) mmol/L Anion Gap 8.6 (3-11) mmol/L BUN 13 (7-18) mg/dL Creatinine 1.2 H (0.55-1.02) mg/dL Est GFR (CKD-EPI 2020) 50.86 (mL/min/1.73m2) Glucose 130 H (74-106) mg/dL Calcium 8.9 (8.5-10.1) mg/dL Magnesium 1.8 (1.8-2.4) mg/dL Total Bilirubin 0.47 (0.2-1.0) mg/dL AST 25 (15-37) U/L ALT 28 (14-59) U/L Alkaline Phosphatase 50 (46-116) U/L Troponin I Pending 274 H* (< or =60) ng/L Total Protein 6.6 (6.4-8.2) g/dL Albumin 3.5 (3.4-5.0) g/dL Add-On Test Request Pending Intake and Output - 24 Hour Total 12/19/23 11:35 thru 12/19/23 12:15 Intake Total 10 Balance 10 Weight 59.783 kg Intake: IV 10 Falls Risk Assessment History of Falls No History 12/19/23 12:30 Contributing Factors No Factors 12/19/23 12:30 Ambulatory Aids Independent 12/19/23 12:30 Tubes/Lines W/no contributing factors 12/19/23 12:30 Gait Evaluation No gait disturbance 12/19/23 12:30 Cognition No cognitive impairment 12/19/23 12:30 Fall Total Score 10 12/19/23 12:30 Level of Risk Standard/Low Risk 12/19/23 12:30 Problems (Last Updated 09/11/23 @ 13:57 by Sadaf Ernandez RN) Acute lacunar infarction (Acute) Metastatic non-small cell lung cancer (Chronic ~10/2022) 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 Information / Comments: Aspirin given, new and old infarcts. Vitals: 119/73, HR 60, 17 RR, 98 O2. at bedside. Second trop just drawn, 1st 274. Report received from: Zofia Salas RN
[2023-12-19 14:57] VITALS: BP 121/70; PULSE 63; RESP 18; TEMP 37.5; O2SAT 97
[2023-12-19 15:03] VITALS: BP 121/70; PULSE 63; RESP 18; TEMP 37.5; O2SAT 97
--- NOTE | 2023-12-19 15:03 | DI.US_ITS ---
APPROVED REPORT EXAM: Comprehensive 2D, Doppler, and color-flow Echocardiogram Patient Location: In-Patient Room/Bed: [facility] [employer] Machine Operator: Adela Pleitez RDCS (AE) Indications: CVA Echo Enhancing Agent Indication: Rule out Shunt Agent(s) / Amount(s) Used: Agitated Saline 30.0 cc Comments: Contrast study was performed with 3 IV injections of 10ccs of agitated normal saline, at [facility], with cough and post valsalva maneuver. Negative contrast study for shunt flow. Other Information Study Quality: Adequate. Technically limited study due to exam done bedside, , lung disease. Conclusion Normal left ventricular wall thickness and chamber size. Ejection fraction is 60%. Wall motion is n ormal Normal right ventricular size and function Both atria are normal in size No intracardiac shunting is identified with injection of agitated saline There are no structural valvular abnormalities Mild aortic regurgitation Ascending aorta measures 3.42 cm Wall motion Left Ventricle The left ventricle is normal size. The left ventricular systolic function is normal. The left ventric ular ejection fraction is within the normal range. There is normal left ventricular wall thickness. T here is normal LV segmental wall motion. There is no ventricular septal defect visualized. LVEF is 60 %. Right Ventricle The right ventricle is normal size. The right ventricular systolic function is normal. Atria The left atrium size is normal. The right atrium size is normal. Saline bubble contrast intravenous i njection does not demonstrate PFO. Aortic Valve The aortic valve is normal in structure. There is no aortic valvular stenosis. Mild aortic regurgitat ion. Mitral Valve The mitral valve is normal in structure. No evidence of mitral valve stenosis. Trace mitral regurgita tion. Tricuspid Valve The tricuspid valve is normal in structure. There is no tricuspid valve stenosis. Trace to mild tricu spid regurgitation. Unable to assess PA pressure. Pulmonic Valve The pulmonary valve is normal in structure. There is no pulmonic valvular stenosis. Trace pulmonic re gurgitation. Great Vessels The aortic root is normal in size. The ascending aorta is mildly dilated. Aortic arch is normal in ca liber. IVC is normal in size and collapses >50% with inspiration. Pericardium Trivial pericardial effusion. 2D Dimensions IVSD d PLAX 0.92 cm F: 0.6-1.0 Ao Root d 3.29 cm F: 2.7 - 3.3 LVPW d PLAX 0.91 cm F: 0.6 - 1.0 Ao Asc Diam d 3.42 cm F: 2.3 - 3.1 LVID d PLAX 4.85 cm F: 3.8 - 5.2 LVDs 3.25 cm F: 2.2 - 3.5 LV EF Teichholz 61.5 % FS 33.03 % LV EDV (Teich) 110.1 mL LV ESV (Teich) 42.5 mL M-Mode TAPSE 1.86 cm (M/F) >1.7 Auto EF LV EDV A4C 75.8 mL LV EDV A2C 75.1 mL LV EDV BP 74.8 mL LV ESV A4C 29.5 mL LV ESV A2C 30.2 mL LV ESV BP 29.6 mL LVEF(%) A4C 61.1 % LVEF(%) A2C 59.8 % LVEF(%) BP 60.5 % LV SV A4C 46.3 ml LV SV A2C 45.0 ml LV SV BP 45.2 ml LV CO A4C 3.0 L/min LV CO A2C 2.8 L/min LV CO BP 2.9 L/min HR A4C 63.72 BPM HR A2C 61.54 BPM LV EDV Index (BP) LA Volume LA Length A4C 4.7 cm LA Length A2C 4.2 cm LA Area A4C s 12.27 cm2 LA Area A2C s 12.94 cm2 LA Vol A4C A-L 27.41 mL LA Vol A2C A-L 33.53 mL LA Vol Biplane A-L 31.8 mL LA Vol/BSA A4C A-L LA Vol/BSA A2C A-L LA Vol/BSA BP A-L 19.9 mL/m2 LA Vol A4C MOD 25.0 mL LA Vol A2C MOD 29.6 mL LA Vol BP MOD 28.5 mL RA Volume RA Area A4C 8.5 cm2 RA ESV A4C (A-L) 16.5mL RA Vol/BSA A4C A-L RA Length A4C 3.7 cm RA ESV A4C (MOD) 16.2mL LV Diastology MV E' medial 0.119 (>0.07 m/s) MV E Vmax 0.75 (0.4-1.3 m/s) MV E/E' MED 6.30 (<14) MV A Vmax 0.65 (0.4-1.3 m/s) E/A Ratio 1.2 Aortic Valve AoV Vmax 1.87 m/s LVOT Vmax 1.13 m/s AoV Peak Grad 14.0 mmHg LVOT Peak Grad 5.1 mmHg AoV Area (Vmax) 1.87 cm2 LVOT VTI 0.282 m AoV VTI 0.415 m LVOT Mean Grad 2.6 mmHg AoV Mean Cameron. 1.19 m/s LVOT SV 86.94 mL AoV Mean Grad 6.7 mmHg LVOT Diam s 1.95 cm AoV Area (VTI) 2.09 cm2 Velocity Ratio 0.60 Mitral Valve MV DT 339 (160-240 msec) MV Vmax TIPS 0.68 m/s MV Mean Grad 0.8 (<2mmHg) MV VTI 0.228 m Pulmonary Valve PV Vmax 0.95 (0.5-1.5 m/s) RVOT Vmax 0.73 m/s PV Peak Grad 3.6 mmHg RVOT Peak Gr. 2.1 mmHg PV Mean Cameron 0.70 m/s RVOT VTI 0.181 m PV Mean Grad 2.1 mmHg RVOT Mean Gr. 1.2 mmHg Tricuspid Valve RA Pressure 3.00 mmHg TV S' 0.13 m/s
[2023-12-19 15:04] LABS: Troponin I 290 ng/L (< or =60)
--- NOTE | 2023-12-19 15:09 | NUR.NOTE ---
Nursing Note: This RN In chart D/T lab reporting elevated trop 290 to Kary Oquendo COMIC BOOK ARTIST
--- NOTE | 2023-12-19 15:21 | PHA.REVIEW2 ---
Pharmacy Admission Review Admission Clinical Review Admission Pharmacy Review: (Updated 12/19/23 @ 14:43 by Harleen Oquendo NP) Acute lacunar infarction (Acute) Penicillins Allergy (Intermediate, Unverified 12/19/23 11:39) Hives acetaminophen Allergy (Mild, Unverified 12/19/23 11:39) Hives Resuscitation Status DNR/DNI Height 5 ft 2 in Weight 59.421 kg Pharmacy Admission Review Renal Dosing Renal Dosing: BUN 13 mg/dL (7-18) 12/19/23 12:15 Creatinine 1.2 mg/dL (0.55-1.02) H 12/19/23 12:15 Medications needing adjustments: Reviewed (CrCl 45.01 mL/min) List of meds needing interventions: Current medications are okay Anticoagulation Anticoagulation: Hgb 12.1 g/dL (11.2-15.7) 12/19/23 12:15 Hct 36.5 % (36.0-46.0) 12/19/23 12:15 Plt Count 134 10^3/uL (130-400) 12/19/23 12:15 Creatinine 1.2 mg/dL (0.55-1.02) H 12/19/23 12:15 DVT Prophylaxis: Reviewed Medications: Apixaban (5mg PO BID) Relevant Labs Relevant Labs: Sodium 141 mmol/L (136-145) 12/19/23 12:15 Potassium 3.4 mmol/L (3.5-5.1) L 12/19/23 12:15 Chloride 105 mmol/L (98-107) 12/19/23 12:15 Magnesium 1.8 mg/dL (1.8-2.4) 12/19/23 12:15 Electrolytes, C-Reactive P, ESR: Reviewed (K 3.4, glucose 130) Cardiac Review Cardiac Review: Troponin I 290 ng/L (< or =60) H* 12/19/23 14:30 Blood Pressure 121/70 1503 Blood Pressure 121/70 1457 Blood Pressure 131/58 1322 Blood Pressure 160/62 1140 BP, HR, EF%: Reviewed (BP/HR WNL, troponin increased from 274) QTc Review QTc: Reviewed (EKG report pending) IV to PO Switch IV Medications: Reviewed Home Meds Home Med List reviewed: Intervened Relevent Home Meds Not ordered & why?: Home med list had levothyroxine 50mcg daily that was last filled 03/27/23. External fill history showed levothyroxine 75mcg filled 12/13/23. Updated home med list and changed order to 75mcg daily External fill history shows citalopram and Bactrim that were recently filled. Called nursing to ask patient if she took either of these medications, per patient she does not take them. Current Meds Current Medication Order Review: Reviewed
[2023-12-19 15:47] LABS: Lab Add On Test DONE
--- NOTE | 2023-12-19 15:54 | ED.GENADUL_ITS ---
Discharge Plan Disposition Patient Disposition: Admit to [facility] Condition: Stable Discharge Details Chief Complaint: Dizzy/Sync Clinical Impression: Acute lacunar infarction, Metastatic non-small cell lung cancer, Elevated troponin, History of CVA (cerebrovascular accident) Admit Date/Time: 12/19/23 13:52 Admit Provider: Steven Clinton Attending Provider: Steven Clinton Primary Care Provider: Sophie Ramos ED Provider: Wesley Neff [facility] General Date/Time Provider Initiated Documentation: 12/19/23 11:50 . Limitations to Documentation: no limitations . Information obtained by: patient and family . HPI Narrative: 63-year-old female with past medical history of stage IV metastatic lung cancer, CVA on eliquis, presents for evaluation of dizziness. She reports over the last 3 weeks she has had several episodes of acute onset dizziness. She does not feel like these are provoked. She does not have any associated headache, blurry vision, speech changes or chest pain with these episodes. She does report that yesterday she did have some right arm weakness. She says this was temporary and resolved. Again at that time there was no associated facial change or speech change. Today she reports that she was eating Doritos and watching the low back when she had acute onset of severe dizziness. She states is the worst it has ever been. She states that associated with a posterior headache. She states that she thought that she could not really see, it is unclear if she was seeing double or having blurry vision but her vision was changed. She denies any chest pain but did note some pain in her jaw earlier today. She reports that she has been compliant with her Eliquis. She has been on immunotherapy for her lung cancer, but they have stopped this due to side effects. And is currently not on treatment. Related Data Home Medications Medication Instructions Recorded Confirmed lactobacillus combination no.9 4 4,000 mmu cells PO DAILY #30 caps 04/04/23 12/19/23 billion cell capsule (Adult 50 Plus Probiotic) apixaban 5 mg tablet (Eliquis) 5 mg PO BID 04/13/23 12/19/23 folic acid 1 mg tablet 1 mg PO DAILY 04/13/23 12/19/23 olanzapine 5 mg tablet 5 mg PO QHS 05/01/23 12/19/23 levothyroxine 75 mcg tablet 75 mcg PO DAILY 12/19/23 12/19/23 Previous Rx's Medication Instructions Recorded lactobacillus combination no.9 4 4,000 mmu cells PO DAILY #30 caps 04/04/23 billion cell capsule (Adult 50 Plus Probiotic) Allergies Allergy/AdvReac Type Severity Reaction Status Date / Time Penicillins Allergy Intermediate Hives Unverified 12/19/23 11:39 acetaminophen Allergy Mild Hives Unverified 12/19/23 11:39 General Stated Complaint: Dizzy/Sync RENEE: 3 Exam Narrative Exam Narrative: Review of Systems: All systems reviewed & are unremarkable except as noted in H PI and below Well-developed, no acute distress NCAT PERRL, normal conjunctiva No nystagmus RRR, no murmur Unlabored respiratory effort, clear bilaterally Nondistended abdomen , soft nontender Extremities w/o deformity, no cyanosis, no edema No rashes or lesions. no focal neurologic deficits, normal gait, negative Romberg, normal [id number] Appropriate mood and affect Course Vital Signs Vital signs: Vital Signs Temperature 36.8 C 12/19/23 11:40 Pulse 67 12/19/23 11:40 Respiratory Rate 16 12/19/23 11:40 Blood Pressure 160/62 H 12/19/23 11:40 Pulse Oximetry 100 12/19/23 11:40 Temperature 37.5 C 12/19/23 15:03 Temperature Source Tympanic 12/19/23 14:57 Pulse 63 12/19/23 15:03 Pulse Rhythm Regular 12/19/23 15:03 Respiratory Rate 18 12/19/23 15:03 Respiratory Effort Normal 12/19/23 15:03 Respiratory Depth Normal 12/19/23 15:03 Respiratory Pattern Normal 12/19/23 15:03 Blood Pressure 121/70 12/19/23 15:03 Pulse Oximetry 97 12/19/23 15:03 Oxygen Delivery Method Room Air 12/19/23 15:03 Oxygen Flow Rate 0 12/19/23 15:03 Pain Level 0 12/19/23 15:03 Lab/Test Results Lab/Test Results: Laboratory Tests Range/Units 12/19/23 12:15 WBC (4.4-10.8) 10^3/uL 6.49 RBC (3.93-5.22) 10^6/uL 3.78 L Hgb (11.2-15.7) g/dL 12.1 Hct (36.0-46.0) % 36.5 MCV (80-95) fL 97 H MCH (27.0-33.0) pg 32.0 MCHC (32.0-36.0) % 33.2 RDW (11.7-14.6) % 13.8 Plt Count (130-400) 10^3/uL 134 MPV (8.0-11.0) fL 9.1 Immature Gran % % 0.5 Neutrophils % % 68.5 Lymphocytes % % 16.3 Monocytes % % 13.3 Eosinophils % % 0.8 Basophils % % 0.6 Nucleated RBC % (0.0-0.3) % 0.0 Absolute Neutrophils (1.2-6.7) 10^3/uL 4.45 Absolute Lymphocytes (1.2-3.4) 10^3/uL 1.06 L Absolute Monocytes (0.1-0.8) 10^3/uL 0.86 H Absolute Eosinophils (0.0-0.7) 10^3/uL 0.05 Absolute Basophils (0.0-0.2) 10^3/uL 0.04 Sodium (136-145) mmol/L 141 Potassium (3.5-5.1) mmol/L 3.4 L Chloride (98-107) mmol/L 105 Carbon Dioxide (21.0-32.0) mmol/L 27.4 Anion Gap (3-11) mmol/L 8.6 BUN (7-18) mg/dL 13 Creatinine (0.55-1.02) mg/dL 1.2 H Est GFR (CKD-EPI 2020) (mL/min/1.73m2) 50.86 Glucose (74-106) mg/dL 130 H Calcium (8.5-10.1) mg/dL 8.9 Magnesium (1.8-2.4) mg/dL 1.8 Total Bilirubin (0.2-1.0) mg/dL 0.47 AST (15-37) U/L 25 ALT (14-59) U/L 28 Alkaline Phosphatase (46-116) U/L 50 Troponin I (< or =60) ng/L 274 H* Total Protein (6.4-8.2) g/dL 6.6 Albumin (3.4-5.0) g/dL 3.5 Medical Decision Making Urgent evaluation of acute onset dizziness. Symptoms have been ongoing for the last few weeks with worsened symptoms today, symptoms have resolved on arrival to the emergency department. There is no right arm weakness that she did exhibit yesterday. Concern for TIA versus CVA. Patient has had CVA in the past, but she is on Eliquis. She does have a prothrombotic state due to her malignancy. Also consider progressive malignancy though she does not currently have any known metastatic lesions in her brain. She is not having any chest pain and she does not have any acute ischemic EKG changes. I doubt ACS or dissection. An MRI was obtained and I discussed the findings with the radiologist. There is concern for acute infarct in the left cerebellum and left parietal lobe which is consistent with the patient's symptoms. Of note she does also have a slightly elevated troponin. Remainder of her lab work is not acutely concerning. I reviewed her prior lab work and noted that she has previously had elevated troponin so it is unclear that this is a significant value. I do not feel that indicates ACS. She has been given a full dose aspirin. Again no chest pain or EKG changes. Given her findings of an acute stroke, the patient is now within the window, and not a candidate for tPA. Discussed with the hospitalist who will admit the patient to this hospital for further medical management of her CVA, she will have her troponins trended. Medical Records Medical records reviewed: Yes I reviewed the patient's medical records. Lab Data Lab results reviewed: Yes I reviewed the patient's lab results. Quality:SDOH Health Related Social Needs: No Data to Display PFSH All Active Problems (Updated 12/19/23 @ 16:05 by Wesley Neff MD) Chronic kidney disease (Chronic) Hypokalemia (Acute) Elevated troponin (Acute) Acute lacunar infarction (Acute) Anorexia (Acute) Advanced care planning/counseling discussion (Acute) Metastatic non-small cell lung cancer (Chronic ~10/2022) Followed by [facility] Oncology Clostridium difficile colitis (Acute ~03/2023) History of CVA (cerebrovascular accident) (Chronic ~2022) History of pulmonary embolism (Chronic ~2022) Cigarette smoker (Chronic) 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) Hyperlipidemia (Chronic) Diverticulosis of colon (Acute) Medical History Palliative care patient Acute right arterial ischemic stroke, MCA (middle cerebral artery) (~11/2022) S/p mechanical thrombectomy Renal infarct (~11/2022) Pulmonary embolism, bilateral (~10/2022) Infarction of spleen (~11/2022) Sepsis Diverticulitis (~12/2022) Endometriosis Surgical History History of cataract surgery S/P hysterectomy with oophorectomy S/P ORIF (open reduction internal fixation) fracture Left foot Family History Mother , 76 of lung cancer Lung cancer Father , 75 Diabetes Metastatic cancer Sister No problems noted. Brother Alcohol use disorder Brother Alcohol use disorder Maternal Grandfather No problems noted. Maternal Grandmother Heart disease Paternal Grandfather No problems noted. Paternal Grandmother No problems noted. Social History Smoking/Tobacco Use Status: Former Tobacco Use Quit Date: 11/23/22 Tobacco: How many years used: 40 Quit status: not considering quitting Second Hand Exposure: Yes Smoking risk assessment performed?: Yes Alcohol Intake: current Alcohol Intake frequency: a few times a month Alcohol type: hard liquor Drug use: Never Substance use type: does not use Caregiver/Support person: No Household members: spouse Housing: house Communication Needs: None Pets and animals: Yes Pets and animals: cat(s) Sexually active: Yes Do you think of yourself as: straight/heterosexual Current gender identity: female What is your relationship status?: How often do you talk on the phone with friends or family?: three or more times per week How often do you get together with friends or relatives?: once per week How often do you attend cheondoism or restoration services?: decline to answer Do you belong to any clubs or organized social groups?: no Panel score (0-1 are the most socially isolated patients): 2 What type of physical activity do you participate in: walking Frequency: daily Jennifer/Oriental Orthodox: No preference Special jennifer needs: No Seatbelt use: always Helmet use: Yes Drive intox 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 Do you feel safe at home: Yes Do you feel safe in your relationship?: Yes PAWSS Have you Been Recently Intoxicated or Drunk Within the Last 30 days?: No Have you Ever Experienced Previous Episodes of Alcohol Withdrawal?: No Have you ever Experienced Withdrawal Seizures?: No Have you ever Experienced Delirium Tremens(DT)s?: No Have you ever undergone Alcohol Rehabilitation Treatment (i.e, inpt ot outpatient treatment programs)?: No Have you ever Experienced Blackouts?: No Have you ever Combined Alcohol with other Downers within the last 90 days?: No Have you ever Combined Alcohol with any other Substance of Abuse during the last 90 days?: No Positive Blood Alcohol level on Presentation? [PCS.BAL]: No Evidence of Increased Autonomic Activity (i.e. HR>120, tremor, sweating, agitation, nausea)?: No Result: 0
[2023-12-19 16:04] LABS: Hemoglobin A1C 5.6 % (<5.7)
[2023-12-19 16:06] LABS: Calculated LDL 144 mg/dL (<100); Cholesterol 292 mg/dL (<200); HDL Cholesterol 119 mg/dL (40-60); Triglyceride 147 mg/dL (<150)
[2023-12-19] MEDS: Potassium Chloride 20 MEQ TABCR PO (17:26)
[2023-12-19 19:33] VITALS: BP 101/55; PULSE 70; RESP 18; TEMP 37; O2SAT 95
[2023-12-19] MEDS: OLANZapine 5 MG TAB PO (19:44)
[2023-12-19] MEDS: Apixaban 5 MG TAB PO (19:44)
[2023-12-19] MEDS: Normal Saline Flush 10 ML SYR IVP (19:46)
[2023-12-19 21:00] LABS: Troponin I 291 ng/L (< or =60)
[2023-12-19 23:49] VITALS: PULSE 52
--- NOTE | 2023-12-20 | DI.US_ITS ---
Exam(s) US UPPER EXTREMITY VENOUS RT EXAM: US UPPER EXTREMITY VENOUS RT CLINICAL HISTORY: right jugular clot. TECHNIQUE: Ultrasound examination of the right upper extremity venous system(s) is performed using g rayscale, color-flow, and spectral Doppler analysis. COMPARISON: No exams were available for comparison FINDINGS: Right Deep Veins:There is thrombus seen in the right internal jugular vein extending into the subclav lele vein. The IVC component measures 2.5 cm. The clot extends into the subclavian IVC junction and into the proximal to mid subclavian vein measuring 8 cm in length. The axillary and brachial veins a re patent and display normal color flow, augmentation and compressibility. Superficial Veins:The visualized cephalic, median cubital and basilic veins are patent and display no rmal color flow, augmentation and compressibility. Soft tissues: Unremarkable. IMPRESSION: 1. DVT in the right internal jugular and subclavian veins as described. 2. Findings were discussed with Emilie Martinez NP at 10:59 a.m. on 12/20/2023. DATA REPOSITORY:
[2023-12-20 04:11] VITALS: BP 120/66; PULSE 62; RESP 16; TEMP 36.4; O2SAT 97
[2023-12-20] MEDS: Levothyroxine 75 MCG TAB PO (05:54)
--- NOTE | 2023-12-20 06:00 | DI.US_ITS ---
Exam(s) US EXTREMITY VENOUS BI EXAM: US EXTREMITY VENOUS BI CLINICAL HISTORY: CVA, h/o cryptogenic CVA a/w DVT. TECHNIQUE: Bilateral lower extremity venous ultrasound performed using grayscale, color-flow, and sp ectral Doppler analysis. COMPARISON: No exams were available for comparison FINDINGS: The right common femoral and femoral veins demonstrate normal compressibility, augmentation, and colo r Doppler. There is thrombus seen in the right popliteal vein measuring 3.2 cm in length. The poste rior tibial veins are patent. The saphenofemoral junction is unremarkable. There is no evidence of a Foster's cyst. The soft tissues are unremarkable. The left common femoral, femoral and popliteal veins demonstrate normal compressibility, augmentation , and color Doppler. The posterior tibial veins are patent. The saphenofemoral junction is unremarka ble. There is no evidence of a Foster's cyst. The soft tissues are unremarkable. IMPRESSION: 1. Right popliteal vein thrombosis measuring 3.2 cm in length. 2. No evidence of a left lower extremity DVT. 3. Findings were discussed with the primary care team on 12/20/2023. DATA REPOSITORY:
[2023-12-20 06:22] LABS: Abs Immature Grans 0.03 10^3/uL (0.0-0.06); Absolute Basophil Count 0.03 10^3/uL (0.0-0.2); Absolute Eosinophil Count 0.09 10^3/uL (0.0-0.7); Absolute Lymphocyte Count 0.81 10^3/uL (1.2-3.4); Absolute Monocyte Count 0.71 10^3/uL (0.1-0.8); Absolute Neutrophil Count 3.14 10^3/uL (1.2-6.7); Basophils % 0.6 %; Eosinophils % 1.9 %; HCT 37.5 % (36.0-46.0); HGB 12.2 g/dL (11.2-15.7); Immature Grans % 0.6 %; Lymphocytes % 16.8 %; MCH 31.8 pg (27.0-33.0); MCHC 32.5 % (32.0-36.0); MCV 98 fL (80-95); MPV 9.3 fL (8.0-11.0); Monocytes % 14.8 %; Neutrophils % 65.3 %; Platelet Count 127 10^3/uL (130-400); RBC 3.84 10^6/uL (3.93-5.22); RDW-SD 50.1 fL; WBC 4.81 10^3/uL (4.4-10.8)
[2023-12-20 06:43] LABS: Albumin 3.2 g/dL (3.4-5.0); Alkaline Phosphatase 46 U/L (46-116); BUN 13 mg/dL (7-18); Bilirubin, Total 0.66 mg/dL (0.2-1.0); CREATININE 1.1 mg/dL (0.55-1.02); Calcium 8.7 mg/dL (8.5-10.1); Chloride 107 mmol/L (98-107); Estimated GFR 56.46 (mL/min/1.73m2); Glucose 92 mg/dL (74-106); Potassium 4.2 mmol/L (3.5-5.1); Sodium 143 mmol/L (136-145); Total Protein 6.4 g/dL (6.4-8.2)
[2023-12-20 06:44] LABS: ALT 26 U/L (14-59); AST 25 U/L (15-37)
[2023-12-20 06:46] LABS: Troponin I 187 ng/L (< or =60)
[2023-12-20 07:33] VITALS: BP 99/56; PULSE 63; RESP 15; TEMP 37; O2SAT 98
[2023-12-20] MEDS: Folic Acid 1 MG TAB PO (07:43)
[2023-12-20] MEDS: Apixaban 5 MG TAB PO (07:43)
[2023-12-20] MEDS: Normal Saline Flush 10 ML SYR IVP ×2 (07:43→20:14)
[2023-12-20] MEDS: Potassium Chloride 20 MEQ TABCR PO ×2 (07:43→12:10)
[2023-12-20] MEDS: Lactobacillus Acidophilus CAP 1 CAP PO (07:43)
[2023-12-20] MEDS: Aspirin 81 MG CHEW PO (07:43)
--- NOTE | 2023-12-20 08:35 | INITIAL_ITS ---
Date of service: 12/20/23 Time of Service: 08:35 Care Management Initial Assmt Initial Assessment Reason for Hospitalization: CVA Functional Status/Living Situation Patient Presentation: Mónica was lying in bed, Hermes is sitting next to her. Dayana [place] anxiously [place] [facility] [place] Town of Residence: [place] Resides with: Spouse (Hermes Soto) Significant Other/Family: Local (None) Employment Status: Retired (Code Number [id number]) Instrumental Activities of Daily Living (ADLs): Requires support ( is her primary caregiver) Medications Medication Management: No Issues/Barriers identified Physical Functioning/Mobility Assistive Device: None Advance Directives Advance Directives: Do you have an Advance Directive: Y 12/27/22 10:14 AD On File at [facility]: Y 12/27/22 10:14 Date Asked 12/19/23 12/19/23 12:03 AD Date Reviewed 12/07/23 12/07/23 09:55 COLST On File at [facility] COLST Date Scanned Code Status Resuscitation Status DNR/DNI Insurance Coverage/Financial Issues Insurance: [employer] A[employer] Member: No Financial Issues: None identified Care Team Visit Care Team Role Provider Type Sophie Ramos NP Primary Care Provider NURSE PRACTITIONER Wesley Neff MD Emergency Provider [facility] STAFF PHYSICIAN Steven Clinton Admit Provider [facility] STAFF PHYSICIAN Attending Provider Discharge Patient/Family Education Needs: Review discharge instructions, discuss Ask Me Three Transportation: EMS Plan: [place] [facility] [place]. CM is awaiting updates. 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) Hyperlipidemia (Chronic) Diverticulosis of colon (Acute) Medical History Palliative care patient Acute right arterial ischemic stroke, MCA (middle cerebral artery) (~11/2022) S/p mechanical thrombectomy Renal infarct (~11/2022) Pulmonary embolism, bilateral (~10/2022) Infarction of spleen (~11/2022) Sepsis Diverticulitis (~12/2022) Endometriosis Surgical History History of cataract surgery S/P hysterectomy with oophorectomy S/P ORIF (open reduction internal fixation) fracture Left foot Family History Mother , 76 of lung cancer Lung cancer Father , 75 Diabetes Metastatic cancer Sister No problems noted. Brother Alcohol use disorder Brother Alcohol use disorder Maternal Grandfather No problems noted. Maternal Grandmother Heart disease Paternal Grandfather No problems noted. Paternal Grandmother No problems noted. Social History Smoking/Tobacco Use Status: Former Tobacco Use Quit Date: 11/23/22 Tobacco: How many years used: 40 Quit status: not considering quitting Second Hand Exposure: Yes Smoking risk assessment performed?: Yes Alcohol Intake: current Alcohol Intake frequency: a few times a month Alcohol type: hard liquor Drug use: Never Substance use type: does not use Caregiver/Support person: No Household members: spouse Housing: house Communication Needs: None Pets and animals: Yes Pets and animals: cat(s) Sexually active: Yes Do you think of yourself as: straight/heterosexual Current gender identity: female What is your relationship status?: How often do you talk on the phone with friends or family?: three or more times per week How often do you get together with friends or relatives?: once per week How often do you attend samaritan or lutheran services?: decline to answer Do you belong to any clubs or organized social groups?: no Panel score (0-1 are the most socially isolated patients): 2 What type of physical activity do you participate in: walking Frequency: daily Jennifer/Yazdanism: No preference Special jennifer needs: No Seatbelt use: always Helmet use: Yes Drive intox 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 drivers' cash clerk: No Do you feel safe at home: Yes Do you feel safe in your relationship?: Yes SDOH(Care Management) Screening Will the Patient Participate in the Screening?: Unable to obtain Do you worry about having a steady place to live?: no Problems where you live: no known problems In the past 12 months, have you had to go without electric, gas, oil or water in your home?: no Have you or anyone in your house had to go without enough food to eat?: no Has lack of transportation kept you from medical appointments or from doing things needed for daily living?: no Has anyone in your support network made you feel unsafe for any reason?: no
--- NOTE | 2023-12-20 09:00 | DI.US_ITS ---
Exam(s) US CAROTID EXAM: US CAROTID CLINICAL HISTORY: CVA. TECHNIQUE: Ultrasound carotids performed using grayscale, color-flow, and spectral Doppler imaging. COMPARISON: No exams were available for comparison FINDINGS: RIGHT CAROTID ARTERY: Plaque: No significant plaque is identified. Velocity elevation: None. LEFT CAROTID ARTERY: Plaque: No significant plaque is identified. Velocity elevation: None. VERTEBRAL ARTERIES: Antegrade flow. Measurements: R Bulb: 45.1cm/s PS / 11.5cm/s ED R CCA: 76.3cm/s PS / 21.9cm/s ED R ECA: 72.3cm/s PS / 8.9cm/s ED R ICA Prox: 51.4cm/s PS / 15.3cm/s ED R ICA Mid: 72cm/s PS / 26.9cm/s ED R ICA Distal: 78.4cm/s PS /24.3cm/s ED R Vert: 50.1cm/s PS / 10.2cm/s ED R SVR: 1 R DVR: 1.1 L Bulb: 62.8cm/s PS / 15.9cm/s ED L CCA: 88.2cm/s PS / 25.5cm/s ED L ECA: 67.3cm/s PS / 8.5cm/s ED L ICA Prox: 70.2cm/s PS / 14.4cm/s ED L ICA Mid: 78.7cm/s PS / 27.8cm/s ED L ICA Distal: 76.2cm/s PS / 25.3cm/s ED L Vert: 53.2cm/s PS / 16.8cm/s ED L SVR: 0.9 L DVR: 1.1 Right internal jugular vein: There is nonocclusive thrombus seen in the right internal jugular vein j ust before its junction with the subclavian vein. It does not appear to extend into the subclavian v ein. It measures 2.5 cm in length. IMPRESSION: 1. No evidence for hemodynamically significant carotid stenosis. 2. Nonocclusive thrombus seen in the right internal jugular vein measuring 2.5 cm in length. 3. Findings were discussed with Emilie Martinez NP at 10:09 a.m. on 12/20/2023. Criteria for Carotid Stenosis: Normal: ICA PSV <125 cm/s no plaque or intimal thickening is visible. <50% stenosis: ICA PSV <125 cm/s and plaque or intimal thickening is visible. 50-69% stenosis: ICA PSV is 125-250 cm/s and plaque is visible. >70% stenosis to near occlusion: ICA PSV >250 cm/s with visible plaque and luminal narrowing. DATA REPOSITORY:
--- NOTE | 2023-12-20 14:14 | CHAPLAIN ---
Mónica was sitting up in bed when I visited. She introduced herself and he and told me they are from [place]. She is here following symptoms of dizziness and for tests with a concern for a stroke. Mónica has metastatic lung cancer. I explained my role and offered support. Mónica thanked me for visiting and said if she needs anything, she'll ask her for help.
--- NOTE | 2023-12-20 14:19 | W.PM.PROGNOT ---
Date of Service Date of service: 12/20/23 Time of Service: 14:19 Assessment and Plan Assessment and plan (1) Acute lacunar infarction: Status: Acute Assessment and plan: MRI Small foci of restricted diffusion seen in the left cerebellum in left parietal gyrus, consistent with acute lacunar infarcts. Area of encephalomalacia with mild enhancement in the right temporal lobe could represent old infarct or treated metastatic disease. Continue aspirin; stop apixaban; start therapeutic enoxaparin per recommendation of [facility] [place]c, neuro and vasuclar surgery Has previously been on statin with her last stroke but needed to come off secondary to elevating liver functions; start Zetia Echo - Normal left ventricular wall thickness and chamber size. Ejection fraction is 60%. Wall motion is normal Normal right ventricular size and function Both atria are normal in size No intracardiac shunting is identified with injection of agitated saline There are no structural valvular abnormalities Mild aortic regurgitation Ascending aorta measures 3.42 cm (2) Metastatic non-small cell lung cancer: Status: Chronic Assessment and plan: per outpatient team (3) Hypothyroidism due to medication: Status: Chronic Assessment and plan: continue levothyroxine TSH 1.28 in November 2023 Continue home meds discussed with DR Clinton (4) Elevated troponin: Status: Acute Assessment and plan: flat at 274- 290, 187 No chest pain no acute ischemic EKG changes. (5) Hypokalemia: Status: Acute Assessment and plan: replete and follow magnesium level normal (6) Chronic kidney disease: Status: Chronic Assessment and plan: stable and at baseline of 1.2 avoid nephrotoxic drugs, renal dose as needed. (7) Internal jugular vein thrombosis: Status: Acute Assessment and plan: No evidence for hemodynamically significant carotid stenosis. Nonocclusive thrombus seen in the right internal jugular vein measuring 2.5 cm in length and subclavian vein Start therapeutic enoxaparin Discussed with Vascular Surgery, neurology and hem/onc at [facility] (8) Thrombosis of right popliteal vein: Status: Acute Assessment and plan: Right popliteal vein thrombosis measuring 3.2 cm in length. Enoxaparin therapeutic started Discussed with Neurology, hem/onc and vascular surgery @ [facility] Subjective Subjective Patient reports: no new complaints, tolerating a regular diet, voiding w/o difficulty, bowel movement and afebrile; denies flatus, diarrhea, nausea or vomiting Interval history since last seen: Patient is comfortable, no complaints. Exam Narrative Exam Narrative: Reviewed nurses notes and labs Well-developed, no acute distress NCAT PERRL, normal conjunctiva No nystagmus RRR, no murmur Unlabored respiratory effort, clear bilaterally Nondistended abdomen , soft nontender Extremities w/o deformity, no cyanosis, no edema No rashes or lesions. no focal neurologic deficits, normal gait, negative Romberg, normal [id number] Appropriate mood and affect Objective Last Vital Signs Temp 37.0 C 12/20/23 07:33 Pulse 63 12/20/23 07:33 Resp 15 12/20/23 07:33 BP 99/56 L 12/20/23 07:33 Pulse Ox 98 12/20/23 07:33 Laboratory Results - last 24 hr 12/19/23 12/19/23 12/19/23 12:15 14:30 15:39 WBC RBC Hgb Hct MCV MCH MCHC RDW Plt Count MPV Immature Gran % Neutrophils % Lymphocytes % Monocytes % Eosinophils % Basophils % Nucleated RBC % Absolute Neutrophils Absolute Lymphocytes Absolute Monocytes Absolute Eosinophils Absolute Basophils Sodium Potassium Chloride Carbon Dioxide Anion Gap BUN Creatinine Est GFR (CKD-EPI 2020) Glucose Hemoglobin A1c 5.6 Calcium Total Bilirubin AST ALT Alkaline Phosphatase Troponin I 290 H* Total Protein Albumin Triglycerides 147 Total Cholesterol 292 H LDL Cholesterol, Calc 144 H HDL Cholesterol 119 Add-On Test Request DONE 12/19/23 12/20/23 20:13 06:00 WBC 4.81 RBC 3.84 L Hgb 12.2 Hct 37.5 MCV 98 H MCH 31.8 MCHC 32.5 RDW 14.0 Plt Count 127 L MPV 9.3 Immature Gran % 0.6 Neutrophils % 65.3 Lymphocytes % 16.8 Monocytes % 14.8 Eosinophils % 1.9 Basophils % 0.6 Nucleated RBC % 0.0 Absolute Neutrophils 3.14 Absolute Lymphocytes 0.81 L Absolute Monocytes 0.71 Absolute Eosinophils 0.09 Absolute Basophils 0.03 Sodium 143 Potassium 4.2 Chloride 107 Carbon Dioxide 28.0 Anion Gap 8.0 BUN 13 Creatinine 1.1 H Est GFR (CKD-EPI 2020) 56.46 Glucose 92 Hemoglobin A1c Calcium 8.7 Total Bilirubin 0.66 AST 25 ALT 26 Alkaline Phosphatase 46 Troponin I 291 H* 187 H* Total Protein 6.4 Albumin 3.2 L Triglycerides Total Cholesterol LDL Cholesterol, Calc HDL Cholesterol Add-On Test Request PAWSS Have you Been Recently Intoxicated or Drunk Within the Last 30 days?: No Have you Ever Experienced Previous Episodes of Alcohol Withdrawal?: No Have you ever Experienced Withdrawal Seizures?: No Have you ever Experienced Delirium Tremens(DT)s?: No Have you ever undergone Alcohol Rehabilitation Treatment (i.e, inpt ot outpatient treatment programs)?: No Have you ever Experienced Blackouts?: No Have you ever Combined Alcohol with other Downers within the last 90 days?: No Have you ever Combined Alcohol with any other Substance of Abuse during the last 90 days?: No Positive Blood Alcohol level on Presentation? [PCS.BAL]: No Evidence of Increased Autonomic Activity (i.e. HR>120, tremor, sweating, agitation, nausea)?: No Result: 0 Time Spent with Patient Time Spent with Patient: >50 minutes Time was spent: preparing to see the patient(eg.review tests), ordering medications,tests, procedures, referring, communicating with other health farm or ranch animal caretaker, indepentently interpreting results, counseling the patient and care coordination
[2023-12-20 15:12] VITALS: BP 97/60; PULSE 71; RESP 16; TEMP 37.2; O2SAT 97
[2023-12-20] MEDS: Enoxaparin 100 MG/ML SYR 90 MG SC (16:55)
[2023-12-20] MEDS: Ezetimibe 10 MG TAB PO (17:05)
[2023-12-20] MEDS: OLANZapine 5 MG TAB PO (20:14)
[2023-12-20 23:29] VITALS: PULSE 56
[2023-12-20 23:42] VITALS: BP 112/65; PULSE 55; RESP 16; TEMP 36; O2SAT 98
[2023-12-21] MEDS: Levothyroxine 75 MCG TAB PO (06:04)
[2023-12-21 07:16] LABS: Abs Immature Grans 0.03 10^3/uL (0.0-0.06); Absolute Basophil Count 0.05 10^3/uL (0.0-0.2); Absolute Eosinophil Count 0.09 10^3/uL (0.0-0.7); Absolute Lymphocyte Count 0.89 10^3/uL (1.2-3.4); Absolute Monocyte Count 0.62 10^3/uL (0.1-0.8); Basophils % 1.1 %; Eosinophils % 1.9 %; HGB 12.6 g/dL (11.2-15.7); Immature Grans % 0.6 %; MCH 32.1 pg (27.0-33.0); MCHC 33.2 % (32.0-36.0); MCV 97 fL (80-95); MPV 9.5 fL (8.0-11.0); Monocytes % 13.2 %; Neutrophils % 64.2 %; Platelet Count 136 10^3/uL (130-400); RBC 3.93 10^6/uL (3.93-5.22); RDW 13.6 % (11.7-14.6); RDW-SD 48.8 fL; WBC 4.68 10^3/uL (4.4-10.8)
[2023-12-21 07:30] LABS: BUN 17 mg/dL (7-18); CREATININE 1.2 mg/dL (0.55-1.02); Calcium 8.7 mg/dL (8.5-10.1); Chloride 106 mmol/L (98-107); Estimated GFR 50.86 (mL/min/1.73m2); Glucose 93 mg/dL (74-106); Magnesium 1.7 mg/dL (1.8-2.4); Potassium 3.9 mmol/L (3.5-5.1); Sodium 141 mmol/L (136-145)
[2023-12-21] MEDS: Lactobacillus Acidophilus CAP 1 CAP PO (07:44)
[2023-12-21] MEDS: Ezetimibe 10 MG TAB PO (07:45)
[2023-12-21] MEDS: Aspirin 81 MG CHEW PO (07:45)
[2023-12-21] MEDS: Folic Acid 1 MG TAB PO (07:45)
[2023-12-21] MEDS: Normal Saline Flush 10 ML SYR IVP ×2 (07:46→14:26)
[2023-12-21 07:54] LABS: Vitamin B12 275 pg/mL (193-986)
[2023-12-21 07:56] LABS: Folate > 20.0 ng/mL (8.6-20.0)
[2023-12-21 08:31] VITALS: BP 105/56; PULSE 69; RESP 15; TEMP 36.8; O2SAT 98
--- NOTE | 2023-12-21 09:43 | PDOC.CMACT ---
Date of service: 12/21/23 Time of Service: 09:44
--- NOTE | 2023-12-21 10:54 | W.PM.DS.N ---
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 (4) Elevated troponin: Status: Acute (5) Hypokalemia: Status: Acute (6) Chronic kidney disease: Status: Chronic (7) Internal jugular vein thrombosis: Status: Acute (8) Thrombosis of right popliteal vein: Status: Acute Discharge Plan Disposition Patient Disposition: Home Condition: Improving Discharge Details Reason For Visit: CVA Admit Date/Time: 12/19/23 13:52 Admit Provider: Steven Clinton Attending Provider: Steven Clinton Primary Care Provider: [facility] Hospital Course: This 63-year-old female patient with a past medical history of metastatic non-small lung cancer, stroke on Eliquis with report of several week of intermittent dizziness presented to the ED at [facility] on 12/19/2023 for evaluation of increased dizziness and right upper extremity numbness and tingling resolving over time with her just working out the hand. Patient also reported experiencing more frequent intermittent headaches over the past few weeks described as ocular headaches. In the ED the patient denied fevers, chills, recent illness, shortness of breath, chest pain, nausea, vomiting. She also reported complete resolution of her symptoms. MRI showed acute lacunar infarcts as well as probable right temporal old infarct or treated metastatic disease. In the ED the patient received a full dose of aspirin. The hospitalist was consulted and the patient was admitted to the medical surgical floor for evaluation and management of stroke. A tele-neurology consult was completed and recommendations are to start Zetia as patient sustained elevated liver function test results to statin therapy in the past, apixaban was stopped and Lovenox therapeutic dosing initiated due to positive nonocclusive deep vein thrombosis to the right internal jugular vein extending into the subclavian vein as well as a right popliteal vein thrombosis.Treatment should last 3 months with weekly CBC and coags. The patient will have aspirin 81 mg for 3 weeks. A1C was 5.6, triglycerides 147, total cholesterol 292, and LDL 144. The patient would benefit from a head and neck CT as an outpatient and as per discussion with the patient she will discuss it with her outpatient medical team. An echocardiogram was completed which was negative for PFO or an ASD with LVEF of 60%. Vitamin B12 supplementation for levels at [address] Arias neurologist. She also recommended a 30-day cardiac event recorder as the patient was always in a sinus rhythm. Folate levels are above 20 and supplementation should be reviewed by PCP. Recommendations also supported by Dr. Olmedo neurologist. [facility] [place] resulted in recommendations for above mentioned antigoagulation therapy in addition to a vascular outpatient follow-up. Dr. Lira also confirm that the patient was to see Dr. Sims's oncology team on 12/31/2023.A neurology follow-up was also indicated. The patient will have to see her PCP with in 7 days of discharge. Discussed with Dr. Ahn Home Meds and New Rx's Prescriptions: New aspirin [Children's Aspirin] 81 mg Tablet,Chewable 81 mg PO DAILY Qty: 21 0RF Rx Instructions: recommendation from [facility] [place] cyanocobalamin (vitamin B-12) [Vitamin B-12] 500 mcg Tablet 1,000 mcg PO DAILY Qty: 30 0RF enoxaparin 100 mg/mL Syringe 90 mg subcut Q24H Qty: 10 2RF Rx Instructions: Treatment for a total of 3 months. You have one month supply and your PCP will monitor you and complete the treatment as seen fit. ezetimibe 10 mg Tablet 10 mg PO DAILY Qty: 30 0RF Continued olanzapine 5 mg tablet 5 mg PO QHS Adult 50 Plus Probiotic 4 billion cell capsule 4,000 mmu cells PO DAILY Qty: 30 0RF Rx Instructions: administer with a meal folic acid 1 mg tablet 1 mg PO DAILY Patient Comments: TAKE ONE TABLET BY MOUTH EVERY DAY levothyroxine 75 mcg tablet 75 mcg PO DAILY Patient Comments: TAKE ONE TABLET BY MOUTH EVERY DAY Held Eliquis 5 mg tablet 5 mg PO BID Hold Instructions: Resume on 01/10/24. Resume as per Hem onc and neuro f/u Patient Comments: TAKE TWO TABLETS BY MOUTH TWICE A DAY FOR 7 DAYS, THEN TAKE 1 TABLET TWICE DAILY Discharge Instructions Stand Alone Forms: Nursing Discharge Form Referrals: [place] [place] - (f/u MARIA E s/p stroke d/t DVT in oncology patient with Hx of stroke on eliquis, now on LMWH and ASA. Your information has been faxed to this office. they will call you to set this appointment. ) Sophie Ramos NP [Primary Care Provider] - 12/26/23 3:40 pm (Appointment is with Dr. Aguilera ) IKER LONDONO MD [MD NON-[facility] STAFF PHYSICIAN] - (S/p stroke while on Eliquis in patient w Hx of CA on chemo, found to have DVT's sent home on LMWH and ASA All your information has been faxed to this office, they will call you to set up an appointment.) Activity:: Activity as Tolerated Equipment/Supplies:: No Equipment Needed Diet:: heart healthy Discharge Orders Discharge Orders: Discharge Order (Routine); Ordered 12/21/23 Ordered By: Citlaly Ford Other Ambulatory Orders: Cardiac Event Recorder (Routine) Timeframe: 20231221 Facility: [facility] - Location: Respiratory Therapy Ordered By: Citlaly Ford Complete Blood Count w/Diff (Routine) Timeframe: 20231228 Facility: [facility] - Location: Laboratory Outpatient - [facility] Ordered By: Citlaly Ford PTT Activated (Routine) Timeframe: 20231228 Facility: [facility] - Location: Laboratory Outpatient - [facility] Ordered By: Citlaly Ford DS: Summary Time Spent with Patient providing and/or coordinating discharge services: Greater than 30 minutes Status at Discharge Functional status at discharge: independent ambulation Overall status at discharge: patient is back to baseline Mental Status: mental status grossly normal Speech and Movement: speech and movement normal Mood: congruent mood Affect: normal affect Quality:SDOH Health Related Social Needs: No Data to Display Exam Narrative Exam Narrative: Constitutional The patient is ambulating in room alternating with sitting in chair without acute distress and has average body habitus/is obese/ is thin. HENMT: Facial structures with normal appearance Eyes: Well aligned, intact ROM Neuro:alert and oriented X 4 , non-focal Resp:Clear lung bilaterally Cardio: regular rhythm, S1, S2, no murmur, bilateral radial and dorsalis pedis pulses are positive GI: Abdomen is not distended, soft and non tender, bowel sounds are present Extremities: strength 5/5 to bilateral lower and upper extremities Psych: RASS 0, congruent mood and normal affect. Psych Mental Status: mental status grossly normal Speech and Movement: speech and movement normal Mood: congruent mood Affect: normal affect DS: Data Vitals/I&O Vitals and I&O: Vital Signs Temperature 36.8 C 12/21/23 08:31 Temperature Source Temporal Artery Scan 12/21/23 08:31 Pulse 69 12/21/23 08:31 Pulse Rhythm Regular 12/21/23 07:49 Respiratory Rate 15 12/21/23 08:31 Respiratory Effort Normal 12/21/23 07:49 Respiratory Depth Normal 12/21/23 07:49 Respiratory Pattern Normal 12/21/23 07:49 Blood Pressure 105/56 L 12/21/23 08:31 Pulse Oximetry 98 12/21/23 08:31 Oxygen Delivery Method Room Air 12/21/23 08:31 Oxygen Flow Rate 0 12/21/23 08:31 Pain Level 0 12/21/23 08:31 Intake & Output 12/20/23 12/20/23 12/21/23 11:59 23:59 11:59 Intake Total 250 / 1100 850 / 1100 Output Total 250 / 250 Balance 0 / 850 850 / 850 Weight 59.2 kg 58.3 kg Intake: IV Oral 250 / 1100 850 / 1100 Output: Urine 250 / 250 Other: Urine Color Yellow Yellow Urine Appearance Clear Clear Clear Urine Odor None None Comment PER PATIENT SHE HAS BEEN UP VOIDING Voiding Methods Toilet Toilet Toilet Data Completed and Pending Labs on day of discharge: Labs from last 24 hours 12/21/23 06:10 WBC 4.68 RBC 3.93 Hgb 12.6 Hct 38.0 MCV 97 H MCH 32.1 MCHC 33.2 RDW 13.6 Plt Count 136 MPV 9.5 Immature Gran % 0.6 Neutrophils % 64.2 Lymphocytes % 19.0 Monocytes % 13.2 Eosinophils % 1.9 Basophils % 1.1 Nucleated RBC % 0.0 Absolute Neutrophils 3.00 Absolute Lymphocytes 0.89 L Absolute Monocytes 0.62 Absolute Eosinophils 0.09 Absolute Basophils 0.05 Sodium 141 Potassium 3.9 Chloride 106 Carbon Dioxide 27.0 Anion Gap 8.0 BUN 17 Creatinine 1.2 H Est GFR (CKD-EPI 2020) 50.86 Glucose 93 Calcium 8.7 Magnesium 1.7 L Vitamin B12 275 Folate > 20.0 H PFSH All Active Problems (Updated 12/21/23 @ 13:14 by Citlaly Ford APRN) Thrombosis of right popliteal vein (Acute) Internal jugular vein thrombosis (Acute) Chronic kidney disease (Chronic) Hypokalemia (Acute) Elevated troponin (Acute) Acute lacunar infarction (Acute) Anorexia (Acute) Advanced care planning/counseling discussion (Acute) Metastatic non-small cell lung cancer (Chronic ~10/2022) [place] [facility] [place] Clostridium difficile colitis (Acute ~03/2023) History of CVA (cerebrovascular accident) (Chronic ~2022) History of pulmonary embolism (Chronic ~2022) Cigarette smoker (Chronic) 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) Hyperlipidemia (Chronic) Diverticulosis of colon (Acute) Medical History Palliative care patient Acute right arterial ischemic stroke, MCA (middle cerebral artery) (~11/2022) S/p mechanical thrombectomy Renal infarct (~11/2022) Pulmonary embolism, bilateral (~10/2022) Infarction of spleen (~11/2022) Sepsis Diverticulitis (~12/2022) Endometriosis Surgical History History of cataract surgery S/P hysterectomy with oophorectomy S/P ORIF (open reduction internal fixation) fracture Left foot Family History Mother , 76 of lung cancer Lung cancer Father , 75 Diabetes Metastatic cancer Sister No problems noted. Brother Alcohol use disorder Brother Alcohol use disorder Maternal Grandfather No problems noted. Maternal Grandmother Heart disease Paternal Grandfather No problems noted. Paternal Grandmother No problems noted. Social History Smoking/Tobacco Use Status: Former Tobacco Use Quit Date: 11/23/22 Tobacco: How many years used: 40 Quit status: not considering quitting Second Hand Exposure: Yes Smoking risk assessment performed?: Yes Alcohol Intake: current Alcohol Intake frequency: a few times a month Alcohol type: hard liquor Drug use: Never Substance use type: does not use Caregiver/Support person: No Household members: spouse Housing: house Communication Needs: None Pets and animals: Yes Pets and animals: cat(s) Sexually active: Yes Do you think of yourself as: straight/heterosexual Current gender identity: female What is your relationship status?: How often do you talk on the phone with friends or family?: three or more times per week How often do you get together with friends or relatives?: once per week How often do you attend taoism or confucianism services?: decline to answer Do you belong to any clubs or organized social groups?: no Panel score (0-1 are the most socially isolated patients): 2 What type of physical activity do you participate in: walking Frequency: daily Jennifer/Mu-Ism: No preference Special jennifer needs: No Seatbelt use: always Helmet use: Yes Drive intox 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
--- NOTE | 2023-12-21 13:26 | PDOC.CMDIS ---
Date of service: 12/21/23 Time of Service: 13:26 LACE Index Scoring Tool Questions: Length of Stay (in days): 2 Was the patient admitted via the E.D.?: Yes Comorbidities: Cerebrovascular Disease and Metastatic Solid Tumor E.D. Visits: 1 Answers: Total Score: 11 Risk of Readmission: High Risk Care Management Discharge Plan Reason for Hospitalization: CVA Discharge Plan: Mónica is discharged home via private vehicle with . New RX's are transmitted to [facility], pharmacy discount card is provided to patient. Mónica will follow up with community providers and her discharge plan of care as instructed. Hospital Discharge appointment with primary care is scheduled for 12/26/23. No new services are ordered at the time of this discharge. Patient/Family Education Needs: Review discharge instruction, medications and plan to follow up with community providers. Discuss ask me three. SDOH Health Related Social Needs: No Data to Display
--- NOTE | 2023-12-21 14:55 | RESPIRATORY ---
12/21/2023 Pt refused Veneer Splicer; pt and state that she is seeing her oncologist soon and would like to talk to him about it.
--- NOTE | 2023-12-21 15:09 | CHAPLAIN ---
I had a brief visit with Mónica. She and her were waiting for her discharge papers to come through. They said they were told around 10 am that she'd be discharged today and have been waiting since.
== END 2023-12-21 15:15 | disposition home or self-care (01) | DRG 65 ==
LOC: ER 12:03 → MS 14:58
PROVIDERS: Nurse Practitioner Acute Care; Nurse Practitioner Family; Admitting Provider Family Medicine; Emergency Provider Emergency Medicine; PCP Nurse Practitioner Family; Visit Provider Family Medicine
DX: I63.81 Other cerebral infarction due to occlusion or stenosis of small artery (principal); I82.431 Acute embolism and thrombosis of right popliteal vein; I82.B11 Acute embolism and thrombosis of right subclavian vein; I82.C11 Acute embolism and thrombosis of right internal jugular vein; E03.2 Hypothyroidism due to medicaments and other exogenous substances; R74.8 Abnormal levels of other serum enzymes; E87.6 Hypokalemia; N18.9 Chronic kidney disease, unspecified; Z86.73 Personal history of transient ischemic attack (TIA), and cerebral infarction without residual deficits; K57.30 Diverticulosis of large intestine without perforation or abscess without bleeding; E78.5 Hyperlipidemia, unspecified; Z86.711 Personal history of pulmonary embolism
CPT/HCPCS: 00123; 36415; 70553; 80048; 80053; 80061; 93005; 99285; 82607; 82746; 83036; 83735; 84484; 85025; 93010; 93306; 93880; 93970; 93971; 99222; 99233; 99239; J1650

== ENCOUNTER 2023-12-31 03:07 | Outpatient (RCR) | payer OTHER, SELFPAY ==
[2023-12-26] MEDS: Normal Saline Flush 10 ML SYR IVP (08:44)
[2023-12-26 08:46] LABS: Abs Immature Grans 0.04 10^3/uL (0.0-0.06); Absolute Basophil Count 0.04 10^3/uL (0.0-0.2); Absolute Eosinophil Count 0.05 10^3/uL (0.0-0.7); Absolute Lymphocyte Count 0.82 10^3/uL (1.2-3.4); Absolute Monocyte Count 0.72 10^3/uL (0.1-0.8); Absolute Neutrophil Count 4.14 10^3/uL (1.2-6.7); Basophils % 0.7 %; Eosinophils % 0.9 %; HCT 36.3 % (36.0-46.0); Immature Grans % 0.7 %; Lymphocytes % 14.1 %; MCH 31.6 pg (27.0-33.0); MCHC 33.1 % (32.0-36.0); MCV 96 fL (80-95); MPV 9.2 fL (8.0-11.0); Monocytes % 12.4 %; Neutrophils % 71.2 %; Platelet Count 161 10^3/uL (130-400); RDW 13.6 % (11.7-14.6); RDW-SD 48.2 fL; WBC 5.81 10^3/uL (4.4-10.8)
[2023-12-26 08:58] LABS: PTT Activated 27.4 sec (23.6-32.8)
[2023-12-31] MEDS: Normal Saline Flush 10 ML SYR IVP (13:04)
[2023-12-31 13:14] LABS: Abs Immature Grans 0.04 10^3/uL (0.0-0.06); Absolute Basophil Count 0.04 10^3/uL (0.0-0.2); Absolute Eosinophil Count 0.05 10^3/uL (0.0-0.7); Absolute Lymphocyte Count 1.08 10^3/uL (1.2-3.4); Absolute Monocyte Count 0.78 10^3/uL (0.1-0.8); Absolute Neutrophil Count 4.23 10^3/uL (1.2-6.7); Basophils % 0.6 %; Eosinophils % 0.8 %; HCT 36.8 % (36.0-46.0); HGB 12.2 g/dL (11.2-15.7); Immature Grans % 0.6 %; Lymphocytes % 17.4 %; MCH 31.7 pg (27.0-33.0); MCHC 33.2 % (32.0-36.0); MCV 96 fL (80-95); MPV 9.1 fL (8.0-11.0); Monocytes % 12.5 %; Neutrophils % 68.1 %; Platelet Count 231 10^3/uL (130-400); RBC 3.85 10^6/uL (3.93-5.22); RDW 13.9 % (11.7-14.6); RDW-SD 48.6 fL; WBC 6.22 10^3/uL (4.4-10.8)
[2023-12-31 13:38] LABS: ALT 39 U/L (14-59); AST 28 U/L (15-37); Albumin 3.6 g/dL (3.4-5.0); Alkaline Phosphatase 68 U/L (46-116); Anion Gap 7.2 mmol/L (3-11); BUN 10 mg/dL (7-18); Bilirubin, Total 0.43 mg/dL (0.2-1.0); CO2 27.8 mmol/L (21.0-32.0); Calcium 9.2 mg/dL (8.5-10.1); Chloride 105 mmol/L (98-107); FREE T4 1.03 ng/dL (0.76-1.46); Glucose 108 mg/dL (74-106); Magnesium 1.8 mg/dL (1.8-2.4); Potassium 3.9 mmol/L (3.5-5.1); Sodium 140 mmol/L (136-145); TSH 2.58 uIU/Ml (0.36-3.74)
== END 2024-01-23 23:59 | disposition home or self-care (01) ==
LOC: INF 03:07
PROVIDERS: Nurse Practitioner Family; PCP Nurse Practitioner Family; Visit Provider Internal Medicine Medical Oncology
DX: C34.31 Malignant neoplasm of lower lobe, right bronchus or lung (principal); E03.2 Hypothyroidism due to medicaments and other exogenous substances; Z45.2 Encounter for adjustment and management of vascular access device
CPT/HCPCS: 36591; 80053; 83735; 84439; 84443; 85025; 85730

== ENCOUNTER 2024-01-04 09:31 | Emergency (ER) | payer OTHER, SELFPAY ==
[2024-01-04] VITALS (24 sets, daily range): BP systolic 110–150; BP diastolic 47–90; PULSE 67–79; RESP 11–27; TEMP 36.7–37.1; O2SAT 96–100
--- NOTE | 2024-01-04 09:52 | DI.US_ITS ---
Exam(s) US UPPER EXTREMITY VENOUS RT EXAM: US UPPER EXTREMITY VENOUS RT CLINICAL HISTORY: known rt ij dvt. TECHNIQUE: Ultrasound examination of the right upper extremity venous system(s) is performed using g rayscale, color-flow, and spectral Doppler analysis. COMPARISON: US US UPPER EXTREMITY VENOUS RT from 12/20/[address] CHEST W from 12/26/2023 FINDINGS: The right internal jugular vein shows partially occlusive thrombus extending to the junction with the subclavian, measuring 2.9 cm in length total. This has improved when compared with the prior exam. The axillary, subclavian, cephalic, basilic, brachial, radial, and ulnar veins are patent without ev idence of thrombosis. IMPRESSION: Improvement in previously noted upper extremity thrombosis. Thrombus is no longer seen in the subcla vian vein. Partially occlusive thrombus remains in the proximal internal jugular vein. DATA REPOSITORY:
--- NOTE | 2024-01-04 10:15 | ED.GENADUL_ITS ---
Discharge Plan Disposition Patient Disposition: Home Condition: Stable Discharge Details Clinical Impression: Metastatic non-small cell lung cancer, Supraclavicular lymphadenopathy Primary Care Provider: Sophie Ramos ED Provider: Zach Loya Home Meds and New Rx's Prescriptions: Continued olanzapine 5 mg tablet 5 mg PO QHS enoxaparin 100 mg/mL syringe 100 mg subcut Q24H Rx Instructions: Treatment for a total of 3 months. You have one month supply and your PCP will monitor you and complete the treatment as seen fit. cyanocobalamin (vitamin B-12) 1,000 mcg tablet 1,000 mcg PO DAILY Qty: 90 3RF buspirone 5 mg tablet 5 mg PO BID Qty: 70 0RF ezetimibe 10 mg tablet 10 mg PO DAILY Qty: 90 3RF Adult 50 Plus Probiotic 4 billion cell capsule 4,000 mmu cells PO DAILY Qty: 30 0RF Rx Instructions: administer with a meal levothyroxine 75 mcg tablet 75 mcg PO DAILY Patient Comments: TAKE ONE TABLET BY MOUTH EVERY DAY aspirin [Children's Aspirin] 81 mg Tablet,Chewable 81 mg PO DAILY Qty: 21 0RF Rx Instructions: recommendation from [facility] neuro Held Eliquis 5 mg tablet 5 mg PO BID Hold Instructions: Resume on 01/10/24. Discuss with heme/onc prior to resuming Patient Comments: TAKE TWO TABLETS BY MOUTH TWICE A DAY FOR 7 DAYS, THEN TAKE 1 TABLET TWICE DAILY Discharge Instructions Additional Instructions: Please contact your primary care physician to arrange follow-up. Please follow-up with your oncologist. Call today. Please follow-up with vascular surgery and neurology as previously recommended. Return to the ER immediately for any worsening or new concerning symptoms. Referrals: Sophie Ramos NP [Primary Care Provider] - [facility] General Mode of arrival: ambulatory . Date/Time Provider Initiated Documentation: 01/04/24 09:40 . Limitations to Documentation: no limitations . Information obtained by: patient . HPI Narrative: 53-year-old female with history of metastatic non-small cell lung cancer, recent CVA, recent internal jugular vein thrombus, now on Lovenox, taking as prescribed, here with increased swelling right neck that she noticed yesterday. Patient notes mild discomfort increased swelling of her right lower neck/supraclavicular area. She has a port right chest that was last accessed on the without complication. Patient denies associated chest pain or shortness of breath. Related Data Home Medications ?Medication ?Instructions ?Recorded ?Confirmed lactobacillus combination no.9 4 4,000 mmu cells PO DAILY #30 caps 04/04/23 01/04/24 billion cell capsule (Adult 50 Plus Probiotic) apixaban 5 mg tablet (Eliquis) 5 mg PO BID 04/13/23 01/04/24 olanzapine 5 mg tablet 5 mg PO QHS 05/01/23 01/04/24 levothyroxine 75 mcg tablet 75 mcg PO DAILY 12/19/23 01/04/24 aspirin 81 mg chewable tablet 81 mg PO DAILY #21 tabs 12/21/23 01/04/24 (Children's Aspirin) buspirone 5 mg tablet 5 mg PO BID #70 tabs 01/02/24 01/04/24 cyanocobalamin (vitamin B-12) 1,000 mcg PO DAILY #90 tabs 01/02/24 01/04/24 1,000 mcg tablet enoxaparin 100 mg/mL subcutaneous 100 mg subcut Q24H 01/02/24 01/04/24 syringe ezetimibe 10 mg tablet 10 mg PO DAILY #90 tabs 01/03/24 01/04/24 Previous Rx's ?Medication ?Instructions ?Recorded lactobacillus combination no.9 4 4,000 mmu cells PO DAILY #30 caps 04/04/23 billion cell capsule (Adult 50 Plus Probiotic) aspirin 81 mg chewable tablet 81 mg PO DAILY #21 tabs 12/21/23 (Children's Aspirin) buspirone 5 mg tablet 5 mg PO BID #70 tabs 01/02/24 cyanocobalamin (vitamin B-12) 1,000 mcg PO DAILY #90 tabs 01/02/24 1,000 mcg tablet ezetimibe 10 mg tablet 10 mg PO DAILY #90 tabs 01/03/24 Allergies Allergy/AdvReac Type Severity Reaction Status Date / Time Penicillins Allergy Intermediate Hives Unverified 01/04/24 09:36 acetaminophen Allergy Mild Hives Unverified 01/04/24 09:36 General Stated Complaint: Vascular RENEE: 3 Review of Systems Constitutional Constitutional: Denies fever(s) Exam Const General: cooperative and no acute distress HENMT Mouth: moist mucous membranes Neck Neck: trachea midline Chest Other: Right-sided supraclavicular swelling Resp Auscultation: clear to auscultation bilaterally, no rales, no rhonchi and no wheezes Cardio Rate: regular rate and not tachycardic Rhythm: regular rhythm GI Palpation: soft, not firm, no guarding, no masses, not rigid and nontender Skin General skin exam: no rashes or lesions noted Neuro General: patient alert, patient awake and tone normal Course Vital Signs Vital signs: Vital Signs Temperature 36.7 C 01/04/24 09:34 Pulse 77 01/04/24 09:34 Respiratory Rate 14 01/04/24 09:34 Blood Pressure 150/73 H 01/04/24 09:34 Pulse Oximetry 96 01/04/24 09:34 Temperature 36.7 C 01/04/24 09:34 Pulse 77 01/04/24 09:34 Respiratory Rate 14 01/04/24 09:34 Blood Pressure 150/73 H 01/04/24 09:34 Blood Pressure Position Sitting 01/04/24 09:34 Pulse Oximetry 96 01/04/24 09:34 Oxygen Delivery Method Room Air 01/04/24 09:34 Oxygen Flow Rate 0 01/04/24 09:34 Pain Level 0 01/04/24 09:34 Medical Decision Making 1023 -- 63-year-old female with history of metastatic lung cancer, CVA, recent right internal jugular and subclavian veins, here with new swelling of her right supraclavicular area. Suspect supraclavicular lymphadenopathy but consider worsening DVT. Patient does have a port catheter right chest. Consider malfunctioning port. Plan to obtain ultrasound. 1245 --ultrasound of the right upper extremity/neck was interpreted by radiology: IMPRESSION: Improvement in previously noted upper extremity thrombosis. Thrombus is no longer seen in the subclavian vein. Partially occlusive thrombus remains in the proximal internal jugular vein. In the soft tissues of the neck, above the level of the clavicle, there is a 10 x 6 by 10 millimeter hypoechoic area which likely represents a lymph node. It may be malignant lymph node given the patient's history. It does not have a normal maintained hilum. Results were discussed with the patient. Plan for discharge with outpatient follow-up with vascular surgery and neurology as presented recommended. Will have her follow-up with her oncologist and primary care as well. Usual customary discharge instructions were reviewed with the patient. Lab Data Lab results reviewed: Yes I reviewed the patient's lab results. Labs: Laboratory Tests Range/Units 01/04/24 10:08 WBC (4.4-10.8) 10^3/uL 7.32 RBC (3.93-5.22) 10^6/uL 3.75 L Hgb (11.2-15.7) g/dL 11.9 Hct (36.0-46.0) % 36.0 MCV (80-95) fL 96 H MCH (27.0-33.0) pg 31.7 MCHC (32.0-36.0) % 33.1 RDW (11.7-14.6) % 13.9 Plt Count (130-400) 10^3/uL 234 MPV (8.0-11.0) fL 8.9 Immature Gran % % 0.7 Neutrophils % % 75.5 Lymphocytes % % 11.7 Monocytes % % 11.1 Eosinophils % % 0.5 Basophils % % 0.5 Nucleated RBC % (0.0-0.3) % 0.0 Absolute Neutrophils (1.2-6.7) 10^3/uL 5.52 Absolute Lymphocytes (1.2-3.4) 10^3/uL 0.86 L Absolute Monocytes (0.1-0.8) 10^3/uL 0.81 H Absolute Eosinophils (0.0-0.7) 10^3/uL 0.04 Absolute Basophils (0.0-0.2) 10^3/uL 0.04 Sodium (136-145) mmol/L 137 Potassium (3.5-5.1) mmol/L 3.6 Chloride (98-107) mmol/L 103 Carbon Dioxide (21.0-32.0) mmol/L 25.5 Anion Gap (3-11) mmol/L 8.5 BUN (7-18) mg/dL 12 Creatinine (0.55-1.02) mg/dL 1.1 H Est GFR (CKD-EPI 2020) (mL/min/1.73m2) 56.46 Glucose (74-106) mg/dL 100 Calcium (8.5-10.1) mg/dL 9.4 Total Bilirubin (0.2-1.0) mg/dL 0.54 AST (15-37) U/L 32 ALT (14-59) U/L 44 Alkaline Phosphatase (46-116) U/L 78 Total Protein (6.4-8.2) g/dL 6.8 Albumin (3.4-5.0) g/dL 3.4 Quality:SDOH Health Related Social Needs: No Data to Display PFSH All Active Problems (Updated 01/04/24 @ 12:45 by Zach Loya MD) Supraclavicular lymphadenopathy (Acute) Acute lacunar infarction (Acute ~12/2023) Internal jugular vein thrombosis (Acute ~12/2023) Thrombosis of right popliteal vein (Acute ~12/2023) Metastatic non-small cell lung cancer (Chronic ~10/2022) Followed by [facility] Oncology History of CVA (cerebrovascular accident) (Acute ~2022) History of pulmonary embolism (Chronic ~2022) Chronic kidney disease (Chronic) 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) Hyperlipidemia (Chronic) Diverticulosis of colon (Acute) Cigarette smoker (Chronic) Medical History Clostridium difficile colitis (~03/2023) Palliative care patient Acute right arterial ischemic stroke, MCA (middle cerebral artery) (~11/2022) S/p mechanical thrombectomy Renal infarct (~11/2022) Pulmonary embolism, bilateral (~10/2022) Infarction of spleen (~11/2022) Sepsis Diverticulitis (~12/2022) Endometriosis Surgical History History of cataract surgery S/P hysterectomy with oophorectomy S/P ORIF (open reduction internal fixation) fracture Left foot Family History Mother , 76 of lung cancer Lung cancer Father , 75 Diabetes Metastatic cancer Sister No problems noted. Brother Alcohol use disorder Brother Alcohol use disorder Liver disease TIA (transient ischemic attack) Maternal Grandfather No problems noted. Maternal Grandmother Heart disease Paternal Grandfather No problems noted. Paternal Grandmother No problems noted. Social History Smoking/Tobacco Use Status: Former Tobacco Use Quit Date: 11/23/22 Tobacco: How many years used: 40 Quit status: not considering quitting Second Hand Exposure: Yes Smoking risk assessment performed?: Yes Alcohol Intake: current Alcohol Intake frequency: a few times a month Alcohol type: hard liquor Drug use: Never Substance use type: does not use Caregiver/Support person: No Household members: spouse Housing: house Communication Needs: None Pets and animals: Yes Pets and animals: cat(s) Sexually active: Yes Do you think of yourself as: straight/heterosexual Current gender identity: female What is your relationship status?: How often do you talk on the phone with friends or family?: three or more times per week How often do you get together with friends or relatives?: once per week How often do you attend restoration or oriental orthodox services?: decline to answer Do you belong to any clubs or organized social groups?: no Panel score (0-1 are the most socially isolated patients): 2 What type of physical activity do you participate in: walking Frequency: daily Jennifer/Moravian: No preference Special jennifer needs: No Seatbelt use: always Helmet use: Yes Drive intox 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 driver trainer: No Do you feel safe at home: Yes Do you feel safe in your relationship?: Yes
[2024-01-04 10:25] LABS: Abs Immature Grans 0.05 10^3/uL (0.0-0.06); Absolute Basophil Count 0.04 10^3/uL (0.0-0.2); Absolute Eosinophil Count 0.04 10^3/uL (0.0-0.7); Absolute Lymphocyte Count 0.86 10^3/uL (1.2-3.4); Absolute Monocyte Count 0.81 10^3/uL (0.1-0.8); Absolute Neutrophil Count 5.52 10^3/uL (1.2-6.7); Basophils % 0.5 %; Eosinophils % 0.5 %; HGB 11.9 g/dL (11.2-15.7); Immature Grans % 0.7 %; Lymphocytes % 11.7 %; MCH 31.7 pg (27.0-33.0); MCHC 33.1 % (32.0-36.0); MCV 96 fL (80-95); MPV 8.9 fL (8.0-11.0); Monocytes % 11.1 %; Neutrophils % 75.5 %; Platelet Count 234 10^3/uL (130-400); RBC 3.75 10^6/uL (3.93-5.22); RDW 13.9 % (11.7-14.6); RDW-SD 49.1 fL; WBC 7.32 10^3/uL (4.4-10.8)
[2024-01-04 10:33] LABS: ALT 44 U/L (14-59); AST 32 U/L (15-37); Albumin 3.4 g/dL (3.4-5.0); Alkaline Phosphatase 78 U/L (46-116); Anion Gap 8.5 mmol/L (3-11); BUN 12 mg/dL (7-18); Bilirubin, Total 0.54 mg/dL (0.2-1.0); CO2 25.5 mmol/L (21.0-32.0); CREATININE 1.1 mg/dL (0.55-1.02); Calcium 9.4 mg/dL (8.5-10.1); Chloride 103 mmol/L (98-107); Estimated GFR 56.46 (mL/min/1.73m2); Glucose 100 mg/dL (74-106); Potassium 3.6 mmol/L (3.5-5.1); Sodium 137 mmol/L (136-145); Total Protein 6.8 g/dL (6.4-8.2)
== END 2024-01-04 13:04 | disposition home or self-care (01) ==
PROVIDERS: Emergency Provider Student in an Organized Health Care Education/Training Program; PCP Nurse Practitioner Family
DX: R59.0 Localized enlarged lymph nodes (principal); C34.90 Malignant neoplasm of unspecified part of unspecified bronchus or lung; Z86.73 Personal history of transient ischemic attack (TIA), and cerebral infarction without residual deficits; Z95.828 Presence of other vascular implants and grafts; I10 Essential (primary) hypertension; I82.431 Acute embolism and thrombosis of right popliteal vein
CPT/HCPCS: 80053; 99284; 85025; 93971; 99283

== ENCOUNTER 2024-03-10 04:04 | Outpatient (RCR) | payer OTHER, SELFPAY ==
[2024-03-10] MEDS: Normal Saline Flush 10 ML SYR IVP (09:12)
[2024-03-10 09:30] LABS: Abs Immature Grans 0.18 10^3/uL (0.0-0.06); Absolute Basophil Count 0.04 10^3/uL (0.0-0.2); Absolute Eosinophil Count 0.12 10^3/uL (0.0-0.7); Absolute Lymphocyte Count 0.87 10^3/uL (1.2-3.4); Absolute Monocyte Count 0.68 10^3/uL (0.1-0.8); Absolute Neutrophil Count 3.55 10^3/uL (1.2-6.7); Basophils % 0.7 %; Eosinophils % 2.2 %; HCT 33.9 % (36.0-46.0); HGB 11.2 g/dL (11.2-15.7); Immature Grans % 3.3 %; MCH 32.4 pg (27.0-33.0); MCV 98 fL (80-95); MPV 8.8 fL (8.0-11.0); Monocytes % 12.5 %; Neutrophils % 65.3 %; Platelet Count 238 10^3/uL (130-400); RBC 3.46 10^6/uL (3.93-5.22); RDW 12.8 % (11.7-14.6); RDW-SD 43.7 fL; WBC 5.44 10^3/uL (4.4-10.8)
[2024-03-10 09:58] LABS: ALT 34 U/L (14-59); AST 26 U/L (15-37); Albumin 3.3 g/dL (3.4-5.0); Alkaline Phosphatase 98 U/L (46-116); Anion Gap 6.3 mmol/L (3-11); BUN 11 mg/dL (7-18); Bilirubin, Total 0.22 mg/dL (0.2-1.0); CO2 26.7 mmol/L (21.0-32.0); CREATININE 1.1 mg/dL (0.55-1.02); Calcium 9.8 mg/dL (8.5-10.1); Chloride 104 mmol/L (98-107); Estimated GFR 56.46 (mL/min/1.73m2); Glucose 98 mg/dL (74-106); Magnesium 1.9 mg/dL (1.8-2.4); Potassium 3.8 mmol/L (3.5-5.1); Sodium 137 mmol/L (136-145); TSH 6.16 uIU/Ml (0.36-3.74); Total Protein 7.3 g/dL (6.4-8.2)
== END 2024-03-24 23:59 | disposition home or self-care (01) ==
LOC: INF 04:04
PROVIDERS: Nurse Practitioner Family; PCP Nurse Practitioner Family; Visit Provider Internal Medicine Medical Oncology
DX: C34.31 Malignant neoplasm of lower lobe, right bronchus or lung (principal); C78.01 Secondary malignant neoplasm of right lung; C78.02 Secondary malignant neoplasm of left lung; Z79.899 Other long term (current) drug therapy
CPT/HCPCS: 36591; 80053; 83735; 84439; 84443; 85025

== ENCOUNTER 2024-04-02 15:33 | Emergency (ER) | payer OTHER, SELFPAY ==
[2024-04-02 15:38] VITALS: BP 120/82; PULSE 70; RESP 15; TEMP 36.5; O2SAT 96
[2024-04-02 15:40] VITALS: BP 120/82; PULSE 70; RESP 15; TEMP 36.5; O2SAT 96
--- NOTE | 2024-04-02 15:45 | DI.RAD_ITS ---
Exam(s) XR CHEST 2V PA LATERAL EXAM: XR CHEST 2V PA LATERAL CLINICAL HISTORY: SOB, Hx of Lung CA TECHNIQUE: 2D digital imaging was performed. Two views. CT CT CHEST W from 08/08/[address] CHEST W from 12/26/2023 FINDINGS: Port over right upper chest with tip in SVC. HEART: Normal size. Aorta: Not dilated. PULMONARY VASCULATURE: Normal. MEDIASTINUM: Unremarkable. LUNGS: Increased density seen in the superior segment of the right lower lobe projecting posterior to the right hilum. Additional patchy density seen in the right middle lobe. Findings not definitely changed from prior CT. Underlying interstitial changes. PLEURAL SPACE: No pleural effusion or pneumothorax. BONE:Unremarkable for age. SOFT TISSUES: Unremarkable. IMPRESSION: Roughly stable opacities in the right lower and middle lobes. No acute abdomen DATA REPOSITORY: RADIATION DOSE DELIVERED:
--- NOTE | 2024-04-02 16:18 | W.ED.GENAD ---
Discharge Plan Disposition Patient Disposition: Home Condition: Stable Discharge Details Clinical Impression: Wheezing Primary Care Provider: Sophie Ramos ED Provider: Altagracia Melgoza Home Meds and New Rx's Prescriptions: No Action olanzapine 5 mg tablet 5 mg PO QHS enoxaparin 100 mg/mL syringe 100 mg subcut Q24H Rx Instructions: Treatment for a total of 3 months. You have one month supply and your PCP will monitor you and complete the treatment as seen fit. cyanocobalamin (vitamin B-12) 1,000 mcg tablet 1,000 mcg PO DAILY Qty: 90 3RF ezetimibe 10 mg tablet 10 mg PO DAILY Qty: 90 3RF Adult 50 Plus Probiotic 4 billion cell capsule 4,000 mmu cells PO DAILY Qty: 30 0RF Rx Instructions: administer with a meal Eliquis 5 mg tablet 5 mg PO BID Patient Comments: TAKE TWO TABLETS BY MOUTH TWICE A DAY FOR 7 DAYS, THEN TAKE 1 TABLET TWICE DAILY buspirone 5 mg tablet 5 mg PO BID Qty: 180 3RF levothyroxine 75 mcg tablet 75 mcg PO DAILY Patient Comments: TAKE ONE TABLET BY MOUTH EVERY DAY aspirin [Children's Aspirin] 81 mg Tablet,Chewable 81 mg PO DAILY Qty: 21 0RF Rx Instructions: [place] [facility] [place]charge Instructions Instructions: Wheezing Additional Instructions: Using albuterol inhaler 1 or 2 puffs every 4-6 hours as needed for wheezing and shortness of breath. Please take the steroids as prescribed by your provider. You may begin them in the morning. Follow up with primary care provider in 3-5 days. Return to ED sooner if any worsening or concerns. Thank you for allowing us to care for you today. Referrals: Sophie Ramos, ARTEM [Primary Care Provider] - 3 days Discharge Data Discharge Date/Time-TO BE ENTERED AT DEPARTURE: 04/02/24 18:15 HPI General Mode of arrival: ambulatory. Date/Time Provider Initiated Documentation: 04/02/24 15:35. Limitations to Documentation: no limitations. Information obtained by: patient, RN notes reviewed and old records reviewed. HPI Narrative: 63-year-old female with a history of cancer presents to the ER with a chief complaint of increasing shortness of breath that began this morning associated with wheezing. Denies any fever or chills nausea vomiting chest pain or any other associated symptoms. Patient reports that she does get weekly infusions last infusion was Sunday. She does have a history of pneumonitis. She was called in prescription for steroids with her oncologist. She is speaking in full sentences. Does have a past medical history of ischemic stroke, PE, sepsis, diverticulitis endometriosis and C. difficile. Related Data Home Medications ?Medication ?Instructions ?Recorded ?Confirmed lactobacillus combination no.9 4 4,000 mmu cells PO DAILY #30 caps 04/04/23 04/02/24 billion cell capsule (Adult 50 Plus Probiotic) apixaban 5 mg tablet (Eliquis) 5 mg PO BID 04/13/23 04/02/24 olanzapine 5 mg tablet 5 mg PO QHS 05/01/23 04/02/24 levothyroxine 75 mcg tablet 75 mcg PO DAILY 12/19/23 04/02/24 aspirin 81 mg chewable tablet 81 mg PO DAILY #21 tabs 12/21/23 04/02/24 (Children's Aspirin) cyanocobalamin (vitamin B-12) 1,000 mcg PO DAILY #90 tabs 01/02/24 04/02/24 1,000 mcg tablet enoxaparin 100 mg/mL subcutaneous 100 mg subcut Q24H 01/02/24 04/02/24 syringe ezetimibe 10 mg tablet 10 mg PO DAILY #90 tabs 01/03/24 04/02/24 buspirone 5 mg tablet 5 mg PO BID #180 tabs 01/30/24 04/02/24 Previous Rx's ?Medication ?Instructions ?Recorded lactobacillus combination no.9 4 4,000 mmu cells PO DAILY #30 caps 04/04/23 billion cell capsule (Adult 50 Plus Probiotic) aspirin 81 mg chewable tablet 81 mg PO DAILY #21 tabs 12/21/23 (Children's Aspirin) cyanocobalamin (vitamin B-12) 1,000 mcg PO DAILY #90 tabs 01/02/24 1,000 mcg tablet ezetimibe 10 mg tablet 10 mg PO DAILY #90 tabs 01/03/24 buspirone 5 mg tablet 5 mg PO BID #180 tabs 01/30/24 Allergies Allergy/AdvReac Type Severity Reaction Status Date / Time Penicillins Allergy Intermediate Hives Unverified 04/02/24 15:42 acetaminophen Allergy Mild Hives Unverified 04/02/24 15:42 General Stated Complaint: RespSymp RENEE: 3 Review of Systems All systems reviewed & are unremarkable except as noted in HPI and below Cardiovascular Cardiovascular: Reports dyspnea and Reports dyspnea on exertion Respiratory Respiratory: Reports dyspnea, Reports dyspnea on exertion and Reports wheezing Allergic/Immunologic Allergic/Immunologic: Reports wheezing Exam Narrative Exam Narrative: Constitutional: Alert and oriented x3. Appears stated age. Normal body habitus. Head: Normocephalic, no trauma. Eyes: Pupils PERRL, Red reflex noted, EOM's intact. Eyelids symmetrical without lesions, discharge, or swelling. ENT: Bilateral TM's WNL, External ear normal to inspection, no mastoid TTP, swelling, or erythema, Nasal turbinates WNL, no nasal discharge. Normal dentition, Posterior pharynx WNL, no exudate. Chest: RRR, Normal S1, S2, distal pulses intact. Resp: Inspiratory and expiratory scattered wheezes bilaterally. Abdomen: Soft, non-distended, Normoactive bowel sounds all 4 quads. Musculoskeletal: Normal gait, Moves all 4 extremities without difficulty. Skin: No suspicious rashes or lesions. Capillary refill less than 2 sec. Neurologic: Cranial nerves II-XII intact. Alert and oriented x 3. Motor: No deficits noted. Sensory: Intact bilaterally all 4 extremities. Hematologic/Lymphatic: No ecchymosis, no lymphadenopathy. Course Vital Signs Vital signs: Vital Signs Temperature 36.5 C 04/02/24 15:38 Pulse 70 04/02/24 15:38 Respiratory Rate 15 04/02/24 15:38 Blood Pressure 120/82 04/02/24 15:38 Pulse Oximetry 96 04/02/24 15:38 Temperature 36.5 C 04/02/24 15:40 Pulse 70 04/02/24 15:40 Respiratory Rate 15 04/02/24 15:40 Respiratory Effort Normal 04/02/24 15:40 Blood Pressure 120/82 04/02/24 15:40 Blood Pressure Position Sitting 04/02/24 15:40 Pulse Oximetry 96 04/02/24 15:40 Oxygen Delivery Method Room Air 04/02/24 15:40 Oxygen Flow Rate 0 04/02/24 15:40 Lab/Test Results Lab/Test Results: Laboratory Tests Range/Units 04/02/24 04/02/24 04/02/24 15:44 15:46 16:47 WBC Cancelled RBC Cancelled Hgb Cancelled Hct Cancelled MCV Cancelled MCH Cancelled MCHC Cancelled RDW Cancelled Plt Count Cancelled MPV Cancelled Immature Gran % Cancelled Neutrophils % Cancelled Band Neutrophils % Cancelled Lymphocytes % Cancelled Atypical Lymphs % Cancelled Monocytes % Cancelled Eosinophils % Cancelled Basophils % Cancelled Metamyelocytes % Cancelled Myelocytes % Cancelled Promyelocytes % Cancelled Other Cells % Cancelled Nucleated RBC % Cancelled Absolute Neutrophils Cancelled Absolute Lymphocytes Cancelled Absolute Monocytes Cancelled Absolute Eosinophils Cancelled Absolute Basophils Cancelled RBC Morphology Cancelled Polychromasia Cancelled Hypochromasia Cancelled Poikilocytosis Cancelled Basophilic Stippling Cancelled Anisocytosis Cancelled Microcytosis Cancelled Macrocytosis Cancelled Spherocytes Cancelled Tear Drop Cells Cancelled Ovalocytes Cancelled Stomatocytes Cancelled [place] Bodies Cancelled [place] Cells/Echinocytes Cancelled Acanthocytes (Spur) Cancelled Schistocytes Cancelled Sodium Cancelled Potassium Cancelled Chloride Cancelled Carbon Dioxide Cancelled Anion Gap Cancelled BUN Cancelled Creatinine Cancelled Est GFR (CKD-EPI 2020) Cancelled Glucose Cancelled Calcium Cancelled Total Bilirubin Cancelled AST Cancelled ALT Cancelled Alkaline Phosphatase Cancelled Troponin I Cancelled Cancelled NT-Pro-B Natriuret Pep Cancelled Total Protein Cancelled Albumin Cancelled COVID-19 Source Cancelled SARS-CoV-2 (PCR) Cancelled Influenza Type A (PCR) Cancelled Influenza Type B (PCR) Cancelled RSV (PCR) Cancelled Medical Decision Making 63-year-old female with a history of cancer presents to the ER with a chief complaint of increasing shortness of breath that began this morning associated with wheezing. Denies any fever or chills nausea vomiting chest pain or any other associated symptoms. Patient reports that she does get weekly infusions last infusion was Sunday. She does have a history of pneumonitis. She was called in prescription for steroids with her oncologist. She is speaking in full sentences. Does have a past medical history of ischemic stroke, PE, sepsis, diverticulitis endometriosis and C. difficile. Initially full workup ordered however after speaking with patient majority for Canceled. Chest x-ray, DuoNeb ordered and 60 mg prednisone. Chest x-ray shows a more prominence of the right middle lobe opacity. And the interstitial disease. Patient will be given a albuterol inhaler to go home with and instructed to take the prednisone that the oncologist ordered. Patient reports that she feels better on reevaluation prior to discharge. Wheezing has decreased. This text was generated using [employer] system, please disregard any oddities of phrase or misspellings. Medical Records Medical records reviewed: Yes I reviewed the patient's medical records. 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) Hyperlipidemia (Chronic) Diverticulosis of colon (Acute) Cigarette smoker (Chronic) Medical History Clostridium difficile colitis (~03/2023) Palliative care patient Acute right arterial ischemic stroke, MCA (middle cerebral artery) (~11/2022) S/p mechanical thrombectomy Renal infarct (~11/2022) Pulmonary embolism, bilateral (~10/2022) Infarction of spleen (~11/2022) Sepsis Diverticulitis (~12/2022) Endometriosis Surgical History History of cataract surgery S/P hysterectomy with oophorectomy S/P ORIF (open reduction internal fixation) fracture Left foot Family History Mother , 76 of lung cancer Lung cancer Father , 75 Diabetes Metastatic cancer Sister No problems noted. Brother Alcohol use disorder Brother Alcohol use disorder Liver disease TIA (transient ischemic attack) Maternal Grandfather No problems noted. Maternal Grandmother Heart disease Paternal Grandfather No problems noted. Paternal Grandmother No problems noted. Social History (Reviewed 04/02/24 @ 16:19 by MEENU Nichols Smoking/Tobacco Use Status: Former Tobacco Use Quit Date: 11/23/22 Tobacco: How many years used: 40 Quit status: not considering quitting Second Hand Exposure: Yes Smoking risk assessment performed?: Yes Alcohol Intake: current Alcohol Intake frequency: a few times a month Alcohol type: hard liquor Drug use: Never Substance use type: does not use Caregiver/Support person: No Household members: spouse Housing: house Communication Needs: None Pets and animals: Yes Pets and animals: cat(s) Sexually active: Yes Do you think of yourself as: straight/heterosexual Current gender identity: female What is your relationship status?: How often do you talk on the phone with friends or family?: three or more times per week How often do you get together with friends or relatives?: once per week How often do you attend orthodox or islam services?: decline to answer Do you belong to any clubs or organized social groups?: no Panel score (0-1 are the most socially isolated patients): 2 What type of physical activity do you participate in: walking Frequency: daily Jennifer/Jainism: No preference Special jennifer needs: No Seatbelt use: always Helmet use: Yes Drive intox 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 Do you feel safe at home: Yes Do you feel safe in your relationship?: Yes PAWSS Have you Been Recently Intoxicated or Drunk Within the Last 30 days?: No Have you Ever Experienced Previous Episodes of Alcohol Withdrawal?: No Have you ever Experienced Withdrawal Seizures?: No Have you ever Experienced Delirium Tremens(DT)s?: No Have you ever undergone Alcohol Rehabilitation Treatment (i.e, inpt ot outpatient treatment programs)?: No Have you ever Experienced Blackouts?: No Have you ever Combined Alcohol with other Downers within the last 90 days?: No Have you ever Combined Alcohol with any other Substance of Abuse during the last 90 days?: No Positive Blood Alcohol level on Presentation? [PCS.BAL]: No Evidence of Increased Autonomic Activity (i.e. HR>120, tremor, sweating, agitation, nausea)?: No Result: 0
[2024-04-02 16:26] VITALS: RESP 5; RESP 7
[2024-04-02] MEDS: predniSONE 20 MG TAB 60 MG PO (16:26)
[2024-04-02] MEDS: Albuterol/Ipratropium 3 ML UPD VIAL UPD (16:26)
== END 2024-04-02 18:15 | disposition home or self-care (01) ==
PROVIDERS: Emergency Provider Registered Nurse Emergency; PCP Nurse Practitioner Family
DX: R06.2 Wheezing (principal); Z85.118 Personal history of other malignant neoplasm of bronchus and lung; Z86.711 Personal history of pulmonary embolism; Z79.01 Long term (current) use of anticoagulants; Z79.82 Long term (current) use of aspirin; Z87.891 Personal history of nicotine dependence
CPT/HCPCS: 80053; 87637; 99283; 71046; 83880; 84484; 85025; J7512; J7620

== ENCOUNTER 2024-04-21 01:41 | Outpatient (RCR) | payer OTHER, SELFPAY ==
[2024-03-31] MEDS: Normal Saline Flush 10 ML SYR IVP (08:34)
[2024-03-31 08:55] LABS: Abs Immature Grans 0.05 10^3/uL (0.0-0.06); Absolute Basophil Count 0.02 10^3/uL (0.0-0.2); Absolute Eosinophil Count 0.01 10^3/uL (0.0-0.7); Absolute Lymphocyte Count 0.73 10^3/uL (1.2-3.4); Absolute Monocyte Count 0.61 10^3/uL (0.1-0.8); Absolute Neutrophil Count 2.15 10^3/uL (1.2-6.7); Basophils % 0.6 %; Eosinophils % 0.3 %; HGB 10.7 g/dL (11.2-15.7); Immature Grans % 1.4 %; Lymphocytes % 20.4 %; MCH 32.1 pg (27.0-33.0); MCHC 32.4 % (32.0-36.0); MCV 99 fL (80-95); MPV 9.2 fL (8.0-11.0); Monocytes % 17.1 %; Neutrophils % 60.2 %; Platelet Count 194 10^3/uL (130-400); RBC 3.33 10^6/uL (3.93-5.22); RDW-SD 51.8 fL; WBC 3.57 10^3/uL (4.4-10.8)
[2024-03-31 09:56] LABS: ALT 56 U/L (14-59); AST 33 U/L (15-37); Albumin 3.4 g/dL (3.4-5.0); Alkaline Phosphatase 106 U/L (46-116); BUN 10 mg/dL (7-18); CO2 26.5 mmol/L (21.0-32.0); CREATININE 1.2 mg/dL (0.55-1.02); Calcium 9.8 mg/dL (8.5-10.1); Estimated GFR 50.86 (mL/min/1.73m2); FREE T4 1.15 ng/dL (0.76-1.46); Glucose 95 mg/dL (74-106); TSH 5.48 uIU/Ml (0.36-3.74); Total Protein 7.4 g/dL (6.4-8.2)
[2024-03-31 10:06] LABS: Anion Gap 11.5 mmol/L (3-11); Chloride 105 mmol/L (98-107); Potassium 4.1 mmol/L (3.5-5.1); Sodium 143 mmol/L (136-145)
[2024-04-21] MEDS: Normal Saline Flush 10 ML SYR IVP (07:33)
[2024-04-21 07:54] LABS: Abs Immature Grans 0.04 10^3/uL (0.0-0.06); Absolute Basophil Count 0.02 10^3/uL (0.0-0.2); Absolute Lymphocyte Count 0.65 10^3/uL (1.2-3.4); Absolute Monocyte Count 0.65 10^3/uL (0.1-0.8); Absolute Neutrophil Count 2.38 10^3/uL (1.2-6.7); Basophils % 0.5 %; HCT 29.6 % (36.0-46.0); HGB 10.1 g/dL (11.2-15.7); Immature Grans % 1.1 %; Lymphocytes % 17.4 %; MCH 33.6 pg (27.0-33.0); MCHC 34.1 % (32.0-36.0); MCV 98 fL (80-95); MPV 9.4 fL (8.0-11.0); Monocytes % 17.4 %; Neutrophils % 63.6 %; Platelet Count 183 10^3/uL (130-400); RBC 3.01 10^6/uL (3.93-5.22); RDW 17.4 % (11.7-14.6); WBC 3.74 10^3/uL (4.4-10.8)
[2024-04-21 08:21] LABS: ALT 53 U/L (14-59); AST 38 U/L (15-37); Albumin 3.4 g/dL (3.4-5.0); Alkaline Phosphatase 102 U/L (46-116); Anion Gap 10.4 mmol/L (3-11); BUN 10 mg/dL (7-18); Bilirubin, Total 0.28 mg/dL (0.2-1.0); CO2 26.6 mmol/L (21.0-32.0); CREATININE 1.3 mg/dL (0.55-1.02); Calcium 9.6 mg/dL (8.5-10.1); Chloride 106 mmol/L (98-107); Estimated GFR 45.92 (mL/min/1.73m2); FREE T4 1.06 ng/dL (0.76-1.46); Glucose 117 mg/dL (74-106); Magnesium 1.8 mg/dL (1.8-2.4); Potassium 3.7 mmol/L (3.5-5.1); Sodium 143 mmol/L (136-145); TSH 6.39 uIU/mL (0.36-3.74); Total Protein 7.5 g/dL (6.4-8.2)
== END 2024-04-24 23:59 | disposition home or self-care (01) ==
LOC: INF 01:41
PROVIDERS: PCP Nurse Practitioner Family; Visit Provider Internal Medicine Medical Oncology
DX: C34.31 Malignant neoplasm of lower lobe, right bronchus or lung (principal); C78.01 Secondary malignant neoplasm of right lung; C78.02 Secondary malignant neoplasm of left lung; Z79.899 Other long term (current) drug therapy; Z45.2 Encounter for adjustment and management of vascular access device
CPT/HCPCS: 36591; 80053; 83735; 84439; 84443; 85025

== ENCOUNTER 2024-05-12 01:51 | Outpatient (RCR) | payer OTHER, SELFPAY ==
[2024-05-12] MEDS: Normal Saline Flush 10 ML SYR IVP (10:40)
[2024-05-12 11:06] LABS: Abs Immature Grans 0.08 10^3/uL (0.0-0.06); Absolute Basophil Count 0.03 10^3/uL (0.0-0.2); Absolute Eosinophil Count 0.01 10^3/uL (0.0-0.7); Absolute Lymphocyte Count 0.67 10^3/uL (1.2-3.4); Absolute Neutrophil Count 2.43 10^3/uL (1.2-6.7); Basophils % 0.8 %; Eosinophils % 0.3 %; HCT 26.5 % (36.0-46.0); HGB 8.7 g/dL (11.2-15.7); Lymphocytes % 17.1 %; MCH 34.1 pg (27.0-33.0); MCHC 32.8 % (32.0-36.0); MCV 104 fL (80-95); MPV 9.5 fL (8.0-11.0); Monocytes % 17.9 %; Neutrophils % 61.9 %; Platelet Count 154 10^3/uL (130-400); RBC 2.55 10^6/uL (3.93-5.22); RDW 18.6 % (11.7-14.6); RDW-SD 70.8 fL; WBC 3.92 10^3/uL (4.4-10.8)
[2024-05-12 11:32] LABS: Diff Comment Diff Reviewed
[2024-05-12 11:33] LABS: Hypochromasia 1+; Polychromasia Present
[2024-05-12 11:51] LABS: ALT 47 U/L (14-59); AST 31 U/L (15-37); Albumin 3.3 g/dL (3.4-5.0); Alkaline Phosphatase 128 U/L (46-116); Anion Gap 10.6 mmol/L (3-11); BUN 11 mg/dL (7-18); Bilirubin, Total 0.33 mg/dL (0.2-1.0); CO2 24.4 mmol/L (21.0-32.0); CREATININE 1.3 mg/dL (0.55-1.02); Calcium 9.1 mg/dL (8.5-10.1); Chloride 105 mmol/L (98-107); Estimated GFR 45.92 (mL/min/1.73m2); FREE T4 1.26 ng/dL (0.76-1.46); Glucose 127 mg/dL (74-106); Magnesium 1.6 mg/dL (1.8-2.4); Potassium 3.6 mmol/L (3.5-5.1); Sodium 140 mmol/L (136-145); TSH 0.73 uIU/mL (0.36-3.74); Total Protein 7.4 g/dL (6.4-8.2)
== END 2024-05-24 23:59 | disposition home or self-care (01) ==
LOC: INF 01:51
PROVIDERS: PCP Nurse Practitioner Family; Visit Provider Internal Medicine Medical Oncology
DX: C34.31 Malignant neoplasm of lower lobe, right bronchus or lung (principal); C78.01 Secondary malignant neoplasm of right lung; C78.02 Secondary malignant neoplasm of left lung; Z79.899 Other long term (current) drug therapy; Z45.2 Encounter for adjustment and management of vascular access device
CPT/HCPCS: 36591; 80053; 83735; 84439; 84443; 85025

== ENCOUNTER 2024-06-23 02:06 | Outpatient (RCR) | payer OTHER, SELFPAY ==
[2024-05-27] MEDS: Normal Saline Flush 10 ML SYR IVP (10:27)
[2024-06-03] MEDS: Normal Saline Flush 10 ML SYR IVP (07:35)
[2024-06-03 08:07] LABS: Abs Immature Grans 0.05 10^3/uL (0.0-0.06); Absolute Basophil Count 0.02 10^3/uL (0.0-0.2); Absolute Lymphocyte Count 0.49 10^3/uL (1.2-3.4); Absolute Monocyte Count 0.81 10^3/uL (0.1-0.8); Absolute Neutrophil Count 2.08 10^3/uL (1.2-6.7); Basophils % 0.6 %; HCT 26.7 % (36.0-46.0); HGB 8.5 g/dL (11.2-15.7); Immature Grans % 1.4 %; Lymphocytes % 14.2 %; MCHC 31.8 % (32.0-36.0); MCV 113 fL (80-95); MPV 9.7 fL (8.0-11.0); Monocytes % 23.5 %; Neutrophils % 60.3 %; Nucleated RBC 0.6 % (0.0-0.3); Platelet Count 176 10^3/uL (130-400); RBC 2.36 10^6/uL (3.93-5.22); RDW 17.4 % (11.7-14.6); RDW-SD 72.4 fL; WBC 3.45 10^3/uL (4.4-10.8)
[2024-06-03 08:23] LABS: Anisocytosis 1+; Diff Comment RBC Morph Reviewed
[2024-06-03 08:24] LABS: Macrocytosis 1+; Polychromasia Present
[2024-06-03 08:31] LABS: ALT 49 U/L (14-59); AST 40 U/L (15-37); Albumin 3.4 g/dL (3.4-5.0); Alkaline Phosphatase 121 U/L (46-116); Anion Gap 9.5 mmol/L (3-11); BUN 10 mg/dL (7-18); Bilirubin, Total 0.32 mg/dL (0.2-1.0); CO2 25.5 mmol/L (21.0-32.0); CREATININE 1.2 mg/dL (0.55-1.02); Calcium 9.1 mg/dL (8.5-10.1); Chloride 105 mmol/L (98-107); Estimated GFR 50.55 (mL/min/1.73m2); FREE T4 1.42 ng/dL (0.76-1.46); Glucose 117 mg/dL (74-106); Magnesium 1.6 mg/dL (1.8-2.4); Potassium 3.9 mmol/L (3.5-5.1); Sodium 140 mmol/L (136-145); TSH 0.25 uIU/mL (0.36-3.74); Total Protein 7.3 g/dL (6.4-8.2)
[2024-06-23] MEDS: Normal Saline Flush 10 ML SYR IVP (08:28)
[2024-06-23 08:47] LABS: Abs Immature Grans 0.15 10^3/uL (0.0-0.06); Absolute Basophil Count 0.03 10^3/uL (0.0-0.2); Absolute Lymphocyte Count 0.32 10^3/uL (1.2-3.4); Absolute Monocyte Count 1.01 10^3/uL (0.1-0.8); Absolute Neutrophil Count 7.58 10^3/uL (1.2-6.7); Basophils % 0.3 %; HCT 30.2 % (36.0-46.0); HGB 9.6 g/dL (11.2-15.7); Immature Grans % 1.7 %; Lymphocytes % 3.5 %; MCH 36.2 pg (27.0-33.0); MCHC 31.8 % (32.0-36.0); MCV 114 fL (80-95); MPV 9.3 fL (8.0-11.0); Monocytes % 11.1 %; Neutrophils % 83.4 %; Platelet Count 283 10^3/uL (130-400); RBC 2.65 10^6/uL (3.93-5.22); RDW 14.2 % (11.7-14.6); RDW-SD 58.9 fL; WBC 9.09 10^3/uL (4.4-10.8)
[2024-06-23 09:21] LABS: ALT 58 U/L (14-59); AST 28 U/L (15-37); Albumin 3.3 g/dL (3.4-5.0); Alkaline Phosphatase 104 U/L (46-116); Anion Gap 10.6 mmol/L (3-11); BUN 9 mg/dL (7-18); Bilirubin, Total 0.37 mg/dL (0.2-1.0); CO2 25.4 mmol/L (21.0-32.0); CREATININE 1.2 mg/dL (0.55-1.02); Chloride 103 mmol/L (98-107); Estimated GFR 50.55 (mL/min/1.73m2); FREE T4 1.61 ng/dL (0.76-1.46); Glucose 114 mg/dL (74-106); Magnesium 1.8 mg/dL (1.8-2.4); Potassium 3.9 mmol/L (3.5-5.1); Sodium 139 mmol/L (136-145); TSH 0.13 uIU/mL (0.36-3.74); Total Protein 6.9 g/dL (6.4-8.2)
== END 2024-06-24 23:59 | disposition home or self-care (01) ==
LOC: INF 02:06
PROVIDERS: Nurse Practitioner Family; PCP Nurse Practitioner Family; Visit Provider Internal Medicine Medical Oncology
DX: C34.31 Malignant neoplasm of lower lobe, right bronchus or lung (principal); Z79.899 Other long term (current) drug therapy; Z45.2 Encounter for adjustment and management of vascular access device
CPT/HCPCS: 36591; 80053; 96523; 83735; 84439; 84443; 85025

== ENCOUNTER 2024-07-14 01:48 | Outpatient (RCR) | payer OTHER, SELFPAY ==
[2024-07-01 08:25] LABS: Abs Immature Grans 0.29 10^3/uL (0.0-0.06); Absolute Eosinophil Count 0.01 10^3/uL (0.0-0.7); Absolute Monocyte Count 0.66 10^3/uL (0.1-0.8); Basophils % 0.3 %; Eosinophils % 0.1 %; HCT 32.4 % (36.0-46.0); HGB 10.6 g/dL (11.2-15.7); Immature Grans % 2.5 %; Lymphocytes % 2.6 %; MCH 35.8 pg (27.0-33.0); MCHC 32.7 % (32.0-36.0); MPV 8.9 fL (8.0-11.0); Monocytes % 5.6 %; Neutrophils % 88.9 %; Platelet Count 258 10^3/uL (130-400); RBC 2.96 10^6/uL (3.93-5.22); RDW 13.2 % (11.7-14.6); RDW-SD 52.7 fL; WBC 11.72 10^3/uL (4.4-10.8)
[2024-07-01 08:26] LABS: Absolute Basophil Count 0.04 10^3/uL (0.0-0.2); Absolute Neutrophil Count 10.42 10^3/uL (1.2-6.7); MCV 110 fL (80-95)
[2024-07-01 08:55] LABS: ALT 43 U/L (14-59); AST 23 U/L (15-37); Albumin 3.3 g/dL (3.4-5.0); Alkaline Phosphatase 110 U/L (46-116); BUN 13 mg/dL (7-18); CREATININE 1.2 mg/dL (0.55-1.02); Chloride 104 mmol/L (98-107); Estimated GFR 50.55 (mL/min/1.73m2); FREE T4 1.36 ng/dL (0.76-1.46); Glucose 119 mg/dL (74-106); Magnesium 1.7 mg/dL (1.8-2.4); Sodium 138 mmol/L (136-145); Total Protein 7.2 g/dL (6.4-8.2)
[2024-07-01] MEDS: Normal Saline Flush 10 ML SYR IVP (10:25)
[2024-07-14] MEDS: Normal Saline Flush 10 ML SYR IVP (07:43)
[2024-07-14 07:57] LABS: Abs Immature Grans 0.18 10^3/uL (0.0-0.06); Absolute Basophil Count 0.01 10^3/uL (0.0-0.2); Absolute Lymphocyte Count 0.37 10^3/uL (1.2-3.4); Absolute Monocyte Count 0.73 10^3/uL (0.1-0.8); Basophils % 0.1 %; HCT 33.4 % (36.0-46.0); HGB 10.8 g/dL (11.2-15.7); Immature Grans % 1.3 %; Lymphocytes % 2.7 %; MCH 34.5 pg (27.0-33.0); MCHC 32.3 % (32.0-36.0); MCV 107 fL (80-95); MPV 9.6 fL (8.0-11.0); Monocytes % 5.3 %; Neutrophils % 90.6 %; Platelet Count 171 10^3/uL (130-400); RBC 3.13 10^6/uL (3.93-5.22); WBC 13.69 10^3/uL (4.4-10.8)
[2024-07-14 08:25] LABS: ALT 68 U/L (14-59); AST 24 U/L (15-37); Albumin 3.2 g/dL (3.4-5.0); Alkaline Phosphatase 104 U/L (46-116); Anion Gap 8.3 mmol/L (3-11); BUN 16 mg/dL (7-18); Bilirubin, Total 0.23 mg/dL (0.2-1.0); CO2 28.7 mmol/L (21.0-32.0); CREATININE 1.1 mg/dL (0.55-1.02); Calcium 9.5 mg/dL (8.5-10.1); Chloride 104 mmol/L (98-107); Estimated GFR 56.11 (mL/min/1.73m2); FREE T4 1.07 ng/dL (0.76-1.46); Glucose 125 mg/dL (74-106); Magnesium 1.8 mg/dL (1.8-2.4); Potassium 3.6 mmol/L (3.5-5.1); Sodium 141 mmol/L (136-145); TSH 0.48 uIU/mL (0.36-3.74); Total Protein 7.1 g/dL (6.4-8.2)
== END 2024-07-25 23:59 | disposition home or self-care (01) ==
LOC: INF 01:48
PROVIDERS: Nurse Practitioner Family; PCP Nurse Practitioner Family; Visit Provider Internal Medicine Medical Oncology
DX: C34.31 Malignant neoplasm of lower lobe, right bronchus or lung (principal); Z79.899 Other long term (current) drug therapy
CPT/HCPCS: 36591; 80053; 83735; 84439; 84443; 85025

== ENCOUNTER 2024-08-11 01:45 | Outpatient (RCR) | payer OTHER, SELFPAY ==
[2024-07-28 08:51] LABS: Abs Immature Grans 0.16 10^3/uL (0.0-0.06); Absolute Basophil Count 0.02 10^3/uL (0.0-0.2); Absolute Lymphocyte Count 0.26 10^3/uL (1.2-3.4); Absolute Monocyte Count 0.45 10^3/uL (0.1-0.8); Absolute Neutrophil Count 7.46 10^3/uL (1.2-6.7); Basophils % 0.2 %; HCT 33.5 % (36.0-46.0); HGB 10.9 g/dL (11.2-15.7); Immature Grans % 1.9 %; Lymphocytes % 3.1 %; MCH 34.9 pg (27.0-33.0); MCHC 32.5 % (32.0-36.0); MCV 107 fL (80-95); MPV 8.9 fL (8.0-11.0); Monocytes % 5.4 %; Neutrophils % 89.4 %; Platelet Count 198 10^3/uL (130-400); RBC 3.12 10^6/uL (3.93-5.22); RDW 13.6 % (11.7-14.6); RDW-SD 53.2 fL; WBC 8.35 10^3/uL (4.4-10.8)
[2024-07-28 09:31] LABS: ALT 81 U/L (14-59); AST 28 U/L (15-37); Albumin 3.5 g/dL (3.4-5.0); Alkaline Phosphatase 96 U/L (46-116); Anion Gap 9.4 mmol/L (3-11); BUN 15 mg/dL (7-18); Bilirubin, Total 0.32 mg/dL (0.2-1.0); CO2 25.6 mmol/L (21.0-32.0); CREATININE 1.1 mg/dL (0.55-1.02); Calcium 9.5 mg/dL (8.5-10.1); Chloride 104 mmol/L (98-107); Estimated GFR 56.11 (mL/min/1.73m2); FREE T4 1.07 ng/dL (0.76-1.46); Glucose 111 mg/dL (74-106); Magnesium 1.8 mg/dL (1.8-2.4); Potassium 4.1 mmol/L (3.5-5.1); Sodium 139 mmol/L (136-145); TSH 0.69 uIU/mL (0.36-3.74)
[2024-07-28] MEDS: Normal Saline Flush 10 ML SYR IVP (09:31)
[2024-08-05] MEDS: Normal Saline Flush 10 ML SYR IVP ×2 (08:32→08:37)
[2024-08-11] MEDS: Normal Saline Flush 10 ML SYR IVP (08:31)
[2024-08-11 08:52] LABS: Abs Immature Grans 0.18 10^3/uL (0.0-0.06); Absolute Basophil Count 0.03 10^3/uL (0.0-0.2); Absolute Eosinophil Count 0.01 10^3/uL (0.0-0.7); Absolute Lymphocyte Count 0.32 10^3/uL (1.2-3.4); Absolute Monocyte Count 0.58 10^3/uL (0.1-0.8); Absolute Neutrophil Count 7.94 10^3/uL (1.2-6.7); Basophils % 0.3 %; Eosinophils % 0.1 %; HCT 35.4 % (36.0-46.0); HGB 11.3 g/dL (11.2-15.7); Lymphocytes % 3.5 %; MCH 34.3 pg (27.0-33.0); MCHC 31.9 % (32.0-36.0); MCV 108 fL (80-95); MPV 9.2 fL (8.0-11.0); Monocytes % 6.4 %; Neutrophils % 87.7 %; Platelet Count 238 10^3/uL (130-400); RBC 3.29 10^6/uL (3.93-5.22); RDW 14.8 % (11.7-14.6); RDW-SD 57.5 fL; WBC 9.06 10^3/uL (4.4-10.8)
[2024-08-11 09:25] LABS: ALT 74 U/L (14-59); AST 35 U/L (15-37); Albumin 3.7 g/dL (3.4-5.0); Alkaline Phosphatase 108 U/L (46-116); Anion Gap 10.8 mmol/L (3-11); BUN 10 mg/dL (7-18); Bilirubin, Total 0.33 mg/dL (0.2-1.0); CO2 25.2 mmol/L (21.0-32.0); CREATININE 1.2 mg/dL (0.55-1.02); Calcium 9.8 mg/dL (8.5-10.1); Chloride 104 mmol/L (98-107); Estimated GFR 50.55 (mL/min/1.73m2); FREE T4 1.21 ng/dL (0.76-1.46); Glucose 107 mg/dL (74-106); Magnesium 1.7 mg/dL (1.8-2.4); Potassium 3.8 mmol/L (3.5-5.1); Sodium 140 mmol/L (136-145); TSH 2.04 uIU/mL (0.36-3.74); Total Protein 7.1 g/dL (6.4-8.2)
[2024-08-11 09:33] LABS: Diff Comment RBC Morph Reviewed; Macrocytosis 2+; Polychromasia Present
== END 2024-08-22 23:59 | disposition home or self-care (01) ==
LOC: INF 01:45
PROVIDERS: Nurse Practitioner Family; PCP Nurse Practitioner Family; Visit Provider Internal Medicine Medical Oncology
DX: C34.31 Malignant neoplasm of lower lobe, right bronchus or lung (principal); Z79.899 Other long term (current) drug therapy
CPT/HCPCS: 36591; 80053; 96523; 83735; 84439; 84443; 85025

== ENCOUNTER 2024-09-22 01:35 | Outpatient (RCR) | payer OTHER, SELFPAY ==
[2024-08-26 09:57] LABS: Abs Immature Grans 0.04 10^3/uL (0.0-0.06); Absolute Basophil Count 0.05 10^3/uL (0.0-0.2); Absolute Eosinophil Count 0.03 10^3/uL (0.0-0.7); Absolute Lymphocyte Count 0.66 10^3/uL (1.2-3.4); Absolute Neutrophil Count 3.71 10^3/uL (1.2-6.7); Basophils % 0.9 %; Eosinophils % 0.6 %; HGB 10.8 g/dL (11.2-15.7); Immature Grans % 0.8 %; Lymphocytes % 12.5 %; MCH 33.9 pg (27.0-33.0); MCHC 31.8 % (32.0-36.0); MCV 107 fL (80-95); MPV 9.4 fL (8.0-11.0); Monocytes % 15.1 %; Neutrophils % 70.1 %; Platelet Count 249 10^3/uL (130-400); RBC 3.19 10^6/uL (3.93-5.22); RDW 14.4 % (11.7-14.6); RDW-SD 56.8 fL; WBC 5.29 10^3/uL (4.4-10.8)
[2024-08-26] MEDS: Normal Saline Flush 10 ML SYR IVP (10:01)
[2024-08-26 10:25] LABS: ALT 48 U/L (14-59); AST 32 U/L (15-37); Albumin 3.4 g/dL (3.4-5.0); Alkaline Phosphatase 147 U/L (46-116); Anion Gap 9.4 mmol/L (3-11); BUN 8 mg/dL (7-18); CO2 25.6 mmol/L (21.0-32.0); Calcium 9.3 mg/dL (8.5-10.1); Chloride 105 mmol/L (98-107); Estimated GFR 62.91 (mL/min/1.73m2); Glucose 99 mg/dL (74-106); Potassium 4.1 mmol/L (3.5-5.1); Sodium 140 mmol/L (136-145); TSH 2.21 uIU/mL (0.36-3.74)
[2024-08-26 18:40] LABS: T4, Free 1.5 ng/dL (0.8-2.2)
[2024-09-08 13:59] LABS: Abs Immature Grans 0.04 10^3/uL (0.0-0.06); Absolute Basophil Count 0.02 10^3/uL (0.0-0.2); Absolute Eosinophil Count 0.03 10^3/uL (0.0-0.7); Absolute Lymphocyte Count 0.54 10^3/uL (1.2-3.4); Absolute Monocyte Count 0.83 10^3/uL (0.1-0.8); Absolute Neutrophil Count 3.06 10^3/uL (1.2-6.7); Basophils % 0.4 %; Eosinophils % 0.7 %; HCT 32.1 % (36.0-46.0); HGB 10.4 g/dL (11.2-15.7); Immature Grans % 0.9 %; Lymphocytes % 11.9 %; MCH 34.6 pg (27.0-33.0); MCHC 32.4 % (32.0-36.0); MCV 107 fL (80-95); MPV 9.5 fL (8.0-11.0); Monocytes % 18.4 %; Neutrophils % 67.7 %; Platelet Count 219 10^3/uL (130-400); RBC 3.01 10^6/uL (3.93-5.22); RDW 14.6 % (11.7-14.6); RDW-SD 56.9 fL; WBC 4.52 10^3/uL (4.4-10.8)
[2024-09-08] MEDS: Normal Saline Flush 10 ML SYR IVP (14:12)
[2024-09-08 14:26] LABS: ALT 31 U/L (14-59); AST 29 U/L (15-37); Albumin 3.1 g/dL (3.4-5.0); Alkaline Phosphatase 143 U/L (46-116); Anion Gap 7.8 mmol/L (3-11); BUN 8 mg/dL (7-18); Bilirubin, Total 0.3 mg/dL (0.2-1.0); CO2 25.2 mmol/L (21.0-32.0); CREATININE 0.9 mg/dL (0.55-1.02); Calcium 8.2 mg/dL (8.5-10.1); Chloride 108 mmol/L (98-107); Estimated GFR 71.39 (mL/min/1.73m2); Glucose 132 mg/dL (74-106); Magnesium 1.8 mg/dL (1.8-2.4); Potassium 3.8 mmol/L (3.5-5.1); Sodium 141 mmol/L (136-145); TSH 0.48 uIU/mL (0.36-3.74); Total Protein 6.4 g/dL (6.4-8.2)
[2024-09-08 22:06] LABS: T4, Free 1.4 ng/dL (0.8-2.2)
[2024-09-22] MEDS: Normal Saline Flush 10 ML SYR IVP (13:09)
[2024-09-22 13:38] LABS: Abs Immature Grans 0.04 10^3/uL (0.0-0.06); Absolute Basophil Count 0.03 10^3/uL (0.0-0.2); Absolute Eosinophil Count 0.05 10^3/uL (0.0-0.7); Absolute Lymphocyte Count 0.56 10^3/uL (1.2-3.4); Absolute Monocyte Count 1.02 10^3/uL (0.1-0.8); Basophils % 0.6 %; HCT 34.8 % (36.0-46.0); HGB 10.9 g/dL (11.2-15.7); Immature Grans % 0.8 %; Lymphocytes % 11.2 %; MCHC 31.3 % (32.0-36.0); MCV 106 fL (80-95); MPV 9.4 fL (8.0-11.0); Monocytes % 20.4 %; Platelet Count 253 10^3/uL (130-400); RDW 14.6 % (11.7-14.6); RDW-SD 56.9 fL
[2024-09-22 14:04] LABS: ALT 41 U/L (14-59); AST 33 U/L (15-37); Albumin 3.4 g/dL (3.4-5.0); Alkaline Phosphatase 146 U/L (46-116); Anion Gap 9.4 mmol/L (3-11); BUN 9 mg/dL (7-18); Bilirubin, Total 0.4 mg/dL (0.2-1.0); CO2 24.6 mmol/L (21.0-32.0); CREATININE 0.9 mg/dL (0.55-1.02); Calcium 9.2 mg/dL (8.5-10.1); Chloride 105 mmol/L (98-107); Estimated GFR 71.39 (mL/min/1.73m2); FREE T4 1.25 ng/dL (0.76-1.46); Glucose 90 mg/dL (74-106); Magnesium 1.9 mg/dL (1.8-2.4); Potassium 4.1 mmol/L (3.5-5.1); Sodium 139 mmol/L (136-145); TSH 0.58 uIU/mL (0.36-3.74); Total Protein 6.7 g/dL (6.4-8.2)
== END 2024-09-22 23:59 | disposition home or self-care (01) ==
LOC: INF 01:35
PROVIDERS: Nurse Practitioner Family; PCP Nurse Practitioner Family; Visit Provider Internal Medicine Medical Oncology
DX: C34.31 Malignant neoplasm of lower lobe, right bronchus or lung (principal); Z79.899 Other long term (current) drug therapy
CPT/HCPCS: 36591; 80053; 83735; 84439; 84443; 85025

== ENCOUNTER 2024-10-20 00:22 | Outpatient (RCR) | payer OTHER, SELFPAY ==
[2024-10-06] MEDS: Normal Saline Flush 10 ML SYR IVP (13:29)
[2024-10-06 13:40] LABS: Abs Immature Grans 0.03 10^3/uL (0.0-0.06); Absolute Basophil Count 0.03 10^3/uL (0.0-0.2); Absolute Eosinophil Count 0.05 10^3/uL (0.0-0.7); Absolute Lymphocyte Count 0.58 10^3/uL (1.2-3.4); Absolute Monocyte Count 1.11 10^3/uL (0.1-0.8); Absolute Neutrophil Count 3.28 10^3/uL (1.2-6.7); Basophils % 0.6 %; HCT 34.7 % (36.0-46.0); HGB 11.3 g/dL (11.2-15.7); Immature Grans % 0.6 %; Lymphocytes % 11.4 %; MCH 33.6 pg (27.0-33.0); MCHC 32.6 % (32.0-36.0); MCV 103 fL (80-95); MPV 9.5 fL (8.0-11.0); Monocytes % 21.9 %; Neutrophils % 64.5 %; Platelet Count 267 10^3/uL (130-400); RBC 3.36 10^6/uL (3.93-5.22); RDW 14.5 % (11.7-14.6); RDW-SD 55.3 fL; WBC 5.08 10^3/uL (4.4-10.8)
[2024-10-06 14:05] LABS: ALT 35 U/L (14-59); AST 28 U/L (15-37); Albumin 3.4 g/dL (3.4-5.0); Alkaline Phosphatase 150 U/L (46-116); Anion Gap 8.2 mmol/L (3-11); BUN 11 mg/dL (7-18); Bilirubin, Total 0.3 mg/dL (0.2-1.0); CO2 24.8 mmol/L (21.0-32.0); CREATININE 0.9 mg/dL (0.55-1.02); Calcium 8.8 mg/dL (8.5-10.1); Chloride 107 mmol/L (98-107); Estimated GFR 71.39 (mL/min/1.73m2); FREE T4 1.07 ng/dL (0.76-1.46); Glucose 131 mg/dL (74-106); Magnesium 1.8 mg/dL (1.8-2.4); Potassium 4.1 mmol/L (3.5-5.1); Sodium 140 mmol/L (136-145); TSH 0.59 uIU/mL (0.36-3.74); Total Protein 6.7 g/dL (6.4-8.2)
[2024-10-20] MEDS: Normal Saline Flush 10 ML SYR IVP (11:11)
[2024-10-20 11:22] LABS: Abs Immature Grans 0.03 10^3/uL (0.0-0.06); Absolute Basophil Count 0.03 10^3/uL (0.0-0.2); Absolute Eosinophil Count 0.04 10^3/uL (0.0-0.7); Absolute Lymphocyte Count 0.62 10^3/uL (1.2-3.4); Absolute Monocyte Count 1.06 10^3/uL (0.1-0.8); Absolute Neutrophil Count 3.18 10^3/uL (1.2-6.7); Basophils % 0.6 %; Eosinophils % 0.8 %; HCT 37.1 % (36.0-46.0); HGB 11.7 g/dL (11.2-15.7); Immature Grans % 0.6 %; Lymphocytes % 12.5 %; MCH 32.6 pg (27.0-33.0); MCHC 31.5 % (32.0-36.0); MCV 103 fL (80-95); MPV 9.4 fL (8.0-11.0); Monocytes % 21.4 %; Neutrophils % 64.1 %; Platelet Count 270 10^3/uL (130-400); RBC 3.59 10^6/uL (3.93-5.22); RDW 14.2 % (11.7-14.6); RDW-SD 54.1 fL; WBC 4.96 10^3/uL (4.4-10.8)
[2024-10-20 11:59] LABS: ALT 30 U/L (14-59); AST 32 U/L (15-37); Albumin 3.5 g/dL (3.4-5.0); Alkaline Phosphatase 134 U/L (46-116); Anion Gap 9.9 mmol/L (3-11); BUN 14 mg/dL (7-18); Bilirubin, Total 0.4 mg/dL (0.2-1.0); CO2 26.1 mmol/L (21.0-32.0); Calcium 9.3 mg/dL (8.5-10.1); Chloride 105 mmol/L (98-107); Estimated GFR 62.91 (mL/min/1.73m2); FREE T4 1.25 ng/dL (0.76-1.46); Glucose 99 mg/dL (74-106); Magnesium 1.8 mg/dL (1.8-2.4); Potassium 4.3 mmol/L (3.5-5.1); Sodium 141 mmol/L (136-145); TSH 0.82 uIU/mL (0.36-3.74); Total Protein 6.9 g/dL (6.4-8.2)
== END 2024-10-22 23:59 | disposition home or self-care (01) ==
LOC: INF 00:22
PROVIDERS: Nurse Practitioner Family; PCP Nurse Practitioner Family; Visit Provider Internal Medicine Medical Oncology
DX: C34.31 Malignant neoplasm of lower lobe, right bronchus or lung (principal); Z79.899 Other long term (current) drug therapy; Z45.2 Encounter for adjustment and management of vascular access device
CPT/HCPCS: 36591; 80053; 83735; 84439; 84443; 85025

== ENCOUNTER 2024-11-18 01:58 | Outpatient (RCR) | payer OTHER, SELFPAY ==
[2024-11-03] MEDS: Normal Saline Flush 10 ML SYR IVP (12:32)
[2024-11-03 12:57] LABS: Abs Immature Grans 0.01 10^3/uL (0.0-0.06); Absolute Basophil Count 0.03 10^3/uL (0.0-0.2); Absolute Eosinophil Count 0.07 10^3/uL (0.0-0.7); Absolute Lymphocyte Count 0.63 10^3/uL (1.2-3.4); Absolute Monocyte Count 1.14 10^3/uL (0.1-0.8); Absolute Neutrophil Count 2.86 10^3/uL (1.2-6.7); Basophils % 0.6 %; Eosinophils % 1.5 %; HCT 34.1 % (36.0-46.0); HGB 11.2 g/dL (11.2-15.7); Immature Grans % 0.2 %; Lymphocytes % 13.3 %; MCH 32.9 pg (27.0-33.0); MCHC 32.8 % (32.0-36.0); MCV 100 fL (80-95); MPV 9.4 fL (8.0-11.0); Monocytes % 24.1 %; Neutrophils % 60.3 %; Platelet Count 239 10^3/uL (130-400); RDW 14.6 % (11.7-14.6); RDW-SD 53.7 fL; WBC 4.74 10^3/uL (4.4-10.8)
[2024-11-03 13:28] LABS: ALT 29 U/L (14-59); AST 28 U/L (15-37); Albumin 3.3 g/dL (3.4-5.0); Alkaline Phosphatase 114 U/L (46-116); Anion Gap 7.5 mmol/L (3-11); BUN 13 mg/dL (7-18); Bilirubin, Total 0.3 mg/dL (0.2-1.0); CO2 25.5 mmol/L (21.0-32.0); Calcium 8.9 mg/dL (8.5-10.1); Chloride 106 mmol/L (98-107); Estimated GFR 62.91 (mL/min/1.73m2); FREE T4 1.11 ng/dL (0.76-1.46); Glucose 127 mg/dL (74-106); Magnesium 1.7 mg/dL (1.8-2.4); Potassium 3.9 mmol/L (3.5-5.1); Sodium 139 mmol/L (136-145); TSH 0.49 uIU/mL (0.36-3.74); Total Protein 6.6 g/dL (6.4-8.2)
[2024-11-18] MEDS: Normal Saline Flush 10 ML SYR IVP (13:08)
[2024-11-18 13:13] LABS: Abs Immature Grans 0.03 10^3/uL (0.0-0.06); Absolute Basophil Count 0.03 10^3/uL (0.0-0.2); Absolute Eosinophil Count 0.05 10^3/uL (0.0-0.7); Absolute Lymphocyte Count 0.74 10^3/uL (1.2-3.4); Absolute Monocyte Count 1.06 10^3/uL (0.1-0.8); Absolute Neutrophil Count 4.13 10^3/uL (1.2-6.7); Basophils % 0.5 %; Eosinophils % 0.8 %; HCT 35.4 % (36.0-46.0); HGB 11.4 g/dL (11.2-15.7); Immature Grans % 0.5 %; Lymphocytes % 12.3 %; MCH 32.3 pg (27.0-33.0); MCHC 32.2 % (32.0-36.0); MCV 100 fL (80-95); MPV 9.2 fL (8.0-11.0); Monocytes % 17.5 %; Neutrophils % 68.4 %; Platelet Count 259 10^3/uL (130-400); RBC 3.53 10^6/uL (3.93-5.22); RDW 14.6 % (11.7-14.6); RDW-SD 52.4 fL; WBC 6.04 10^3/uL (4.4-10.8)
[2024-11-18 14:35] LABS: ALT 29 U/L (14-59); AST 30 U/L (15-37); Albumin 3.4 g/dL (3.4-5.0); Alkaline Phosphatase 112 U/L (46-116); Anion Gap 5.4 mmol/L (3-11); BUN 16 mg/dL (7-18); Bilirubin, Total 0.3 mg/dL (0.2-1.0); CO2 27.6 mmol/L (21.0-32.0); CREATININE 0.9 mg/dL (0.55-1.02); Calcium 9.4 mg/dL (8.5-10.1); Chloride 105 mmol/L (98-107); Estimated GFR 71.39 (mL/min/1.73m2); FREE T4 1.15 ng/dL (0.76-1.46); Glucose 94 mg/dL (74-106); Magnesium 1.6 mg/dL (1.8-2.4); Potassium 4.2 mmol/L (3.5-5.1); Sodium 138 mmol/L (136-145); TSH 0.43 uIU/mL (0.36-3.74); Total Protein 6.3 g/dL (6.4-8.2)
== END 2024-11-22 23:59 | disposition home or self-care (01) ==
LOC: INF 01:58
PROVIDERS: Nurse Practitioner Family; PCP Nurse Practitioner Family; Visit Provider Internal Medicine Medical Oncology
DX: C34.31 Malignant neoplasm of lower lobe, right bronchus or lung (principal); Z79.899 Other long term (current) drug therapy
CPT/HCPCS: 36591; 80053; 83735; 84439; 84443; 85025

== ENCOUNTER 2024-12-15 02:49 | Outpatient (RCR) | payer OTHER, SELFPAY ==
[2024-12-01] MEDS: Normal Saline Flush 10 ML SYR IVP (09:55)
[2024-12-01 10:03] LABS: Abs Immature Grans 0.02 10^3/uL (0.0-0.06); Absolute Basophil Count 0.02 10^3/uL (0.0-0.2); Absolute Eosinophil Count 0.03 10^3/uL (0.0-0.7); Absolute Lymphocyte Count 0.63 10^3/uL (1.2-3.4); Absolute Monocyte Count 1.29 10^3/uL (0.1-0.8); Absolute Neutrophil Count 2.69 10^3/uL (1.2-6.7); Basophils % 0.4 %; Eosinophils % 0.6 %; HCT 37.1 % (36.0-46.0); HGB 12.1 g/dL (11.2-15.7); Immature Grans % 0.4 %; Lymphocytes % 13.5 %; MCH 32.8 pg (27.0-33.0); MCHC 32.6 % (32.0-36.0); MCV 101 fL (80-95); MPV 9.5 fL (8.0-11.0); Monocytes % 27.6 %; Neutrophils % 57.5 %; Platelet Count 191 10^3/uL (130-400); RBC 3.69 10^6/uL (3.93-5.22); RDW 14.9 % (11.7-14.6); WBC 4.68 10^3/uL (4.4-10.8)
[2024-12-01 10:37] LABS: ALT 29 U/L (14-59); AST 29 U/L (15-37); Albumin 3.4 g/dL (3.4-5.0); Alkaline Phosphatase 124 U/L (46-116); Anion Gap 7.7 mmol/L (3-11); BUN 15 mg/dL (7-18); Bilirubin, Total 0.4 mg/dL (0.2-1.0); CO2 27.3 mmol/L (21.0-32.0); Calcium 8.7 mg/dL (8.5-10.1); Chloride 105 mmol/L (98-107); Estimated GFR 62.91 (mL/min/1.73m2); FREE T4 1.11 ng/dL (0.76-1.46); Glucose 110 mg/dL (74-106); Magnesium 2.2 mg/dL (1.8-2.4); Potassium 4.8 mmol/L (3.5-5.1); Sodium 140 mmol/L (136-145); TSH 0.74 uIU/mL (0.36-3.74)
[2024-12-15] MEDS: Normal Saline Flush 10 ML SYR IVP (13:23)
[2024-12-15 13:24] LABS: Abs Immature Grans 0.02 10^3/uL (0.0-0.06); Absolute Basophil Count 0.01 10^3/uL (0.0-0.2); Absolute Eosinophil Count 0.03 10^3/uL (0.0-0.7); Absolute Lymphocyte Count 0.62 10^3/uL (1.2-3.4); Absolute Monocyte Count 1.17 10^3/uL (0.1-0.8); Absolute Neutrophil Count 3.83 10^3/uL (1.2-6.7); Basophils % 0.2 %; Eosinophils % 0.5 %; HCT 34.4 % (36.0-46.0); HGB 11.5 g/dL (11.2-15.7); Immature Grans % 0.4 %; Lymphocytes % 10.9 %; MCH 33.2 pg (27.0-33.0); MCHC 33.4 % (32.0-36.0); MCV 99 fL (80-95); MPV 9.1 fL (8.0-11.0); Monocytes % 20.6 %; Neutrophils % 67.4 %; Platelet Count 284 10^3/uL (130-400); RBC 3.46 10^6/uL (3.93-5.22); RDW 14.9 % (11.7-14.6); RDW-SD 53.5 fL; WBC 5.68 10^3/uL (4.4-10.8)
[2024-12-15 13:51] LABS: ALT 28 U/L (14-59); AST 28 U/L (15-37); Albumin 3.4 g/dL (3.4-5.0); Alkaline Phosphatase 116 U/L (46-116); Anion Gap 7.5 mmol/L (3-11); BUN 16 mg/dL (7-18); Bilirubin, Total 0.3 mg/dL (0.2-1.0); CO2 26.5 mmol/L (21.0-32.0); CREATININE 0.9 mg/dL (0.55-1.02); Calcium 8.5 mg/dL (8.5-10.1); Chloride 105 mmol/L (98-107); Estimated GFR 71.39 (mL/min/1.73m2); FREE T4 1.09 ng/dL (0.76-1.46); Glucose 128 mg/dL (74-106); Magnesium 2.2 mg/dL (1.8-2.4); Potassium 4.2 mmol/L (3.5-5.1); Sodium 139 mmol/L (136-145); TSH 0.76 uIU/mL (0.36-3.74); Total Protein 6.7 g/dL (6.4-8.2)
== END 2024-12-22 23:59 | disposition home or self-care (01) ==
LOC: INF 02:49
PROVIDERS: Nurse Practitioner Family; PCP Nurse Practitioner Family; Visit Provider Internal Medicine Medical Oncology
DX: C34.31 Malignant neoplasm of lower lobe, right bronchus or lung (principal); Z79.899 Other long term (current) drug therapy; Z45.2 Encounter for adjustment and management of vascular access device
CPT/HCPCS: 36591; 80053; 83735; 84439; 84443; 85025